=== PATIENT | male | born 1935 | race Caucasian/White ===

== ENCOUNTER 2016-10-12 20:15 | Emergency (ER) | payer OTHER, MEDICARE ==
[~2016-10-12] VITALS: Ht 188 cm; Wt 95.3 kg
--- NOTE | 2016-10-12 20:42 | ED MVC/FALL/TRAUMA COMPLAINT ---
History of Present Illness General Chief Complaint: Fall Stated Complaint: FALL Source: patient Exam Limitations: no limitations Vital Signs & Intake/Output Vital Signs & Intake/Output Vital Signs Date Time Temp Pulse Resp B/P B/P Pulse O2 O2 Flow FiO2 Mean Ox Delivery Rate 10/12 2234 97.0 90 18 127/69 95 Room Air ED Intake and Output 10/13 0000 10/12 1200 Intake Total 0 Output Total Balance 0 Intake, Oral 0 Patient 210 lb Weight Weight Reported by Patient Measurement Method Allergies Uncoded Allergies: (SEASONAL) (11/21/14) Reconcile Medications Allopurinol 300 MG TABLET 1 TAB PO DAILY URIC ACID (Reported) Ascorbic Acid (Vitamin C) (Unknown Strength) TABLET (Unknown Dose) PO DAILY SUPPLEMENT (Reported) Aspirin (Ecotrin*) 81 MG TABLET.DR 1 TAB PO DAILY HEART/BLOOD (Reported) Cholecalciferol (Vitamin D3) (Vitamin D) (Unknown Strength) TABLET (Unknown Dose) PO DAILY SUPPLEMENT (Reported) Melatonin 5 MG TABLET 1 TAB PO QPM SUPPLEMENT (Reported) Nifedipine (Nifedipine ER) 60 MG TAB.ER.24 1 TAB PO DAILY BP (Reported) [place]-3 Fatty Acids/Fish Oil (Fish Oil 1,200 MG Softgel) (Unknown Strength) CAPSULE (Unknown Dose) PO DAILY SUPPLEMENT (Reported) Triamterene/Hydrochlorothiazid (Triamterene-Hctz 37.5-25 MG Cp) 37.5 MG-25 MG CAPSULE 1 CAP PO DAILY DIURETIC (Reported) Valsartan 160 MG TABLET 1 TAB PO DAILY BP (Reported) Triage Note: PT TO ED C/O BRUISE TO HEAD AND RT RIB PAIN WITH PAIN WITH INSPIRATION S/P FALL WHILE STANDING ON A CHAIR 3.5 HRS AGO. DENIES LOC, DENIES BLOOD THINNERS. DENIES HEADACHE. STATES FOOT WAS ON THE EDGE OF THE CHAIR AND THE CHAIR TIPPED OVER. LANDED ON CONCRETE, HANDS HIT FIRST "I BOUNCED" AND THEN HEAD HIT. DENIES NECK PAIN O2 SAT 96% ON RA Triage Nurses Notes Reviewed? yes Onset: Abrupt Duration: hour(s): (FEW) Timing: single episode today Severity: mild Injuries/Fall Location: head, chest Method of Injury: fall Loss of Consciousness: no loss of consciousness Modifying Factors: Worsens With: breathing. HPI: 81 year old male with h/o HTN presents after a fall at 3:30 off of a chair. Patient was trying to fix a mouse trap above a door ledge and lost balance and fell down. He hit his head and right chest wall. He denies passing out. He states he was able to get off the floor on his own. He was icing his head. Patient does take daily aspirin. This evening when his came home he told her about the right-sided chest pain. He denies any headache or blurred vision. Denies any shoulder pain back pain or hip pain. Pain is worse with deep inspiration. Currently he has no chest pain at rest or with inspiration. No fever or chills. No chest pain. He did not have any syncopal symptoms. Past History Travel History Traveled to [place] past 21 day No Medical History Any Pertinent Medical History? see below for history Cardiovascular: hypertension Renal: nephrolithiasis Influenza Vaccine: 02/02/08 Surgical History Surgical History: cholecystectomy Psychosocial History Who do you live with Spouse Services at Home None What is your primary language Romansh Tobacco Use: Quit >30 days ago ETOH Use: denies use Illicit Drug Use: denies illicit drug use Family History Hx Contributory? No Review of Systems Review of Systems Constitutional: Denies: chills, fever. Eyes: Denies: blurred vision. Ears, Nose, Throat, Mouth: Denies: ear pain. Respiratory: Denies: short of breath. Cardiovascular: Reports: chest pain. Gastrointestinal/Abdominal: Denies: abdominal pain, nausea, vomiting. Musculoskeletal: Reports: see HPI (right chest wall pain). Denies: back pain. Skin: Reports: erythema. Neurological/Psychological: Denies: anxiety, ataxia, confusion. Physical Exam Physical Exam General Appearance: well developed/nourished, alert, awake Head: FOREHEAD CONTUSION/ABRASION Eyes: Bilateral: normal appearance. Ears, Nose, Throat, Mouth: hearing grossly normal, moist mucous membrane Neck: normal inspection, supple, full range of motion Respiratory: normal breath sounds, no respiratory distress, RIGHT CHEST WALL CONTUSION Cardiovascular: regular rate/rhythm Peripheral Pulses: 2+ radial (R), 2+ radial (L) Gastrointestinal: normal bowel sounds, soft, non-tender Back: normal inspection, normal range of motion Extremities: normal range of motion, NO PAIN Neurologic/Psych: no motor/sensory deficits, awake, alert, oriented x 3 Skin: intact, normal color, warm/dry Diagram Head: 1) HEMATOMA/ABRASION Core Measures ACS in differential dx? No Severe Sepsis Present: No Septic Shock Present: No Progress Differential Diagnosis: C/T/L spine injury, ext injury, ICH, RIB FX, RIB CONTUSION, PULMONARY CONTUSION Plan of Care: Laboratory Tests 10/12/162126: Urine Color YEL, Urine Clarity CLEAR, Urine pH 6.0, Ur Specific [place] 1.010, Urine Protein NEG, Urine Ketones NEG, Urine Nitrite NEG, Urine Bilirubin NEG, Urine Urobilinogen 0.2, Ur Leukocyte Esterase NEG, Ur Microscopic EXAM NOT REQUIRED, Urine Hemoglobin NEG, Urine Glucose NEG Diagnostic Imaging: Viewed by Me: CT Scan. Discussed w/RAD: CT Scan. Radiology Impression: PATIENT: RODY DUNHAM PRESENT AGE: 81 PATIENT ACCOUNT NO: [id number] : 37 LOCATION: [facility] ORDERING PHYSICIAN: ADDIS MARINA MD SERVICE DATE: 10/12/16 EXAM TYPE: CAT - CT HEAD WO IV CONTRAST EXAMINATION: CT HEAD WITHOUT CONTRAST CLINICAL INFORMATION: Status post fall. COMPARISON: MRI of the brain 12/24/2015. TECHNIQUE: Contiguous axial imaging was performed from the skull base to vertex without intravenous administration of contrast. DLP: 728 mGy-cm FINDINGS: There is no evidence of acute intracranial hemorrhage or territorial infarction. No abnormal mass effect or midline shift is seen. Morales to white matter differentiation is well preserved. No extra-axial fluid collections are identified. There is mild atrophy of the ventricular sulcal pattern is age- appropriate. There is no abnormal attenuation within the brain parenchyma. There is mild soft tissue prominence in the right frontal region without evidence of underlying tracts are suggesting a contusion. The mastoid air cells and visualized portions of the paranasal sinuses are well aerated. IMPRESSION: No acute intracranial pathology. Small probable scalp contusion the right frontal region. DICTATED BY: VEENA STRONG MD DATE/TIME DICTATED:10/12/162209 SPORTS ATTORNEY:JEN DATE/TIME TRANSCRIBED:10/12/162209 CONFIDENTIAL, DO NOT COPY WITHOUT APPROPRIATE AUTHORIZATION. <Electronically signed in Other Vendor System> SIGNED BY: VEENA STRONG MD 10/12/162217, PATIENT: RODY DUNHAM PRESENT AGE: 81 PATIENT ACCOUNT NO: [id number] : 37 LOCATION: ER ORDERING PHYSICIAN: ADDIS MARINA MD SERVICE DATE: 10/12/16 EXAM TYPE: CAT - CT CHEST WO IV CONTRAST EXAMINATION : CT CHEST WITHOUT CONTRAST CLINICAL INFORMATION: Chest wall pain after a fall COMPARISON: None TECHNIQUE: Multidetector volumetric CT imaging of the chest was done. Axial MIP volume rendering provided. Sagittal and coronal reformatted images were obtained. DLP: 505.02 mGy-cm FINDINGS: LUNGS: The lungs are clear with no evidence of inflammation or nodules. MEDIASTINUM: The mediastinum is normal. PLEURA: There is no pleural effusion. No pleural mass or thickening. AXILLA: No lymphadenopathy. UPPER ABDOMEN: Surgical clips at gallbladder fossa. OSSEOUS STRUCTURES: Multilevel degenerative change of dorsal spine with endplate spurs of the vertebrae. No fracture. IMPRESSION: No acute abnormality. No fracture. No acute change of the chest. DICTATED BY: MARKIE GRULLON MD DATE/TIME DICTATED:10/12/162211 SPORTS ATTORNEY:JEN DATE/TIME TRANSCRIBED:2211 CONFIDENTIAL, DO NOT COPY WITHOUT APPROPRIATE AUTHORIZATION. < Electronically signed in Other Vendor System> SIGNED BY: MARKIE GRULLON MD 2219, PATIENT: RODY DUNHAM PRESENT AGE: 81 PATIENT ACCOUNT NO: [id number] : 37 LOCATION: [facility] ORDERING PHYSICIAN: ADDIS MARINA MD SERVICE DATE: 10/12/16 EXAM TYPE: CAT - CT CERV SPINE WO IV CONTRAST EXAMINATION: CT CERVICAL SPINE WITHOUT CONTRAST CLINICAL INFORMATION: Status post fall. COMPARISON: None. TECHNIQUE: Multiple axial CT images of the cervical spine were obtained without intravenous contrast. DLP: 485 mGy-cm FINDINGS: No acute fracture or subluxation of the cervical spine. Prevertebral soft tissues are within normal limits. The atlantoaxial and craniocervical junctions are intact. There is moderate degenerative disc disease and facet arthrosis of the cervical spine. The included bilateral lung apices are clear. SPINAL LEVELS: C2-C3: Bilateral facet arthrosis and uncovertebral hypertrophy contributing to mild left-sided neuroforaminal narrowing. No significant right-sided neuroforaminal narrowing or spinal canal stenosis. C3-C4 : Severe bilateral facet arthrosis and uncovertebral hypertrophy contributing to severe left-sided neuroforaminal narrowing. No significant right-sided neuroforaminal narrowing or spinal canal stenosis. C4-C5: Bilateral facet arthrosis, right greater than left, without significant neuroforaminal narrowing or spinal canal stenosis. C5-C6: Bilateral facet arthrosis, projecting to moderate bilateral neuroforaminal narrowing and mild spinal canal stenosis. C6- C7: Uncovertebral hypertrophy and bilateral facet arthrosis contributing to mild to moderate right-sided neuroforaminal narrowing. Mild left-sided neuroforaminal narrowing. No significant spinal canal stenosis. C7-T1: No significant neuroforaminal narrowing or spinal canal stenosis. IMPRESSION: No acute cervical spine fracture or subluxation. Degenerative changes of the cervical spine, as described above. DICTATED BY: ALMA WU MD DATE/TIME DICTATED:10/12/162211 SPORTS ATTORNEY:JEN DATE/TIME TRANSCRIBED:10/12/162211 CONFIDENTIAL, DO NOT COPY WITHOUT APPROPRIATE AUTHORIZATION. <Electronically signed in Other Vendor System> SIGNED BY: ALMA WU MD 10/12/162220 Initial ED EKG: NSR, ? ECTOPIC ATRIAL RHYTHM Departure Departure Time of Disposition: 2226 Disposition: HOME OR SELF CARE Condition: Stable Clinical Impression Primary Impression: Chest wall contusion Secondary Impressions: Hematoma of frontal scalp Referrals: LASHELL SUBRAMANIAN,ALVARO Vogel (PCP/Family) Additional Instructions: TAKE TYLENOL OR ADVIL NEEDED CONTINUE TO ICE THE FOREHEAD RETURN NEEDED. Departure Forms: Customer Survey General Discharge Information
[2016-10-12 21:16] LABS: ABSOLUTE BASOPHIL COUNT 0 /CUMM (0.0-0.2); ABSOLUTE EOSINOPHIL COUNT 0.4 /CUMM (0.0-0.7); ABSOLUTE GRANULOCYTE CT 7.8 /CUMM (1.4-6.5); ABSOLUTE LYMPH COUNT 2.7 /CUMM (1.2-3.4); ABSOLUTE MONOCYTE COUNT 1.2 /CUMM (0.10-0.60); BASOPHIL % 0.3 % (0.0-2.0); GRANULOCYTE % 64.3 % (42.2-75.2); HEMATOCRIT 45.6 % (42-52); MEAN CORPUSCULAR HGB 31.6 PG (27.0-31.0); MEAN CORPUSCULAR HGB CONC 33.4 G/DL (33.0-37.0); MEAN CORPUSCULAR VOLUME 94.7 FL (80.0-94.0); MEAN PLATELET VOLUME 8.6 FL (7.4-10.4); PLATELET COUNT 278 /CUMM (130-400); RBC DISTRIBUTION WIDTH 14.4 % (11.5-14.5); RED BLOOD CELL CT 4.82 /CUMM (4.70-6.10); WHITE BLOOD CELL COUNT 12.1 /CUMM (4.8-10.8)
[2016-10-12 21:22] LABS: PT 13.8 SEC (9.4-12.5); PTT 38 SEC (25-37)
[2016-10-12] MEDS ORDERED: TRIAMTERENE-HC1 EAC3 PO (21:49)
[2016-10-12] MEDS ORDERED: NIFEDIPINE ER60 M2 PO (21:49)
[2016-10-12] MEDS ORDERED: VALSARTAN160 M1 PO (21:49)
[2016-10-12] MEDS ORDERED: ALLOPURINOL300 M1 PO (21:50)
[2016-10-12] MEDS ORDERED: ASPIRIN EC81 M1 PO (21:50)
[2016-10-12] MEDS ORDERED: VITAMIN C500 M8 PO (21:51)
[2016-10-12] MEDS ORDERED: MELATONIN5 M7 PO (21:51)
[2016-10-12] MEDS ORDERED: VITAMIN D2000 UNI1 PO (21:51)
[2016-10-12] MEDS ORDERED: FISH OIL 1,2001 EAC4 PO (21:51)
--- NOTE | 2016-10-12 22:18 | CT SCAN REPORT ---
EXAMINATION: CT HEAD WITHOUT CONTRAST CLINICAL INFORMATION: Status post fall. COMPARISON: MRI of the brain 12/24/2015. TECHNIQUE: Contiguous axial imaging was performed from the skull base to vertex without intravenous administration of contrast. DLP: 728 mGy-cm FINDINGS: There is no evidence of acute intracranial hemorrhage or territorial infarction. No abnormal mass effect or midline shift is seen. Morales to white matter differentiation is well preserved. No extra-axial fluid collections are identified. There is mild atrophy of the ventricular sulcal pattern is age-appropriate. There is no abnormal attenuation within the brain parenchyma. There is mild soft tissue prominence in the right frontal region without evidence of underlying tracts are suggesting a contusion. The mastoid air cells and visualized portions of the paranasal sinuses are well aerated. IMPRESSION: No acute intracranial pathology. Small probable scalp contusion the right frontal region.
--- NOTE | 2016-10-12 22:20 | CT SCAN REPORT ---
EXAMINATION: CT CHEST WITHOUT CONTRAST CLINICAL INFORMATION: Chest wall pain after a fall COMPARISON: None TECHNIQUE: Multidetector volumetric CT imaging of the chest was done. Axial MIP volume rendering provided. Sagittal and coronal reformatted images were obtained. DLP: 505.02 mGy-cm FINDINGS: LUNGS: The lungs are clear with no evidence of inflammation or nodules. MEDIASTINUM: The mediastinum is normal. PLEURA: There is no pleural effusion. No pleural mass or thickening. AXILLA: No lymphadenopathy. UPPER ABDOMEN: Surgical clips at gallbladder fossa. OSSEOUS STRUCTURES: Multilevel degenerative change of dorsal spine with endplate spurs of the vertebrae. No fracture. IMPRESSION: No acute abnormality. No fracture. No acute change of the chest.
--- NOTE | 2016-10-12 22:21 | CT SCAN REPORT ---
EXAMINATION: CT CERVICAL SPINE WITHOUT CONTRAST CLINICAL INFORMATION: Status post fall. COMPARISON: None. TECHNIQUE: Multiple axial CT images of the cervical spine were obtained without intravenous contrast. DLP: 485 mGy-cm FINDINGS: No acute fracture or subluxation of the cervical spine. Prevertebral soft tissues are within normal limits. The atlantoaxial and craniocervical junctions are intact. There is moderate degenerative disc disease and facet arthrosis of the cervical spine. The included bilateral lung apices are clear. SPINAL LEVELS: C2-C3: Bilateral facet arthrosis and uncovertebral hypertrophy contributing to mild left-sided neuroforaminal narrowing. No significant right-sided neuroforaminal narrowing or spinal canal stenosis. C3-C4: Severe bilateral facet arthrosis and uncovertebral hypertrophy contributing to severe left-sided neuroforaminal narrowing. No significant right-sided neuroforaminal narrowing or spinal canal stenosis. C4-C5: Bilateral facet arthrosis, right greater than left, without significant neuroforaminal narrowing or spinal canal stenosis. C5-C6: Bilateral facet arthrosis, projecting to moderate bilateral neuroforaminal narrowing and mild spinal canal stenosis. C6-C7: Uncovertebral hypertrophy and bilateral facet arthrosis contributing to mild to moderate right-sided neuroforaminal narrowing. Mild left-sided neuroforaminal narrowing. No significant spinal canal stenosis. C7-T1: No significant neuroforaminal narrowing or spinal canal stenosis. IMPRESSION: No acute cervical spine fracture or subluxation. Degenerative changes of the cervical spine, as described above.
[2016-10-12 22:34] VITALS: BP 127/69
== END 2016-10-12 22:37 ==
LOC: ERH 20:15
PROVIDERS: Emergency Medicine
DX: S20.211A Contusion of right front wall of thorax, initial encounter (principal); S00.03XA Contusion of scalp, initial encounter; S00.81XA Abrasion of other part of head, initial encounter; I10 Essential (primary) hypertension; Z87.891 Personal history of nicotine dependence; W17.89XA Other fall from one level to another, initial encounter; Y93.89 Activity, other specified
CPT/HCPCS: 81003; 90471; 90714; 93005; 93010

== ENCOUNTER 2017-05-03 00:13 | Inpatient (IN) | payer OTHER, MEDICARE ==
[~2017-05-03] VITALS: Ht 188 cm; Wt 93.9 kg
[~2017-05-03 00:13] MED LIST: ALLOPURINOL300 M1 PO; ASPIRIN EC81 M1 PO; CENTRUM MEN'S1 EACH PO; FISH OIL 1,2001 EAC4 PO; GOLYTELY SOLU4000 ML PO; MELATONIN5 M7 PO; NIFEDIPINE ER60 M2 PO; TRIAMTERENE-HC1 EAC3 PO; VALSARTAN160 M1 PO; VITAMIN C500 M8 PO; VITAMIN D31000 UNI2 PO
--- NOTE | 2017-05-03 00:25 | ED AMS/SEIZURE/WEAK/DIZZY ---
History of Present Illness General Chief Complaint: Altered Mental Status Stated Complaint: ALTERED MENTAL STATUS, ? MED REACTION Source: patient, family, EMS Exam Limitations: no limitations Vital Signs & Intake/Output Vital Signs & Intake/Output Vital Signs Date Time Temp Pulse Resp B/P B/P Pulse O2 O2 Flow FiO2 Mean Ox Delivery Rate 05/03 0121 97.7 70 20 121/78 96 Room Air Allergies Coded Allergies: No Known Allergies (05/03/17) Reconcile Medications Allopurinol 300 MG TABLET 1 TAB PO DAILY URIC ACID (Reported) Ascorbic Acid (Vitamin C) 500 MG TABLET 1 TAB PO DAILY SUPPLEMENT (Reported) Aspirin (Ecotrin*) 81 MG TABLET.DR 1 TAB PO DAILY HEART/BLOOD (Reported) Cholecalciferol (Vitamin D3) 1,000 UNIT TABLET 1 TAB PO DAILY VITAMIN SUPPORT (Reported) Multivits,Ca,Min/Iron/FA/Lycop (Centrum Men's Tablet) 8 MG IRON-200 MCG-600 MCG TABLET 1 TAB PO DAILY VITAMIN SUPPORT (Reported) Nifedipine (Nifedipine ER) 60 MG TAB.ER.24 1 TAB PO DAILY BP (Reported) [place]-3 Fatty Acids/Fish Oil (Fish Oil 1,200 MG Softgel) 360 MG-1,200 MG CAPSULE 1 CAP PO DAILY SUPPLEMENT (Reported) Peg 3350/Na Sulf,Bicarb,Cl/KCl (Golytely Solution) 236-22.74G SOLN.RECON 8 OZ PO AD CONSTIPATION Triamterene/Hydrochlorothiazid (Triamterene-Hctz 37.5-25 MG Cp) 37.5 MG-25 MG CAPSULE 1 CAP PO DAILY DIURETIC (Reported) Valsartan 160 MG TABLET 1 TAB PO DAILY BP (Reported) Triage Note: TRIAGE: BIBA FROM HOME W/ , PER , PATIENT HX DEMENTIA W/ INCREASED CONFUSION AND AGITATION AT NIGHT. RECENTLY PLACED ON LORAZEPAM TID W/O RELIEF. REPORTS "HE PACES AROUND AND GETS VERY AGITATED AT NIGHT." PATIENT BEING EVALUATED BY MD HENDERSON IN TRIAGE. Triage Nurses Notes Reviewed? yes Onset: Gradual Duration: day(s):, getting worse Timing: recent history Injury Environment: home Severity: moderate Modifying Factors: Worsens With: medication. Associated Symptoms: increased confusion, agitation HPI: 81 yo gentleman h/o primary progressive aphasia and dementia, presents with increased agitation, confusion, and hallucinations. Per his , she reports, "He has had trouble at night... he gets up... he sees things that aren't there... he becomes more confused, more agitated.... His doctor started lorazepam 3 days ago.... and now it seems to be worse." She notes increased agitation and confusion tonight, no trauma, fever, dyspnea, syncope, chest pain. He is otherwise well. Past History Travel History Traveled to [place] past 21 day No Medical History Any Pertinent Medical History? see below for history Neurological: dementia, primary progressive aphasia EENT: NONE Cardiovascular: hypertension Respiratory: NONE Gastrointestinal: NONE Hepatic: NONE Renal: nephrolithiasis Musculoskeletal: gout Psychiatric: NONE Endocrine: NONE Blood Disorders: NONE Cancer(s): SKIN CA PRODUCT DEVELOPMENT ECOLOGIST/Reproductive: NONE Tetanus Vaccine: 10/12/16 Surgical History Surgical History: cholecystectomy Psychosocial History Who do you live with Spouse Services at Home None What is your primary language Frisian Tobacco Use: Cognitive Impairment Family History Hx Contributory? No Review of Systems Review of Systems Constitutional: Reports: no symptoms. EENTM: Reports: no symptoms. Respiratory: Reports: no symptoms. Cardiovascular: Reports: no symptoms. GI: Reports: no symptoms. Genitourinary: Reports: no symptoms. Musculoskeletal: Reports: no symptoms. Skin: Reports: no symptoms. Neurological/Psychological: Reports: no symptoms. Hematologic/Endocrine: Reports: no symptoms. Immunologic/Allergic: Reports: no symptoms. All Other Systems: Reviewed and Negative Physical Exam Physical Exam General Appearance: well developed/nourished, no apparent distress Head: atraumatic, normal appearance Eyes: Bilateral: normal appearance, PERRL, EOMI. Ears, Nose, Throat: normal pharynx, normal ENT inspection Neck: normal inspection, supple, full range of motion Respiratory: normal breath sounds, chest non-tender, no respiratory distress, quiet respiration, lungs clear Cardiovascular: regular rate/rhythm Gastrointestinal: normal bowel sounds, soft, non-tender, no organomegaly Back: normal inspection, normal range of motion Extremities: normal range of motion Neurologic/Psych: no motor/sensory deficits, awake, alert, axox1... does not know name/date Skin: intact, normal color Core Measures ACS in differential dx? No CVA/TIA Diagnosis No Sepsis Present: No Sepsis Focused Exam Completed? No Progress Differential Diagnosis: electrolyte imbalance, hypoglycemia, intracranial Hem., intracranial mass/tumor, sundowning, dementia vs other. Plan of Care: Orders Procedure Date/time Status Heart Healthy Diet 05/03 B Active Patient Data 05/03 340 Active Saline Lock 05/03 323 Active Misc Message 05/03 323 Active ED Holding Orders 05/03 323 Active Admit to inpatient 05/03 323 Active Vital Signs 05/03 323 Active Code Status 05/03 323 Active Add-on Test (ER Only) 05/03 312 Active PT Evaluate & Treat 05/03 242 Active ED CRISIS PSYCH CONSULT 05/03 242 Active CASE MANAGEMENT CONSULT 05/03 242 Active URINE DRUGS OF ABUSE 05/03 216 Complete EKG 05/03 214 Active URINALYSIS 05/03 31 Complete TROPONIN LEVEL 05/03 31 Complete LIPASE 05/03 31 Complete HEPATIC FUNCTION PANEL 05/03 31 Complete CBC WITHOUT DIFFERENTIAL 05/03 31 Complete BASIC METABOLIC PANEL 05/03 31 Complete AMYLASE 05/03 31 Complete EKG 05/03 31 Active Straight Cath 05/03 0026 Active Laboratory Tests 05/03/17 0217: Urine Opiates Screen < 100.00, Methadone Screen < 40, Barbiturate Screen < 60, Ur Phencyclidine Scrn < 6.00, Amphetamines Screen < 100, U Benzodiazepines Scrn < 85, Urine Cocaine Screen < 50, Urine Cannabis Screen < 5.00, Urine Color YEL, Urine Clarity HAZY H, Urine pH 6.0, Ur Specific [place] 1.015, Urine Protein NEG, Urine Ketones NEG, Urine Nitrite NEG, Urine Bilirubin NEG, Urine Urobilinogen 0.2, Ur Leukocyte Esterase SMALL H, Ur Microscopic SEDIMENT EXAMINED, Urine RBC 1-3, Urine WBC 5-10 H, Ur Epithelial Cells RARE, Urine Bacteria RARE H, Urine Hemoglobin NEG, Urine Glucose NEG 05/03/17 0130: Anion Gap 13, Estimated GFR > 60, BUN/Creatinine Ratio 23.8, Glucose 129 H, Calcium 8.6, Total Bilirubin 0.3, Direct Bilirubin 0.2, AST 30, ALT 44, Alkaline Phosphatase 67, Troponin I < 0.01, Total Protein 6.1 L, Albumin 3.7, Amylase 49 , Lipase 215, CBC w Diff NO MAN DIFF REQ, RBC 4.31 L, MCV 93.8, MCH 31.5 H, RDW 13.7, MPV 7.8, Gran % 67.8, Lymphocytes % 20.0 L, Monocytes % 8.8, Eosinophils % 3.1, Basophils % 0.3, Absolute Granulocytes 8.2 H, Absolute Lymphocytes 2.4, Absolute Monocytes 1.1 H, Absolute Eosinophils 0.4, Absolute Basophils 0, PUBS MCHC 33.6 Diagnostic Imaging: Viewed by Me: Radiology Read, CT Scan. Discussed w/RAD: Radiology Read, CT Scan. Radiology Impression: PATIENT: RODY DUNHAM PRESENT AGE: 81 PATIENT ACCOUNT NO: [id number] : 37 LOCATION: [facility] ORDERING PHYSICIAN: Leonides Henderson MD SERVICE DATE: 05/03/17 EXAM TYPE: CAT - CT HEAD WO IV CONTRAST EXAMINATION: CT HEAD WITHOUT CONTRAST CLINICAL INFORMATION: Mental status change COMPARISON: 10/12/2016 TECHNIQUE: Contiguous axial imaging was performed from the skull base to vertex without intravenous contrast. DLP: 758 mGy-cm. FINDINGS: There is no evidence of acute intracranial hemorrhage or territorial infarction. No abnormal mass effect or midline shift is seen. Morales to white matter differentiation is well preserved. No extra-axial fluid collections are identified. No hydrocephalus. Proportional prominence of the ventricles and sulcal spaces is consistent with mild volume loss. There is no abnormal attenuation within the brain parenchyma. The osseous structures and soft tissues are normal. The mastoid air cells and visualized portions of the paranasal sinuses are well aerated. IMPRESSION: No acute intracranial pathology. Mild cerebral volume loss. DICTATED BY: Raffi Beltre MD DATE/TIME DICTATED:05/03/17123 NATIONAL SERVICE OFFICER:JEN DATE/TIME TRANSCRIBED:05/03/17123 CONFIDENTIAL, DO NOT COPY WITHOUT APPROPRIATE AUTHORIZATION. <Electronically signed in Other Vendor System> SIGNED BY: Raffi Beltre MD 05/03/170 CXR Impression: no acute abnormality, no infiltrates, normal size heart, normal mediastinum, PATIENT: RODY DUNHAM PRESENT AGE: 81 PATIENT ACCOUNT NO: [id number] : 37 LOCATION: [facility] ORDERING PHYSICIAN: Leonides Henderson MD SERVICE DATE: 05/03/17 EXAM TYPE: RAD - XRY- PORTABLE CHEST XRAY EXAMINATION: XR PORTABLE CHEST CLINICAL INFORMATION: Atrial fibrillation. Palpitations. COMPARISON: Multiple priors, most recently CT from . TECHNIQUE: Portable frontal view of the chest was obtained. FINDINGS: The lungs are well expanded. There is no focal consolidation, edema, or effusion. No pneumothorax. The cardiomediastinal silhouette is normal in size with a tortuous aorta. No acute osseous abnormality. IMPRESSION: No acute pulmonary findings. DICTATED BY: Raffi Beltre MD DATE/TIME DICTATED:349 NATIONAL SERVICE OFFICER:JEN DATE/TIME TRANSCRIBED:05/03/17349 CONFIDENTIAL, DO NOT COPY WITHOUT APPROPRIATE AUTHORIZATION. <Electronically signed in Other Vendor System> SIGNED BY: Raffi Beltre MD 05/03/17354 Initial ED EKG: atrial fibrillation x 2 Departure Departure Disposition: STILL A PATIENT Condition: Stable Clinical Impression Primary Impression: Dementia Secondary Impressions: Agitation, Atrial fibrillation Referrals: Lorena SUBRAMANIAN,Fritz Vogel (PCP/Family) Departure Forms: Customer Survey General Discharge Information Admission Note Spoke With: Jose SUBRAMANIAN,[facility] Documentation of Exam: Documentation of any treatments & extenuating circumstances including Concerns Regarding Discharge (functional status, medication knowledge or non-compliance, living conditions, etc.) that warrant an admission rather than observation: Pt with new onset atrial fibrillation who merits monitoring. pt is rate controlled... discussed with dr. cruz who will evaluate patient in the AM to determine if pt needs anticoagulation vs cardioversion, etc. pt also with sundowning, with agitated dementia, getting worse... would merit psychiatric evaluation, medication optimization.
--- NOTE | 2017-05-03 01:30 | CT SCAN REPORT ---
EXAMINATION: CT HEAD WITHOUT CONTRAST CLINICAL INFORMATION: Mental status change COMPARISON: 10/12/2016 TECHNIQUE: Contiguous axial imaging was performed from the skull base to vertex without intravenous contrast. DLP: 758 mGy-cm. FINDINGS: There is no evidence of acute intracranial hemorrhage or territorial infarction. No abnormal mass effect or midline shift is seen. Morales to white matter differentiation is well preserved. No extra-axial fluid collections are identified. No hydrocephalus. Proportional prominence of the ventricles and sulcal spaces is consistent with mild volume loss. There is no abnormal attenuation within the brain parenchyma. The osseous structures and soft tissues are normal. The mastoid air cells and visualized portions of the paranasal sinuses are well aerated. IMPRESSION: No acute intracranial pathology. Mild cerebral volume loss.
[2017-05-03 01:45] LABS: ABSOLUTE BASOPHIL COUNT 0 /CUMM (0.0-0.2); ABSOLUTE EOSINOPHIL COUNT 0.4 /CUMM (0.0-0.7); ABSOLUTE GRANULOCYTE CT 8.2 /CUMM (1.4-6.5); ABSOLUTE LYMPH COUNT 2.4 /CUMM (1.2-3.4); ABSOLUTE MONOCYTE COUNT 1.1 /CUMM (0.10-0.60); BASOPHIL % 0.3 % (0.0-2.0); EOSINOPHIL % 3.1 % (0-5); GRANULOCYTE % 67.8 % (42.2-75.2); HEMATOCRIT 40.4 % (42-52); MEAN CORPUSCULAR HGB 31.5 PG (27.0-31.0); MEAN CORPUSCULAR HGB CONC 33.6 G/DL (33.0-37.0); MEAN CORPUSCULAR VOLUME 93.8 FL (80.0-94.0); MEAN PLATELET VOLUME 7.8 FL (7.4-10.4); PLATELET COUNT 351 /CUMM (130-400); RBC DISTRIBUTION WIDTH 13.7 % (11.5-14.5); RED BLOOD CELL CT 4.31 /CUMM (4.70-6.10); WHITE BLOOD CELL COUNT 12.1 /CUMM (4.8-10.8)
--- NOTE | 2017-05-03 03:55 | RADIOLOGY REPORT ---
EXAMINATION: XR PORTABLE CHEST CLINICAL INFORMATION: Atrial fibrillation. Palpitations. COMPARISON: Multiple priors, most recently CT from 10/12/2016. TECHNIQUE: Portable frontal view of the chest was obtained. FINDINGS: The lungs are well expanded. There is no focal consolidation, edema, or effusion. No pneumothorax. The cardiomediastinal silhouette is normal in size with a tortuous aorta. No acute osseous abnormality. IMPRESSION: No acute pulmonary findings.
--- NOTE | 2017-05-03 04:34 | History & Physical ---
Ariel Cerna MD 05/03/17 0433: General Information and HPI MD Statement: I have seen and personally examined CHARLARODY Aaron NICHOLS and documented this H&P. The patient is a 81 year old M who presented with a patient stated chief complaint of [hallucinations, agitation]. Source of Information: family Exam Limitations: confusion, dementia History of Present Illness: Patient is a 81-year-old male with past medical history of primary progressive aphasia, dementia with recent MRI done in January and February 2017 seen by cyndi Gomez presenting this admission with his due to agitation and hallucinations. Patient has dementia and is unable to provide history. Patient's was present at the time of interview and history was obtained from her periods she states that over the past week patient has been having a cold and has had a productive cough with white phlegm that started approximately 1 week prior to this admission. States patient was evaluated by his primary care physician who placed him on antibiotics (patient was given Bactrim as states that he has received Z-Zack in the past and has never worked for him), cough syrup, Mucinex. States that after he started the medications he was not sleeping and was becoming more agitated. After one day on the antibiotics patient showed some improvement temporarily however after which he continued to deteriorate and started having hallucinations. Patient's medications were stopped and patient was given lorazepam after which he started to pace around the house, started having visual hallucinations of people in the house and per was disoriented to place as he continuously would get out of bed and get dressed to go home spied already being at home. Patient's states that for approximately 2 days while on the antibiotics he had a had a poor appetite. States otherwise he has been eating well. Patient's states that in addition to the above he has also had trouble initiating stream, has had dribbling which patient's says is new. States he has denied any complaints of pain including abdominal pain, chest pain and pain on urination. Denies nausea/vomiting and fever. States patient is normally constipated however had 1 loose watery bowel movement one day prior to admission and has noted some mucus discharged on his underwear. Denies seeing any hematuria or bright red blood in stool. Patient's states that she has not slept in the past 3 days due to the patient's symptoms. States that his primary care has started paperwork for a visiting nurse. States she is currently his sole cutting pressman. States she is concerned about leaving him alone at home. Allergies/Medications Allergies: Coded Allergies: No Known Allergies (05/03/17) Home Med list Allopurinol 300 MG TABLET 1 TAB PO DAILY URIC ACID (Reported) Ascorbic Acid (Vitamin C) 500 MG TABLET 1 TAB PO DAILY SUPPLEMENT (Reported) Aspirin (Ecotrin*) 81 MG TABLET.DR 1 TAB PO DAILY HEART/BLOOD (Reported) Cholecalciferol (Vitamin D3) 1,000 UNIT TABLET 1 TAB PO DAILY VITAMIN SUPPORT (Reported) Multivits,Ca,Min/Iron/FA/Lycop (Centrum Men's Tablet) 8 MG IRON-200 MCG-600 MCG TABLET 1 TAB PO DAILY VITAMIN SUPPORT (Reported) Nifedipine (Nifedipine ER) 60 MG TAB.ER.24 1 TAB PO DAILY BP (Reported) [place]-3 Fatty Acids/Fish Oil (Fish Oil 1,200 MG Softgel) 360 MG-1,200 MG CAPSULE 1 CAP PO DAILY SUPPLEMENT (Reported) Peg 3350/Na Sulf,Bicarb,Cl/KCl (Golytely Solution) 236-22.74G SOLN.RECON 8 OZ PO AD CONSTIPATION Triamterene/Hydrochlorothiazid (Triamterene-Hctz 37.5-25 MG Cp) 37.5 MG-25 MG CAPSULE 1 CAP PO DAILY DIURETIC (Reported) Valsartan 160 MG TABLET 1 TAB PO DAILY BP (Reported) Past History Travel History Traveled to [place] past 21 day No Medical History Neurological: dementia, primary progressive aphasia EENT: NONE Cardiovascular: hypertension Respiratory: NONE Gastrointestinal: NONE Hepatic: NONE Renal: nephrolithiasis Musculoskeletal: gout Psychiatric: NONE Endocrine: NONE Blood Disorders: NONE Cancer(s): SKIN CA LIBRARY SUPERVISOR/Reproductive: NONE Tetanus Vaccine: 10/12/16 Surgical History Surgical History: cholecystectomy Past Family/Social History Psychosocial History Services at Home: None Review of Systems Review of Systems Constitutional: Reports: no symptoms. Cardiovascular: Reports: no symptoms. Respiratory: Reports: cough. GI: Reports: see HPI. Genitourinary: Reports: see HPI. Musculoskeletal: Reports: no symptoms. Skin: Reports: no symptoms. Neurological/Psychological: Reports: see HPI, confusion. Hematologic/Endocrine: Reports: no symptoms. Immunologic/Allergic: Reports: no symptoms. Exam & Diagnostic Data Last 24 Hrs of Vital Signs/I&O Vital Signs Date Time Temp Pulse Resp B/P B/P Pulse O2 O2 Flow FiO2 Mean Ox Delivery Rate 05/03 1002 97.6 84 18 134/84 98 Room Air 05/03 1000 97.6 84 18 134/84 05/03 1000 97.6 84 18 134/84 05/03 0930 97.6 84 20 131/84 98 Room Air 05/03 0715 97.0 74 20 134/86 97 Room Air 05/03 0555 97.6 78 20 167/85 95 Room Air 05/03 0121 97.7 70 20 121/78 96 Room Air Intake & Output 05/03 1600 05/03 0800 05/03 0000 Intake Total Output Total Balance Patient 207 lb Weight Physical Exam General Appearance Alert, No Acute Distress, is constantly getting up from bed and walking around the room, trying to leave, however is able to follow commands and is not combative Skin Temp/Moisture Exam: Warm/Dry HEENT Atraumatic, PERRLA, EOMI Cardiovascular Regular Rate, Normal S1, Normal S2 Lungs Clear to Auscultation, Normal Air Movement Abdomen Normal Bowel Sounds, Soft, No Tenderness Neurological Normal Gait, Strength at 5/5 X4 Ext, Normal Tone, Cranial Nerves 3- 12 NL Extremities No Clubbing, No Cyanosis, No Edema, Normal Pulses, No Tenderness/ Swelling Vascular Normal Pulses, Pulses Symmetrical Last 24 Hrs of Labs/Efren: Laboratory Tests 05/03/17 0217: Urine Opiates Screen < 100.00, Methadone Screen < 40, Barbiturate Screen < 60, Ur Phencyclidine Scrn < 6.00, Amphetamines Screen < 100, U Benzodiazepines Scrn < 85, Urine Cocaine Screen < 50, Urine Cannabis Screen < 5.00, Urine Color YEL, Urine Clarity HAZY H, Urine pH 6.0, Ur Specific [place] 1.015, Urine Protein NEG, Urine Ketones NEG, Urine Nitrite NEG, Urine Bilirubin NEG, Urine Urobilinogen 0.2, Ur Leukocyte Esterase SMALL H, Ur Microscopic SEDIMENT EXAMINED, Urine RBC 1-3, Urine WBC 5-10 H, Ur Epithelial Cells RARE, Urine Bacteria RARE H, Urine Hemoglobin NEG, Urine Glucose NEG 05/03/17 0130: Anion Gap 13, Estimated GFR > 60, BUN/Creatinine Ratio 23.8, Glucose 129 H, Calcium 8.6, Total Bilirubin 0.3, Direct Bilirubin 0.2, AST 30, ALT 44, Alkaline Phosphatase 67, Troponin I < 0.01, Total Protein 6.1 L, Albumin 3.7, Amylase 49 , Lipase 215, TSH 0.784, Free T4 1.53, CBC w Diff NO MAN DIFF REQ, RBC 4.31 L, MCV 93.8, MCH 31.5 H, RDW 13.7, MPV 7.8, Gran % 67.8, Lymphocytes % 20.0 L, Monocytes % 8.8, Eosinophils % 3.1, Basophils % 0.3, Absolute Granulocytes 8.2 H, Absolute Lymphocytes 2.4, Absolute Monocytes 1.1 H, Absolute Eosinophils 0.4 , Absolute Basophils 0, PUBS MCHC 33.6 Assessment/Plan Assessment: Patient is a 81-year-old male with past medical history significant for primary progressive aphasia and dementia presenting this admission with increased agitation likely secondary to recent upper respiratory infection and use of benzos as well as EKG showing questionable new onset of atrial fibrillation. Patient will be admitted to telemetry for management of followin. EKG showing ?Atrial fibrillation Monitor on telemetry for arrhythmia Serial EKG and troponins to rule out ACS Echo in the a.m. TSH and free T4 Cardiology consult Anticoagulation pending cardiology evaluation Continue aspirin 2. Acute delirium in the setting of primary progressive aphasia, dementia with recent upper respiratory infection and use of benzodiazepine Neurology consult in the a.m. with Dr. Bianchi Psychiatry consult in the a.m. Avoid any sedating medications and restraints One-to-one sitter [facility] Social work consult for placement 3. History of hypertension Continue nifedipine, valsartan, triamterene/hydrochlorothiazide 4. History of gout Continue allopurinol DVT prophylaxis: Lovenox subcutaneous Diet:Heart healthy Code: DNR/DN As Ranked By This Provider Problem List: 1. Dementia 2. Cardiac arrhythmia, unspecified Core Measures/Misc (01/03) Acute Coronary Syndrome ACS Diagnosis: No Congestive Heart Failure Congestive Heart Failure Diagnosis No Cerebrovascular Accident CVA/TIA Diagnosis: No VTE (View Protocol) VTE Risk Factors Age>40 No Mechanical VTE Prophylaxis d/t N/A MechProphylax Ordered No VTE Pharm Prophylaxis d/t NA PharmProphylax ordered Sepsis (View protocol) Sepsis Present: No Jose SUBRAMANIAN, [facility] 05/03/17 0728: Attending MD Review Statement Attending Statement Attending MD Statement: examined this patient, discuss w/resident/PA/[employer]TER [employer] TURNER, agreed w/resident/PA/FITTER AND TURNER, discussed with family, reviewed images, amended to note Attending Assessment/Plan: 81 yo M with h/o HTN, primary progressive aphasia with dementia, nephrolithiasis , is brought in by for agitation, confusion and hallucinations. Patient's provides history. At baseline, patient does have confusion and is not oriented most of the times with intermittent hallucinations. Over the past 1 week, patient was having URI symptoms and was prescribed Bactrim by his PCP (Apr 26). However, patient used to stay up all night, pacing, agitated so PCP then prescribed Ativan which reports giving 3 days ago. states, this made things worse, he seems more agitated, confused, with visual hallucinations and constant pacing. has been staying up all night due to this and it has started to affect her health as well. Patient has seen Dr. Bianchi in the past. VSS. Limited exam as patient not co-operative. Labs: WBC 12.1, K 3.2, trop neg. UA hazy, small LE, WBC 5-10. Urine tox screen negative. Head CT: no acute change. CXR: neg. EKG: documented atrial fibrillation, however there are discernible 'p'waves and the RR interval seems irregular ?sinus arrhythmia. Pulse is regular. Assessment and plan: 1. Acute delirium worsened in the setting of ativan 2. Dementia, Primary progressive aphasia 3. ?New onset atrial fibrillation 4. Essential hypertension - Admit to telemetry - Fall precautions - Monitor for arrhythmias - Serial EKG and troponin to rule out ACS - Obtain echocardiogram - Cardio consult - Check TSH, free T4, B12, folic acid. - Replete electrolytes, check magnesium level - No need for rate controlling meds as HR is in 70-80's - Hold off anticoagulation as it is unclear if this is clearly Afib - Also, patient is demented, elderly, high risk of falls and would not be an ideal candidate for AC - Avoid delirium triggers no benzos or narcotics - No evidence of infection/ sepsis, leukocytosis is likely reactive - Obtain Psych consult, would benefit from geriatric consult - Obtain Neuro consult - Maintain 1:1 sitter - Case management consult and eventual placement - Resume nifedipine, valsartan, triamterene-HCTZ, allopurinol and aspirin. - Consider seroquel or rozarem for insomnia DVT ppx Lovenox. DNR/I. CarlosvaneOctaviano warren 05/03/17 0904: Resident Review Statement Resident Statement: examined this patient, discussed with international editorial producer, agreed with international editorial producer, discussed with family, reviewed EMR data (avail), discussed with nursing , discussed with case mgmt, reviewed images, amended to note Other Findings: 81-year-old gentleman with past medical history of hypertension, advanced primary progressive aphasia, hyperuricemia/gout and 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 History was obtained from the who presented at his side. Patient was recently treated for upper respiratory tract infection with Bactrim. According to patient at his baseline has intermittent hallucination. Recently he was started on lorazepam by his primary care physician for agitation. Unfortunately no medication worsened his baseline hallucination, agitation and insomnia and he was brought into the emergency room for further assessment. In ED patient was found to be in atrial fibrillation with rate control. VSS. ROS: Denies chest pain, palpitation, lightheadedness, dizziness. PH/EX: Not in acute distress. Heart: S1-S2, regular no murmur. Lungs are clear. Extremities: No edema. Pertinent data: Chest x-ray: No pathology CBC and BEP within normal limits; EKG: Of his P waves in multiple leads, ?? irregularities in RR interval. List of active problems #1 questionable atrial fibrillation; new onset #2 hypertension #3 hyperuricemia/gout and recurrence uric acid nephrolithiasis #4 advanced dementia and agitation due to inappropriate use of benzodiazepine Plan * Admit to telemetry for continuous monitoring * Fall precaution * Trending troponin and EKG rule out ACS * Echo in the a.m. * TSH and free T4 * Continue his home antihypertensive medication * Hold off anticoagulation awaiting cardiology consult * Obtain geriatric/psych consult in the a.m. * Rozeram on 12.5 mg at bedtime * Avoid hypnotics and narcotics and restrained * One-on-one sitter Housekeeping orders Lovenox 40 units subcutaneous daily DNR/DNI
--- NOTE | 2017-05-03 07:30 | Admission Certification ---
Admission Certification Certification Statement - As attending physician, I certify that at the time of - admission, based on clinical presentation, severity of - symptoms, need for further diagnostic testing and - therapeutic interventions, and risk of adverse outcomes - without in-hospital treatment, in my clinical assessment, - this patient requires an acute hospital stay for a minimum - of two nights or longer. I have also considered psychsocial - factors such as support system, advanced age, financial - issues, cognitive issues, and failed out-patient treatments, - past re-admission history, safety of patient, and lack of - compliance as applicable. Specific rationale supporting this admission is: Acute delirium in this patient with primary progressive aphasia and dementia, ? new onset atrial fibrillation.
[2017-05-03 09:30] VITALS: BP 131/84
--- NOTE | 2017-05-03 11:38 | PN- Att Addend ---
Attending Addendum Attending Brief Note Patient seen and examined. Patient in bed, not in acute distress. present at the bedside. Patient is confused at baseline and unable to provide any reasonable history. He however denies shortness of breath or chest pain. Vital Signs Date Time Temp Pulse Resp B/P B/P Pulse O2 O2 Flow FiO2 Mean Ox Delivery Rate 05/03 1002 97.6 84 18 134/84 98 Room Air 05/03 1000 97.6 84 18 134/84 05/03 1000 97.6 84 18 134/84 05/03 0930 97.6 84 20 131/84 98 Room Air 05/03 0715 97.0 74 20 134/86 97 Room Air 05/03 0555 97.6 78 20 167/85 95 Room Air 05/03 0121 97.7 70 20 121/78 96 Room Air General appearance: Well-developed, not in respiratory distress Heart: S1-S2 irregular Lungs: Good entry bilaterally, clear to auscultation. abdomen: Soft, nontender with normal bowel sounds. extremities: No pedal edema. Skin: Intact with no rashes. Laboratory Tests 05/03/17 0800: Troponin I < 0.01 05/03/17 0217: Urine Opiates Screen < 100.00, Methadone Screen < 40, Barbiturate Screen < 60, Ur Phencyclidine Scrn < 6.00, Amphetamines Screen < 100, U Benzodiazepines Scrn < 85, Urine Cocaine Screen < 50, Urine Cannabis Screen < 5.00, Urine Color YEL, Urine Clarity HAZY H, Urine pH 6.0, Ur Specific [place] 1.015, Urine Protein NEG, Urine Ketones NEG, Urine Nitrite NEG, Urine Bilirubin NEG, Urine Urobilinogen 0.2, Ur Leukocyte Esterase SMALL H, Ur Microscopic SEDIMENT EXAMINED, Urine RBC 1-3, Urine WBC 5-10 H, Ur Epithelial Cells RARE, Urine Bacteria RARE H, Urine Hemoglobin NEG, Urine Glucose NEG 05/03/17 0130: Anion Gap 13, Estimated GFR > 60, BUN/Creatinine Ratio 23.8, Glucose 129 H, Calcium 8.6, Total Bilirubin 0.3, Direct Bilirubin 0.2, AST 30, ALT 44, Alkaline Phosphatase 67, Troponin I < 0.01, Total Protein 6.1 L, Albumin 3.7, Amylase 49 , Lipase 215, TSH 0.784, Free T4 1.53, CBC w Diff NO MAN DIFF REQ, RBC 4.31 L, MCV 93.8, MCH 31.5 H, RDW 13.7, MPV 7.8, Gran % 67.8, Lymphocytes % 20.0 L, Monocytes % 8.8, Eosinophils % 3.1, Basophils % 0.3, Absolute Granulocytes 8.2 H, Absolute Lymphocytes 2.4, Absolute Monocytes 1.1 H, Absolute Eosinophils 0.4 , Absolute Basophils 0, PUBS MCHC 33.6 Problems: 1. Abnormal EKG 2. Dementia with prmary pogresive aphasia. Plan: -Awaiting evaluation by the cardiology service. Continue telemetry monitoring. Follow-up echocardiogram results. -Patient is much, at present however states that she is unable to keep that to him any longer at home due to his dementia. Recommend evaluation by the psychiatric service. He will likely benefit from placement in geriatric psychiatry unit until he is deemed more appropriate for discharge home. -Supplemental potassium orally. Repeat chemistry in a.m. -Leukocytosis likely reactive. No clinical evidence of infectious process at present. Repeat CBCs in a.m.
--- NOTE | 2017-05-03 13:05 | Cons- Cardiology ---
General Information and HPI Consulting Request Date of Consult: 05/03/17 Requested By: Clarisa Cerna MD Reason for Consult: Atrial fibrillation History of Present Illness: The patient is a 81-year-old male with history of dementia and aphasia who was brought to the emergency department by his for agitation, insomnia, and hallucinations. The symptoms have been worsening over months, and have gradually progressed to the point that she is unable to manage at home. The patient had a recent upper respiratory infection which was treated with Bactrim. He was started a few days ago on lorazepam for his agitation. His symptoms continued to worsen, and he has not been able to function at home. On evaluation in the emergency department, the patient was found to be in atrial fibrillation which is a new finding for him. He previously had an EKG across ma 4 months ago, and he was not reported to be in atrial fibrillation at that time. The patient has had no cardiac symptoms. No palpitations. No chest pain. No syncope. No orthopnea. No lightheadedness or dizziness. No nausea or vomiting. The patient continues to be confused, and in most of the history was obtained from his . The patient's notes that he has been ambulating less recently. He has not had frequent falls. No head trauma. Allergies/Medications Allergies: Coded Allergies: No Known Allergies (05/03/17) Home Med List: Allopurinol 300 MG TABLET 1 TAB PO DAILY URIC ACID (Reported) Ascorbic Acid (Vitamin C) 500 MG TABLET 1 TAB PO DAILY SUPPLEMENT (Reported) Aspirin (Ecotrin*) 81 MG TABLET.DR 1 TAB PO DAILY HEART/BLOOD (Reported) Cholecalciferol (Vitamin D3) 1,000 UNIT TABLET 1 TAB PO DAILY VITAMIN SUPPORT (Reported) Multivits,Ca,Min/Iron/FA/Lycop (Centrum Men's Tablet) 8 MG IRON-200 MCG-600 MCG TABLET 1 TAB PO DAILY VITAMIN SUPPORT (Reported) Nifedipine (Nifedipine ER) 60 MG TAB.ER.24 1 TAB PO DAILY BP (Reported) [place]-3 Fatty Acids/Fish Oil (Fish Oil 1,200 MG Softgel) 360 MG-1,200 MG CAPSULE 1 CAP PO DAILY SUPPLEMENT (Reported) Peg 3350/Na Sulf,Bicarb,Cl/KCl (Golytely Solution) 236-22.74G SOLN.RECON 8 OZ PO AD CONSTIPATION Triamterene/Hydrochlorothiazid (Triamterene-Hctz 37.5-25 MG Cp) 37.5 MG-25 MG CAPSULE 1 CAP PO DAILY DIURETIC (Reported) Valsartan 160 MG TABLET 1 TAB PO DAILY BP (Reported) Current Medications: Current Medications Sig/Sandra Start time Last Medication Dose Route Stop Time Status Admin Allopurinol 300 MG DAILY 05/03 1000 AC 05/03 PO 1000 Aspirin Buffered 81 MG DAILY 05/03 1000 AC 05/03 PO 1000 Cholecalciferol 1,000 IU DAILY 05/03 1000 AC 05/03 PO 1000 Enoxaparin Sodium 40 MG DAILY 05/03 1000 AC 05/03 SC 1000 Losartan Potassium 50 MG DAILY 05/03 1000 AC 05/03 PO 1000 Multivitamins 1 TAB DAILY 05/03 1000 AC 05/03 PO 1000 Nifedipine 60 MG DAILY 05/03 1000 AC 05/03 PO 1000 Quetiapine Fumarate 25 MG ONCE ONE 05/03 0045 DC 05/03 PO 05/03 0046 0238 Ramelteon 8 MG QPM 05/03 2200 AC PO Triamterene/HCTZ 1 CAP DAILY 05/03 1000 AC 05/03 PO 1000 Review of Systems Review of Systems: No rash. No tremor. No melena. No fever. No chills. All other systems were reviewed, and were noted to be negative. 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 Surgical History Surgical History: cholecystectomy Family History Relations & Conditions If Any: MOTHER Hypertension MOTHER Diabetes mellitus Psychosocial History Services at Home: None Exam & Diagnostic Data Vital Signs and I&O Vital Signs Date Time Temp Pulse Resp B/P B/P Pulse O2 O2 Flow FiO2 Mean Ox Delivery Rate 05/03 1002 97.6 84 18 134/84 98 Room Air 05/03 1000 97.6 84 18 134/84 05/03 1000 97.6 84 18 134/84 05/03 0930 97.6 84 20 131/84 98 Room Air 05/03 0715 97.0 74 20 134/86 97 Room Air 05/03 0555 97.6 78 20 167/85 95 Room Air 05/03 0121 97.7 70 20 121/78 96 Room Air Intake & Output 05/03 0800 05/03 0000 05/02 1600 05/02 0800 05/02 0000 Intake Total Output Total 300 Balance -300 Output, Urine 300 Patient 207 lb Weight Physical Exam: Gen: The patient is confused, and in no acute distress HEENT: Normal nose, ears, and oropharynx. Pupils equal bilaterally. Conjunctiva normal. Neck: Supple with no JVD, no masses, and no thyromegaly Lungs: Clear to auscultation with normal respiratory effort Heart: irreg irreg, S1, S2, no murmurs. No peripheral edema, 2+ pulses in the lower extremities bilaterally Abdomen: Soft, nontender, no masses. No hepatomegaly. No splenomegaly Extremities: No clubbing or cyanosis. Normal muscle strength in the upper and lower extremities Skin: Normal skin turgor with no skin ulcers or lesions noted. Neuro: Cranial nerves intact. Sensation intact Psych: Confused and disoriented. Agitated affect. Labs/Efren Results: Laboratory Tests 05/03 05/03 0800 0217 Chemistry Troponin I (<0.11 ng/ml) < 0.01 Toxicology Urine Opiates Screen (>2000 NG/ML) < 100.00 Methadone Screen (>300 NG/ML) < 40 Barbiturate Screen (>200 NG/ML) < 60 Ur Phencyclidine Scrn (>25 NG/ML) < 6.00 Amphetamines Screen (>1000 NG/ML) < 100 U Benzodiazepines Scrn (>200 NG/ML) < 85 Urine Cocaine Screen (>300 NG/ML) < 50 Urine Cannabis Screen (>50 NG/ML) < 5.00 Urines Urine Color (YEL,AMB,STR) YEL Urine Clarity (CLEAR) HAZY H Urine pH (5.0 - 8.0) 6.0 Ur Specific [place] (1.001 - 1.035) 1.015 Urine Protein (NEG,<30 MG/DL) NEG Urine Ketones (NEG) NEG Urine Nitrite (NEG) NEG Urine Bilirubin (NEG) NEG Urine Urobilinogen (0.1 - 1.0 EU/dl) 0.2 Ur Leukocyte Esterase (NEG) SMALL H Ur Microscopic SEDIMENT EXAMINED Urine RBC (0 - 5 /HPF) 1-3 Urine WBC (0 - 2 /HPF) 5-10 H Ur Epithelial Cells (NONE,FEW) RARE Urine Bacteria (NEG/NONE) RARE H Urine Hemoglobin (NEG) NEG Urine Glucose (N MG/DL) NEG 05/03 0130 Chemistry Sodium (137 - 145 mmol/L) 142 Potassium (3.5 - 5.1 mmol/L) 3.2 L Chloride (98 - 107 mmol/L) 103 Carbon Dioxide (22 - 30 mmol/L) 26 Anion Gap (5 - 16) 13 BUN (9 - 20 mg/dL) 19 Creatinine (0.7 - 1.2 mg/dL) 0.8 Estimated GFR (>60 ml/min) > 60 BUN/Creatinine Ratio (7 - 25 %) 23.8 Glucose (65 - 99 mg/dL) 129 H Calcium (8.4 - 10.2 mg/dL) 8.6 Total Bilirubin (0.2 - 1.3 mg/dL) 0.3 Direct Bilirubin (< 0.4 mg/dL) 0.2 AST (17 - 59 U/L) 30 ALT (21 - 72 U/L) 44 Alkaline Phosphatase (< 127 U/L) 67 Troponin I (<0.11 ng/ml) < 0.01 Total Protein (6.3 - 8.2 g/dL) 6.1 L Albumin (3.5 - 5.0 g/dL) 3.7 Amylase (30 - 110 U/L) 49 Lipase (23 - 300 U/L) 215 TSH (0.270 - 4.200 uIU/mL) 0.784 Free T4 (0.78 - 2.44 ng/dL) 1.53 Hematology CBC w Diff NO MAN DIFF REQ WBC (4.8 - 10.8 /CUMM) 12.1 H RBC (4.70 - 6.10 /CUMM) 4.31 L Hgb (14.0 - 18.0 G/DL) 13.6 L Hct (42 - 52 %) 40.4 L MCV (80.0 - 94.0 FL) 93.8 MCH (27.0 - 31.0 PG) 31.5 H RDW (11.5 - 14.5 %) 13.7 Plt Count (130 - 400 /CUMM) 351 MPV (7.4 - 10.4 FL) 7.8 Gran % (42.2 - 75.2 %) 67.8 Lymphocytes % (20.5 - 51.1 %) 20.0 L Monocytes % (1.7 - 9.3 %) 8.8 Eosinophils % (0 - 5 %) 3.1 Basophils % (0.0 - 2.0 %) 0.3 Absolute Granulocytes (1.4 - 6.5 /CUMM) 8.2 H Absolute Lymphocytes (1.2 - 3.4 /CUMM) 2.4 Absolute Monocytes (0.10 - 0.60 /CUMM) 1.1 H Absolute Eosinophils (0.0 - 0.7 /CUMM) 0.4 Absolute Basophils (0.0 - 0.2 /CUMM) 0 PUBS MCHC (33.0 - 37.0 G/DL) 33.6 Diagnostic Data EKG Results EKG tracings independently reviewed: Initial EKG reveals atrial fibrillation with ventricular rate of 72, T wave abnormality, QTC 482 Repeat EKG reveals atrial fibrillation with ventricular response of 77, intraventricular conduction delay, nonspecific T-wave abnormality, QTC 480 CXR Results The lungs are well expanded. There is no focal consolidation, edema, or effusion. No pneumothorax. The cardiomediastinal silhouette is normal in size with a tortuous aorta. No acute osseous abnormality. Other Results Head CT: No acute intracranial pathology. Mild cerebral volume loss. Assessment/Plan Assessment/Plan Assessment: The patient is a 81-year-old male with history of dementia and progressive aphasia who is because of gradual worsening of confusion, agitation, and hallucinations. There was no sudden change in his condition, however he has gradually progressed to the point that his is unable to manage him at home. He is noted to be in atrial fibrillation, which is a new finding. There are no symptoms attributable to the atrial fibrillation. He apparently had an EKG 4 months ago which did not show atrial fibrillation, and the atrial fibrillation may have started at any time since that point. Recommendations: * Continue current doses of losartan, triamterene/HCTZ, and nifediine for blood pressure control * Ventricular rate is normal without any rate control medications. No need to add any additional medications for rate control. * Echocardiogram. * The patient's reports that he does not have frequent falls, and there is no obvious contraindication to anticoagulationi If there is no contraindication , I recommend anticoagulation for stroke prevention. Would initially start IV heparin per protocol with plan to change to Eliquis prior to discharge. * Would discontinue aspirin when starting anticoagulation Consult Acknowledgment - Thank you for your consult request.
[2017-05-03 16:13] LABS: PT 15.6 SEC (9.4-12.5); PTT 38 SEC (25-37)
--- NOTE | 2017-05-03 17:24 | Cons- Neurology ---
General Information and HPI Consulting Request Date of Consult: 05/03/17 Requested By: Clarisa eCrna MD Source of Information: Exam Limitations: unable to give history History of Present Illness: 81-year-old male brought to Hospital by . Patient has history of Alzheimer disease although she terms it primary aphasia Symptoms apparently began with language difficulty Over the past few months there has been advancement of his problem She now notes that he becomes intermittently agitated He does not sleep and one wonders throughout the house in the nighttime He is constantly moving things from one place to another He intermittently has hallucinations off and seeing people He does not offer any specific complaints He attempts to get out of the house in the evening hours although apparently has not done so His is unable to sleep since he is wandering at night time He is unable to keep appointments or to any household billing although he does dress himself and eats on his own He walks without assistance Allergies/Medications Allergies: Coded Allergies: No Known Allergies (05/03/17) Home Med List: Allopurinol 300 MG TABLET 1 TAB PO DAILY URIC ACID (Reported) Ascorbic Acid (Vitamin C) 500 MG TABLET 1 TAB PO DAILY SUPPLEMENT (Reported) Aspirin (Ecotrin*) 81 MG TABLET.DR 1 TAB PO DAILY HEART/BLOOD (Reported) Cholecalciferol (Vitamin D3) 1,000 UNIT TABLET 1 TAB PO DAILY VITAMIN SUPPORT (Reported) Multivits,Ca,Min/Iron/FA/Lycop (Centrum Men's Tablet) 8 MG IRON-200 MCG-600 MCG TABLET 1 TAB PO DAILY VITAMIN SUPPORT (Reported) Nifedipine (Nifedipine ER) 60 MG TAB.ER.24 1 TAB PO DAILY BP (Reported) [place]-3 Fatty Acids/Fish Oil (Fish Oil 1,200 MG Softgel) 360 MG-1,200 MG CAPSULE 1 CAP PO DAILY SUPPLEMENT (Reported) Peg 3350/Na Sulf,Bicarb,Cl/KCl (Golytely Solution) 236-22.74G SOLN.RECON 8 OZ PO AD CONSTIPATION Triamterene/Hydrochlorothiazid (Triamterene-Hctz 37.5-25 MG Cp) 37.5 MG-25 MG CAPSULE 1 CAP PO DAILY DIURETIC (Reported) Valsartan 160 MG TABLET 1 TAB PO DAILY BP (Reported) Current Medications: Current Medications Sig/Sandra Start time Last Medication Dose Route Stop Time Status Admin Allopurinol 300 MG DAILY 05/03 1000 AC 05/03 PO 1000 Aspirin Buffered 81 MG DAILY 05/03 1000 DC 05/03 PO 1000 Cholecalciferol 1,000 IU DAILY 05/03 1000 AC 05/03 PO 1000 Enoxaparin Sodium 40 MG DAILY 05/03 1000 AC 05/03 SC 1000 Heparin Sodium 25,000 UNIT Q24H 05/03 1445 AC 05/03 (Porcine) IV 1530 Sodium Chloride 500 ML Losartan Potassium 50 MG DAILY 05/03 1000 AC 05/03 PO 1000 Multivitamins 1 TAB DAILY 05/03 1000 AC 05/03 PO 1000 Nifedipine 60 MG DAILY 05/03 1000 AC 05/03 PO 1000 Quetiapine Fumarate 25 MG ONCE ONE 05/03 0045 DC 05/03 PO 05/03 0046 0238 Ramelteon 8 MG QPM 05/03 2200 AC PO Triamterene/HCTZ 1 CAP DAILY 05/03 1000 AC 05/03 PO 1000 Review of Systems Review of Systems: Patient offers no complaints He denies: headache Hearing change Vision difficulty Swallowing problems Chest pains Breathing difficulties Nausea or vomiting; he has intermittent constipation Also has urinary frequency No falls or head trauma No recent fevers No focal weakness Other systems reviewed are negative Past History Travel History Traveled to [place] past 21 day No Medical History Neurological: dementia, primary progressive aphasia EENT: NONE Cardiovascular: hypertension Respiratory: NONE Gastrointestinal: NONE Hepatic: NONE Renal: nephrolithiasis Musculoskeletal: gout Psychiatric: NONE Endocrine: NONE Blood Disorders: NONE Cancer(s): SKIN CA 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 Surgical History Surgical History: cholecystectomy Family History Relations & Conditions If Any: MOTHER Hypertension MOTHER Diabetes mellitus Psychosocial History Services at Home: None Exam & Diagnostic Data Vital Signs and I&O Vital Signs Date Time Temp Pulse Resp B/P B/P Pulse O2 O2 Flow FiO2 Mean Ox Delivery Rate 05/03 1640 105 05/03 1524 98.1 133 18 153/87 94 Room Air 05/03 1344 97.6 101 18 162/91 98 Room Air 05/03 1002 97.6 84 18 134/84 98 Room Air 05/03 1000 97.6 84 18 134/84 05/03 1000 97.6 84 18 134/84 05/03 0930 97.6 84 20 131/84 98 Room Air 05/03 0715 97.0 74 20 134/86 97 Room Air 05/03 0555 97.6 78 20 167/85 95 Room Air 05/03 0121 97.7 70 20 121/78 96 Room Air Intake & Output 05/03 1600 05/03 0800 05/03 0000 Intake Total Output Total 300 Balance -300 Output, Urine 300 Patient 207 lb Weight Alert and cooperative Heart sounds normal, no carotid bruits, distal pulses intact Not oriented to time or place Poor recall Extreme difficulty naming objects Attention span good Concentration and insight very poor Extraocular movements full, pupils equal reactive, fundi benign visual henriquez intact, no facial weakness or sensory loss, palate tongue and shoulders intact, hearing grossly intact Mild rigidity in upper extremities Gross motor strength upper and lower extremities intact Sensory examination intact to light touch bilaterally Deep tendon reflexes hypoactive throughout plantar responses flexor Patient walks without assistance, Physical Exam: Advancing dementia accompanied by insomnia, wandering, periods of agitation and hallucinations Last 48 Hours of Lab Results: Laboratory Tests 05/03 05/03 05/03 1548 0800 0217 Chemistry Troponin I (<0.11 ng/ml) < 0.01 Coagulation PT (9.4 - 12.5 SEC) 15.6 H INR (0.90 - 1.17) 1.49 H APTT (25 - 37 SEC) 38 H Toxicology Urine Opiates Screen (>2000 NG/ML) < 100.00 Methadone Screen (>300 NG/ML) < 40 Barbiturate Screen (>200 NG/ML) < 60 Ur Phencyclidine Scrn (>25 NG/ML) < 6.00 Amphetamines Screen (>1000 NG/ML) < 100 U Benzodiazepines Scrn (>200 NG/ML) < 85 Urine Cocaine Screen (>300 NG/ML) < 50 Urine Cannabis Screen (>50 NG/ML) < 5.00 Urines Urine Color (YEL,AMB,STR) YEL Urine Clarity (CLEAR) HAZY H Urine pH (5.0 - 8.0) 6.0 Ur Specific [place] (1.001 - 1.035) 1.015 Urine Protein (NEG,<30 MG/DL) NEG Urine Ketones (NEG) NEG Urine Nitrite (NEG) NEG Urine Bilirubin (NEG) NEG Urine Urobilinogen (0.1 - 1.0 EU/dl) 0.2 Ur Leukocyte Esterase (NEG) SMALL H Ur Microscopic SEDIMENT EXAMINED Urine RBC (0 - 5 /HPF) 1-3 Urine WBC (0 - 2 /HPF) 5-10 H Ur Epithelial Cells (NONE,FEW) RARE Urine Bacteria (NEG/NONE) RARE H Urine Hemoglobin (NEG) NEG Urine Glucose (N MG/DL) NEG 05/03 0130 Chemistry Sodium (137 - 145 mmol/L) 142 Potassium (3.5 - 5.1 mmol/L) 3.2 L Chloride (98 - 107 mmol/L) 103 Carbon Dioxide (22 - 30 mmol/L) 26 Anion Gap (5 - 16) 13 BUN (9 - 20 mg/dL) 19 Creatinine (0.7 - 1.2 mg/dL) 0.8 Estimated GFR (>60 ml/min) > 60 BUN/Creatinine Ratio (7 - 25 %) 23.8 Glucose (65 - 99 mg/dL) 129 H Calcium (8.4 - 10.2 mg/dL) 8.6 Total Bilirubin (0.2 - 1.3 mg/dL) 0.3 Direct Bilirubin (< 0.4 mg/dL) 0.2 AST (17 - 59 U/L) 30 ALT (21 - 72 U/L) 44 Alkaline Phosphatase (< 127 U/L) 67 Troponin I (<0.11 ng/ml) < 0.01 Total Protein (6.3 - 8.2 g/dL) 6.1 L Albumin (3.5 - 5.0 g/dL) 3.7 Amylase (30 - 110 U/L) 49 Lipase (23 - 300 U/L) 215 TSH (0.270 - 4.200 uIU/mL) 0.784 Free T4 (0.78 - 2.44 ng/dL) 1.53 Hematology CBC w Diff NO MAN DIFF REQ WBC (4.8 - 10.8 /CUMM) 12.1 H RBC (4.70 - 6.10 /CUMM) 4.31 L Hgb (14.0 - 18.0 G/DL) 13.6 L Hct (42 - 52 %) 40.4 L MCV (80.0 - 94.0 FL) 93.8 MCH (27.0 - 31.0 PG) 31.5 H RDW (11.5 - 14.5 %) 13.7 Plt Count (130 - 400 /CUMM) 351 MPV (7.4 - 10.4 FL) 7.8 Gran % (42.2 - 75.2 %) 67.8 Lymphocytes % (20.5 - 51.1 %) 20.0 L Monocytes % (1.7 - 9.3 %) 8.8 Eosinophils % (0 - 5 %) 3.1 Basophils % (0.0 - 2.0 %) 0.3 Absolute Granulocytes (1.4 - 6.5 /CUMM) 8.2 H Absolute Lymphocytes (1.2 - 3.4 /CUMM) 2.4 Absolute Monocytes (0.10 - 0.60 /CUMM) 1.1 H Absolute Eosinophils (0.0 - 0.7 /CUMM) 0.4 Absolute Basophils (0.0 - 0.2 /CUMM) 0 PUBS MCHC (33.0 - 37.0 G/DL) 33.6 Imaging/Other Studies: CT head MPRESSION: No acute intracranial pathology. Mild cerebral volume loss. Assessment/Plan Assessment: Advancing dementia now accompanied by insomnia, occasional hallucinations, periods of agitation and home wandering Recommendations: Should current hypnotic medications not be effective would try trazodone 50 mg at night Psychiatric consultation may be helpful Patient in the past was given trials of donepezil and memantine both of which either had side effects or no significant clinical effect Patient may require an aid at night or convalescent home that has ability to care for Alzheimer patients Consult Acknowledgment - Thank you for your consult request.
[2017-05-03 19:04] VITALS: BP 128/92
--- NOTE | 2017-05-03 21:42 | Event Note ---
Event Note Event Note: Was paged at 9:15PM stating patient is agitated and trying to walk out. Evaluated patient and attempted to reorient him and calm him down. Patient had previously received seroquel. Patient was given rozerem to help him sleep. Was paged at 9:45PM stating patient pulled out his IV line and was trying to punch the sitter and walk out again. Patient was combative and agressive. Patient was not allowing IV line to be placed and nursing staff felt threatened. Patient was temporarily placed in upper soft restraints and estrella to allow for IV access. Patient was given trazadone to help him sleep. Patient continued to become agitated and pulled IV line out again. Patient started kicking the staff. Patient was given zyprexa x1 IV and was placed in lower soft restraints as well. The above was discussed with the at length and was asked to stop in to see if the patient as her presence appeared to keep patient calm the previous night. Patient's states she is uncomfortable driving at night and has had minimal sleep and therefore is unable to come to the hospital. Patient's spoke to him to attempt to help calm him down however was unable to do so. She is aware of his current situation and is okay with the restraints and medication.
[2017-05-03 22:10] LABS: PTT 96 SEC (25-37)
[2017-05-03 22:22] VITALS: BP 120/80
[2017-05-04 06:46] VITALS: BP 118/84
--- NOTE | 2017-05-04 06:59 | PN- Housestaff ---
Susy Liang MD 05/04/17 0659: Subjective Follow-up For: Altered mental status, atrial fibrillation. Complaints: no complaints Tele-Events Since Last Visit: Heart rate 120. Atrial fibrillation. Subjective: I saw the patient today at bedside. Patient was sleeping. Review of system unobtainable. Review of Systems Constitutional: Reports: no symptoms. Cardiovascular: Reports: no symptoms. Respiratory: Reports: no symptoms. Gastrointestinal: Reports: no symptoms. Genitourinary: Reports: no symptoms. Musculoskeletal: Reports: no symptoms. Objective Last 24 Hrs of Vital Signs/I&O Vital Signs Date Time Temp Pulse Resp B/P B/P Pulse O2 O2 Flow FiO2 Mean Ox Delivery Rate 05/04 0842 138 118/84 05/04 0841 138 118/84 05/04 0646 97.6 138 22 118/84 94 Room Air 05/03 2222 97.9 140 20 120/80 97 Room Air 05/03 1904 97.7 132 20 128/92 96 Room Air 05/03 1806 97.5 114 18 133/96 96 05/03 1640 105 05/03 1524 98.1 133 18 153/87 94 Room Air 05/03 1344 97.6 101 18 162/91 98 Room Air 05/03 1002 97.6 84 18 134/84 98 Room Air 05/03 1000 97.6 84 18 134/84 05/03 1000 97.6 84 18 134/84 Intake & Output 05/04 1600 05/04 0800 05/04 0000 Intake Total 120 224 Output Total 300 Balance 120 -76 Intake, IV 104 Intake, Oral 120 120 Output, Urine 300 Weight Chair scale Measurement Method Physical Exam General Appearance: Alert, Cooperative, No Acute Distress Skin: No Rashes HEENT: Atraumatic Cardiovascular: Normal S1, Normal S2, No Murmurs Lungs: Clear to Auscultation Abdomen: Normal Bowel Sounds, Soft, No Tenderness Neurological: Normal Speech, Strength at 5/5 X4 Ext Extremities: No Edema Current Medications: Current Medications Sig/Sandra Start time Last Medication Dose Route Stop Time Status Admin Allopurinol 300 MG DAILY 05/03 1000 AC 05/04 PO 0841 Apixaban 5 MG BID 05/03 2255 AC 05/04 PO 0842 Aspirin Buffered 81 MG DAILY 05/03 1000 DC 05/03 PO 1000 Cholecalciferol 1,000 IU DAILY 05/03 1000 AC 05/04 PO 0841 Enoxaparin Sodium 40 MG DAILY 05/03 1000 DC 05/03 SC 1000 Heparin Sodium 25,000 UNIT Q24H 05/03 1445 DC 05/03 (Porcine) IV 1530 Sodium Chloride 500 ML Losartan Potassium 50 MG DAILY 05/03 1000 AC 05/04 PO 0841 Multivitamins 1 TAB DAILY 05/03 1000 AC 05/04 PO 0841 Nifedipine 60 MG DAILY 05/03 1000 AC 05/04 PO 0842 Olanzapine 10 MG ONCE ONE 05/03 2230 DC 05/03 IM 05/03 2231 2247 Olanzapine 10 MG ONCE ONE 05/03 2215 CAN IM 05/03 221 Olanzapine 5 MG ONCE ONE 05/03 2215 CAN PO 05/03 221 Potassium Chloride 40 MEQ BID 05/04 1000 AC 05/04 PO 05/05 0600 0842 Quetiapine Fumarate 25 MG ONCE ONE 05/03 1915 DC 05/03 PO 05/03 191 1954 Ramelteon 8 MG QPM 05/03 2200 AC 05/03 PO 2102 Trazodone HCl 50 MG AT BEDTIME NEED.. 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 Assessment and plan 1. Acute delirium- * patient was agitated overnight. Patient was given rozirem, Zyprexa. pAtient was seen by neurologist who advised to give trazodone 50 mg and suggested a day at night or convalescent home that has ability to care for Alzheimer's patient. Psychiatry was consulted who suggested to avoid antipsychotic and benzodiazepine. He also suggested to set up an appointment with Geriatric psychiatry as outpatient. 2. New onset A. fib * patient was on IV heparin which was switched to Eliquis. Cardiology is on board. Echocardiogram pending. Admission EKG and troponin's were negative. We will continue aspirin. Patient TSH-0.7, free T4 1 0.53. We will start him on Cardizem 30 mg and discontinue nifidipine 3.History of hypertension Continue valsartan, triamterene/hydrochlorothiazide 4. History of gout Continue allopurinol Code-DNR/DNI Diet heart healthy diet. Problem List: 1. Atrial fibrillation 2. Dementia 3. Agitation Pain Ratin Pain Location: none Pain Goal: Remain pain free Pain Plan: tylenol Tomorrow's Labs & Rationales: none Nehemiah SUBRAMANIAN,Clarisa 05/04/17 7445: Attending MD Review Statement Attending Statement Attending MD Statement: examined this patient, discuss w/resident/PA/[employer] OPERATOR, agreed w/resident/PA/[employer] OPERATOR, reviewed EMR data (avail), discussed with nursing, discussed with case mgmt, amended to note Attending Assessment/Plan: Patient seen and examined. Resting comfortably and not in acute distress. Overnight he was very agitated and required patient seen and examined. Chemical sedation. This morning he was not, and not in acute distress. He was on agitated. He was weak controlled yesterday but developed rapid ventricular response today. He was started on Cardizem for rate control but became hypotensive later on. Blood pressure did improve with fluid resuscitation. We' ll continue gentle hydration and proceed with cautious rate control. Anticoagulation therapy has been switched to Eliquis. Due to his dementia with behavioral changes his reports she is unable to cater for him any longer at home. We will look into placement in a dementia unit upon discharge.
--- NOTE | 2017-05-04 07:59 | ECHOCARDIOGRAM REPORT ---
RODY DUNHAM Age: 81 : 1935 Gender: M Exam Date: 05/03/2017 10:47 Exam Location: [facility] Ht (in): 74 Wt (lb): 207 BSA: 2.22 BP: 131 / 84 Ordering Physician: Octaviano Olvera MD Referring Physician: Octaviano Olvera MD Technologist: Matthew Garcia RDCS Room Number: Indications: AFIB/FLUTTER Rhythm: Atrial fibrillation Technical Quality: Technically difficult study FINDINGS Left Ventricle Normal size left ventricle. No obvious regional wall motion abnormalities. Normal left ventricular ejection fraction estimated at 60-65%. Right Ventricle Right ventricle not well visualized, grossly normal. Right Atrium Right atrium not well visualized, grossly normal. Left Atrium Left atrial size at the upper limits of normal. Mitral Valve Mitral valve thickened. Trace mitral regurgitation. Aortic Valve Trileaflet aortic valve. Diffuse thickening (sclerosis) of the aortic valve cusps without reduced excursion. No aortic stenosis. Trace to mild aortic regurgitation. Tricuspid Valve Tricuspid valve not well visualized, grossly normal. Trace to mild tricuspid regurgitation. Right ventricular systolic pressure estimated at 30 mmHg. Pulmonic Valve okayPulmonic valve not well visualized, grossly normal. Pericardium Minimal pericardial effusion (normal variant). Great Vessels Mildly dilated proximal ascending aorta (tube). CONCLUSIONS 1. This was a technically difficult study 2. Aortic sclerosis is present with minimal to mild aortic insufficiency and minimal enlargement of the ascending aorta 3. Mitral leaflet thickening is present with minimal mitral insufficiency but no valvular prolapse 4. A physiologic pericardial effusion is present which is hemodynamically insignificant. 5. The left ventricular chamber size and systolic function appear normal with no resting wall motion abnormalities. 6. Minimal to mild tricuspid insufficiency is present. There is no evidence of significant pulmonary hypertension. Oziel Purvis M.D. (Electronically Signed) Final Date: 04 May 2017 07:59 MEASUREMENTS (Male / Female) Normal Values 2D ECHO LV Diastolic Diameter PLAX 5.2 cm 4.2 - 5.9 / 3.9 - 5.3 cm LV Systolic Diameter PLAX 3.1 cm 2.1 - 4.0 cm LV Fractional Shortening PLAX 40.4 % 25 - 46 % LV Ejection Fraction 2D Teich 70.7 % IVS Diastolic Thickness 1.2 cm LVPW Diastolic Thickness 1.1 cm LV Relative Wall Thickness 0.4 RV Internal Dim ED PLAX 3.9 cm 1.9 - 3.8 cm LVOT Diameter 2.2 cm Aortic Root Diameter 3.7 cm LA Systolic Diameter LX 3.4 cm 3.0 - 4.0 / 2.7 - 3.8 cm Ascending Aorta Diameter 3.7 cm DOPPLER AV Peak Velocity 120.0 cm/s AV Peak Gradient 5.8 mmHg AV Mean Velocity 79.7 cm/s AV Mean Gradient 3.0 mmHg AV Velocity Time Integral 22.1 cm AI Deceleration Hernando 147.5 cm/s AI Peak Velocity 365.0 cm/s AI Pressure Half Time 735.5 ms AI Peak Gradient 53.3 mmHg LVOT Peak Velocity 89.5 cm/s LVOT Peak Gradient 3.2 mmHg LVOT Mean Velocity 61.7 cm/s LVOT Mean Gradient 2.0 mmHg LVOT Velocity Time Integral 21.0 cm LVOT Stroke Volume 79.8 cm AV Area Cont Eq vti 3.6 cm AV Area Cont Eq pk 2.8 cm MV Peak Velocity 84.1 cm/s MV Peak Gradient 2.8 mmHg MV Mean Velocity 51.5 cm/s MV Mean Gradient 1.0 mmHg Mitral E Point Velocity 79.0 cm/s MV PHT Velocity 93.7 cm/s MV Deceleration Hernando 416.0 cm/s MV Pressure Half Time 67.6 ms MV Area PHT 3.3 cm MV Deceleration Time 275.0 ms TR Peak Velocity 231.0 cm/s TR Peak Gradient 21.3 mmHg Right Atrial Pressure 5.0 mmHg Pulmonary Artery Systolic Pressu 26.3 mmHg Right Ventricular Systolic Press 26.3 mmHg PV Peak Velocity 62.0 cm/s PV Peak Gradient 1.5 mmHg PV Mean Velocity 42.8 cm/s PV Mean Gradient 1.0 mmHg PV Velocity Time Integral 11.8 cm
--- NOTE | 2017-05-04 11:10 | PN- Cardiology ---
Subjective Subjective: The patient remains confused. No chest pain. No shortness of breath. No palpitations. He is noted to be having paroxysmal atrial fibrillation and atrial flutter with periods of sinus rhythm. Ventricular rate is mildly elevated at times. No syncope. No orthopnea. No nausea or vomiting. Objective Vital Signs and I&Os Vital Signs Date Time Temp Pulse Resp B/P B/P Pulse O2 O2 Flow FiO2 Mean Ox Delivery Rate 05/04 0842 138 118/84 05/04 0841 138 118/84 05/04 0646 97.6 138 22 118/84 94 Room Air 05/03 2222 97.9 140 20 120/80 97 Room Air 05/03 1904 97.7 132 20 128/92 96 Room Air 05/03 1806 97.5 114 18 133/96 96 05/03 1640 105 05/03 1524 98.1 133 18 153/87 94 Room Air 05/03 1344 97.6 101 18 162/91 98 Room Air Intake & Output 05/04 1600 05/04 0800 05/04 0000 05/03 1600 05/03 0800 05/03 0000 Intake Total 120 224 Output Total 300 300 Balance 120 -76 -300 Intake, IV 104 Intake, Oral 120 120 Output, Urine 300 300 Patient 207 lb Weight Weight Chair scale Measurement Method Physical Exam: Gen: The patient is confused, and in no acute distress HEENT: Normal nose, ears, and oropharynx. Pupils equal bilaterally. Conjunctiva normal. Neck: Supple with no JVD, no masses, and no thyromegaly Lungs: Clear to auscultation with normal respiratory effort Heart: irreg irreg, S1, S2, no murmurs. No peripheral edema, 2+ pulses in the lower extremities bilaterally Abdomen: Soft, nontender, no masses. No hepatomegaly. No splenomegaly Extremities: No clubbing or cyanosis. Normal muscle strength in the upper and lower extremities Skin: Normal skin turgor with no skin ulcers or lesions noted. Neuro: Cranial nerves intact. Sensation intact Psych: Confused and disoriented. Agitated affect. Current Medications: Current Medications Sig/Sandra Start time Last Medication Dose Route Stop Time Status Admin Allopurinol 300 MG DAILY 05/03 1000 AC 05/04 PO 0841 Apixaban 5 MG BID 05/03 2255 AC 05/04 PO 0842 Aspirin Buffered 81 MG DAILY 05/03 1000 DC 05/03 PO 1000 Cholecalciferol 1,000 IU DAILY 05/03 1000 AC 05/04 PO 0841 Enoxaparin Sodium 40 MG DAILY 05/03 1000 DC 05/03 SC 1000 Heparin Sodium 25,000 UNIT Q24H 05/03 1445 DC 05/03 (Porcine) IV 1530 Sodium Chloride 500 ML Losartan Potassium 50 MG DAILY 05/03 1000 AC 05/04 PO 0841 Multivitamins 1 TAB DAILY 05/03 1000 AC 05/04 PO 0841 Nifedipine 60 MG DAILY 05/03 1000 AC 05/04 PO 0842 Olanzapine 10 MG ONCE ONE 05/03 2230 DC 05/03 IM 05/03 2231 2247 Olanzapine 10 MG ONCE ONE 05/03 2215 CAN IM 05/03 2216 Olanzapine 5 MG ONCE ONE 05/03 2215 CAN PO 05/03 221 Potassium Chloride 40 MEQ BID 05/04 1000 AC 05/04 PO 05/05 0600 0842 Quetiapine Fumarate 25 MG ONCE ONE 05/03 1915 DC 05/03 PO 05/03 191 1954 Ramelteon 8 MG QPM 05/03 2200 AC 05/03 PO 2102 Trazodone HCl 50 MG AT BEDTIME NEED.. 05/03 2200 AC 05/03 PO 2216 Triamterene/HCTZ 1 CAP DAILY 05/03 1000 AC 05/04 PO 0850 Results Last 48 Hrs of Labs/Mics: Laboratory Tests 05/04/17 0625: Anion Gap 20 H, Estimated GFR > 60, BUN/Creatinine Ratio 23.3 05/03/17 2130: APTT Cancelled 05/03/17 2115: APTT 96 H 05/03/17 1548: PT 15.6 H, INR 1.49 H, APTT 38 H 05/03/17 0800: Troponin I < 0.01 05/03/17 0217: Urine Opiates Screen < 100.00, Methadone Screen < 40, Barbiturate Screen < 60, Ur Phencyclidine Scrn < 6.00, Amphetamines Screen < 100, U Benzodiazepines Scrn < 85, Urine Cocaine Screen < 50, Urine Cannabis Screen < 5.00, Urine Color YEL, Urine Clarity HAZY H, Urine pH 6.0, Ur Specific Fowler 1.015, Urine Protein NEG, Urine Ketones NEG, Urine Nitrite NEG, Urine Bilirubin NEG, Urine Urobilinogen 0.2, Ur Leukocyte Esterase SMALL H, Ur Microscopic SEDIMENT EXAMINED, Urine RBC 1-3, Urine WBC 5-10 H, Ur Epithelial Cells RARE, Urine Bacteria RARE H, Urine Hemoglobin NEG, Urine Glucose NEG 05/03/17 0130: Anion Gap 13, Estimated GFR > 60, BUN/Creatinine Ratio 23.8, Glucose 129 H, Calcium 8.6, Total Bilirubin 0.3, Direct Bilirubin 0.2, AST 30, ALT 44, Alkaline Phosphatase 67, Troponin I < 0.01, Total Protein 6.1 L, Albumin 3.7, Amylase 49 , Lipase 215, TSH 0.784, Free T4 1.53, CBC w Diff NO MAN DIFF REQ, RBC 4.31 L, MCV 93.8, MCH 31.5 H, RDW 13.7, MPV 7.8, Gran % 67.8, Lymphocytes % 20.0 L, Monocytes % 8.8, Eosinophils % 3.1, Basophils % 0.3, Absolute Granulocytes 8.2 H, Absolute Lymphocytes 2.4, Absolute Monocytes 1.1 H, Absolute Eosinophils 0.4 , Absolute Basophils 0, PUBS MCHC 33.6 Recent Imaging Studies: Echocardiogram 05/04/17: 1. This was a technically difficult study 2. Aortic sclerosis is present with minimal to mild aortic insufficiency and minimal enlargement of the ascending aorta 3. Mitral leaflet thickening is present with minimal mitral insufficiency but no valvular prolapse 4. A physiologic pericardial effusion is present which is hemodynamically insignificant. 5. The left ventricular chamber size and systolic function appear normal with no resting wall motion abnormalities. 6. Minimal to mild tricuspid insufficiency is present. There is no evidence of significant pulmonary hypertension. Assessment/Plan Assessment/Plan Assessment: 1. Dementia with agitation and confusion 2. Paroxysmal atrial fibrillation and atrial flutter with elevated ventricular rate Plan: * Diltiazem 30 mg by mouth every 8 hours for rate control * Discontinue Nifedipine * Continue Eliquis Continue telemetry? Yes
[2017-05-04 14:10] VITALS: BP 68/40
[2017-05-04 14:59] VITALS: BP 96/62
--- NOTE | 2017-05-04 15:40 | Event Note ---
Event Note Event Note: Situation -I was informed by the nurse around 1:30 PM-patient having a blood pressure recording of 60/40. 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 Assessment-patient was sitting comfortably in his chair without any distress. He is alert and oriented 1 and appears normal with no increased sweating. He denies chest pain, shortness of breath, headache, dizziness, weakness, nausea, vomiting, black out. Patient is ablating well and was using the restroom a few minutes ago. Repeat blood pressure medicine resident showed 68 systolic. Vitals-heart rate 98, 98 at room air. Plan-given the patient ejection fraction of 62-65% in 2014, patient was given 250 mL of normal saline bolus. After 30 minutes repeat blood pressure was 90/ 60. Patient was started on normal saline at 100 mL per hour. This was discussed with border patrol agent Dr. Friend and Dr. Cerna.
--- NOTE | 2017-05-04 20:13 | Incdntl Nt Psy ---
Incidental Note Notation: As discussed with the team at 1345 today, we expect to visit the patient on 05/05 for an initial evaluation. 1. Please continue the reversible dementia screen, including Lyme titer and RPR/ VDRL. Other labs reviewed, including chemistry, thyroid, CBC. Head imaging results reviewed ("No acute intracranial pathology. Mild cerebral volume loss", per radiology report). Potassium low at 3.4 today. Treat any infectious process that could be contributing to a change of mental status. Avoid delirium triggers , and avoid nursing interventions as much as possible between 10PM and 6AM. 2. Replete potassium to the upper portion of the normal range. Order magnesium and replete to the upper portion of the normal range. 3. Please monitor EKG for arrythmia or QTc prolongation longer than 475 mS. 4. If agitation or combative behavior, consider quetiapine 12.5 mg PO daily. May repeat once at least one hour later, as needed. This medication is also helpful with insomnia, an off-label use. Hold if arrhythmia or QTc greater than 475. Hold if hypokalemia or hypomagnesemia. Monitor for suicidal thinking. There is an increased risk of sudden in the elderly with this class of medication. 5. Consider trazodone at the lowest possible dose for insomnia, as needed. 6. Do not order benzodiazepines, as they can worsen delirium.
[2017-05-05 01:20] VITALS: BP 110/80
--- NOTE | 2017-05-05 06:32 | PN- Housestaff ---
Garth SUBRAMANIAN,Susy 05/05/17 0631: Subjective Follow-up For: Altered mental status, atrial fibrillation, hypOtension Complaints: no complaints Subjective: I saw the patient today at bedside. He was lying in his bed comfortably. He is alert oriented 1. He is confused but not agitated. He offers no complaints. Review of Systems Constitutional: Reports: no symptoms. Cardiovascular: Reports: no symptoms. Respiratory: Reports: no symptoms. Gastrointestinal: Reports: no symptoms. Genitourinary: Reports: no symptoms. Objective Last 24 Hrs of Vital Signs/I&O Vital Signs Date Time Temp Pulse Resp B/P B/P Pulse O2 O2 Flow FiO2 Mean Ox Delivery Rate 05/05 0705 97.7 131 20 104/84 94 Room Air 05/05 0604 132 104/84 05/05 0120 99.0 120 20 110/80 93 Room Air 05/04 1459 96/62 05/04 1410 97.6 112 18 68/40 98 Room Air 05/04 1333 122 68/40 Intake & Output 05/05 1600 05/05 0800 05/05 0000 Intake Total 800 300 Output Total 200 Balance 800 100 Intake, IV 800 Intake, Oral 300 Output, Urine 200 Physical Exam General Appearance: Alert, Oriented X3, Cooperative HEENT: Atraumatic Cardiovascular: Regular Rate, Normal S1, Normal S2 Lungs: Clear to Auscultation Abdomen: Normal Bowel Sounds, Soft Neurological: Normal Speech, Strength at 5/5 X4 Ext, Normal Tone Extremities: No Edema Current Medications: Current Medications Sig/Sandra Start time Last Medication Dose Route Stop Time Status Admin Allopurinol 300 MG DAILY 05/03 1000 AC 05/05 PO 0930 Apixaban 5 MG BID 05/03 2255 AC 05/05 PO 0928 Cholecalciferol 1,000 IU DAILY 05/03 1000 AC 05/05 PO 0928 Diltiazem HCl 30 MG Q8 05/04 1400 AC 05/05 PO 0604 Losartan Potassium 50 MG DAILY 05/03 1000 AC 05/05 PO 0929 Multivitamins 1 TAB DAILY 05/03 1000 AC 05/05 PO 0928 Potassium Chloride 40 MEQ BID 05/04 1000 DC 05/04 PO 05/05 0600 2247 Quetiapine Fumarate 25 MG ONCE ONE 05/04 2200 DC 05/04 PO 05/04 2201 2246 Quetiapine Fumarate 25 MG 1700 05/04 1700 AC 05/04 PO 1712 Ramelteon 8 MG QPM 05/03 2200 DC 05/03 PO 2102 Sodium Chloride 1,000 ML Q10H 05/04 1445 DC 05/05 IV 0556 Sodium Chloride 250 ML BOLUS ONE 05/04 1345 DC 05/04 IV 05/04 1444 1333 Sodium Chloride 1,000 ML Q20H 05/04 1330 DC IV Trazodone HCl 50 MG AT BEDTIME 05/04 220 AC 05/04 PO 1941 Trazodone HCl 50 MG AT BEDTIME NEED.. 05/03 2200 AC 05/03 PO 2216 Triamterene/HCTZ 1 CAP DAILY 05/03 1000 AC 05/05 PO 0928 Last 24 Hrs of Lab/Efren Results Last 24 Hrs of Labs/Mics: Laboratory Tests 05/05/17 0700: Anion Gap 14, Estimated GFR > 60, BUN/Creatinine Ratio 32.5 H, CBC w Diff NO MAN DIFF REQ, RBC 4.66 L, MCV 94.7 H, MCH 31.6 H, RDW 14.2, MPV 8.2, Gran % 79.7 H, Lymphocytes % 9.9 L, Monocytes % 8.3, Eosinophils % 1.8, Basophils % 0.3, Absolute Granulocytes 14.2 H, Absolute Lymphocytes 1.8, Absolute Monocytes 1.5 H, Absolute Eosinophils 0.3, Absolute Basophils 0.1, PUBS MCHC 33.4, RPR Titer/FTA NONREACTIVE, Lyme Disease Antibody Pending Lines/Diet/Fluids Restraints: [place] Assessment/Plan Assessment: 81-year-old gentleman with past medical history of hypertension, advanced primary progressive aphasia, hyperuricemia/gout and 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 Assessment and plan 1. Acute delirium- * patient was agitated overnight. Patient was given rozirem, Zyprexa and Seroquel pAtient was seen by neurologist upon admission who advised to give trazodone 50 mg and suggested a day at night or convalescent home that has ability to care for Alzheimer's patient. Psychiatry saw the patient today and suggested to hold SEROQUEL and other antipsychotic as the QTc is more than 475. They also recommended to hold trazodone. If patient is agitated suggested to give ramelteon and reorient him. * We will set up appointment with the Geriatric psychiatry as outpatient. 2. New onset A. fib * Patient is on Eliquis. Cardiology is on board. Echocardiogram shows an ejection fraction of 60-65% Echocardiogram pending. Admission EKG and troponin' s were negative. We will continue aspirin. Patient TSH-0.7, free T4 1 0.53. We will continue Cardizem 30 mg every 8. 3.History of hypertension * Continue LOSARTAN, triamterene/hydrochlorothiazide 4. History of gout * Continue allopurinol Code-DNR/DNI Diet heart healthy diet. Problem List: 1. Atrial fibrillation 2. Dementia 3. Agitation Pain Ratin Pain Location: NONE Pain Goal: Remain pain free Pain Plan: TYLENOL Tomorrow's Labs & Rationales: TENNILLE Cerna MD,Clarisa 05/05/17 1211: Attending MD Review Statement Attending Statement Attending MD Statement: examined this patient, discuss w/resident/PA/FUGITIVE DETECTIVE, agreed w/resident/PA/FUGITIVE DETECTIVE, reviewed EMR data (avail), discussed with nursing, discussed with case mgmt, amended to note Attending Assessment/Plan: Patient seen and examined. Person. He was in bed and oriented only to he did not appear agitated. Apparently he gets more agitated during the end of the day Requiring antipsychotic therapy. Unfortunately his QTC is prolonged limiting the use of antipsychotic agents. He remains in atrial fibrillation with mild rapid ventricular response. Yesterday he was hypotensive but blood pressure has improved with fluid hydration. On examination he is calm and has a [place] vest in place and a sitter at the bedside. Heart sounds are irregular. Lungs are clear bilaterally. Abdomen is soft and nontender. He has no peripheral edema. Recommendations: -Heart rate needs to be optimized further. He remains tachycardic even when calm. Continue Cardizem as blood pressure allows. May need to optimize dosing further. Discontinue losartan in order to allow more room for optimization of rate control medications. Will follow up with the cardiology service for further recommendations such as digoxin for heart rate control if his blood pressure is not optimal. -Psychiatry service is recommending against the use of benzodiazepines as it may worsen his agitation. Also recommended against use of trazodone on Seroquel due to his prolonged QTC. Please obtain recommendations for control of his anxiety which has been occurring frequently later in the day. -I have discussed with the case management service regarding initiation of discharge planning to a nursing facility with with a dementia/geriatric psychiatric unit. -Continue anticoagulation with Eliquis. -Patient is likely volume depleted as evidenced by his hypotension, hypernatremia today as well as rising BUN level. His elevated WBC count as well as rising hemoglobin and platelet counts are in keeping with this. Recommend calculation of his free water deficit and fluid repletion intravenously.
[2017-05-05 07:05] VITALS: BP 104/84
[2017-05-05 08:25] LABS: ABSOLUTE BASOPHIL COUNT 0.1 /CUMM (0.0-0.2); ABSOLUTE EOSINOPHIL COUNT 0.3 /CUMM (0.0-0.7); ABSOLUTE GRANULOCYTE CT 14.2 /CUMM (1.4-6.5); ABSOLUTE LYMPH COUNT 1.8 /CUMM (1.2-3.4); ABSOLUTE MONOCYTE COUNT 1.5 /CUMM (0.10-0.60); BASOPHIL % 0.3 % (0.0-2.0); EOSINOPHIL % 1.8 % (0-5); GRANULOCYTE % 79.7 % (42.2-75.2); HEMATOCRIT 44.1 % (42-52); MEAN CORPUSCULAR HGB 31.6 PG (27.0-31.0); MEAN CORPUSCULAR HGB CONC 33.4 G/DL (33.0-37.0); MEAN CORPUSCULAR VOLUME 94.7 FL (80.0-94.0); MEAN PLATELET VOLUME 8.2 FL (7.4-10.4); PLATELET COUNT 386 /CUMM (130-400); RBC DISTRIBUTION WIDTH 14.2 % (11.5-14.5); RED BLOOD CELL CT 4.66 /CUMM (4.70-6.10); WHITE BLOOD CELL COUNT 17.8 /CUMM (4.8-10.8)
--- NOTE | 2017-05-05 10:49 | Cons- Psychiatry ---
See Addendum Psychiatric Consult Date of Consult: 05/05/17 Reason for Consult: Hallucinations History of Present Illness: 81 M BIBA from home with for increasing confusion and agitation at night. He had been trialed on lorazepam TID with poor effect. Per , he has a history of dementia. Allergies: Coded Allergies: No Known Allergies (05/03/17) Current Medications: Current Medications Sig/Sandra Start time Last Medication Dose Route Stop Time Status Admin Allopurinol 300 MG DAILY 05/03 1000 AC 05/05 PO 0930 Apixaban 5 MG BID 05/03 2255 AC 05/05 PO 0928 Cholecalciferol 1,000 IU DAILY 05/03 1000 AC 05/05 PO 0928 Diltiazem HCl 30 MG Q8 05/04 1400 AC 05/05 PO 0604 Losartan Potassium 50 MG DAILY 05/03 1000 AC 05/05 PO 0929 Multivitamins 1 TAB DAILY 05/03 1000 AC 05/05 PO 0928 Nifedipine 60 MG DAILY 05/03 1000 DC 05/04 PO 0842 Potassium Chloride 40 MEQ BID 05/04 1000 DC 05/04 PO 05/05 0600 2247 Quetiapine Fumarate 25 MG ONCE ONE 05/04 2200 DC 05/04 PO 05/04 2201 2246 Quetiapine Fumarate 25 MG 1700 05/04 1700 AC 05/04 PO 1712 Ramelteon 8 MG QPM 05/03 2200 DC 05/03 PO 2102 Sodium Chloride 1,000 ML Q10H 05/04 1445 DC 05/05 IV 0556 Sodium Chloride 250 ML BOLUS ONE 05/04 1345 DC 05/04 IV 05/04 1444 1333 Sodium Chloride 1,000 ML Q20H 05/04 1330 DC IV Trazodone HCl 50 MG AT BEDTIME 05/04 2200 AC 05/04 PO 1941 Trazodone HCl 50 MG AT BEDTIME NEED.. 05/03 2200 AC 05/03 PO 2216 Triamterene/HCTZ 1 CAP DAILY 05/03 1000 AC 05/05 PO 0928 Past History Past Medical History Neurological: dementia, primary progressive aphasia EENT: NONE Cardiovascular: hypertension Respiratory: NONE Gastrointestinal: NONE Hepatic: NONE Renal: nephrolithiasis Musculoskeletal: gout Psychiatric: NONE Endocrine: NONE Blood Disorders: NONE Cancer(s): SKIN CA COLUMN PRECASTER/Reproductive: NONE Past Surgical History Surgical History: cholecystectomy Psychosocial History Strengths/Capabilities: Supportive spouse Physical Limitations (Interventions): Currently in estrella vest with a sitter Psychiatric Treatment History Psych Treatment Psychiatric Treatment No (Spouse denies) Diagnosis: Dementia NOS Primary progressive aphasia Risk Factors: age (under 24/over 65), chronic/serious med cond., poor impulse control, male Substance Use/Abuse History Drug Use/Abuse Substances Used/Abused No Substance Abuse Treatment Substance Abuse Treatment Past Substance Abuse [place] No Assessment/Plan Mental Status Orientation: Confused Affect: Hopeless Speech: Incoherent Neuro-vegetative: Helpless, Sleep Disturbance Mental Status Exam: The patient is alert, and calm in bed and a [place] vest. 1:1 sitter is next to the bed. The patient is confused, and his answers to questions are not related, and nonsensical. He endorses depression, helplessness, hopelessness and anxiety. He denies worthlessness or guilty feelings. It is unclear if he understands the questions, as he answers each in regard to external events other persons. He denies current visual or auditory hallucinations. He denies SI or HI. Lab Results: Laboratory Tests 05/05 0700 Chemistry Sodium (137 - 145 mmol/L) 146 H Potassium (3.5 - 5.1 mmol/L) 3.6 Chloride (98 - 107 mmol/L) 107 Carbon Dioxide (22 - 30 mmol/L) 26 Anion Gap (5 - 16) 14 BUN (9 - 20 mg/dL) 26 H Creatinine (0.7 - 1.2 mg/dL) 0.8 Estimated GFR (>60 ml/min) > 60 BUN/Creatinine Ratio (7 - 25 %) 32.5 H Hematology CBC w Diff NO MAN DIFF REQ WBC (4.8 - 10.8 /CUMM) 17.8 H RBC (4.70 - 6.10 /CUMM) 4.66 L Hgb (14.0 - 18.0 G/DL) 14.8 Hct (42 - 52 %) 44.1 MCV (80.0 - 94.0 FL) 94.7 H MCH (27.0 - 31.0 PG) 31.6 H RDW (11.5 - 14.5 %) 14.2 Plt Count (130 - 400 /CUMM) 386 MPV (7.4 - 10.4 FL) 8.2 Gran % (42.2 - 75.2 %) 79.7 H Lymphocytes % (20.5 - 51.1 %) 9.9 L Monocytes % (1.7 - 9.3 %) 8.3 Eosinophils % (0 - 5 %) 1.8 Basophils % (0.0 - 2.0 %) 0.3 Absolute Granulocytes (1.4 - 6.5 /CUMM) 14.2 H Absolute Lymphocytes (1.2 - 3.4 /CUMM) 1.8 Absolute Monocytes (0.10 - 0.60 /CUMM) 1.5 H Absolute Eosinophils (0.0 - 0.7 /CUMM) 0.3 Absolute Basophils (0.0 - 0.2 /CUMM) 0.1 PUBS MCHC (33.0 - 37.0 G/DL) 33.4 Serology RPR Titer/FTA (NONREACTIVE) NONREACTIVE Lyme Disease Antibody (RATIO) Pending Diffential Diagnosis: Neurocognitive disorder, severe By history, primary progressive aphasia Probably depression R/O psychosis due to medical condition, possible urinary tract infection. Impression: The patient is unable to participate in a cognitive evaluation, including a folstein/MMSE. He provides opposing answers to questions about depression, and is unable to participate in a Geriatric Depression scale. TC to his Florence Colón, , today, who reports progressive decline in functioning. In the last week, while on antibiotics for a cold, he has not been sleeping at all, roaming around the house, and keeping her awake. Trial of lorazepam by PCP starting last week worsened his confusion. 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 Prior to that he used to get in his truck and disappear, causing her concern for his and other's safety. She states that she is unable to care for him at home and is workling with case management to find a shelter. He has no psychiatric history. He has been followed by Dr. Bianchi, neurology, for primary progressive dementia. He failed donepezil at 10 mg, due to diarrhea, when his usual habit is constipation, and it was stopped. he also tried Namenda, but this made him constipated. She is unsure about management of the suggested Exelon patch, but notes that the co-pay is extremely expensive. Labs and EKG reviewed. EKG 05/04/17 @ 0104 shows SR 81 bpm, PACs, QTc 488 mS. Potassium has been corrected, but there is not result for magnesium. For now, the EKG result shows a contraindication for the use of Seroquel, which can exacerbate QT prolongation, a condition that can lead to a fatal arrhythmia and sudden in the elderly. Provisional Treatment Plan: 1. Consider treating any infectious process that could be contributing to a change of mental status. Avoid delirium triggers, and avoid nursing interventions as much as possible between 10PM and 6AM. 2. Order magnesium level and replete to the upper portion of the normal range. 3. Hold quetiapine or other antipsychotic for now, as the QTc is greater than 475 mS. Please ask cardiology to comment on the future use of this medication, provided the QTc resolves. 4. Hold trazodone, as this can worsen QTc prolongation. 5. Do not order benzodiazepines, as they can worsen delirium. We may have other suggestions for managing behavior later today.
[2017-05-05 14:30] VITALS: BP 118/80
--- NOTE | 2017-05-05 15:36 | PN- Cardiology ---
Subjective Subjective: Alert and confused with no obvious complaints. Objective Vital Signs and I&Os Vital Signs Date Time Temp Pulse Resp B/P B/P Pulse O2 O2 Flow FiO2 Mean Ox Delivery Rate 05/05 1457 118/80 05/05 1430 98.0 131 20 118/80 94 Room Air 05/05 0705 97.7 131 20 104/84 94 Room Air 05/05 0604 132 104/84 05/05 0120 99.0 120 20 110/80 93 Room Air Intake & Output 05/05 1600 05/05 0800 05/05 0000 05/04 1600 05/04 0800 05/04 0000 Intake Total 600 800 300 730 120 224 Output Total 650 200 300 Balance -50 800 100 730 120 -76 Intake, IV 200 800 250 104 Intake, Oral 400 300 480 120 120 Output, Urine 650 200 300 Weight Chair scale Measurement Method Physical Exam: General: The patient is confused, and in no acute distress HEENT: Normal nose, ears, and oropharynx. Pupils equal bilaterally. Conjunctiva normal. Neck: Supple with no JVD, no masses, and no thyromegaly Lungs: Clear to auscultation with normal respiratory effort Heart: irreg irreg, S1, S2, no murmurs. No peripheral edema, 2+ pulses in the lower extremities bilaterally Abdomen: Soft, nontender, no masses. No hepatomegaly. No splenomegaly Extremities: No clubbing or cyanosis. Normal muscle strength in the upper and lower extremities Skin: Normal skin turgor with no skin ulcers or lesions noted. Neuro: Non focal Current Medications: Current Medications Sig/Sandra Start time Last Medication Dose Route Stop Time Status Admin Allopurinol 300 MG DAILY 05/03 1000 AC 05/05 PO 0930 Apixaban 5 MG BID 05/03 2255 AC 05/05 PO 0928 Cholecalciferol 1,000 IU DAILY 05/03 1000 AC 05/05 PO 0928 Dextrose/Water 1,000 ML Q8H 05/05 1430 AC 05/05 IV 1521 Dextrose/Water 1,000 ML ONCE ONE 05/05 1415 CAN IV 05/06 0334 Diltiazem HCl 30 MG Q8 05/04 1400 AC 05/05 PO 1457 Losartan Potassium 50 MG DAILY 05/03 1000 DC 05/05 PO 0929 Multivitamins 1 TAB DAILY 05/03 1000 AC 05/05 PO 0928 Potassium Chloride 40 MEQ BID 05/04 1000 DC 05/04 PO 05/05 0600 2247 Quetiapine Fumarate 25 MG ONCE ONE 05/04 2200 DC 05/04 PO 05/04 2201 2246 Quetiapine Fumarate 25 MG 1700 05/04 1700 DC 05/04 PO 1712 Sodium Chloride 1,000 ML Q10H 05/04 1445 DC 05/05 IV 0556 Trazodone HCl 50 MG AT BEDTIME 05/04 2200 DC 05/04 PO 1941 Trazodone HCl 50 MG AT BEDTIME NEED.. 05/03 2200 DC 05/03 PO 2216 Triamterene/HCTZ 1 CAP DAILY 05/03 1000 AC 05/05 PO 0928 Results Last 48 Hrs of Labs/Mics: Laboratory Tests 05/05/17 1408: Magnesium Cancelled 05/05/17 1400: Magnesium Cancelled 05/05/17 0700: Anion Gap 14, Estimated GFR > 60, BUN/Creatinine Ratio 32.5 H, Magnesium 1.9, CBC w Diff NO MAN DIFF REQ, RBC 4.66 L, MCV 94.7 H, MCH 31.6 H, RDW 14.2, MPV 8.2, Gran % 79.7 H, Lymphocytes % 9.9 L, Monocytes % 8.3, Eosinophils % 1.8, Basophils % 0.3, Absolute Granulocytes 14.2 H, Absolute Lymphocytes 1.8, Absolute Monocytes 1.5 H, Absolute Eosinophils 0.3, Absolute Basophils 0.1, PUBS MCHC 33.4, RPR Titer/FTA NONREACTIVE, Lyme Disease Antibody 0.06 05/04/17 0625: Anion Gap 20 H, Estimated GFR > 60, BUN/Creatinine Ratio 23.3 05/03/17 2130: APTT Cancelled 05/03/17 2115: APTT 96 H 05/03/17 1548: PT 15.6 H, INR 1.49 H, APTT 38 H Assessment/Plan Assessment/Plan Assessment: 1. Dementia with agitation and confusion 2. Paroxysmal atrial fibrillation and atrial flutter with elevated ventricular rate Plan: * Continue Diltiazem 30 mg by mouth every 8 hours for rate control * If tolerated by BP consider increasing diltiazem to q6 hours. If not, we may need to consider digitalizing the patient for improved rate control. * Continue Eliquis Continue telemetry? Yes
[2017-05-05 22:15] VITALS: BP 108/80
[2017-05-06 06:24] VITALS: BP 118/100
--- NOTE | 2017-05-06 07:31 | PN- Housestaff ---
Garth SUBRAMANIAN,Susy 05/06/17 0731: Subjective Follow-up For: Acute delirium, atrial fibrillation Complaints: no complaints Tele-Events Since Last Visit: Sinus tachycardia heart rate 120 Subjective: Patient was seen and examined by me today. He was lying in his bed comfortably. Patient had confusion and agitation overnight and was given Seroquel once. He appears more calm and still confused. He offers no complaints. Review of Systems Constitutional: Reports: no symptoms. Cardiovascular: Reports: no symptoms. Respiratory: Reports: no symptoms. Gastrointestinal: Reports: no symptoms. Genitourinary: Reports: no symptoms. Musculoskeletal: Reports: no symptoms. Objective Last 24 Hrs of Vital Signs/I&O Vital Signs Date Time Temp Pulse Resp B/P B/P Pulse O2 O2 Flow FiO2 Mean Ox Delivery Rate 05/06 0637 71 102/70 05/06 0624 97.2 138 20 118/100 94 Room Air 05/05 2215 96.6 126 20 108/80 93 Room Air 05/05 1607 Room Air 05/05 1556 Room Air 05/05 1457 118/80 05/05 1430 98.0 131 20 118/80 94 Room Air Intake & Output 05/06 1600 05/06 0800 05/06 0000 Intake Total 875 125 Output Total 400 Balance 875 -275 Intake, IV 875 125 Output, Urine 400 Physical Exam General Appearance: Alert, Oriented X3, Cooperative, No Acute Distress HEENT: PERRLA Neck: Supple, No JVD, No thryomegaly Cardiovascular: Regular Rate, Normal S1, Normal S2, No Murmurs Lungs: Clear to Auscultation Abdomen: Normal Bowel Sounds, Soft, No Tenderness Neurological: Normal Speech, Strength at 5/5 X4 Ext Extremities: No Edema Current Medications: Current Medications Sig/Sandra Start time Last Medication Dose Route Stop Time Status Admin Allopurinol 300 MG DAILY 05/03 1000 AC 05/06 PO 0915 Apixaban 5 MG 0900,1800 05/06 0900 AC 05/06 PO 0915 Apixaban 5 MG BID 05/03 2255 DC 05/05 PO 0928 Cholecalciferol 1,000 IU DAILY 05/03 1000 AC 05/06 PO 0915 Dextrose/Water 1,000 ML Q8H 05/05 1430 AC 05/06 IV 0133 Dextrose/Water 1,000 ML ONCE ONE 05/05 1415 CAN IV 05/06 0334 Diltiazem HCl 30 MG Q8 05/04 1400 AC 05/06 PO 0637 Multivitamins 1 TAB DAILY 05/03 1000 AC 05/06 PO 0915 Olanzapine 2.5 MG ONCE ONE 05/05 2215 DC IM 05/05 221 Patient Medication 1 ED ONE ONE 05/06 1145 DC Teaching ED 05/06 1146 Quetiapine Fumarate 25 MG 1700 05/04 1700 DC 05/04 PO 1712 Senna/Docusate Sodium 2 TAB DAILY 05/06 1000 AC 05/06 PO 0914 Trazodone HCl 50 MG AT BEDTIME 05/04 2200 DC 05/04 PO 1941 Trazodone HCl 50 MG AT BEDTIME NEED.. 05/03 2200 DC 05/03 PO 2216 Triamterene/HCTZ 1 CAP DAILY 05/03 1000 DC 05/05 PO 0928 Last 24 Hrs of Lab/Efren Results Last 24 Hrs of Labs/Mics: Laboratory Tests 05/06/17 0633: Anion Gap 14, Estimated GFR > 60, BUN/Creatinine Ratio 32.5 H, TSH 0.708, Free T4 1.53 05/05/171954: Urinalysis LIGHT H, Urine Color YEL, Urine Clarity HAZY H, Urine pH 7.0, Ur Specific [place] 1.020, Urine Protein NEG, Urine Ketones NEG, Urine Nitrite NEG, Urine Bilirubin NEG, Urine Urobilinogen 1.0, Ur Leukocyte Esterase TRACE H, Ur Microscopic SEDIMENT EXAMINED, Urine RBC 3-5, Urine WBC 10-15 H, Ur Epithelial Cells FEW, Urine Bacteria FEW H, Urine Mucus FEW, Urine Hemoglobin TRACE-INTACT H, Urine Glucose NEG 05/05/17 1408: Magnesium Cancelled 05/05/17 1400: Magnesium Cancelled Microbiology 05/05 1954 URINE ROUT: Urine Culture - RES 05/05 1407 URINE ROUT: Urine Culture - COLB Lines/Diet/Fluids Restraints: [place], right wrist, left wrist Assessment/Plan Assessment: 81-year-old gentleman with past medical history of hypertension, advanced primary progressive aphasia, hyperuricemia/gout and 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 Assessment and plan 1. Acute delirium- * patient was agitated overnight. Patient was given Seroquel once. Psychiatry was consulted yesterday who suggested to hold Seroquel and trazodone view of prolonged QTC. A repeat QTC was done yesterday which which was 466. * If patient is agitated suggested to give ramelteon and reorient him. * We will set up appointment with the Geriatric psychiatry as outpatient. * Family meeting is planned at around 11 AM today regarding discharge disposition. * Patient had hyponatremia with a sodium of 146 and was started on D5W at 100 mL per hour. Patient had a free water deficit of 2.8 L. Repeat BEP today showed a sodium of 142. * PAtient was seen by neurologist upon admission who suggested convalescent home that has ability to care for Alzheimer's patient for discharge disposition. 2. New onset A. fib * Patient is on Eliquis. Cardiology is on board. Echocardiogram shows an ejection fraction of 60-65% Echocardiogram pending. Admission EKG and troponin' s were negative. We will continue aspirin. Patient TSH-0.7, free T4 1 0.53. We will continue Cardizem 30 mg every 8. Patient was briefly in sinus tachycardia, but again went back to atrial fibrillation. 3.History of hypertension * Continue LOSARTAN, triamterene/hydrochlorothiazide 4. History of gout * Continue allopurinol Code-DNR/DNI Diet heart healthy diet. Problem List: 1. Atrial fibrillation 2. Dementia 3. Agitation Pain Ratin Pain Location: none Pain Goal: Remain pain free Pain Plan: tylenol Tomorrow's Labs & Rationales: bep Clarisa Cerna MD 05/06/17 1017: Attending MD Review Statement Attending Statement Attending MD Statement: examined this patient, discuss w/resident/PA/MILLWRIGHT SUPERVISOR, agreed w/resident/PA/MILLWRIGHT SUPERVISOR, reviewed EMR data (avail), discussed with nursing, discussed with case mgmt, amended to note Attending Assessment/Plan: Overnight patient became very agitated again and required a dose of Seroquel. He is much calmer this morning. Telemetry monitoring he is in sinus rhythm however with sinus tachycardia. She is not in respiratory distress. He is not requiring oxygen supplementation. This morning he does appear calm but very confused. His lungs are clear bilaterally. He has no peripheral edema. Problems: -Patient is currently sinus rhythm with sinus tachycardia. Follow-up with the cardiology service regarding optimization of rate control. Continue anticoagulation therapy. -Discharge planning is currently trying to the patient. He clearly requires dementia versus geriatric psychiatric unit. His however would like him to be discharged instead to regular [facility] facility. We will have a meeting later on today to discuss this further. Nursing staff encouraged to redirect patient-as much as safely possible and avoid chemical sedation.
--- NOTE | 2017-05-06 07:48 | PN- Cardiology ---
Subjective Subjective: clinically without significant change. The patient was transiently in sinus rhythm earlier this morning but reverted to atrial flutter with variable conduction subsequently. Currently heart rate in the 110-120 range. Objective Vital Signs and I&Os Vital Signs Date Time Temp Pulse Resp B/P B/P Pulse O2 O2 Flow FiO2 Mean Ox Delivery Rate 05/06 0637 71 102/70 05/06 0624 97.2 138 20 118/100 94 Room Air 05/05 2215 96.6 126 20 108/80 93 Room Air 05/05 1607 Room Air 05/05 1556 Room Air 05/05 1457 118/80 05/05 1430 98.0 131 20 118/80 94 Room Air Intake & Output 05/06 0800 05/06 0000 05/05 1600 05/05 0800 05/05 0000 05/04 1600 Intake Total 875 125 600 800 300 730 Output Total 400 650 200 Balance 875 -275 -50 800 100 730 Intake, IV 875 125 200 800 250 Intake, Oral 400 300 480 Output, Urine 400 650 200 Current Medications: Current Medications Sig/Sandra Start time Last Medication Dose Route Stop Time Status Admin Allopurinol 300 MG DAILY 05/03 1000 AC 05/05 PO 0930 Apixaban 5 MG BID 05/03 2255 AC 05/05 PO 0928 Cholecalciferol 1,000 IU DAILY 05/03 1000 AC 05/05 PO 0928 Dextrose/Water 1,000 ML Q8H 05/05 1430 AC 05/06 IV 0133 Dextrose/Water 1,000 ML ONCE ONE 05/05 1415 CAN IV 05/06 0334 Diltiazem HCl 30 MG Q8 05/04 1400 AC 05/06 PO 0637 Losartan Potassium 50 MG DAILY 05/03 1000 DC 05/05 PO 0929 Multivitamins 1 TAB DAILY 05/03 1000 AC 05/05 PO 0928 Olanzapine 2.5 MG ONCE ONE 05/05 2215 DC IM 05/05 2216 Quetiapine Fumarate 25 MG 1700 05/04 1700 DC 05/04 PO 1712 Sodium Chloride 1,000 ML Q10H 05/04 1445 DC 05/05 IV 0556 Trazodone HCl 50 MG AT BEDTIME 05/04 2200 DC 05/04 PO 1941 Trazodone HCl 50 MG AT BEDTIME NEED.. 05/03 2200 DC 05/03 PO 2216 Triamterene/HCTZ 1 CAP DAILY 05/03 1000 AC 05/05 PO 0928 Results Last 48 Hrs of Labs/Mics: Laboratory Tests 05/06/17 0633: Sodium Pending, Potassium Pending, Chloride Pending, Carbon Dioxide Pending, Anion Gap Pending, BUN Pending, Creatinine Pending, BUN/Creatinine Ratio Pending 05/05/17 1955: Urinalysis LIGHT H, Urine Color YEL, Urine Clarity HAZY H, Urine pH 7.0, Ur Specific [place] 1.020, Urine Protein NEG, Urine Ketones NEG, Urine Nitrite NEG, Urine Bilirubin NEG, Urine Urobilinogen 1.0, Ur Leukocyte Esterase TRACE H, Ur Microscopic SEDIMENT EXAMINED, Urine RBC 3-5, Urine WBC 10-15 H, Ur Epithelial Cells FEW, Urine Bacteria FEW H, Urine Mucus FEW, Urine Hemoglobin TRACE-INTACT H, Urine Glucose NEG 05/05/17 1408: Magnesium Cancelled 05/05/17 1400: Magnesium Cancelled 05/05/17 0700: Anion Gap 14, Estimated GFR > 60, BUN/Creatinine Ratio 32.5 H, Magnesium 1.9, CBC w Diff NO MAN DIFF REQ, RBC 4.66 L, MCV 94.7 H, MCH 31.6 H, RDW 14.2, MPV 8.2, Gran % 79.7 H, Lymphocytes % 9.9 L, Monocytes % 8.3, Eosinophils % 1.8, Basophils % 0.3, Absolute Granulocytes 14.2 H, Absolute Lymphocytes 1.8, Absolute Monocytes 1.5 H, Absolute Eosinophils 0.3, Absolute Basophils 0.1, PUBS MCHC 33.4, RPR Titer/FTA NONREACTIVE, Lyme Disease Antibody 0.06 Assessment/Plan Assessment/Plan Assessment: 1. Dementia with agitation and confusion 2. Paroxysmal atrial fibrillation and atrial flutter with elevated ventricular rate Plan: * continue current medication for now. Trial of increasing Cardizem to every 6 hour dosing for improved rate control -If the patient shows evidence of reverting again to sinus rhythm, consider adding low-dose beta luly in hopes of maintaining sinus rhythm. -Continue oral anticoagulation Continue telemetry? Yes
[2017-05-06 14:54] VITALS: BP 110/70
[2017-05-07 06:41] VITALS: BP 112/84
--- NOTE | 2017-05-07 07:06 | PN- Housestaff ---
Subjective Follow-up For: Acute delirium, dementia, atrial fibrillation Complaints: no complaints Tele-Events Since Last Visit: Sinus tachycardia heart rate 120-130 Subjective: I saw the patient today at bedside. No overnight events. He was lying in his bed comfortably. He is on 4 point restraints and [place]. He is alert and confused. He offered no complaints Review of Systems Constitutional: Reports: no symptoms. Cardiovascular: Reports: no symptoms. Respiratory: Reports: no symptoms. Gastrointestinal: Reports: no symptoms. Genitourinary: Reports: no symptoms. Musculoskeletal: Reports: no symptoms. Objective Last 24 Hrs of Vital Signs/I&O Vital Signs Date Time Temp Pulse Resp B/P B/P Pulse O2 O2 Flow FiO2 Mean Ox Delivery Rate 05/07 0641 97.9 135 20 112/84 93 Room Air 05/07 0606 112/84 05/06 1454 97.7 130 20 110/70 93 Room Air 05/06 1328 136 114/60 Intake & Output 05/07 1600 05/07 0800 05/07 0000 Intake Total 300 Output Total Balance 300 Intake, Oral 300 Physical Exam General Appearance: Alert, Oriented X3, Cooperative, No Acute Distress HEENT: Atraumatic Cardiovascular: Normal S1, Normal S2, regular Lungs: Clear to Auscultation Abdomen: Normal Bowel Sounds, Soft, No Tenderness Current Medications: Current Medications Sig/Sandra Start time Last Medication Dose Route Stop Time Status Admin Allopurinol 300 MG DAILY 05/03 1000 AC 05/06 PO 0915 Apixaban 5 MG 0900,1800 05/06 0900 AC 05/06 PO 1655 Bisacodyl 5 MG DAILY 05/06 1945 AC PO 05/08 1000 Cholecalciferol 1,000 IU DAILY 05/03 1000 AC 05/06 PO 0915 Dextrose/Water 1,000 ML Q8H 05/05 1430 DC 05/06 IV 0133 Diltiazem HCl 30 MG Q6 05/06 2359 AC 05/07 PO 0606 Diltiazem HCl 30 MG Q8 05/04 1400 DC 05/06 PO 1328 Multivitamins 1 TAB DAILY 05/03 1000 AC 05/06 PO 0915 Patient Medication 1 ED ONE ONE 05/06 1145 DC Teaching ED 05/06 1146 Senna/Docusate Sodium 2 TAB DAILY 05/06 1000 AC 05/06 PO 0914 Last 24 Hrs of Lab/Efren Results Last 24 Hrs of Labs/Mics: Laboratory Tests 05/07/17 0634: Anion Gap 15, Estimated GFR > 60, BUN/Creatinine Ratio 36.3 H Lines/Diet/Fluids Restraints: [place], 4-point Assessment/Plan Assessment: 81-year-old gentleman with past medical history of hypertension, advanced primary progressive aphasia, hyperuricemia/gout and 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 Assessment and plan 1. Acute delirium- * No overnight events. Patient appears calm, alert but confused. Patient will be followed by psychiatry. * If patient is agitated psychiatry suggested to give ramelteon and reorient him. * We will set up appointment with the Geriatric psychiatry as outpatient. Plan to send him to rehabilitation facility/geriatric psych facility. We had a family meeting regarding this is today and discuss about the discharge disposition. * Patient had hyponatremia which corrected with IV fluids. Today's sodium 144. * PAtient was seen by neurologist upon admission who suggested convalescent home that has ability to care for Alzheimer's patient for discharge disposition. * We will discontinue soft restraints and Traverse. We will place a library monitor. today. 2. New onset A. fib * Patient is on Eliquis.Echocardiogram shows an ejection fraction of 60-65% Admission EKG and troponin's were negative. We will continue aspirin. Patient TSH-0.7, free T4 1 0.53. Patient heart rate was however in between 120-1:30. Professor Of Architecture decided to increase Cardizem 30 mg every every 6. 3.History of hypertension * Continue LOSARTAN, triamterene/hydrochlorothiazide 4. History of gout * Continue allopurinol Code-DNR/DNI Diet heart healthy diet. Problem List: 1. Atrial fibrillation 2. Agitation Pain Ratin Pain Location: none Pain Goal: Remain pain free Pain Plan: tylenol Tomorrow's Labs & Rationales: bep
--- NOTE | 2017-05-07 08:19 | Patient Discharge Instructions ---
Discharge Instructions General Discharge Information You were seen/treated for: Acute delirium, atrial fibrillation Watch for these problems: In case of chest pain, chest pressure, confusion, falls, loss of consciousness, palpitations, shortness of breath please go to the nearest ER. Special Instructions: Please follow with your primary care provider within 1-2 weeks of discharge and let them know about your recent admission at [facility]. Please follow up with the cement cutter within 1-2 weeks of discharge and let them know about your recent admission at [facility]. Please take the medication as directed. Diet Continue normal diet: No Recommended Diet: Heart Healthy Activity Full Activity/No Limits: No Activity Self Limited: Yes Acute Coronary Syndrome Inclusion Criteria At DC or during hospital stay patient has or had the following: ACS DIAGNOSIS No Discharge Core Measures Meds if any: Prescribed or Continued at Discharge Meds if any: NOT Prescribed or Continued at Discharge Congestive Heart Failure Inclusion Criteria At DC or during hospital stay patient has or had the following: CHF DIAGNOSIS No Discharge Core Measures Meds if any: Prescribed or Continued at Discharge Meds if any: NOT Prescribed or Continued at Discharge Cerebrovascular accident Inclusion Criteria At DC or during hospital stay patient has or had the following: CVA/TIA Diagnosis No Discharge Core Measures Meds if any: Prescribed or Continued at Discharge Meds if any: NOT Prescribed or Continued at Discharge Venous thromboembolism Inclusion Criteria VTE Diagnosis No VTE Type NONE VTE Confirmed by (Test) NONE Discharge Core Measures - Per Current guidelines, there needs to be overlap - treatment for the first 5 days of Warfarin therapy. - If discharged on Warfarin prior to 5 days of - overlap therapy, the patient will need to be - assessed for post discharge needs including - *Post discharge parental anticoagulation - *Warfarin and/or parental anticoagulation education - *Follow up date to check INR post discharge At least 5 days overlap therapy as Inpatient No Meds if any: Prescribed or Continued at Discharge Note: Overlap Therapy is Warfarin and Anticoagulant Meds if any: NOT Prescribed or Continued at Discharge
[2017-05-07] MEDS ORDERED: ELIQUIS5 M1 PO (08:24)
[2017-05-07] MEDS ORDERED: CARDIZEM30 M1 PO (08:24)
--- NOTE | 2017-05-07 09:23 | PN- Att Addend ---
Attending Addendum Attending Brief Note Patient seen and examined. Resting comfortably not in any acute distress. He remains with a [place] restraint on the bedside sitter. He did not require any chemical sedation overnight. On examination he is currently calm but remains confused. Heart rate remains tachycardic. Heart rate 120s-130s. Blood pressure is stable. Lungs are clear bilaterally. Abdomen is soft and nontender. He has no peripheral edema. Due to his well-controlled heart rate Cardizem dosing was increased yesterday however he did refuse 1 of the doses overnight. Recommendations: -Continue Cardizem dosing as recommended by the cardiology service. The rate remains poorly controlled recommend additional beta-luyl therapy. -Continue anticoagulation therapy. -De-escalate restraints as tolerated. -I did have a meeting with the patient's and [id number] yesterday. They are in agreement with discharging patient to a longterm facility with either a dementia unit or geriatric psychiatric capabilities. We will anticipate discharge once his heart rate gets better controlled.
--- NOTE | 2017-05-07 13:07 | PN- Cardiology ---
Subjective Subjective: Alert and confused. Remains in restraints. Remains in A Flutter with ventricular rate about 120 Objective Vital Signs and I&Os Vital Signs Date Time Temp Pulse Resp B/P B/P Pulse O2 O2 Flow FiO2 Mean Ox Delivery Rate 05/07 0641 97.9 135 20 112/84 93 Room Air 05/07 0606 112/84 05/06 1454 97.7 130 20 110/70 93 Room Air 05/06 1328 136 114/60 Intake & Output 05/07 1600 05/07 0800 05/07 0000 05/06 1600 05/06 0800 05/06 0000 Intake Total 300 400 875 125 Output Total 400 Balance 300 400 875 -275 Intake, IV 875 125 Intake, Oral 300 400 Output, Urine 400 Current Medications: Current Medications Sig/Sandra Start time Last Medication Dose Route Stop Time Status Admin Allopurinol 300 MG DAILY 05/03 1000 AC 05/07 PO 0907 Apixaban 5 MG 0900,1800 05/06 0900 AC 05/07 PO 0907 Bisacodyl 5 MG DAILY 05/06 1945 AC 05/07 PO 05/08 1000 0909 Cholecalciferol 1,000 IU DAILY 05/03 1000 AC 05/07 PO 0907 Dextrose/Water 1,000 ML Q8H 05/05 1430 DC 05/06 IV 0133 Diltiazem HCl 30 MG Q6 05/06 2359 AC 05/07 PO 0606 Diltiazem HCl 30 MG Q8 05/04 1400 DC 05/06 PO 1328 Multivitamins 1 TAB DAILY 05/03 1000 AC 05/07 PO 0907 Polyethylene Glycol 17 GM DAILY PRN 05/07 1030 AC PO Senna/Docusate Sodium 2 TAB DAILY 05/06 1000 AC 05/07 PO 0906 Results Last 48 Hrs of Labs/Mics: Laboratory Tests 05/07/17 0634: Anion Gap 15, Estimated GFR > 60, BUN/Creatinine Ratio 36.3 H 05/06/17 0633: Anion Gap 14, Estimated GFR > 60, BUN/Creatinine Ratio 32.5 H, TSH 0.708, Free T4 1.53 05/05/175: Urinalysis LIGHT H, Urine Color YEL, Urine Clarity HAZY H, Urine pH 7.0, Ur Specific [place] 1.020, Urine Protein NEG, Urine Ketones NEG, Urine Nitrite NEG, Urine Bilirubin NEG, Urine Urobilinogen 1.0, Ur Leukocyte Esterase TRACE H, Ur Microscopic SEDIMENT EXAMINED, Urine RBC 3-5, Urine WBC 10-15 H, Ur Epithelial Cells FEW, Urine Bacteria FEW H, Urine Mucus FEW, Urine Hemoglobin TRACE-INTACT H, Urine Glucose NEG 05/05/17 1408: Magnesium Cancelled 05/05/17 1400: Magnesium Cancelled Microbiology 05/05 1954 URINE ROUT: Urine Culture - COMP Assessment/Plan Assessment/Plan Assessment: 1. Dementia with agitation and confusion 2. Paroxysmal atrial fibrillation and atrial flutter with elevated ventricular rate 3. Worsening leukocytosis Recommendations: - Continue to monitor on telemetry; the patient remains in atrial flutter today. - Continue Eliquis - No further episodes of NSR since early yesterday. Heart rate remains in the 110-125 range. - Add Metoprolol 6.25 mg BID to regimen and increase to 12.5 BID tomorrow if tolerated by BP. - Further plans at that point. - Note worsening leukocytosis. Continue telemetry? Yes
[2017-05-07 14:22] VITALS: BP 120/82
[2017-05-07 22:26] VITALS: BP 112/82
[2017-05-08 06:23] VITALS: BP 108/58
[2017-05-08 07:01] LABS: ABSOLUTE BASOPHIL COUNT 0 /CUMM (0.0-0.2); ABSOLUTE EOSINOPHIL COUNT 0.4 /CUMM (0.0-0.7); ABSOLUTE GRANULOCYTE CT 16.9 /CUMM (1.4-6.5); ABSOLUTE LYMPH COUNT 2.5 /CUMM (1.2-3.4); ABSOLUTE MONOCYTE COUNT 1.5 /CUMM (0.10-0.60); BASOPHIL % 0 % (0.0-2.0); EOSINOPHIL % 1.8 % (0-5); GRANULOCYTE % 79.3 % (42.2-75.2); HEMATOCRIT 46.2 % (42-52); MEAN CORPUSCULAR HGB 31.6 PG (27.0-31.0); MEAN CORPUSCULAR HGB CONC 33.5 G/DL (33.0-37.0); MEAN CORPUSCULAR VOLUME 94.5 FL (80.0-94.0); MEAN PLATELET VOLUME 8.3 FL (7.4-10.4); PLATELET COUNT 372 /CUMM (130-400); RBC DISTRIBUTION WIDTH 13.5 % (11.5-14.5); RED BLOOD CELL CT 4.89 /CUMM (4.70-6.10); WHITE BLOOD CELL COUNT 21.4 /CUMM (4.8-10.8)
--- NOTE | 2017-05-08 08:57 | PN- Housestaff ---
See Addendum Subjective Follow-up For: Acute delirium, dementia, atrial fibrillation Subjective: Patient was seen and examined, patient had owning yesterday, was very confused, had [place] and 4 points heart restrain. This morning patient is in netbed. Respond appropriately to questions. sitter at bedside. Review of Systems Constitutional: Reports: see HPI. Objective Last 24 Hrs of Vital Signs/I&O Vital Signs Date Time Temp Pulse Resp B/P B/P Pulse O2 O2 Flow FiO2 Mean Ox Delivery Rate 05/08 1502 97.4 116 18 110/70 95 Room Air 05/08 1301 119 110/62 05/08 1051 116/62 05/08 0623 98.2 69 18 108/58 92 Room Air 05/08 0604 118 108/62 05/08 0100 108 90/58 05/07 2355 125 102/60 05/07 2226 97.6 90 18 112/82 93 Room Air 05/07 1841 128/70 Intake & Output 05/08 1600 05/08 0800 05/08 0000 Intake Total 600 240 200 Output Total Balance 600 240 200 Intake, Oral 600 240 200 Number 1 Bowel Movements Patient 93.894 kg Weight Physical Exam General Appearance: Alert, Oriented X3 Skin: No Rashes Skin Temp/Moisture Exam: Warm/Dry HEENT: Atraumatic, PERRLA, EOMI, Mucous Membr. 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 Assessment and plan 1. Acute delirium- * EA is negative for RAIN that could explain the acute delerium * If patient is agitated psychiatry suggested to give ramelteon and reorient him. * We will set up appointment with the Geriatric psychiatry as outpatient. Plan to send him to rehabilitation facility/geriatric psych facility. * PAtient was seen by neurologist upon admission who suggested convalescent home that has ability to care for Alzheimer's patient for discharge disposition. * Avoid Seroquel or trazodone for prolonged QTC 2. New onset A. fib * Patient is on Eliquis.Echocardiogram shows an ejection fraction of 60-65% Admission EKG and troponin's were negative. We will continue aspirin. Patient TSH-0.7, free T4 1 0.53. Patient heart rate was however in between 120-1:30. * Continue Cardizem 30 mg every 6 * Increase metoprolol to 12.5 3 times a day for tachycardia, blood pressure is tolerable 3.History of hypertension * Continue LOSARTAN, triamterene/hydrochlorothiazide 4. History of gout * Continue allopurinol 5. Leukocytosis * Worsening leukocytosis however patient continued to be afebrile, UA negative for infection, urine culture continued to be negative. Patient is not on any immunosuppressive medication that can mask his fever. We'll continue to monitor leukocytosis and his temperature. If he developed any temperature please panculture. Code-DNR/DNI Diet heart healthy diet. Problem List: 1. Atrial fibrillation 2. Agitation 3. Dementia Pain Ratin Pain Location: N/A Pain Goal: Pain 4 or less Pain Plan: See medication Tomorrow's Labs & Rationales: CBC BMP
[2017-05-08 15:02] VITALS: BP 110/70
[2017-05-08 23:00] VITALS: BP 126/88
[2017-05-09 06:43] VITALS: BP 144/98
[2017-05-09 08:27] LABS: ABSOLUTE BASOPHIL COUNT 0.1 /CUMM (0.0-0.2); ABSOLUTE EOSINOPHIL COUNT 0.7 /CUMM (0.0-0.7); ABSOLUTE LYMPH COUNT 3.3 /CUMM (1.2-3.4); ABSOLUTE MONOCYTE COUNT 1.3 /CUMM (0.10-0.60); BASOPHIL % 0.4 % (0.0-2.0); EOSINOPHIL % 3.8 % (0-5); GRANULOCYTE % 69.1 % (42.2-75.2); HEMATOCRIT 47.6 % (42-52); MEAN CORPUSCULAR HGB 31.5 PG (27.0-31.0); MEAN CORPUSCULAR VOLUME 95.4 FL (80.0-94.0); MEAN PLATELET VOLUME 8.5 FL (7.4-10.4); PLATELET COUNT 385 /CUMM (130-400); RBC DISTRIBUTION WIDTH 13.8 % (11.5-14.5); RED BLOOD CELL CT 4.99 /CUMM (4.70-6.10); WHITE BLOOD CELL COUNT 17.3 /CUMM (4.8-10.8)
--- NOTE | 2017-05-09 14:31 | PN- Att Addend ---
Attending Addendum Attending Brief Note Patient seen and examined. Resting comfortably not in any acute distress. He remains with a netted restraint with the bedside sitter. Heart rate has been fluctuating between 90's - 110's. The heart rate has been better after increasing the dose of metoprolol. Metoprolol can be uptitrated keeping an eye on the blood pressure as needed for heart rate control . Blood pressure is stable. Lungs are clear bilaterally. Abdomen is soft and nontender. He has no peripheral edema. S1, S2 is irregular, no murmurs, rubs or gallops. On examination this morning patient is still fidgety, did not have a good night' s sleep last night sometimes agitated Recommendations: -Continue Cardizem dosing as recommended by the cardiology service. -Continue anticoagulation therapy. - Will need to be reevaluated by psychiatry morning - Initiated on Seroquel scheduled low dose at bedtime. QTC less than 500. - Patient will need to be discharged to a senior living facility with either a dementia unit or geriatric psychiatric capabilities. We will anticipate discharge once his heart rate gets better controlled likely in the next 1-2 days.
[2017-05-09 19:50] VITALS: BP 120/80
[2017-05-10 07:14] VITALS: BP 128/84
--- NOTE | 2017-05-10 07:16 | PN- Housestaff ---
Garth SUBRAMANIAN,Susy 05/10/17 0716: Subjective Follow-up For: Acute delirium, atrial fibrillation Complaints: no complaints Tele-Events Since Last Visit: Normal sinus rhythm heart rate 110 Subjective: Patient was seen and examined by me at bedside today. He is on net bed, [place] and 1:1 sitter. He is alert, confused and not oriented to time and place. Review of system unobtainable because of his mental status. Review of Systems Constitutional: Reports: no symptoms. Comments: Review of system unobtainable. Objective Last 24 Hrs of Vital Signs/I&O Vital Signs Date Time Temp Pulse Resp B/P B/P Pulse O2 O2 Flow FiO2 Mean Ox Delivery Rate 05/10 0714 96.9 116 22 128/84 96 Room Air 05/10 0611 96.4 116 18 128/84 05/10 0050 98.3 117 20 128/88 05/09 2204 126 128/88 05/09 2201 130 22 91 05/09 1950 98.3 118 20 120/80 95 05/09 1710 92 126/62 05/09 1157 92 120/62 05/09 0826 90 138/68 Intake & Output 05/10 1600 05/10 0800 05/10 0000 Intake Total 120 Output Total 400 Balance -280 Intake, Oral 120 Number 1 Bowel Movements Output, Urine 400 Physical Exam General Appearance: Alert, No Acute Distress Neck: Supple, No JVD Cardiovascular: Regular Rate, Normal S1, Normal S2 Lungs: Clear to Auscultation Abdomen: Soft, No Tenderness, No Hepatospenomegaly Neurological: Strength at 5/5 X4 Ext, Sensation Intact Current Medications: Current Medications Sig/Sandra Start time Last Medication Dose Route Stop Time Status Admin Allopurinol 300 MG DAILY 05/03 1000 AC 05/09 PO 0825 Apixaban 5 MG 0900,1800 05/06 0900 AC 05/09 PO 1710 Cholecalciferol 1,000 IU DAILY 05/03 1000 AC 05/09 PO 0825 Diltiazem HCl 30 MG Q6 05/06 2359 AC 05/10 PO 0611 Metoprolol Tartrate 12.5 MG BID 05/08 2200 AC 05/09 PO 2204 Multivitamins 1 TAB DAILY 05/03 1000 AC 05/09 PO 0825 Polyethylene Glycol 17 GM DAILY PRN 05/07 1030 AC PO Quetiapine Fumarate 25 MG 05/09 AC 05/09 PO 2204 Quetiapine Fumarate 25 MG 1700 05/09 1700 DC PO Quetiapine Fumarate 12.5 MG ONCE ONE 05/09 1145 DC 05/09 PO 05/09 1146 1156 Senna/Docusate Sodium 2 TAB DAILY 05/06 1000 AC 05/09 PO 0825 Last 24 Hrs of Lab/Efren Results Last 24 Hrs of Labs/Mics: Laboratory Tests 05/10/17 0730: Sodium Pending, Potassium Pending, Chloride Pending, Carbon Dioxide Pending, Anion Gap Pending, BUN Pending, Creatinine Pending, BUN/Creatinine Ratio Pending 05/10/17 0700: CBC w Diff Pending, WBC Pending, RBC Pending, Hgb Pending, Hct Pending, MCV Pending, MCH Pending, RDW Pending, Plt Count Pending, MPV Pending, PUBS MCHC Pending Lines/Diet/Fluids Restraints: [place], safety enclosure Assessment/Plan Assessment: 81-year-old gentleman with past medical history of hypertension, advanced primary progressive aphasia, hyperuricemia/gout and 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 Assessment and plan 1. Acute delirium- * Patient is alert, confused. Patient is on NET BED/NGUYEN. Patient is on Seroquel as needed. Patient had hypernatremia during this admission and was treated with IV fluids. We will encourage oral fluids and continue monitoring his electrolytes. * If patient is agitated psychiatry suggested to give ramelteon and to reorient . * We will set up appointment with the Geriatric psychiatry as outpatient. Plan to send him to rehabilitation facility/geriatric psych facility. * PAtient was seen by neurologist upon admission who suggested convalescent home that has ability to care for Alzheimer's patient for discharge disposition. * Follow-up psychiatry today. 2. New onset A. fib * Patient is in sinus tachycardia today. Patient is on Eliquis.Echocardiogram shows an ejection fraction of 60-65% Admission EKG and troponin's were negative. We will continue aspirin. Patient TSH-0.7, free T4 1 0.53. * Continue Cardizem 30 mg every 6 * Patient metoprolol increased from 6.25-12.5. His heart rate 110, blood pressure 128/84. 3.History of hypertension * Continue LOSARTAN, triamterene/hydrochlorothiazide 4. History of gout * Continue allopurinol 5. Leukocytosis * Worsening leukocytosis however patient continued to be afebrile, UA negative for infection, urine culture continued to be negative. We'll continue to monitor leukocytosis and his temperature. If he developed any temperature please panculture. Code-DNR/DNI Diet heart healthy diet. Plan-cardiology follow-up, psychiatry follow-up. Problem List: 1. Atrial fibrillation 2. Agitation 3. Dementia Pain Ratin Pain Location: none Pain Goal: Remain pain free Pain Plan: tylelol Tomorrow's Labs & Rationales: Clarisa Mendez MD 05/10/17 1126: Attending MD Review Statement Attending Statement Attending MD Statement: examined this patient, discuss w/resident/PA/ASSISTANT PROFESSOR OF CHEMISTRY, agreed w/resident/PA/ASSISTANT PROFESSOR OF CHEMISTRY, discussed with family, reviewed EMR data (avail), discussed with nursing, discussed with case mgmt, amended to note Attending Assessment/Plan: Patient seen and examined. Over the weekend he was started on Seroquel after discussion with the cardiology service. This morning he is resting peacefully and not agitated. He is a net bed which is currently open. She still has a sitter. He remains in atrial fibrillation with heart rate in the 110s. Recommendations: -Cardiology follow-up appreciated. Change Cardizem to long-acting and increase dose to 180 mg daily. -Continue current dose of metoprolol. -Continue anticoagulant therapy. -Sodium level is elevated. Nursing staff reported he is eating adequately, however he has not been drinking fluids adequately. Begin patient on D5W and repeat sodium level in the morning. Encourage oral intake. Begin patient on free water 250 cc every 6 hours daily. -Awaiting placement in a facility with either a dementia unit or geriatric/ psychiatric capabilities.
[2017-05-10 08:18] LABS: ABSOLUTE BASOPHIL COUNT 0.1 /CUMM (0.0-0.2); ABSOLUTE EOSINOPHIL COUNT 0.5 /CUMM (0.0-0.7); ABSOLUTE GRANULOCYTE CT 10.8 /CUMM (1.4-6.5); ABSOLUTE LYMPH COUNT 2.6 /CUMM (1.2-3.4); ABSOLUTE MONOCYTE COUNT 1.2 /CUMM (0.10-0.60); BASOPHIL % 0.5 % (0.0-2.0); EOSINOPHIL % 3.2 % (0-5); GRANULOCYTE % 70.9 % (42.2-75.2); HEMATOCRIT 45.7 % (42-52); MEAN CORPUSCULAR HGB 31.6 PG (27.0-31.0); MEAN CORPUSCULAR HGB CONC 33.3 G/DL (33.0-37.0); MEAN CORPUSCULAR VOLUME 95.2 FL (80.0-94.0); MEAN PLATELET VOLUME 8.6 FL (7.4-10.4); PLATELET COUNT 362 /CUMM (130-400); RBC DISTRIBUTION WIDTH 14.4 % (11.5-14.5); WHITE BLOOD CELL COUNT 15.3 /CUMM (4.8-10.8)
--- NOTE | 2017-05-10 10:06 | PN- Cardiology ---
Subjective Subjective: The patient remains confused. No chest pain. No shortness of breath. No palpitations. He remains in atrial fibrillation with mildly elevated ventricular rate Objective Vital Signs and I&Os Vital Signs Date Time Temp Pulse Resp B/P B/P Pulse O2 O2 Flow FiO2 Mean Ox Delivery Rate 05/10 0906 100 118/70 05/10 0714 96.9 116 22 128/84 96 Room Air 05/10 0611 96.4 116 18 128/84 05/10 0050 98.3 117 20 128/88 05/09 2204 126 128/88 05/09 2201 130 22 91 05/09 1950 98.3 118 20 120/80 95 05/09 1710 92 126/62 05/09 1157 92 120/62 Intake & Output 05/10 1600 05/10 0800 05/10 0000 05/09 1600 05/09 0800 05/09 0000 Intake Total 120 400 200 250 Output Total 400 Balance -280 400 200 250 Intake, Oral 120 400 200 250 Number 1 1 Bowel Movements Output, Urine 400 Physical Exam: Gen: The patient is confused, and in no acute distress HEENT: Normal nose, ears, and oropharynx. Pupils equal bilaterally. Conjunctiva normal. Neck: Supple with no JVD, no masses, and no thyromegaly Lungs: Clear to auscultation with normal respiratory effort Heart: irreg irreg, S1, S2, no murmurs. No peripheral edema, 2+ pulses in the lower extremities bilaterally Abdomen: Soft, nontender, no masses. No hepatomegaly. No splenomegaly Extremities: No clubbing or cyanosis. Normal muscle strength in the upper and lower extremities Skin: Normal skin turgor with no skin ulcers or lesions noted. Neuro: Cranial nerves intact. Sensation intact Current Medications: Current Medications Sig/Sandra Start time Last Medication Dose Route Stop Time Status Admin Allopurinol 300 MG DAILY 05/03 1000 AC 05/10 PO 09 Apixaban 5 MG 0900,1800 05/06 0900 AC 05/10 PO 09 Cholecalciferol 1,000 IU DAILY 05/03 1000 AC 05/10 PO 09 Dextrose/Water 1,000 ML Q13H 05/10 0915 AC IV 05/12 0014 Diltiazem HCl 180 MG DAILY 05/10 1000 AC PO Diltiazem HCl 30 MG Q6 05/06 2359 DC 05/10 PO 0611 Metoprolol Tartrate 12.5 MG BID 05/08 2199 AC 05/10 PO 0906 Multivitamins 1 TAB DAILY 05/03 1000 AC 05/10 PO 0906 Polyethylene Glycol 17 GM DAILY PRN 05/07 1030 AC PO Quetiapine Fumarate 25 MG 05/09 AC 05/09 PO 220 Quetiapine Fumarate 25 MG 1700 05/09 1700 DC PO Quetiapine Fumarate 12.5 MG ONCE ONE 05/09 1145 DC 05/09 PO 05/09 1146 1156 Senna/Docusate Sodium 2 TAB DAILY 05/06 1000 AC 05/10 PO 0906 Results Last 48 Hrs of Labs/Mics: Laboratory Tests 05/10/17 0730: Anion Gap 11, Estimated GFR > 60, BUN/Creatinine Ratio 43.8 H 05/10/17 0700: CBC w Diff NO MAN DIFF REQ, RBC 4.80, MCV 95.2 H, MCH 31.6 H, RDW 14.4, MPV 8.6, Gran % 70.9, Lymphocytes % 17.3 L, Monocytes % 8.1, Eosinophils % 3.2, Basophils % 0.5, Absolute Granulocytes 10.8 H, Absolute Lymphocytes 2.6, Absolute Monocytes 1.2 H, Absolute Eosinophils 0.5, Absolute Basophils 0.1, PUBS MCHC 33.3 05/09/17 0700: Anion Gap 13, Estimated GFR > 60, BUN/Creatinine Ratio 40.0 H, CBC w Diff NO MAN DIFF REQ, RBC 4.99, MCV 95.4 H, MCH 31.5 H, RDW 13.8, MPV 8.5, Gran % 69.1 , Lymphocytes % 19.2 L, Monocytes % 7.5, Eosinophils % 3.8, Basophils % 0.4, Absolute Granulocytes 12.0 H, Absolute Lymphocytes 3.3, Absolute Monocytes 1.3 H, Absolute Eosinophils 0.7, Absolute Basophils 0.1, PUBS MCHC 33.0 Assessment/Plan Assessment/Plan Assessment: 1. Dementia with agitation and confusion 2. Atrial fibrillation with mildly elevated ventricular rate Plan: * Change diltiazem to Cardizem CD 180 mg daily for additional rate control * Continue metoprolol * Continue Eliquis Continue telemetry? Yes
[2017-05-10 14:35] VITALS: BP 138/79
--- NOTE | 2017-05-11 06:49 | PN- Housestaff ---
Garth SUBRAMANIAN,Susy 05/11/17 0649: Subjective Follow-up For: Acute delirium, atrial septal Complaints: no complaints Tele-Events Since Last Visit: Atrial fibrillation heart rate 105 Subjective: Patient was seen and examined by me at bedside today. Patient is in NETBed, bilateral upper soft restraints with Upton on. He is alert and confused but not agitated. He offers no complaints. The nurse said that patient was agitated overnight and required Zyprexa 2.5 mg once. Review of Systems Constitutional: Reports: no symptoms. Cardiovascular: Reports: no symptoms. Gastrointestinal: Reports: no symptoms. Genitourinary: Reports: no symptoms. Musculoskeletal: Reports: no symptoms. Skin: Reports: no symptoms. Objective Last 24 Hrs of Vital Signs/I&O Vital Signs Date Time Temp Pulse Resp B/P B/P Pulse O2 O2 Flow FiO2 Mean Ox Delivery Rate 05/11 1034 97.4 106 20 136/84 05/11 0739 97.4 106 20 136/84 94 Room Air 05/11 0400 Room Air 05/10 1946 118 126/80 05/10 1435 97.9 110 22 138/79 95 Room Air Intake & Output 05/11 1600 05/11 0800 05/11 0000 Intake Total 700 1150 Output Total Balance 700 1150 Intake, IV 600 600 Intake, Oral 100 550 Number 1 1 Bowel Movements Physical Exam General Appearance: Alert, Oriented X3, Cooperative, No Acute Distress Cardiovascular: Normal S1, Normal S2, No Murmurs, IRREGULAR Lungs: Clear to Auscultation Abdomen: Normal Bowel Sounds, Soft, No Tenderness Neurological: Normal Speech, Strength at 5/5 X4 Ext, Normal Tone Extremities: Normal Pulses, No Tenderness/Swelling Current Medications: Current Medications Sig/Sandra Start time Last Medication Dose Route Stop Time Status Admin Allopurinol 300 MG DAILY 05/03 1000 AC 05/11 PO 1034 Apixaban 5 MG 0900,1800 05/06 0900 AC 05/11 PO 1034 Cholecalciferol 1,000 IU DAILY 05/03 1000 AC 05/11 PO 1034 Dextrose/Water 1,000 ML Q13H 05/10 0915 05/11 IV 05/12 0014 1038 Diltiazem HCl 180 MG DAILY 05/10 1000 AC 05/11 PO 1034 Metoprolol Tartrate 12.5 MG BID 05/08 2200 AC 05/11 PO 1034 Multivitamins 1 TAB DAILY 05/03 1000 AC 05/11 PO 1034 Olanzapine 2.5 MG ONCE ONE 05/10 2300 DC 05/11 IM 05/10 2300 0023 Polyethylene Glycol 17 GM DAILY PRN 05/07 1030 AC PO Quetiapine Fumarate 25 MG 05/09 AC 05/10 PO 1944 Senna/Docusate Sodium 2 TAB DAILY 05/06 1000 AC 05/11 PO 1034 Last 24 Hrs of Lab/Efren Results Last 24 Hrs of Labs/Mics: Laboratory Tests 05/11/17 0625: Anion Gap 11, Estimated GFR > 60, BUN/Creatinine Ratio 34.3 H Microbiology 05/10 1338 BLOOD: Blood Culture - RECD 05/10 1306 BLOOD: Blood Culture - RECD Lines/Diet/Fluids Restraints: Nguyen, right wrist, left wrist Assessment/Plan Assessment: 81-year-old gentleman with past medical history of hypertension, advanced primary progressive aphasia, hyperuricemia/gout and 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 Assessment and plan 1. Acute delirium- * Patient is alert, confused. Patient is on NET BED/NGUYEN with bilateral upper soft restraints. Patient had hypernatremia during this admission and was treated with IV fluids. We will encourage oral fluids and continue monitoring his electrolytes. Sodium today is 141 * If patient is agitated psychiatry suggested to give ramelteon and to reorient . We will discontinue NGUYEN and eventually the bilateral restraints * We will set up appointment with the Geriatric psychiatry as outpatient. Plan to send him to rehabilitation facility/geriatric psych facility. * PAtient was seen by neurologist upon admission who suggested convalescent home that has ability to care for Alzheimer's patient for discharge disposition. * Follow-up psychiatry today. Medically stable, needs skilled facility as disxharge disposition. 2. New onset A. fib * Patient has rate controlled A. fib we will continue Eliquis. Echocardiogram shows an ejection fraction of 60-65% Admission EKG and troponin's were negative. We will continue aspirin. Patient TSH-0.7, free T4 1 0.53. * Continue Cardizem 180 mg. Continue metoprolol 12.5 mg. 3.History of hypertension * Continue LOSARTAN, triamterene/hydrochlorothiazide 4. History of gout * Continue allopurinol 5. Leukocytosis * Leukocytosis found to be reactive. Awaiting blood culture.. If he developed any temperature please panculture. Code-DNR/DNI Diet heart healthy diet. Plan-cardiology follow-up, psychiatry follow-up. Problem List: 1. Atrial fibrillation 2. Agitation Pain Ratin Pain Location: NONE Pain Goal: Remain pain free Pain Plan: TYLENOL Tomorrow's Labs & Rationales: TENNILLE Cenra MD,Clarisa 05/11/17 1213: Attending MD Review Statement Attending Statement Attending MD Statement: examined this patient, discuss w/resident/PA/HEAD OF GEOGRAPHY, agreed w/resident/PA/HEAD OF GEOGRAPHY, reviewed EMR data (avail), discussed with nursing, discussed with case mgmt, amended to note Attending Assessment/Plan: Patient seen and examined. Lying in bed with bilateral wrist restraints. Currently appears calm however nursing staff continue to appears of agitation requiring chemical sedation. Heart rate is better controlled with adjustment of his regimen yesterday. Cardizem dose was changed to long-acting with an increase in the dose. His sodium level has improved with IV hydration and encouragement of oral intake. Recommendations: -Discontinue telemetry monitoring. -De-escalate restraints as tolerated. -Continue antipsychotic therapy as recommended by the psychiatric service. -From the medical standpoint, Patient may be discharged to a [facility]it[facility]iary facility with abilities to care for patients with dementia and behavioral changes. - Continue supportive care. Continue free water intake.. -Discontinue telemetry monitoring anticipate discharge.
[2017-05-11 07:39] VITALS: BP 136/84
--- NOTE | 2017-05-11 11:29 | PN- Psychiatry ---
Assessment/Plan Impression: Late entry, the patient was seen earlier today at 0850: The patient is in an open netbed with soft wrist restraints in place, along with a sitter. He is calm , and not pulling on his restraints. He is unable to participate in an interview , but is pleasant and responding with disconnected answers to questions. Suggestion: 1. Avoid delirium triggers. Try to avoid scheduling nursing interventions between 10P and 6A, to maximize opportunity for sleep. 2. Quetiapine 12.5 to 25 mg PO at bedtime, and quetiapine 12.5 PO daily as needed for agitation. Use with caution, as the patient has a history of QTc prolongation; hold for QTc greater than 475 mS. Hold for hypokalemia or hypomagnesemia. Latest EKG 05/06/[address] 127bpm, QTc 472 mS. 3. I will order a repeat EKG. 4. Please monitor electrolytes, as above in 2. 5. Avoid benzodiazepines and anticholinergics. 6. Geriatric evaluation at the receiving facility. Please reconsult if other psychiatric matters arise. thak you for this consult. Subjective Subjective: Alert, lying in open netbed calmly. He is oriented only to his first name, "Antonino Shrestha." Asked if he is confused, "A little bit." He endorses AH ("Telling him to my side of the station. I saw you with my friends."), VH and SI ("I have to go get the kids, she's mad at me."), but offers disorganized responses. He is unable to participate at this time in further evaluation. Review of Systems Neurological/Psychological: Reports: confusion. Objective Last 24 Hrs of Vital Signs/I&O Vital Signs Date Time Temp Pulse Resp B/P B/P Pulse O2 O2 Flow FiO2 Mean Ox Delivery Rate 05/11 1034 97.4 106 20 136/84 05/11 0739 97.4 106 20 136/84 94 Room Air 05/11 0400 Room Air 05/10 1946 118 126/80 05/10 1435 97.9 110 22 138/79 95 Room Air Intake & Output 05/11 1600 05/11 0800 05/11 0000 Intake Total 700 1150 Output Total Balance 700 1150 Intake, IV 600 600 Intake, Oral 100 550 Number 1 1 Bowel Movements Physical Exam: Not performed Physical Exam Neurologic/Psychiatric: awake, alert Current Medications: Current Medications Sig/Sandra Start time Last Medication Dose Route Stop Time Status Admin Allopurinol 300 MG DAILY 05/03 1000 AC 05/11 PO 1034 Apixaban 5 MG 0900,1800 05/06 0900 AC 05/11 PO 1034 Cholecalciferol 1,000 IU DAILY 05/03 1000 AC 05/11 PO 1034 Dextrose/Water 1,000 ML Q13H 05/10 0915 AC 05/11 IV 05/12 0014 1038 Diltiazem HCl 180 MG DAILY 05/10 1000 AC 05/11 PO 1034 Metoprolol Tartrate 12.5 MG BID 05/08 2199 AC 05/11 PO 1034 Multivitamins 1 TAB DAILY 05/03 1000 AC 05/11 PO 1034 Olanzapine 2.5 MG ONCE ONE 05/10 2299 DC 05/11 IM 05/10 2300 0023 Polyethylene Glycol 17 GM DAILY PRN 05/07 1030 AC PO Quetiapine Fumarate 25 MG 05/09 AC 05/10 PO 1944 Senna/Docusate Sodium 2 TAB DAILY 05/06 1000 AC 05/11 PO 1034 Results Last 24 Hrs of Labs/Mics: Laboratory Tests 05/11 0625 Chemistry Sodium (137 - 145 mmol/L) 141 Potassium (3.5 - 5.1 mmol/L) 3.6 Chloride (98 - 107 mmol/L) 100 Carbon Dioxide (22 - 30 mmol/L) 30 Anion Gap (5 - 16) 11 BUN (9 - 20 mg/dL) 24 H Creatinine (0.7 - 1.2 mg/dL) 0.7 Estimated GFR (>60 ml/min) > 60 BUN/Creatinine Ratio (7 - 25 %) 34.3 H
--- NOTE | 2017-05-11 12:11 | PN- Cardiology ---
Subjective Subjective: The patient remains confused. No chest pain. No shortness of breath. He is currently in atrial flutter with mildly elevated ventricular rate. Objective Vital Signs and I&Os Vital Signs Date Time Temp Pulse Resp B/P B/P Pulse O2 O2 Flow FiO2 Mean Ox Delivery Rate 05/11 1034 97.4 106 20 136/84 05/11 0739 97.4 106 20 136/84 94 Room Air 05/11 0400 Room Air 05/10 1946 118 126/80 05/10 1435 97.9 110 22 138/79 95 Room Air Intake & Output 05/11 1600 05/11 0800 05/11 0000 05/10 1600 05/10 0800 05/10 0000 Intake Total 700 1150 1500 120 Output Total 400 Balance 700 1150 1500 -280 Intake, IV 600 600 600 Intake, Oral 100 550 900 120 Number 1 1 1 Bowel Movements Output, Urine 400 Physical Exam: Gen: The patient is confused, and in no acute distress HEENT: Normal nose, ears, and oropharynx. Pupils equal bilaterally. Conjunctiva normal. Neck: Supple with no JVD, no masses, and no thyromegaly Lungs: Clear to auscultation with normal respiratory effort Heart: irreg irreg, S1, S2, no murmurs. No peripheral edema, 2+ pulses in the lower extremities bilaterally Abdomen: Soft, nontender, no masses. No hepatomegaly. No splenomegaly Extremities: No clubbing or cyanosis. Normal muscle strength in the upper and lower extremities Skin: Normal skin turgor with no skin ulcers or lesions noted. Neuro: Cranial nerves intact. Sensation intact Current Medications: Current Medications Sig/Sandra Start time Last Medication Dose Route Stop Time Status Admin Allopurinol 300 MG DAILY 05/03 1000 AC 05/11 PO 1034 Apixaban 5 MG 0900,1800 05/06 0900 AC 05/11 PO 1034 Cholecalciferol 1,000 IU DAILY 05/03 1000 AC 05/11 PO 1034 Dextrose/Water 1,000 ML Q13H 05/10 0915 DC 05/11 IV 05/12 0014 1038 Diltiazem HCl 180 MG DAILY 05/10 1000 AC 05/11 PO 1034 Metoprolol Tartrate 12.5 MG BID 05/08 2200 AC 05/11 PO 1034 Multivitamins 1 TAB DAILY 05/03 1000 AC 05/11 PO 1034 Olanzapine 2.5 MG ONCE ONE 05/10 2300 DC 05/11 IM 05/10 230 0023 Polyethylene Glycol 17 GM DAILY PRN 05/07 1030 AC PO Quetiapine Fumarate 12.5 MG ONCE PRN 05/11 1145 AC PO Quetiapine Fumarate 25 MG 05/09 AC 05/10 PO 1944 Senna/Docusate Sodium 2 TAB DAILY 05/06 1000 AC 05/11 PO 1034 Results Last 48 Hrs of Labs/Mics: Laboratory Tests 05/11/17 0625: Anion Gap 11, Estimated GFR > 60, BUN/Creatinine Ratio 34.3 H 05/10/17 0730: Anion Gap 11, Estimated GFR > 60, BUN/Creatinine Ratio 43.8 H 05/10/17 0700: CBC w Diff NO MAN DIFF REQ, RBC 4.80, MCV 95.2 H, MCH 31.6 H, RDW 14.4, MPV 8.6, Gran % 70.9, Lymphocytes % 17.3 L, Monocytes % 8.1, Eosinophils % 3.2, Basophils % 0.5, Absolute Granulocytes 10.8 H, Absolute Lymphocytes 2.6, Absolute Monocytes 1.2 H, Absolute Eosinophils 0.5, Absolute Basophils 0.1, PUBS MCHC 33.3 Assessment/Plan Assessment/Plan Assessment: 1. Dementia with agitation and confusion 2. Atrial fibrillation and atrial flutter with mildly elevated ventricular rate Plan: * Increase metoprolol to 25 mg by mouth twice a day for additional rate control. * Continue Cardizem CD and Eliquis. * Given the patient's advanced age and dementia, would hold off on PAUL/ Cardioversion. Outpatient cardioversion vs. conservative management could be considered after 3 weeks of anticoagulation Continue telemetry? Yes
[2017-05-11 16:10] VITALS: BP 122/70
[2017-05-11 20:23] VITALS: BP 118/80
--- NOTE | 2017-05-12 06:36 | PN- Housestaff ---
Garth SUBRAMANIAN,Susy 05/12/17 0636: Subjective Follow-up For: Acute delirium, atrial fibrillation Complaints: no complaints Subjective: Patient was seen and examined by me at bedside today. No overnight events. No further episodes of agitation. Patient alert, oriented 1. Still confused. Patient denies chest pain, chest pressure, nausea, vomiting, abdominal pain. Review of Systems Constitutional: Reports: no symptoms. Cardiovascular: Reports: no symptoms. Respiratory: Reports: no symptoms. Gastrointestinal: Reports: no symptoms. Genitourinary: Reports: no symptoms. Musculoskeletal: Reports: no symptoms. Objective Last 24 Hrs of Vital Signs/I&O Vital Signs Date Time Temp Pulse Resp B/P B/P Pulse O2 O2 Flow FiO2 Mean Ox Delivery Rate 05/12 1442 97.7 100 16 110/80 95 05/12 1034 128/70 05/12 1016 Room Air 05/12 0928 Room Air 05/12 0915 Room Air 05/12 0647 97.5 111 18 124/90 94 Room Air 05/11 2022 114 118/80 05/11 2022 97.8 114 20 118/80 95 Room Air 05/11 1610 98.2 76 20 122/70 96 Intake & Output 05/12 1600 05/12 0800 05/12 0000 Intake Total 500 30 Output Total Balance 500 30 Intake, IV Intake, Oral 500 30 Physical Exam General Appearance: Alert, Cooperative, No Acute Distress Cardiovascular: Normal S1, Normal S2, irregular Lungs: Clear to Auscultation Abdomen: Normal Bowel Sounds, Soft, No Tenderness Neurological: Normal Speech, Strength at 5/5 X4 Ext, Normal Tone Extremities: No Edema Current Medications: Current Medications Sig/Sandra Start time Last Medication Dose Route Stop Time Status Admin Allopurinol 300 MG DAILY 05/03 1000 AC 05/12 PO 1036 Apixaban 5 MG 0900,1800 05/06 0900 AC 05/12 PO 1034 Cholecalciferol 1,000 IU DAILY 05/03 1000 AC 05/12 PO 1034 Diltiazem HCl 180 MG DAILY 05/10 1000 AC 05/12 PO 1034 Metoprolol Tartrate 25 MG BID 05/11 2200 AC 05/12 PO 1034 Multivitamins 1 TAB DAILY 05/03 1000 AC 05/12 PO 1034 Polyethylene Glycol 17 GM DAILY PRN 05/07 1030 AC PO Quetiapine Fumarate 12.5 MG ONCE PRN 05/11 1145 05/11 PO 1626 Quetiapine Fumarate 25 MG 05/09 AC 05/11 PO 2023 Senna/Docusate Sodium 2 TAB DAILY 05/06 1000 AC 05/12 PO 1035 Last 24 Hrs of Lab/Efren Results Last 24 Hrs of Labs/Mics: Laboratory Tests 05/12/17 0630: Anion Gap 14, Estimated GFR > 60, BUN/Creatinine Ratio 28.8 H Lines/Diet/Fluids Restraints: hospital coordinator Assessment/Plan Assessment: 81-year-old gentleman with past medical history of hypertension, advanced primary progressive aphasia, hyperuricemia/gout and 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 Assessment and plan 1. Acute delirium- * Patient is alert, confused. Patient is off NET BED/NGUYEN/ with bilateral upper soft restraints. He is monitored the hospital coordinator. Patient hyponatremia corrected with IV fluids. * If patient is agitated psychiatry suggested to give ramelteon and to reorient . * Planned to send him to short-term rehabilitation. 2. New onset A. fib * Patient has rate controlled A. fib we will continue Eliquis. Echocardiogram shows an ejection fraction of 60-65% Admission EKG and troponin's were negative. We will continue aspirin. Patient TSH-0.7, free T4 1 0.53. * Continue Cardizem 180 mg. Continue metoprolol 12.5 mg. 3.History of hypertension * Continue LOSARTAN, triamterene/hydrochlorothiazide 4. History of gout * Continue allopurinol 5. Leukocytosis * Leukocytosis found to be reactive. all CULTURES negative. Code-DNR/DNI Diet heart healthy diet. Plan-cardiology follow-up, psychiatry follow-up. Problem List: 1. Dementia 2. Agitation 3. Atrial fibrillation Pain Ratin Pain Location: none Pain Goal: Remain pain free Pain Plan: tylenol Tomorrow's Labs & Rationales: none Clarisa Cerna MD 05/12/17 1340: Attending MD Review Statement Attending Statement Attending MD Statement: examined this patient, discuss w/resident/PA/PHOTOGRAPHER STILL, agreed w/resident/PA/PHOTOGRAPHER STILL, discussed with family, reviewed EMR data (avail), discussed with nursing, discussed with case mgmt, amended to note Attending Assessment/Plan: Patient seen and examined. Resting comfortably not in acute distress. Bilateral wrist restraints have been discontinued this morning. He is not agitated. Family is present at the bedside. His electrolytes remain within normal limits. He is eating and drinking adequately per family. Given the improvement in his mental status hopefully he can be discharged to a regular [place] [facility] facility. Currently no beds have been offered at any facility. Nursing staff encouraged to mobilize patient. Family members have offered to be around during this time to help decrease patient's agitation. Recommend repeating CBCs in a.m. to ensure that he is white cell count continues to trend downwards. No need to repeat serum chemistry tomorrow unless there is a change in his clinical status.
[2017-05-12 06:47] VITALS: BP 124/90
--- NOTE | 2017-05-12 13:52 | PN- Cardiology ---
Subjective Subjective: remains confused. No obvious new cardiac issues or symptoms. Remains in atrial fibrillation/atrial flutter with intermittently rapid rate. Objective Vital Signs and I&Os Vital Signs Date Time Temp Pulse Resp B/P B/P Pulse O2 O2 Flow FiO2 Mean Ox Delivery Rate 05/12 1034 128/70 05/12 1016 Room Air 05/12 0928 Room Air 05/12 0915 Room Air 05/12 0647 97.5 111 18 124/90 94 Room Air 05/11 2022 114 118/80 05/11 2022 97.8 114 20 118/80 95 Room Air 05/11 1610 98.2 76 20 122/70 96 Intake & Output 05/12 1600 05/12 0800 05/12 0000 05/11 1600 05/11 0800 05/11 0000 Intake Total 30 7997 080 5778 Output Total Balance 30 1144 797 0936 Intake, IV 525 600 600 Intake, Oral 30 480 100 550 Number 1 1 Bowel Movements Current Medications: Current Medications Sig/Sandra Start time Last Medication Dose Route Stop Time Status Admin Allopurinol 300 MG DAILY 05/03 1000 AC 05/12 PO 1036 Apixaban 5 MG 0900,1800 05/06 0900 AC 05/12 PO 1034 Cholecalciferol 1,000 IU DAILY 05/03 1000 AC 05/12 PO 1034 Diltiazem HCl 180 MG DAILY 05/10 1000 AC 05/12 PO 1034 Metoprolol Tartrate 25 MG BID 05/11 2200 05/12 PO 1034 Multivitamins 1 TAB DAILY 05/03 1000 AC 05/12 PO 1034 Polyethylene Glycol 17 GM DAILY PRN 05/07 1030 AC PO Quetiapine Fumarate 12.5 MG ONCE PRN 05/11 1145 AC 05/11 PO 1626 Quetiapine Fumarate 25 MG 05/09 AC 05/11 PO 2024 Senna/Docusate Sodium 2 TAB DAILY 05/06 1000 AC 05/12 PO 1035 Results Last 48 Hrs of Labs/Mics: Laboratory Tests 05/12/17 0630: Anion Gap 14, Estimated GFR > 60, BUN/Creatinine Ratio 28.8 H 05/11/17 0625: Anion Gap 11, Estimated GFR > 60, BUN/Creatinine Ratio 34.3 H Assessment/Plan Assessment/Plan Assessment: 1. Dementia with agitation and confusion 2. Paroxysmal atrial fibrillation and atrial flutter with elevated ventricular rate 3. Worsening leukocytosis Recommendations: - Continue to monitor on telemetry; the patient remains in atrial flutter today. - Continue Eliquis - No further episodes of NSR noted.. Heart rate remains in the 100-120 range. -Continue metoprolol and diltiazem at current doses -Reassess rate control in 24 hours Continue telemetry? Yes
[2017-05-12 14:42] VITALS: BP 110/80
--- NOTE | 2017-05-12 17:29 | Discharge Summary ---
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 He was admitted in the telemetry floor for the management of following issues: 1. Acute delirium- * Patient was confused, had delusions, and organic causes of his confusion/ delirium was ruled out. Psychiatry service was on-board, who guided the therapy and he progressively improved, not requiring any sitter, or restraints. He still has to take medications as prescribed by psychiatrist in follow-up with geriatric service and psychiatry service after discharge. 2. New onset A. fib * Patient had episodes of atrial fibrillation with rapid ventricular response, requiring IV Cardizem drip, and later was converted to by mouth Cardizem. For anticoagulation he is on Eliquis. Echocardiogram shows an ejection fraction of 60-65%, no clots in the heart. Admission EKG and troponin's were negative. We will continue aspirin. * Continue Cardizem 180 mg. Continue metoprolol 12.5 mg. 3.History of hypertension * He will continue losartan, triamterene/hydrochlorothiazide. 4. History of gout * He will continue allopurinol. 5. Leukocytosis * Leukocytosis found to be reactive. All CULTURES were negative. Needs follow up CBC and copies to his PCP. Diet: heart healthy diet Code-DNR/DNI Diet heart healthy diet. Allergies: Coded Allergies: No Known Allergies (05/03/17) Significant Procedures: Echocardiogram done on 05/04/2017: FINDINGS Left Ventricle Normal size left ventricle. No obvious regional wall motion abnormalities. Normal left ventricular ejection fraction estimated at 60-65%. Right Ventricle Right ventricle not well visualized, grossly normal. Right Atrium Right atrium not well visualized, grossly normal. Left Atrium Left atrial size at the upper limits of normal. Mitral Valve Mitral valve thickened. Trace mitral regurgitation. Aortic Valve Trileaflet aortic valve. Diffuse thickening (sclerosis) of the aortic valve cusps without reduced excursion. No aortic stenosis. Trace to mild aortic regurgitation. Tricuspid Valve Tricuspid valve not well visualized, grossly normal. Trace to mild tricuspid regurgitation. Right ventricular systolic pressure estimated at 30 mmHg. Pulmonic Valve okayPulmonic valve not well visualized, grossly normal. Pericardium Minimal pericardial effusion (normal variant). Great Vessels Mildly dilated proximal ascending aorta (tube). CONCLUSIONS 1. This was a technically difficult study 2. Aortic sclerosis is present with minimal to mild aortic insufficiency and minimal enlargement of the ascending aorta 3. Mitral leaflet thickening is present with minimal mitral insufficiency but no valvular prolapse 4. A physiologic pericardial effusion is present which is hemodynamically insignificant. 5. The left ventricular chamber size and systolic function appear normal with no resting wall motion abnormalities. 6. Minimal to mild tricuspid insufficiency is present. There is no evidence of significant pulmonary hypertension. Oziel Purvis M.D. (Electronically Signed) Final Date: 04 May 2017 07:59 MEASUREMENTS (Male / Female) Normal Values 2D ECHO LV Diastolic Diameter PLAX 5.2 cm 4.2 - 5.9 / 3.9 - 5.3 cm LV Systolic Diameter PLAX 3.1 cm 2.1 - 4.0 cm LV Fractional Shortening PLAX 40.4 % 25 - 46 % LV Ejection Fraction 2D Teich 70.7 % IVS Diastolic Thickness 1.2 cm LVPW Diastolic Thickness 1.1 cm LV Relative Wall Thickness 0.4 RV Internal Dim ED PLAX 3.9 cm 1.9 - 3.8 cm LVOT Diameter 2.2 cm Aortic Root Diameter 3.7 cm LA Systolic Diameter LX 3.4 cm 3.0 - 4.0 / 2.7 - 3.8 cm Ascending Aorta Diameter 3.7 cm DOPPLER AV Peak Velocity 120.0 cm/s AV Peak Gradient 5.8 mmHg AV Mean Velocity 79.7 cm/s AV Mean Gradient 3.0 mmHg AV Velocity Time Integral 22.[address] [place] 147.5 cm/s AI Peak Velocity 365.0 cm/s AI Pressure Half Time 735.5 ms AI Peak Gradient 53.3 mmHg LVOT Peak Velocity 89.5 cm/s LVOT Peak Gradient 3.2 mmHg LVOT Mean Velocity 61.7 cm/s LVOT Mean Gradient 2.0 mmHg LVOT Velocity Time Integral 21.0 cm LVOT Stroke Volume 79.8 cm AV Area Cont Eq vti 3.6 cm AV Area Cont Eq pk 2.8 cm MV Peak Velocity 84.1 cm/s MV Peak Gradient 2.8 mmHg MV Mean Velocity 51.5 cm/s MV Mean Gradient 1.0 mmHg Mitral E Point Velocity 79.0 cm/s MV PHT Velocity 93.7 cm/s MV Deceleration [place] 416.0 cm/s MV Pressure Half Time 67.6 ms MV Area PHT 3.3 cm MV Deceleration Time 275.0 ms TR Peak Velocity 231.0 cm/s TR Peak Gradient 21.3 mmHg Right Atrial Pressure 5.0 mmHg Pulmonary Artery Systolic Pressu 26.3 mmHg Right Ventricular Systolic Press 26.3 mmHg PV Peak Velocity 62.0 cm/s PV Peak Gradient 1.5 mmHg PV Mean Velocity 42.8 cm/s PV Mean Gradient 1.0 mmHg PV Velocity Time Integral 11.8 cm DICTATED BY: Dania Purvis MD DATE/TIME DICTATED:05/04/17758 INTERACTIVE [employer] MARKETING STRATEGIST:JEN DATE/TIME TRANSCRIBED:05/04/17758 Disposition Summary Disposition Principal Diagnosis: Atrial fibrillation with rapid ventricular response. Dementia with behavioral disturbance. 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 Follow-Up Instructions/Appts: Patient should have CBCs repeated in 1 week. If white cell count is still elevated he should be evaluated by the hematology service. Please follow with your primary care provider within 1-2 weeks of discharge and let them know about your recent admission at . Please follow up with the break up worker within 1-2 weeks of discharge and let them know about your recent admission at . Please take the medication as directed. Medications at Discharge Discharge Medications: Stop taking the following medications: Nifedipine (Nifedipine ER) 60 MG TAB.ER.24 ORAL DAILY Qty = 90 Valsartan (Valsartan) 160 MG TABLET ORAL DAILY Qty = 90 Triamterene/Hydrochlorothiazid (Triamterene-Hctz 37.5-25 MG Cp) 37.5 MG-25 MG CAPSULE ORAL DAILY Qty = 90 Peg 3350/Na Sulf,Bicarb,Cl/KCl (Golytely Solution) 236-22.74G SOLN.RECON ORAL As Directed Qty = 1 Continue taking these medications: Allopurinol (Allopurinol) 300 MG TABLET 1 Tablet ORAL DAILY Qty = 90 Comments: Last Taken:05/14/17 Time:1039 Aspirin (Ecotrin*) 81 MG TABLET.DR 1 Tablet ORAL DAILY Comments: NOT GIVEN AT HOSPITAL [place]-3 Fatty Acids/Fish Oil (Fish Oil 1,200 MG Softgel) 360 MG-1,200 MG CAPSULE 1 Capsule ORAL DAILY Comments: NOT GIVEN AT HOSPITAL Ascorbic Acid (Vitamin C) 500 MG TABLET 1 Tablet ORAL DAILY Comments: NOT GIVEN AT HOSPITAL Cholecalciferol (Vitamin D3) 1,000 UNIT TABLET 1 Tablet ORAL DAILY Comments: Last Taken:05/14/17 Time:1039 Multivits,Ca,Min/Iron/FA/Lycop (Centrum Men's Tablet) 8 MG IRON-200 MCG-600 MCG TABLET 1 Tablet ORAL DAILY Comments: Last Taken:05/14/17 Time:1039 Start taking the following new medications: Apixaban (Eliquis) 5 MG TABLET 5 Milligram ORAL 0900,1800 Qty = 60 No Refills Comments: Last Taken:05/14/17 Time:1039 Metoprolol Tartrate (Metoprolol Tartrate) 25 MG TABLET 25 Milligram ORAL TWICE DAILY Qty = 60 No Refills Comments: Last Taken: 05/14/17 Time: 1030 AM Diltiazem HCl (Diltiazem 24HR Cd) 180 MG CAP.ER.24H 180 Tablet ORAL DAILY Qty = 30 No Refills Comments: Last Taken: 05/14/17 Time: 1030 AM Copies To: Fritz Carrillo MD; Darlin Treviño MD; Yaniv SUBRAMANIAN,Dania Damian Attending MD Review Statement Documenting Attending: Clarisa Cerna MD Other Findings: Patient is medically stable to discharged.
[2017-05-13 07:04] VITALS: BP 118/76
--- NOTE | 2017-05-13 07:31 | PN- Housestaff ---
Garth SUBRAMANIAN,Susy 05/13/17 0731: Subjective Follow-up For: Acute delirium, atrial fibrillation Complaints: no complaints Subjective: Patient was seen at bedside today. Patient was agitated at around 8:30 PM last night. Order #7 was called. One dose of Seroquel was given. Today he appears alert but not oriented to time place and person. He is not agitated or confused. Review of system unobtainable. Review of Systems Constitutional: Reports: no symptoms. Comments: Review of system unobtainable. Objective Last 24 Hrs of Vital Signs/I&O Vital Signs Date Time Temp Pulse Resp B/P B/P Pulse O2 O2 Flow FiO2 Mean Ox Delivery Rate 05/13 0704 96.1 68 20 118/76 05/12 203 78 134/88 05/12 1442 97.7 100 16 110/80 95 05/12 1034 128/70 05/12 1016 Room Air 05/12 0928 Room Air Intake & Output 05/13 1600 05/13 0800 05/13 0000 Intake Total 120 120 Output Total Balance 120 120 Intake, Oral 120 120 Physical Exam General Appearance: confused. Cardiovascular: Normal S1, irregular Lungs: Clear to Auscultation Abdomen: Normal Bowel Sounds, Soft, No Tenderness Neurological: Normal Tone, Sensation Intact Current Medications: Current Medications Sig/Sandra Start time Last Medication Dose Route Stop Time Status Admin Allopurinol 300 MG DAILY 05/03 1000 AC 05/12 PO 1036 Apixaban 5 MG 0900,1800 05/06 0900 AC 05/12 PO 1631 Cholecalciferol 1,000 IU DAILY 05/03 1000 AC 05/12 PO 1034 Diltiazem HCl 180 MG DAILY 05/10 1000 AC 05/12 PO 1034 Metoprolol Tartrate 25 MG BID 05/11 2200 AC 05/12 PO 2038 Multivitamins 1 TAB DAILY 05/03 1000 AC 05/12 PO 1034 Polyethylene Glycol 17 GM DAILY PRN 05/07 1030 AC PO Quetiapine Fumarate 12.5 MG ONCE PRN 05/11 1145 AC 05/12 PO 2251 Quetiapine Fumarate 25 MG 05/09 AC 05/12 PO 2035 Senna/Docusate Sodium 2 TAB DAILY 05/06 1000 AC 05/12 PO 1035 Lines/Diet/Fluids Restraints: 1:1 sitter Assessment/Plan Assessment: 81-year-old gentleman with past medical history of hypertension, advanced primary progressive aphasia, hyperuricemia/gout and 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 Assessment and plan 1. Acute delirium- * Patient is alert, confused. Overnight patient was agitated and was put on 4 point restraints and sitter. Patient is off 4 point restraints since morning. His agitation looks more like . We will continue one-on-one sitter. * If patient is agitated psychiatry suggested to give ramelteon and to reorient . * Planned to send him to short-term rehabilitation. 2. New onset A. fib * Patient has rate controlled A. fib we will continue Eliquis. Echocardiogram shows an ejection fraction of 60-65% Admission EKG and troponin's were negative. We will continue aspirin. * Continue Cardizem 180 mg. Continue metoprolol 12.5 mg. 3.History of hypertension * Continue LOSARTAN, triamterene/hydrochlorothiazide 4. History of gout * Continue allopurinol 5. Leukocytosis * Leukocytosis found to be reactive. all CULTURES negative. Code-DNR/DNI Diet heart healthy diet. Plan-cardiology follow-up, psychiatry follow-up. Problem List: 1. Atrial fibrillation 2. Agitation 3. Dementia Pain Ratin Pain Location: none Pain Goal: Remain pain free Pain Plan: tylenol Tomorrow's Labs & Rationales: none Nehemiah SUBRAMANIAN,Clarisa 05/13/17 1025: Attending MD Review Statement Attending Statement Attending MD Statement: examined this patient, discuss w/resident/PA/PHYSICAL CHEMIST, agreed w/resident/PA/PHYSICAL CHEMIST, reviewed EMR data (avail), discussed with nursing, discussed with case mgmt, amended to note Attending Assessment/Plan: Patient seen and examined. Resting comfortably on multiple acute distress. He was agitated overnight and required a dose of as needed Seroquel. He is doing much better this morning. Restraints have been discontinued again this morning. He is afebrile hemodynamically stable. Pulse this morning was recorded at 68. On Examination heart rate is still irregular. Lungs are clear bilaterally. He has no peripheral edema. Recommendations: -Obtain 12-lead EKG this morning. -Nursing staff encouraged to mobilize patient as tolerated. -Repeat CBCs in a.m. -Awaiting placement in senior care facility.
[2017-05-13 14:26] VITALS: BP 108/60
--- NOTE | 2017-05-13 18:14 | PN- Cardiology ---
Subjective Subjective: The patient is somewhat more alert, however he means intermittently confused. No chest pain. No palpitations. No nausea or vomiting. Ventricular rate is under control Objective Vital Signs and I&Os Vital Signs Date Time Temp Pulse Resp B/P B/P Pulse O2 O2 Flow FiO2 Mean Ox Delivery Rate 05/13 1426 98.0 99 16 108/60 96 05/13 0951 118/72 05/13 0704 96.1 68 20 118/76 05/12 2038 78 134/88 Intake & Output 05/13 1600 05/13 0805/13 0000 05/12 1600 05/12 0800 05/12 0000 Intake Total 550 120 120 500 30 Output Total 700 Balance -150 120 120 500 30 Intake, IV Intake, Oral 550 120 120 500 30 Number 1 Bowel Movements Output, Urine 700 Physical Exam: Gen: The patient is confused, and in no acute distress HEENT: Normal nose, ears, and oropharynx. Pupils equal bilaterally. Conjunctiva normal. Neck: Supple with no JVD, no masses, and no thyromegaly Lungs: Clear to auscultation with normal respiratory effort Heart: irreg irreg, S1, S2, no murmurs. No peripheral edema, 2+ pulses in the lower extremities bilaterally Abdomen: Soft, nontender, no masses. No hepatomegaly. No splenomegaly Extremities: No clubbing or cyanosis. Normal muscle strength in the upper and lower extremities Skin: Normal skin turgor with no skin ulcers or lesions noted. Neuro: Cranial nerves intact. Sensation intact Current Medications: Current Medications Sig/Sandra Start time Last Medication Dose Route Stop Time Status Admin Allopurinol 300 MG DAILY 05/03 999 AC 05/13 PO 0950 Apixaban 5 MG 0900,1800 05/06 0900 AC 05/13 PO 1551 Cholecalciferol 1,000 IU DAILY 05/03 1000 AC 05/13 PO 0950 Diltiazem HCl 180 MG DAILY 05/10 999 AC 05/13 PO 0950 Metoprolol Tartrate 25 MG BID 05/11 2200 AC 05/13 PO 0951 Multivitamins 1 TAB DAILY 05/03 1000 AC 05/13 PO 0950 Polyethylene Glycol 17 GM DAILY PRN 05/07 1030 AC PO Quetiapine Fumarate 12.5 MG ONCE PRN 05/11 1145 AC 05/12 PO 2251 Quetiapine Fumarate 25 MG 2000 05/09 1999 AC 05/13 PO 1551 Senna/Docusate Sodium 2 TAB DAILY 05/06 1000 AC 05/13 PO 0950 Results Last 48 Hrs of Labs/Mics: Laboratory Tests 05/12/17 0630: Anion Gap 14, Estimated GFR > 60, BUN/Creatinine Ratio 28.8 H Assessment/Plan Assessment/Plan Assessment: 1. Dementia with agitation and confusion 2. Atrial fibrillation and atrial flutter with controlled ventricular rate Plan: * Continue current cardiac medications. * The patient is planned for placement in a nursing facility. * Follow up in 2 weeks after discharge Continue telemetry? No
[2017-05-13 23:00] VITALS: BP 110/72
[2017-05-14 06:00] VITALS: BP 110/68
--- NOTE | 2017-05-14 07:12 | PN- Housestaff ---
Garth SUBRAMANIAN,Susy 05/14/17 0712: Subjective Follow-up For: Acute delirium, atrial fibrillation Complaints: no complaints Tele-Events Since Last Visit: Atrial fibrillation heart rate 80 Subjective: Patient was seen at bedside. No overnight events. He offers no complaints. He is alert oriented 2, confused. He denies chest pain, chest pressure, shortness of breath, nausea, fever, palpitation. Review of Systems Constitutional: Reports: no symptoms. EENTM: Reports: no symptoms. Cardiovascular: Reports: no symptoms. Respiratory: Reports: no symptoms. Gastrointestinal: Reports: no symptoms. Genitourinary: Reports: no symptoms. Objective Last 24 Hrs of Vital Signs/I&O Vital Signs Date Time Temp Pulse Resp B/P B/P Pulse O2 O2 Flow FiO2 Mean Ox Delivery Rate 05/14 1157 97.7 90 18 114/72 05/14 1039 90 114/72 05/14 1036 Room Air 05/14 0600 97.7 90 18 110/68 96 Room Air 05/13 2342 137 110/72 05/13 2300 98.0 137 22 110/72 98 Room Air 05/13 1426 98.0 99 16 108/60 96 05/13 0951 118/72 05/13 0704 96.1 68 20 118/76 05/12 2038 78 134/88 05/12 1442 97.7 100 16 110/80 95 05/12 1034 128/70 05/12 1016 Room Air 05/12 0928 Room Air 05/12 0915 Room Air 05/12 0647 97.5 111 18 124/90 94 Room Air 05/11 2022 114 118/80 05/11 2022 97.8 114 20 118/80 95 Room Air 05/11 1610 98.2 76 20 122/70 96 05/11 1034 97.4 106 20 136/84 05/11 0739 97.4 106 20 136/84 94 Room Air 05/11 0400 Room Air 05/10 1946 118 126/80 05/10 1435 97.9 110 22 138/79 95 Room Air 05/10 0906 100 118/70 05/10 0714 96.9 116 22 128/84 96 Room Air 05/10 0611 96.4 116 18 128/84 05/10 0050 98.3 117 20 128/88 05/09 2204 126 128/88 05/09 2201 130 22 91 05/09 1950 98.3 118 20 120/80 95 05/09 1710 92 126/62 05/09 1157 92 120/62 05/09 0826 90 138/68 05/09 0643 97.4 107 18 144/98 96 Room Air 05/09 0630 120 126/88 05/09 0108 120 126/88 05/09 0000 Room Air 05/08 2300 98.1 120 20 126/88 93 Room Air 05/08 2059 110 110/80 05/08 1848 120 130/84 05/08 1502 97.4 116 18 110/70 95 Room Air 05/08 1301 119 110/62 05/08 1051 116/62 05/08 0623 98.2 69 18 108/58 92 Room Air 05/08 0604 118 108/62 05/08 0100 108 90/58 05/07 2355 125 102/60 05/07 2226 97.6 90 18 112/82 93 Room Air 05/07 1841 128/70 05/07 1427 140 120/62 05/07 1422 97.4 142 20 120/82 94 Room Air 05/07 1324 144 118/60 05/07 0641 97.9 135 20 112/84 93 Room Air 05/07 0606 112/84 05/06 1454 97.7 130 20 110/70 93 Room Air 05/06 1328 136 114/60 05/06 0637 71 102/70 05/06 0624 97.2 138 20 118/100 94 Room Air 05/05 2215 96.6 126 20 108/80 93 Room Air 05/05 1607 Room Air 05/05 1556 Room Air 05/05 1457 118/80 05/05 1430 98.0 131 20 118/80 94 Room Air 05/05 0705 97.7 131 20 104/84 94 Room Air 05/05 0604 132 104/84 05/05 0120 99.0 120 20 110/80 93 Room Air 05/04 1459 96/62 05/04 1410 97.6 112 18 68/40 98 Room Air 05/04 1333 122 68/40 05/04 1129 Room Air 05/04 0842 138 118/84 05/04 0841 138 118/84 05/04 0646 97.6 138 22 118/84 94 Room Air 05/03 2222 97.9 140 20 120/80 97 Room Air 05/03 1904 97.7 132 20 128/92 96 Room Air 05/03 1806 97.5 114 18 133/96 96 05/03 1640 105 05/03 1524 98.1 133 18 153/87 94 Room Air 05/03 1344 97.6 101 18 162/91 98 Room Air 05/03 1002 97.6 84 18 134/84 98 Room Air 05/03 1000 97.6 84 18 134/84 05/03 1000 97.6 84 18 134/84 05/03 0930 97.6 84 20 131/84 98 Room Air 05/03 0715 97.0 74 20 134/86 97 Room Air 05/03 0555 97.6 78 20 167/85 95 Room Air 05/03 0121 97.7 70 20 121/78 96 Room Air Microbiology Date/Time Procedure - Status Source Growth 05/10 1338 Blood Culture - COMP BLOOD Orders Procedure Date/time Status Therapeutic Exercise 05/14 UNK Complete Gait Training 05/14 UNK Complete Discharge Patient 05/14 UNK Active MISSING MEDICATION FORM 05/13 UNK Active Physical Exam General Appearance: Alert, Cooperative, No Acute Distress HEENT: Atraumatic, PERRLA Neck: Supple, No JVD Cardiovascular: Normal S1, Normal S2, atrial fibrillation Lungs: Normal Air Movement Abdomen: Soft, No Tenderness, No Hepatospenomegaly Neurological: Normal Speech, Strength at 5/5 X4 Ext, Normal Tone Extremities: No Edema Lines/Diet/Fluids Restraints: 1:1sitter Assessment/Plan Assessment: 81-year-old gentleman with past medical history of hypertension, advanced primary progressive aphasia, hyperuricemia/gout and 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 Assessment and plan 1. Acute delirium- * Patient is alert, confused. Overnight patient was agitated and was put on 4 point restraints and sitter. Patient is off 4 point restraints since morning. His agitation looks more like sundowning. We will continue one-on-one sitter. * If patient is agitated psychiatry suggested to give ramelteon and to reorient . * Planned to send him to short-term rehabilitation. 2. New onset A. fib * Patient has rate controlled A. fib we will continue Eliquis. Echocardiogram shows an ejection fraction of 60-65% Admission EKG and troponin's were negative. We will continue aspirin. * Continue Cardizem 180 mg. Continue metoprolol 12.5 mg. 3.History of hypertension * Continue LOSARTAN, triamterene/hydrochlorothiazide 4. History of gout * Continue allopurinol 5. Leukocytosis * Leukocytosis found to be reactive. all CULTURES negative. Code-DNR/DNI Diet heart healthy diet. Plan-cardiology follow-up, psychiatry follow-up. Problem List: 1. Atrial fibrillation Pain Ratin Pain Location: none Pain Goal: Remain pain free Pain Plan: tylenol Tomorrow's Labs & Rationales: none Clarisa Cerna MD 05/14/17 1335: Attending MD Review Statement Attending Statement Attending MD Statement: examined this patient, discuss w/resident/PA/MASH TUB COOKER, agreed w/resident/PA/MASH TUB COOKER, reviewed EMR data (avail), discussed with nursing, discussed with case mgmt, amended to note Attending Assessment/Plan: Patient seen and examined. Resting comfortably and not in acute distress. No issues overnight reported by nursing staff. A bed has been obtained for him at [facility]. He will be discharged once this has been authorized by his insurance company. On examination he is calm today. He is ambulating with the aid of walker. He remains afebrile and hemodynamically stable. Labs continue to show persistent leukocytosis however he shows no evidence of an infectious process. Recommend repeating his CBC in a week. If his leukocytosis is persistent he should be evaluated by the hematology service
[2017-05-14 07:54] LABS: ABSOLUTE BASOPHIL COUNT 0 /CUMM (0.0-0.2); ABSOLUTE EOSINOPHIL COUNT 0.2 /CUMM (0.0-0.7); ABSOLUTE GRANULOCYTE CT 13.1 /CUMM (1.4-6.5); ABSOLUTE LYMPH COUNT 2.3 /CUMM (1.2-3.4); ABSOLUTE MONOCYTE COUNT 1.2 /CUMM (0.10-0.60); BASOPHIL % 0.3 % (0.0-2.0); EOSINOPHIL % 1.2 % (0-5); GRANULOCYTE % 78.1 % (42.2-75.2); HEMATOCRIT 42.7 % (42-52); MEAN CORPUSCULAR HGB 31.6 PG (27.0-31.0); MEAN CORPUSCULAR HGB CONC 33.3 G/DL (33.0-37.0); MEAN CORPUSCULAR VOLUME 94.9 FL (80.0-94.0); MEAN PLATELET VOLUME 8.8 FL (7.4-10.4); PLATELET COUNT 392 /CUMM (130-400); RBC DISTRIBUTION WIDTH 14.2 % (11.5-14.5); RED BLOOD CELL CT 4.49 /CUMM (4.70-6.10); WHITE BLOOD CELL COUNT 16.8 /CUMM (4.8-10.8)
[2017-05-14 11:57] VITALS: BP 114/72
--- NOTE | 2017-05-14 12:18 | PN- Cardiology ---
Subjective Subjective: No significant clinical change. Remains in atrial fibrillation/flutter with reasonably good rate control. Remains confused Objective Vital Signs and I&Os Vital Signs Date Time Temp Pulse Resp B/P B/P Pulse O2 O2 Flow FiO2 Mean Ox Delivery Rate 05/14 1157 97.7 90 18 114/72 05/14 1039 90 114/72 05/14 1036 Room Air 05/14 0600 97.7 90 18 110/68 96 Room Air 05/13 2342 137 110/72 05/13 2300 98.0 137 22 110/72 98 Room Air 05/13 1426 98.0 99 16 108/60 96 Intake & Output 05/14 1600 05/14 0800 05/14 0000 05/13 1600 05/13 0800 05/13 0000 Intake Total 60 120 550 120 120 Output Total 700 Balance 60 120 -150 120 120 Intake, Oral 60 120 550 120 120 Number 1 Bowel Movements Output, Urine 700 Current Medications: Current Medications Sig/Sandra Start time Last Medication Dose Route Stop Time Status Admin Allopurinol 300 MG DAILY 05/03 1000 05/14 PO 1039 Apixaban 5 MG 09,1800 05/06 0900 AC 05/14 PO 1039 Cholecalciferol 1,000 IU DAILY 05/03 1000 AC 05/14 PO 1039 Diltiazem HCl 180 MG DAILY 05/10 1000 AC 05/14 PO 1039 Metoprolol Tartrate 25 MG BID 05/11 2200 AC 05/14 PO 1039 Multivitamins 1 TAB DAILY 05/03 1000 AC 05/14 PO 1039 Polyethylene Glycol 17 GM DAILY PRN 05/07 1030 AC PO Quetiapine Fumarate 12.5 MG ONCE PRN 05/11 1145 AC 05/13 PO 2342 Quetiapine Fumarate 25 MG 05/09 AC 05/13 PO 1551 Senna/Docusate Sodium 2 TAB DAILY 05/06 1000 AC 05/14 PO 1039 Results Last 48 Hrs of Labs/Mics: Laboratory Tests 05/14/17 0635: CBC w Diff NO MAN DIFF REQ, RBC 4.49 L, MCV 94.9 H, MCH 31.6 H, MCHC 33.3, RDW 14.2, MPV 8.8, Gran % 78.1 H, Lymphocytes % 13.5 L, Monocytes % 6.9, Eosinophils % 1.2, Basophils % 0.3, Absolute Granulocytes 13.1 H, Absolute Lymphocytes 2.3, Absolute Monocytes 1.2 H, Absolute Eosinophils 0.2, Absolute Basophils 0 Assessment/Plan Assessment/Plan Assessment: 1. Dementia with agitation and confusion 2. Paroxysmal atrial fibrillation and atrial flutter with elevated ventricular rate 3. Worsening leukocytosis Recommendations: -Continue current rate control medications. - Continue Eliquis - Discharge planning in process. -The patient should eventually follow-up with cardiology as outpatient, probably within 2-3 weeks. Continue telemetry? No
[2017-05-14] MEDS ORDERED: DILTIAZEM 24HR180 M2 PO (13:15)
[2017-05-14] MEDS ORDERED: METOPROLOL TART25 M1 PO (13:15)
== END 2017-05-14 14:15 | DRG 884 ==
LOC: ERH 00:13 → ERHI 03:24 → 1NO 03:24 → ERHI 07:59 → ENRESERV 17:01 → 1NO 18:40 → ENPENDDIS 05-14 13:59 → 1NO 05-14 14:15
PROVIDERS: Internal Medicine; Pediatrics; Radiology Vascular & Interventional Radiology; Student in an Organized Health Care Education/Training Program
DX: F03.91 Unspecified dementia, unspecified severity, with behavioral disturbance (principal); I48.0 Paroxysmal atrial fibrillation; F05 Delirium due to known physiological condition; G31.01 Pick's disease; I10 Essential (primary) hypertension; R47.01 Aphasia; K59.00 Constipation, unspecified; M10.9 Gout, unspecified; R44.3 Hallucinations, unspecified; I48.92 Unspecified atrial flutter; Z87.442 Personal history of urinary calculi; Z66 Do not resuscitate
CPT/HCPCS: 1NSP; 86618; 36415; 71045; 80307; 81001; 82436; 87040; 87086; 93005; 93010; 93306; 97110-GO; 97116-GO; 97161-GP; 99232; J1644; J1650; J3490; J7040; J7060

== ENCOUNTER 2017-06-09 13:49 | Inpatient (IN) | payer OTHER, MEDICARE ==
[~2017-06-09] VITALS: Ht 188 cm; Wt 81.6 kg
[~2017-06-09 13:49] MED LIST changes: +CARDIZEM30 M1 PO; +DILTIAZEM 24HR180 M2 PO; +ELIQUIS5 M1 PO; +METOPROLOL TART25 M1 PO
[2017-06-09 14:32] LABS: ABSOLUTE BASOPHIL COUNT 0.1 /CUMM (0.0-0.2); ABSOLUTE EOSINOPHIL COUNT 0.2 /CUMM (0.0-0.7); ABSOLUTE GRANULOCYTE CT 8.6 /CUMM (1.4-6.5); ABSOLUTE LYMPH COUNT 1.7 /CUMM (1.2-3.4); ABSOLUTE MONOCYTE COUNT 0.8 /CUMM (0.10-0.60); BASOPHIL % 0.7 % (0.0-2.0); EOSINOPHIL % 2.1 % (0-5); GRANULOCYTE % 75.1 % (42.2-75.2); HEMATOCRIT 40.2 % (42-52); MEAN CORPUSCULAR HGB 31.4 PG (27.0-31.0); MEAN CORPUSCULAR VOLUME 95.2 FL (80.0-94.0); MEAN PLATELET VOLUME 7.8 FL (7.4-10.4); PLATELET COUNT 335 /CUMM (130-400); RBC DISTRIBUTION WIDTH 14.4 % (11.5-14.5); RED BLOOD CELL CT 4.22 /CUMM (4.70-6.10); WHITE BLOOD CELL COUNT 11.5 /CUMM (4.8-10.8)
--- NOTE | 2017-06-09 16:06 | ED ANKLE/FOOT INJURY COMPLAINT ---
History of Present Illness General Chief Complaint: General Adult Stated Complaint: SENT BY GEAR LAPPING MACHINE OPERATOR FOR EVAL OF WOUND ON LT FOOT Source: family, old records Exam Limitations: dementia Vital Signs & Intake/Output Vital Signs & Intake/Output Vital Signs Date Time Temp Pulse Resp B/P B/P Pulse O2 O2 Flow FiO2 Mean Ox Delivery Rate 06/09 1412 97.9 58 18 150/77 99 Room Air Allergies Coded Allergies: No Known Allergies (05/03/17) Reconcile Medications Allopurinol 300 MG TABLET 1 TAB PO DAILY URIC ACID (Reported) Apixaban (Eliquis) 5 MG TABLET 5 MG PO 0900,1800 atrial fibrillation Ascorbic Acid (Vitamin C) 500 MG TABLET 1 TAB PO DAILY SUPPLEMENT (Reported) Aspirin (Ecotrin*) 81 MG TABLET.DR 1 TAB PO DAILY HEART/BLOOD (Reported) Cholecalciferol (Vitamin D3) 1,000 UNIT TABLET 1 TAB PO DAILY VITAMIN SUPPORT (Reported) Diltiazem HCl (Diltiazem 24HR Cd) 180 MG CAP.ER.24H 180 TAB PO DAILY heart Metoprolol Tartrate 25 MG TABLET 25 MG PO BID heart Multivits,Ca,Min/Iron/FA/Lycop (Centrum Men's Tablet) 8 MG IRON-200 MCG-600 MCG TABLET 1 TAB PO DAILY VITAMIN SUPPORT (Reported) [place]-3 Fatty Acids/Fish Oil (Fish Oil 1,200 MG Softgel) 360 MG-1,200 MG CAPSULE 1 CAP PO DAILY SUPPLEMENT (Reported) Triage Note: PT TO ED FOR BILATERAL UNHEALING CHRONIC FOOT WOUNDS. Triage Nurses Notes Reviewed? yes HPI: Patient sent in by his meteorologist in charge for admission for worsening cellulitis to the toes of both of his feet. Patient has dementia and spends most the night pacing the hallways and dragged his total on the ground. Patient has been receiving outpatient treatment. The visiting nurse did not like the way the toes looked today so she sent him to his meteorologist in charge. It is noted that he had malodorous discharge. Patient was sent in for admission for IV antibiotics secondary to high risk of osteomyelitis and to receive a consult by Dr. Collier. Patient has dementia and is unable to provide any further history. Past History Travel History Traveled to [place] past 21 day No Medical History Any Pertinent Medical History? see below for history Neurological: dementia, primary progressive aphasia EENT: NONE Cardiovascular: hypertension Respiratory: NONE Gastrointestinal: NONE Hepatic: NONE Renal: nephrolithiasis Musculoskeletal: gout Psychiatric: NONE Endocrine: NONE Blood Disorders: NONE Cancer(s): SKIN CA MEDICAL DIAGNOSTIC RADIOGRAPHER/Reproductive: NONE History of MRSA: No History of VRE: No History of CDIFF: No Tetanus Vaccine: 10/12/16 Surgical History Surgical History: cholecystectomy Psychosocial History Who do you live with Spouse Services at Home None What is your primary language Greek Tobacco Use: Never used ETOH Use: denies use Illicit Drug Use: denies illicit drug use Family History Family History, If Any: MOTHER Hypertension MOTHER Diabetes mellitus Hx Contributory? No Review of Systems Review of Systems Constitutional: Reports: see HPI. Physical Exam Physical Exam General Appearance: well developed/nourished, awake Eyes: Bilateral: PERRL, EOMI. Neck: normal inspection, supple Cardiovascular/Respiratory: normal breath sounds, normal peripheral pulses, no respiratory distress, irregularly irregular Leg/Knee/Thigh Left: normal range of motion, normal inspection Leg/Knee/Thigh Right: normal range of motion, normal inspection Foot Left: YELLOWISH ESCHAR TO THE SECOND THIRD AND FOURTH TOES Foot Right: YELLOWISH ESCHAR 2 SECOND THIRD AND FOURTH TOES Progress Differential Diagnosis: cellulitis, OSTEO Plan of Care: Orders Procedure Date/time Status Heart Healthy Diet 06/10 B Active ED Holding Orders 06/09 1638 Active Admit to inpatient 06/09 1638 Active Vital Signs 06/09 1638 Active Code Status 06/09 1638 Active XRY-FOOT COMPLETE, RIGHT 06/09 1605 Active XRY-FOOT COMPLETE, LEFT 06/09 1605 Active EKG 06/09 1414 Active BLOOD CULTURE 06/09 1412 Active LACTIC ACID 06/09 1412 Complete WESTERGREN SED RATE 06/09 1412 Complete COMPREHENSIVE METABOLIC PANEL 06/09 1412 Complete CBC WITHOUT DIFFERENTIAL 06/09 1412 Complete Current Medications Sig/Sandra Start time Last Medication Dose Stop Time Status Admin Ampicillin Sodium/ 3,000 MG ONCE ONE 06/09 1645 UNVr Sulbactam Sodium 06/09 1714 (Unasyn) Sodium Chloride 100 ML (Normal Saline 0.9%) Laboratory Tests 06/09/17 1425: Anion Gap 12, Estimated GFR > 60, BUN/Creatinine Ratio 27.5 H, Glucose 118 H, Lactic Acid 1.3, Calcium 8.7, Total Bilirubin 0.7, AST 28, ALT 43, Alkaline Phosphatase 72, Total Protein 6.4, Albumin 3.7, Globulin 2.7, Albumin/Globulin Ratio 1.4, CBC w Diff NO MAN DIFF REQ, RBC 4.22 L, MCV 95.2 H, MCH 31.4 H, MCHC 33.0, RDW 14.4, MPV 7.8, Gran % 75.1, Lymphocytes % 14.9 L, Monocytes % 7.2, Eosinophils % 2.1, Basophils % 0.7, Absolute Granulocytes 8.6 H, Absolute Lymphocytes 1.7, Absolute Monocytes 0.8 H, Absolute Eosinophils 0.2, Absolute Basophils 0.1, ESR Westergren 14 H Microbiology 06/09 1430 BLOOD: Blood Culture - RECD 06/09 1425 BLOOD: Blood Culture - RECD Departure Departure Disposition: STILL A PATIENT Condition: Stable Clinical Impression Primary Impression: Cellulitis Referrals: Patient Has No Primary Care Dr (PCP/Family) Departure Forms: Customer Survey General Discharge Information Admission Note Spoke With: Venkatesh SUBRAMANIAN,Cirilo Documentation of Exam: Documentation of any treatments & extenuating circumstances including Concerns Regarding Discharge (functional status, medication knowledge or non-compliance, living conditions, etc.) that warrant an admission rather than observation: [IV ABX, FOLLOW UP X RAYS, PODIATRY CONSULT, MAY REUIRE SURGICAL DEBRIEDMENT]
--- NOTE | 2017-06-09 17:03 | History & Physical ---
Pedro Kebede MD,[facility] 06/09/17 1701: General Information and HPI MD Statement: I have seen and personally examined RODY DUNHAM and documented this H&P. The patient is a 82 year old M who presented with a patient stated chief complaint of []. Source of Information: police History of Present Illness: Patient is 81-year-old male with PMH of HTN, afib on Eliquise, advanced primary progressive aphasia, idiopathic neuropathy, HTN, hyperuricemia/gout and uric acids nephrolithiasis on allopurinol was sent from purchasing intern to the ED for evaluation of bilateral chronic foot wounds. Patient is demented and interview with family and records were used to complete history. Patient was last admitted to [facility] in Apr 2017 for acute delirium and new onset A. fib. According to , after being discharged he was placed in [facility] and then in an assisted care living facility. There he started to walk a lot when he started to develop chronic ulcers in bilateral toes. He had visiting health professionals visiting his toes at the facility 2-3/week and was also following with Dr Franco. Today he was told that the wounds were so worsened and he needs to come to hospital, Dr lua was also contacted regarding his referral. He denied any fever or chills, any swelling or redness of the legs, weakness, SOB or chest pain. He lives in [facility], quited smoking more than 30 years ago and denied drinking alcohol. Allergies/Medications Allergies: Coded Allergies: No Known Allergies (05/03/17) Home Med list Allopurinol 300 MG TABLET 1 TAB PO DAILY URIC ACID (Reported) Apixaban (Eliquis) 5 MG TABLET 5 MG PO 0900,1800 atrial fibrillation Ascorbic Acid (Vitamin C) 500 MG TABLET 1 TAB PO DAILY SUPPLEMENT (Reported) Aspirin (Ecotrin*) 81 MG TABLET.DR 1 TAB PO DAILY HEART/BLOOD (Reported) Cholecalciferol (Vitamin D3) 1,000 UNIT TABLET 1 TAB PO DAILY VITAMIN SUPPORT (Reported) Diltiazem HCl (Diltiazem 24HR Cd) 180 MG CAP.ER.24H 180 TAB PO DAILY heart Metoprolol Tartrate 25 MG TABLET 25 MG PO BID heart Multivits,Ca,Min/Iron/FA/Lycop (Centrum Men's Tablet) 8 MG IRON-200 MCG-600 MCG TABLET 1 TAB PO DAILY VITAMIN SUPPORT (Reported) Nystatin 100,000 UNIT/ML ORAL.SUSP 5 ML PO 4 TIMES/DAY ANTIFUNGAL (Reported) Quetiapine Fumarate 25 MG TABLET 1 TAB PO Q8H PRN AGITATION (Reported) Sennosides/Docusate Sodium (Senna S Tablet) 8.6 MG-50 MG TABLET 2 TAB PO DAILY PRN CONSTIPATION (Reported) Sertraline HCl 25 MG TABLET 1 TAB PO DAILY MENTAL HEALTH (Reported) Trazodone HCl 50 MG TABLET 25 MG PO TID AGITATION (Reported) Past History Travel History Traveled to [place] past 21 day No Medical History Neurological: dementia, primary progressive aphasia EENT: NONE Cardiovascular: hypertension Respiratory: NONE Gastrointestinal: NONE Hepatic: NONE Renal: nephrolithiasis Musculoskeletal: gout Psychiatric: NONE Endocrine: NONE Blood Disorders: NONE Cancer(s): SKIN CA 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 Exam & Diagnostic Data Last 24 Hrs of Vital Signs/I&O Vital Signs Date Time Temp Pulse Resp B/P B/P Pulse O2 O2 Flow FiO2 Mean Ox Delivery Rate 06/09 1953 98.4 61 16 138/77 99 Room Air 06/09 1412 97.9 58 18 150/77 99 Room Air Intake & Output 06/09 1600 06/09 0800 06/09 0000 Intake Total Output Total Balance Patient 165 lb Weight Weight Reported by Patient Measurement Method Physical Exam General Appearance Alert, Cooperative, No Acute Distress, pleasantly demented, not oriented, incoherence in speaking and answering questions. Skin Chronic wounds in toes 2,3,4 in bilateral legs Skin Temp/Moisture Exam: Warm/Dry Sepsis Skin Exam (color): Normal for Ethnicity HEENT Atraumatic, EOMI, Mucous Membr. moist/pink Cardiovascular Normal S1, Normal S2 Lungs Clear to Auscultation Abdomen Soft, No Tenderness Neurological Strength at 5/5 X4 Ext, sensory bilateral LE deficit below lower leg and foot. Motor normal, UE normal Extremities as noted above, dressing in place Last 24 Hrs of Labs/Efren: Laboratory Tests 06/09/17 1712: Lactic Acid Cancelled 06/09/17 1425: Anion Gap 12, Estimated GFR > 60, BUN/Creatinine Ratio 27.5 H, Glucose 118 H, Lactic Acid 1.3, Calcium 8.7, Magnesium Pending, Total Bilirubin 0.7, AST 28, ALT 43, Alkaline Phosphatase 72, Total Protein 6.4, Albumin 3.7, Globulin 2.7, Albumin/Globulin Ratio 1.4, CBC w Diff NO MAN DIFF REQ, RBC 4.22 L, MCV 95.2 H , MCH 31.4 H, MCHC 33.0, RDW 14.4, MPV 7.8, Gran % 75.1, Lymphocytes % 14.9 L, Monocytes % 7.2, Eosinophils % 2.1, Basophils % 0.7, Absolute Granulocytes 8.6 H, Absolute Lymphocytes 1.7, Absolute Monocytes 0.8 H, Absolute Eosinophils 0.2 , Absolute Basophils 0.1, ESR Westergren 14 H Microbiology 06/09 1430 BLOOD: Blood Culture - RECD 06/09 1425 BLOOD: Blood Culture - RECD Assessment/Plan Assessment: Patient is 81-year-old male referred for evaluation of bilateral toes chronic wounds PMH: HTN, afib on Eliquise, advanced primary progressive aphasia, idiopathic neuropathy, HTN, hyperuricemia/gout and uric acids nephrolithiasis on allopurinol was sent from purchasing intern to the ED for evaluation of bilateral chronic foot wounds. VS, Ph Ex at admission: BP 150/77, ND 58, RR 18, no fever Labs at admission: WBC 11.5, Hgb 13.3, ESR 14, potassium 3.1, Cr 0.8 Imagings at admission: Foot xray: Exam is very limited by technique and patient positioning. Possible partial erosion of the distal tuft of the distal second right phalanx. If there is high clinical suspicion, consider a bone scan for further assessment. Hypertrophic spurs along the latter aponeurosis insertion of the calcaneus bilaterally and the left Achilles insertion. Patient was admitted to general medicine floor for management of following conditions: Chronic toes wounds Cellulitis, r/o osteomyelitis we will start antibiotics for cellulitis, and rule out osteomyelitis which is probable considering ESR and xray - admit to GM floor - start Unasyn - Podiatry consult placed - consider MRI of the foot Hypokalemia repleted, will follow in AM Chronic medical conditions: HTN, afib on Eliquise, advanced primary progressive aphasia, idiopathic neuropathy, HTN, hyperuricemia/gout We will cotinue home medication. - Continue allopurinol, seroquel, zoloft, treazadone - continue Eliquise, metoprolol, diltiazem Heart healthy diet DNR/DNI DVT ppx: Eliquise, ALPS As Ranked By This Provider Problem List: 1. Cellulitis Core Measures/Misc (01/03) Acute Coronary Syndrome ACS Diagnosis: No Congestive Heart Failure Congestive Heart Failure Diagnosis No Cerebrovascular Accident CVA/TIA Diagnosis: No VTE (View Protocol) VTE Risk Factors Age>40 No Mechanical VTE Prophylaxis d/t N/A MechProphylax Ordered No VTE Pharm Prophylaxis d/t NA PharmProphylax ordered Sepsis (View protocol) Sepsis Present: No Venkatesh SUBRAMANIAN,Cirilo 06/09/17 1720: Attending MD Review Statement Attending Statement Attending MD Statement: examined this patient, discuss w/resident/PA/GRASS CUTTER, agreed w/resident/PA/GRASS CUTTER, discussed with family, reviewed EMR data (avail) Attending Assessment/Plan: Patient seen and examined. Plan of care discussed with the medical team and the patient. Available lab work and radiology test reports were reviewed. Patient' s was at the bedside. Patient is 81-year-old male with PMH of HTN, advanced primary progressive aphasia, hyperuricemia/gout and uric acids nephrolithiasis on allopurinol was sent from purchasing intern to the ED for evaluation of bilateral chronic foot wounds. Patient has advanced dementia and is currently disoriented to place and time. Patient's did not report any recent fever chills nausea vomiting abdominal pain chest pain difficulty breathing or any fevers or chills. Exam: General: Patient awake alert oriented without any distress CVS: S1 plus S2 without any murmur or gallops Chest: Few scattered crepitation without any wheeze. There is no respiratory distress. Abdomen: Soft non-tender, bowel sound present, no guarding or rebound [employer]: Awake alert oriented without any focal neuro deficit and follows commands appropriately Extremities: Bilateral open wounds of tips of toes are noted with a yellowish discharge Microbiology Date/Time Procedure - Status Source Growth 06/09 1430 Blood Culture - RECD BLOOD 06/09 1425 Blood Culture - RECD BLOOD Vital Signs Date Time Temp Pulse Resp B/P B/P Pulse O2 O2 Flow FiO2 Mean Ox Delivery Rate 06/09 1412 97.9 58 18 150/77 99 Room Air Intake & Output 06/09 1600 06/09 0800 06/09 0000 Intake Total Output Total Balance Patient 165 lb Weight Weight Reported by Patient Measurement Method Laboratory Tests 06/09 06/09 1712 1425 Chemistry Sodium (137 - 145 mmol/L) 142 Potassium (3.5 - 5.1 mmol/L) 3.1 L Chloride (98 - 107 mmol/L) 101 Carbon Dioxide (22 - 30 mmol/L) 29 Anion Gap (5 - 16) 12 BUN (9 - 20 mg/dL) 22 H Creatinine (0.7 - 1.2 mg/dL) 0.8 Estimated GFR (>60 ml/min) > 60 BUN/Creatinine Ratio (7 - 25 %) 27.5 H Glucose (65 - 99 mg/dL) 118 H Lactic Acid (0.7 - 2.1 mmol/L) Cancelled 1.3 Calcium (8.4 - 10.2 mg/dL) 8.7 Total Bilirubin (0.2 - 1.3 mg/dL) 0.7 AST (17 - 59 U/L) 28 ALT (21 - 72 U/L) 43 Alkaline Phosphatase (< 127 U/L) 72 Total Protein (6.3 - 8.2 g/dL) 6.4 Albumin (3.5 - 5.0 g/dL) 3.7 Globulin (1.9 - 4.2 gm/dL) 2.7 Albumin/Globulin Ratio (1.1 - 2.2 %) 1.4 Hematology CBC w Diff NO MAN DIFF REQ WBC (4.8 - 10.8 /CUMM) 11.5 H RBC (4.70 - 6.10 /CUMM) 4.22 L Hgb (14.0 - 18.0 G/DL) 13.3 L Hct (42 - 52 %) 40.2 L MCV (80.0 - 94.0 FL) 95.2 H MCH (27.0 - 31.0 PG) 31.4 H MCHC (33.0 - 37.0 G/DL) 33.0 RDW (11.5 - 14.5 %) 14.4 Plt Count (130 - 400 /CUMM) 335 MPV (7.4 - 10.4 FL) 7.8 Gran % (42.2 - 75.2 %) 75.1 Lymphocytes % (20.5 - 51.1 %) 14.9 L Monocytes % (1.7 - 9.3 %) 7.2 Eosinophils % (0 - 5 %) 2.1 Basophils % (0.0 - 2.0 %) 0.7 Absolute Granulocytes (1.4 - 6.5 /CUMM) 8.6 H Absolute Lymphocytes (1.2 - 3.4 /CUMM) 1.7 Absolute Monocytes (0.10 - 0.60 /CUMM) 0.8 H Absolute Eosinophils (0.0 - 0.7 /CUMM) 0.2 Absolute Basophils (0.0 - 0.2 /CUMM) 0.1 ESR Westergren (0 - 10 MM) 14 H Microbiology Date/Time Procedure - Status Source Growth 06/09 1430 Blood Culture - RECD BLOOD 06/09 1425 Blood Culture - RECD BLOOD Assessment plan * Cellulitis bilateral feet- plan is to start IV Unasyn; we'll consult podiatry; we will hold cefazolin at this point * History of gout-continue current treatment * History of A. fib during last admission in April- continue current treatment with apex of been * Advanced dementia with agitation * History of delirium- patient currently does not exhibit any signs of acute delirium * Hypokalemia- please replace potassium by oral route and recheck potassium in the morning Terry Fletcher 06/09/17 1938: Resident Review Statement Resident Statement: examined this patient, discussed with international specialist, agreed with international specialist, discussed with family, reviewed EMR data (avail), discussed with nursing , discussed with case mgmt, reviewed images, amended to note Other Findings: This is a 82-year-old male with past medical history significant for gout, atrial fibrillation on anticoagulation, hypertension, advanced dementia, agitation, primary progressive aphasia, nephrolithiasis, constipation was sent in by purchasing intern for evaluation of bilateral foot toe wounds. Patient was recently admitted in April 2017 for atrial fibrillation, discharged on aspirin, Cardizem, eliqus. He was discharged to short-term rehabilitation. After that he started noticing wounds on bilateral toes. He has been following up with his purchasing intern closely. After discharge from [facility] he was moved to assisted care [facility] dementia unit. He has visiting nurses who comes 3 times per week and takes care of his foot wound. However because of worsening of toe drainage he was seen by purchasing intern this morning, advised to go to the emergency room for admission to get IV antibiotics. Patient has advanced dementia, couldn't provide any history. He is alert and awake, not oriented. Most of the history is provided by his daughter who is at bedside. According to her, he has been having bilateral toe wounds for the last 1 month, worsening, associated with some redness, swelling, drainage. Denied any fever, chills. Review of systems negative for fever, chills, short of breath, chest pain, palpitations, productive cough, sick contact exposure, travel history, nausea, vomiting, abdominal pain, change in urinary habits. However family reports constipation recently. Denied smoking, alcohol abuse, illicit drug abuse. -- Vitals afebrile, heart rate 58, respiratory rate 18, blood pressure 150/70, saturating at 99 on room air. WBC 11.5, hemoglobin, platelets completely normal Hypokalemia 3.1, kidney function tests normal. Lactate is 1.3 Ltt normal EKG 40, sinus bradycardia, no ST-T wave changes. ------- 1. Bilateral multiple toe cellulitis. Patient was sent in by podiatry for evaluation of bilateral toe wounds. he has been having bilateral toe wounds for the last 1 month, worsening, associated with some redness, swelling, drainage. Denied any fever, chills. Visiting nurses comes in 3 times per week for dressing. However because of worsening infection he was sent in for further evaluation * Admit to general med * Monitor for fever, leukocytosis * IV antibiotics-IV Unasyn 3 g every 6 hours for cellulitis * Foot x-ray showed Possible partial erosion of the distal tuft of the distal second right phalanx. * Please call podiatric in the morning * MRI based on purchasing intern recommendations Hypokalemia 3.1-potassium was repleted. Please follow potassium in the morning Gout continue allopurinol Atrial fibrillation continue aspirin, Cardizem, eliqus Hypertension continue metoprolol Advanced dementia, agitation continue Seroquel, Zoloft, trazodone DNR/DNI Regular diet DVT prophylaxis tylinol Pain pathway ordered
[2017-06-09] MEDS ORDERED: CEPHALEXIN500 M3 PO (17:14)
[2017-06-09] MEDS ORDERED: NYSTATIN100000 UNI PO (17:16)
[2017-06-09] MEDS ORDERED: QUETIAPINE FUMA25 M1 PO (17:17)
[2017-06-09] MEDS ORDERED: SENNA S TABLET1 EACH PO (17:18)
[2017-06-09] MEDS ORDERED: TRAZODONE HCL50 M1 PO (17:18)
[2017-06-09] MEDS ORDERED: SERTRALINE HCL25 MG PO (17:18)
--- NOTE | 2017-06-09 17:25 | Admission Certification ---
Admission Certification Certification Statement - As attending physician, I certify that at the time of - admission, based on clinical presentation, severity of - symptoms, need for further diagnostic testing and - therapeutic interventions, and risk of adverse outcomes - without in-hospital treatment, in my clinical assessment, - this patient requires an acute hospital stay for a minimum - of two nights or longer. I have also considered psychsocial - factors such as support system, advanced age, financial - issues, cognitive issues, and failed out-patient treatments, - past re-admission history, safety of patient, and lack of - compliance as applicable. Specific rationale supporting this admission is: Cellulitis of multiple toes in both feet
--- NOTE | 2017-06-09 17:43 | RADIOLOGY REPORT ---
EXAMINATION: 3 VIEWS OF THE RIGHT FOOT AND 4 VIEWS OF THE LEFT FOOT CLINICAL INFORMATION: Question osteomyelitis the toes. COMPARISON: None available FINDINGS: Right foot: No fracture. The bony articulations are maintained. The distal phalanges are very limitedly assessed secondary to technique. Possible partial erosion of the distal tuft of the distal second phalanx. No definite additional osseous erosions are identified. There is distal digit soft tissue swelling. Hypertrophic spur along the plantar aponeurosis insertion of the calcaneus. Left foot: Limited assessment of the distal phalanges secondary to technique. No definite osseous erosions are identified. No fractures. The bony articulations are maintained. Hypertrophic spurs along the Achilles and plantar neurosis insertions of the calcaneus. IMPRESSION: Exam is very limited by technique and patient positioning. Possible partial erosion of the distal tuft of the distal second right phalanx. If there is high clinical suspicion, consider a bone scan for further assessment. Hypertrophic spurs along the latter aponeurosis insertion of the calcaneus bilaterally and the left Achilles insertion.
[2017-06-09 20:31] VITALS: BP 140/82
[2017-06-10 05:42] VITALS: BP 142/78
--- NOTE | 2017-06-10 07:34 | PN- Housestaff ---
Pedro Kebede MD,[facility] 06/10/17 0733: Subjective Follow-up For: Bilateral chronic foot wounds Subjective: Patient visited today, was lying sitting at bedside comfortably in no acute distress, was alert, pleasantly demented, not oriented. No fever or chills, no shortness of breathing, no chest pain, no other events. Podiatry visited and recommended no surgical intervention for now. Review of Systems Constitutional: Reports: see HPI. Objective Last 24 Hrs of Vital Signs/I&O Vital Signs Date Time Temp Pulse Resp B/P B/P Pulse O2 O2 Flow FiO2 Mean Ox Delivery Rate 06/10 08 116 160/88 06/10 0542 98.4 58 20 142/78 99 Room Air 06/09 2030 97.5 63 20 140/82 98 Room Air 06/09 1953 98.4 61 16 138/77 99 Room Air Intake & Output 06/10 1600 06/10 0800 06/10 0000 Intake Total 250 Output Total Balance 250 Intake, IV 10 Intake, Oral 240 Number 0 Bowel Movements Patient 180 lb Weight Weight Reported by Patient Measurement Method Physical Exam General Appearance: Oriented X3, Cooperative, No Acute Distress, dementia, not oriented Skin: Chronic wounds in toes 2,3,4 in bilateral legs Skin Temp/Moisture Exam: Warm/Dry Sepsis Skin Exam (color): Normal for Ethnicity HEENT: Atraumatic, EOMI, Mucous Membr. moist/pink Cardiovascular: Normal S1, Normal S2, irreg irreg Lungs: Clear to Auscultation, Normal Air Movement Abdomen: Soft, No Tenderness Neurological: Strength at 5/5 X4 Ext Extremities: as noted above, dressing in place Current Medications: Current Medications Sig/Sandra Start time Last Medication Dose Route Stop Time Status Admin Acetaminophen 650 MG Q6P PRN 06/09 1830 AC PO Allopurinol 300 MG DAILY 06/09 182 AC 06/10 PO 0817 Ampicillin Sodium/ 3,000 MG Q6 06/09 182 AC 06/10 Sulbactam Sodium IV 09 Sodium Chloride 100 ML Ampicillin Sodium/ 0 .STK-MED ONE 06/09 1821 DC Sulbactam Sodium .ROUTE Ampicillin Sodium/ 3,000 MG ONCE ONE 06/09 1645 DC 06/09 Sulbactam Sodium IV 06/09 1714 1829 Sodium Chloride 100 ML Apixaban 5 MG 0900,1800 06/10 0900 AC 06/10 PO 0816 Aspirin 0 .STK-MED ONE 06/09 1908 DC PO Aspirin Buffered 81 MG DAILY 06/09 1829 AC 06/10 PO 0816 Diltiazem HCl 180 MG DAILY 06/10 1000 AC 06/10 PO 0816 Metoprolol Tartrate 25 MG BID 06/09 2200 AC 06/10 PO 0817 Patient Medication 1 ED ONE ONE 06/10 1130 DC Teaching ED 06/10 1131 Potassium Chloride 40 MEQ .STK-MED ONE 06/10 1257 DC PO 06/10 1258 Potassium Chloride 40 MEQ ONCE ONE 06/10 0900 DC 06/10 PO 06/10 0901 0916 Potassium Chloride 40 MEQ ONCE ONE 06/09 2200 DC 06/09 PO 06/09 2200 220 Potassium Chloride 0 .STK-MED ONE 06/09 1908 DC PO Potassium Chloride 40 MEQ ONCE ONE 06/09 1830 DC PO 06/09 1831 Quetiapine Fumarate 25 MG Q8H PRN 06/09 1830 AC 06/09 PO 2206 Senna/Docusate Sodium 2 TAB DAILY PRN 06/09 1830 AC PO Sertraline HCl 25 MG DAILY 06/09 1830 AC 06/10 PO 0817 Trazodone HCl 25 MG TID 06/09 220 AC 06/10 PO 0816 Last 24 Hrs of Lab/Efren Results Last 24 Hrs of Labs/Mics: Laboratory Tests 06/10/17 0638: Anion Gap 10, Estimated GFR > 60, BUN/Creatinine Ratio 24.3, CBC w Diff NO MAN DIFF REQ, RBC 4.28 L, MCV 95.1 H, MCH 31.7 H, MCHC 33.3, RDW 14.4, MPV 8.4, Gran % 74.7, Lymphocytes % 14.3 L, Monocytes % 8.7, Eosinophils % 1.8, Basophils % 0.5, Absolute Granulocytes 9.7 H, Absolute Lymphocytes 1.9, Absolute Monocytes 1.1 H, Absolute Eosinophils 0.2, Absolute Basophils 0.1 06/09/17 1712: Lactic Acid Cancelled Assessment/Plan Assessment: Patient is 81-year-old male referred for evaluation of bilateral toes chronic wounds PMH: HTN, afib on Eliquise, advanced primary progressive aphasia, idiopathic neuropathy, HTN, hyperuricemia/gout and 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 VS, Ph Ex at admission: BP 150/77, PA 58, RR 18, no fever Labs at admission: WBC 11.5, Hgb 13.3, ESR 14, potassium 3.1, Cr 0.8 Imagings at admission: Foot xray: Exam is very limited by technique and patient positioning. Possible partial erosion of the distal tuft of the distal second right phalanx. If there is high clinical suspicion, consider a bone scan for further assessment. Hypertrophic spurs along the latter aponeurosis insertion of the calcaneus bilaterally and the left Achilles insertion. Patient was admitted to general medicine floor for management of following conditions: Chronic toes wounds Cellulitis, r/o osteomyelitis we will start antibiotics for cellulitis, and rule out osteomyelitis which is probable considering ESR and xray - Continue admission to floor - Continue Unasyn - Follow Podiatry, no surgery indicated - consider MRI of the foot Hypokalemia repleted again, will follow in AM Chronic medical conditions: HTN, afib on Eliquise, advanced primary progressive aphasia, idiopathic neuropathy, HTN, hyperuricemia/gout We will cotinue home medication. - Continue allopurinol, seroquel, zoloft, treazadone - continue Eliquise, metoprolol, diltiazem Heart healthy diet DNR/DNI DVT ppx: Eliquise, ALPS Problem List: 1. Cellulitis Pain Ratin Pain Location: none Pain Goal: Pain 4 or less Pain Plan: continue current plan Tomorrow's Labs & Rationales: CBC MIRZAP Tashi Youssef 06/10/17 1257: Attending MD Review Statement Attending Statement Attending MD Statement: examined this patient, discuss w/resident/PA/SALT GRINDER, agreed w/resident/PA/SALT GRINDER, discussed with family, reviewed EMR data (avail), discussed with nursing, discussed with case mgmt, reviewed images, amended to note Attending Assessment/Plan: Assessment plan Cellulitis bilateral feet- c/w IV Unasyn; consult podiatry; follow clinically, f /u cultures. History of gout-continue current treatment History of A. fib during last admission in April- continue current treatment with eliquis, hold as per podiatry. Advanced dementia with agitation History of delirium- patient currently does not exhibit any signs of acute delirium Hypokalemia- resolving.
[2017-06-10 08:14] LABS: ABSOLUTE BASOPHIL COUNT 0.1 /CUMM (0.0-0.2); ABSOLUTE EOSINOPHIL COUNT 0.2 /CUMM (0.0-0.7); ABSOLUTE GRANULOCYTE CT 9.7 /CUMM (1.4-6.5); ABSOLUTE LYMPH COUNT 1.9 /CUMM (1.2-3.4); ABSOLUTE MONOCYTE COUNT 1.1 /CUMM (0.10-0.60); BASOPHIL % 0.5 % (0.0-2.0); EOSINOPHIL % 1.8 % (0-5); GRANULOCYTE % 74.7 % (42.2-75.2); HEMATOCRIT 40.8 % (42-52); MEAN CORPUSCULAR HGB 31.7 PG (27.0-31.0); MEAN CORPUSCULAR HGB CONC 33.3 G/DL (33.0-37.0); MEAN CORPUSCULAR VOLUME 95.1 FL (80.0-94.0); MEAN PLATELET VOLUME 8.4 FL (7.4-10.4); PLATELET COUNT 337 /CUMM (130-400); RBC DISTRIBUTION WIDTH 14.4 % (11.5-14.5); RED BLOOD CELL CT 4.28 /CUMM (4.70-6.10); WHITE BLOOD CELL COUNT 13.1 /CUMM (4.8-10.8)
[2017-06-10 15:14] VITALS: BP 128/78
--- NOTE | 2017-06-10 19:35 | Cons- Podiatry ---
General Information and HPI Consulting Request Date of Consult: 06/10/17 Requested By: Domonique SUBRAMANIAN,Tashi History of Present Illness: This 82 year old male with a history of dementia presented to the ED after being referred by his web content & social media manager Dr. Franco. The patient has been followed for ulcers to the distal tips of the toes bilaterally. Allergies/Medications Allergies: Coded Allergies: No Known Allergies (05/03/17) Home Med List: Allopurinol 300 MG TABLET 1 TAB PO DAILY URIC ACID (Reported) Apixaban (Eliquis) 5 MG TABLET 5 MG PO 0900,1800 atrial fibrillation Ascorbic Acid (Vitamin C) 500 MG TABLET 1 TAB PO DAILY SUPPLEMENT (Reported) Aspirin (Ecotrin*) 81 MG TABLET.DR 1 TAB PO DAILY HEART/BLOOD (Reported) Cholecalciferol (Vitamin D3) 1,000 UNIT TABLET 1 TAB PO DAILY VITAMIN SUPPORT (Reported) Diltiazem HCl (Diltiazem 24HR Cd) 180 MG CAP.ER.24H 180 TAB PO DAILY heart Metoprolol Tartrate 25 MG TABLET 25 MG PO BID heart Multivits,Ca,Min/Iron/FA/Lycop (Centrum Men's Tablet) 8 MG IRON-200 MCG-600 MCG TABLET 1 TAB PO DAILY VITAMIN SUPPORT (Reported) Nystatin 100,000 UNIT/ML ORAL.SUSP 5 ML PO 4 TIMES/DAY ANTIFUNGAL (Reported) Quetiapine Fumarate 25 MG TABLET 1 TAB PO Q8H PRN AGITATION (Reported) Sennosides/Docusate Sodium (Senna S Tablet) 8.6 MG-50 MG TABLET 2 TAB PO DAILY PRN CONSTIPATION (Reported) Sertraline HCl 25 MG TABLET 1 TAB PO DAILY MENTAL HEALTH (Reported) Trazodone HCl 50 MG TABLET 25 MG PO TID AGITATION (Reported) Past History Medical History Blood Transfusion Hx: No Neurological: dementia, primary progressive aphasia EENT: NONE Cardiovascular: AFIB, hypertension Respiratory: NONE Gastrointestinal: NONE Hepatic: NONE Renal: nephrolithiasis Musculoskeletal: gout Psychiatric: depression Endocrine: NONE Blood Disorders: NONE Cancer(s): basal cell carcinoma, melanoma, SKIN CA COMPLEX CASE MANAGER/Reproductive: NONE Surgical History Pertinent Surgical History: cholecystectomy Family History Relations & Conditions If Any: MOTHER Hypertension MOTHER Diabetes mellitus Psychosocial History Where Do You Live? Assisted Living Services at Home: None Smoking Status: Former Smoker ETOH Use: denies use Illicit Drug Use: denies illicit drug use Review of Systems Review of Systems: Unremarkable except for that noted in history of present illness Exam & Diagnostic Data Vital Signs and I&O Vital Signs Date Time Temp Pulse Resp B/P B/P Pulse O2 O2 Flow FiO2 Mean Ox Delivery Rate 06/10 1514 98.0 88 18 128/78 93 Room Air 06/10 0817 116 160/88 06/10 0542 98.4 58 20 142/78 99 Room Air 06/091 97.5 63 20 140/82 98 Room Air 06/09 1954 98.4 61 16 138/77 99 Room Air Intake & Output 06/10 1600 06/10 0800 06/10 0000 06/09 1600 06/09 0800 06/09 0000 Intake Total 940 250 Output Total Balance 940 250 Intake, IV 100 10 Intake, Oral 840 240 Number 0 Bowel Movements Patient 180 lb 165 lb Weight Weight Reported by Patient Reported by Patient Measurement Method Physical Exam: Stage II lesions noted to distal tips of lesser digits bilaterally. Superficial slough overlying mixed granular and fibrotic wound bed. Minimal serous drainage noted. Fixed claw toes noted. Pedal pulses palpable. Assessment/Plan Assessment/Plan Foot cellulitis associated with digital ulcers. Continue IV antibiotics. Will follow up patient as outpatient in wound center. Consult Acknowledgment - Thank you for your consult request. Attending MD Review Statement Attending Statement Attending MD Statement: examined this patient
[2017-06-10 21:49] VITALS: BP 122/70
[2017-06-11 06:25] VITALS: BP 132/70
[2017-06-11 08:15] LABS: ABSOLUTE BASOPHIL COUNT 0 /CUMM (0.0-0.2); ABSOLUTE EOSINOPHIL COUNT 0.2 /CUMM (0.0-0.7); ABSOLUTE GRANULOCYTE CT 7.8 /CUMM (1.4-6.5); ABSOLUTE MONOCYTE COUNT 0.8 /CUMM (0.10-0.60); BASOPHIL % 0.3 % (0.0-2.0); EOSINOPHIL % 2.3 % (0-5); GRANULOCYTE % 71.6 % (42.2-75.2); HEMATOCRIT 40.8 % (42-52); MEAN CORPUSCULAR HGB 31.9 PG (27.0-31.0); MEAN CORPUSCULAR HGB CONC 33.4 G/DL (33.0-37.0); MEAN CORPUSCULAR VOLUME 95.4 FL (80.0-94.0); MEAN PLATELET VOLUME 8.4 FL (7.4-10.4); PLATELET COUNT 319 /CUMM (130-400); RBC DISTRIBUTION WIDTH 14.1 % (11.5-14.5); RED BLOOD CELL CT 4.28 /CUMM (4.70-6.10); WHITE BLOOD CELL COUNT 10.9 /CUMM (4.8-10.8)
--- NOTE | 2017-06-11 11:06 | PN- Housestaff ---
Pedro Kebede MD,[facility] 06/11/17 1106: Subjective Follow-up For: Bilateral chronic foot wounds Subjective: Patient visited today, was lying in bed comfortably in no acute distress, was alert but not oriented. No fever or chills, no shortness of breathing, no chest pain, no other events. Podiatry visits the patient yesterday are recommended neurosurgical intervention. Patient was walking for long periods overnight, got agitated and was placed on [employer] restraints. We will evaluate during that to remove restraints. present at the bedside, we had a conversation regarding placement considering need for dressing. gas manager was consulted to help with placement. Review of Systems Constitutional: Reports: see HPI. Objective Last 24 Hrs of Vital Signs/I&O Vital Signs Date Time Temp Pulse Resp B/P B/P Pulse O2 O2 Flow FiO2 Mean Ox Delivery Rate 06/11 1031 48 132/70 06/11 0625 98.2 48 18 132/70 97 Room Air 06/10 2152 52 122/70 06/10 2149 98.5 52 18 122/70 96 Room Air 06/10 1514 98.0 88 18 128/78 93 Room Air Intake & Output 06/11 1600 06/11 0800 06/11 0000 Intake Total 130 Output Total Balance 130 Intake, IV 130 Physical Exam General Appearance: Alert, Cooperative, No Acute Distress, not oriented, not agitated, Shweta in place, will consider DC Skin: bilateral toes wound Skin Temp/Moisture Exam: Warm/Dry Sepsis Skin Exam (color): Normal for Ethnicity HEENT: Atraumatic, EOMI, Mucous Membr. moist/pink Cardiovascular: Normal S1, Normal S2, irregular irregular Lungs: Clear to Auscultation, Normal Air Movement Abdomen: Soft, No Tenderness Neurological: Normal Speech, Strength at 5/5 X4 Ext Extremities: No Edema Current Medications: Current Medications Sig/Sandra Start time Last Medication Dose Route Stop Time Status Admin Acetaminophen 650 MG Q6P PRN 06/09 1830 AC PO Allopurinol 300 MG DAILY 06/09 1828 AC 06/11 PO 1011 Ampicillin Sodium/ 3,000 MG Q6H 06/10 2200 AC 06/11 Sulbactam Sodium IV 1010 Sodium Chloride 100 ML Ampicillin Sodium/ 3,000 MG Q6 06/09 1826 DC 06/10 Sulbactam Sodium IV 1600 Sodium Chloride 100 ML Apixaban 5 MG 0900,1800 06/10 0900 AC 06/11 PO 1009 Aspirin Buffered 81 MG DAILY 06/09 1829 AC 06/11 PO 1011 Diltiazem HCl 180 MG DAILY 06/10 1000 AC 06/11 PO 1010 Metoprolol Tartrate 25 MG BID 06/09 2199 AC 06/10 PO 0817 Polyethylene Glycol 17 GM DAILY PRN 06/11 0845 AC 06/11 PO 1048 Potassium Chloride 40 MEQ .STK-MED ONE 06/10 1257 DC PO 06/10 1258 Quetiapine Fumarate 25 MG Q8H PRN 06/09 183 AC 06/09 PO 2206 Senna/Docusate Sodium 2 TAB DAILY PRN 06/09 183 AC 06/11 PO 1048 Sertraline HCl 25 MG DAILY 06/09 183 AC 06/11 PO 1011 Trazodone HCl 25 MG TID 06/09 2199 AC 06/11 PO 1010 Last 24 Hrs of Lab/Efren Results Last 24 Hrs of Labs/Mics: Laboratory Tests 06/11/17 0719: Anion Gap 9, Estimated GFR > 60, BUN/Creatinine Ratio 18.6, CBC w Diff NO MAN DIFF REQ, RBC 4.28 L, MCV 95.4 H, MCH 31.9 H, MCHC 33.4, RDW 14.1, MPV 8.4, Gran % 71.6, Lymphocytes % 18.3 L, Monocytes % 7.5, Eosinophils % 2.3, Basophils % 0.3, Absolute Granulocytes 7.8 H, Absolute Lymphocytes 2.0, Absolute Monocytes 0.8 H, Absolute Eosinophils 0.2, Absolute Basophils 0 Assessment/Plan Assessment: Patient is 81-year-old male referred for evaluation of bilateral toes chronic wounds PMH: HTN, afib on Eliquise, advanced primary progressive aphasia, idiopathic neuropathy, HTN, hyperuricemia/gout and 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 VS, Ph Ex at admission: BP 150/77, OR 58, RR 18, no fever Labs at admission: WBC 11.5, Hgb 13.3, ESR 14, potassium 3.1, Cr 0.8 Imagings at admission: Foot xray: Exam is very limited by technique and patient positioning. Possible partial erosion of the distal tuft of the distal second right phalanx. If there is high clinical suspicion, consider a bone scan for further assessment. Hypertrophic spurs along the latter aponeurosis insertion of the calcaneus bilaterally and the left Achilles insertion. Patient was admitted to general medicine floor for management of following conditions: Chronic toes wounds Cellulitis, r/o osteomyelitis we will start antibiotics for cellulitis, and rule out osteomyelitis which is probable considering ESR and xray - Continue admission to floor - Continue Unasyn -No surgery indicated at this time - consider MRI of the foot, podiatry didn't requested -gas manager consulted regarding placement Hypokalemia repleted again, will follow in AM Chronic medical conditions: HTN, afib on Eliquise, advanced primary progressive aphasia, idiopathic neuropathy, HTN, hyperuricemia/gout We will cotinue home medication. - Continue allopurinol, seroquel, zoloft, treazadone - continue Eliquise, metoprolol, diltiazem Heart healthy diet DNR/DNI DVT ppx: Eliquise, ALPS Problem List: 1. Cellulitis Pain Ratin Pain Location: None Pain Goal: Pain 4 or less Pain Plan: None Tomorrow's Labs & Rationales: C THANH, TENNILLE YoussefTashi 06/11/17 1140: Attending MD Review Statement Attending Statement Attending MD Statement: examined this patient, discuss w/resident/PA/AUDITOR SUPERVISOR, agreed w/resident/PA/AUDITOR SUPERVISOR, discussed with family, reviewed EMR data (avail), discussed with nursing, discussed with case mgmt, reviewed images, amended to note Attending Assessment/Plan: Assessment plan Cellulitis bilateral feet- c/w IV Unasyn; consulted podiatry; follow clinically, f/u cultures negative, Consult wound care. History of gout-continue current treatment History of A. fib during last admission in April- continue current treatment with eliquis. Advanced dementia with agitation, provide supportive care. Hypokalemia- resolved Family wants to speak to case mangement for dc planning. Needs to f/u podiatry at wound center in 1 week.
[2017-06-11 14:05] VITALS: BP 138/76
[2017-06-11 20:44] VITALS: BP 158/108
--- NOTE | 2017-06-12 01:23 | PN- Housestaff ---
See Addendum Subjective Follow-up For: Bilateral toes cellulitis Subjective: Patient visited today, plerasantly demented was lying in bed comfortably in no acute distress, was alert but not oriented. No fever or chills, no shortness of breathing, no chest pain, no other events. Patient was agitated overnight, senior resident talked with him to take by mouth medication, he continued to be agitated and 4. restraints were placed. Patient had pain in legs overnight which was surprising considering neuropathy, however by mouth Tylenol was administered. We attempted to avoid narcotics considering patients mental status. Review of Systems Constitutional: Reports: see HPI. Objective Last 24 Hrs of Vital Signs/I&O Vital Signs Date Time Temp Pulse Resp B/P B/P Pulse O2 O2 Flow FiO2 Mean Ox Delivery Rate 06/11 2100 140 158/108 06/11 2044 97.5 143 22 158/108 97 06/11 1609 Room Air 06/11 1405 98.2 57 17 138/76 98 Room Air 06/11 1031 48 132/70 06/11 0625 98.2 48 18 132/70 97 Room Air Intake & Output 06/12 0800 06/12 0000 06/11 1600 Intake Total 250 720 Output Total Balance 250 720 Intake, IV 130 Intake, Oral 120 720 Physical Exam General Appearance: Alert, Cooperative, No Acute Distress, not oriented Skin: bilateral lower extremity toes wounds Sepsis Skin Exam (color): Normal for Ethnicity HEENT: Atraumatic, EOMI, Mucous Membr. moist/pink Cardiovascular: Normal S1, Normal S2, irregular irregular Lungs: Normal Air Movement Abdomen: Soft, No Tenderness Neurological: Strength at 5/5 X4 Ext Extremities: No Edema, as noted above Current Medications: Current Medications Sig/Sandra Start time Last Medication Dose Route Stop Time Status Admin Acetaminophen 650 MG Q6P PRN 06/09 1830 AC PO Allopurinol 300 MG DAILY 06/09 1829 AC 06/11 PO 1011 Ampicillin Sodium/ 3,000 MG Q6H 06/10 2200 AC 06/11 Sulbactam Sodium IV 2108 Sodium Chloride 100 ML Apixaban 5 MG 0900,1800 06/10 0900 AC 06/11 PO 1717 Aspirin Buffered 81 MG DAILY 06/09 1829 AC 06/11 PO 1011 Diltiazem HCl 180 MG DAILY 06/10 1000 AC 06/11 PO 1010 Metoprolol Tartrate 25 MG BID 06/09 2199 06/11 PO 2100 Patient Medication 1 ED ONE ONE 06/11 1645 DC Teaching ED 06/11 1646 Polyethylene Glycol 17 GM DAILY PRN 06/11 0845 06/11 PO 1048 Potassium Chloride 40 MEQ ONCE ONE 06/11 1215 DC 06/11 PO 06/11 1216 1305 Quetiapine Fumarate 25 MG Q8H PRN 06/09 1829 06/11 PO 2059 Senna/Docusate Sodium 2 TAB DAILY PRN 06/09 1829 AC 06/11 PO 1048 Sertraline HCl 25 MG DAILY 06/09 1829 06/11 PO 1011 Trazodone HCl 25 MG TID 06/09 2199 06/11 PO 2100 Last 24 Hrs of Lab/Efren Results Last 24 Hrs of Labs/Mics: Laboratory Tests 06/11/17718: Anion Gap 9, Estimated GFR > 60, BUN/Creatinine Ratio 18.6, CBC w Diff NO MAN DIFF REQ, RBC 4.28 L, MCV 95.4 H, MCH 31.9 H, MCHC 33.4, RDW 14.1, MPV 8.4, Gran % 71.6, Lymphocytes % 18.3 L, Monocytes % 7.5, Eosinophils % 2.3, Basophils % 0.3, Absolute Granulocytes 7.8 H, Absolute Lymphocytes 2.0, Absolute Monocytes 0.8 H, Absolute Eosinophils 0.2, Absolute Basophils 0 Assessment/Plan Assessment: Patient is 81-year-old male referred for evaluation of bilateral toes chronic wounds PMH: HTN, afib on Eliquise, advanced primary progressive aphasia, idiopathic neuropathy, HTN, hyperuricemia/gout and 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 VS, Ph Ex at admission: BP 150/77, MO 58, RR 18, no fever Labs at admission: WBC 11.5, Hgb 13.3, ESR 14, potassium 3.1, Cr 0.8 Imagings at admission: Foot xray: Exam is very limited by technique and patient positioning. Possible partial erosion of the distal tuft of the distal second right phalanx. If there is high clinical suspicion, consider a bone scan for further assessment. Hypertrophic spurs along the latter aponeurosis insertion of the calcaneus bilaterally and the left Achilles insertion. Patient was admitted to general medicine floor for management of following conditions: Chronic toes wounds Cellulitis, r/o osteomyelitis we will start antibiotics for cellulitis, and rule out osteomyelitis which is probable considering ESR and xray - Continue admission to floor - Continue Unasyn - No surgery indicated at this time - consider MRI of the foot, podiatry didn't requested - writing manager consulted regarding placement - consider to change to PO antibiotics Hypokalemia repleted yesterday again - continue to monitor Chronic medical conditions: HTN, afib on Eliquise, advanced primary progressive aphasia, idiopathic neuropathy, HTN, hyperuricemia/gout We will cotinue home medication. - Continue allopurinol, seroquel, zoloft, treazadone - continue Eliquise, metoprolol, diltiazem Heart healthy diet DNR/DNI DVT ppx: Eliquise, ALPS Problem List: 1. Cellulitis Pain Ratin Pain Location: none Pain Goal: Pain 4 or less Pain Plan: continue tynelol Tomorrow's Labs & Rationales: CBC BEP
[2017-06-12 06:20] VITALS: BP 166/88
[2017-06-12 15:02] VITALS: BP 134/76
[2017-06-12 21:45] VITALS: BP 122/86
[2017-06-13 06:45] VITALS: BP 126/75
[2017-06-13 08:17] LABS: ABSOLUTE BASOPHIL COUNT 0.1 /CUMM (0.0-0.2); ABSOLUTE EOSINOPHIL COUNT 0.5 /CUMM (0.0-0.7); ABSOLUTE LYMPH COUNT 2.4 /CUMM (1.2-3.4); ABSOLUTE MONOCYTE COUNT 1.2 /CUMM (0.10-0.60); BASOPHIL % 0.5 % (0.0-2.0); EOSINOPHIL % 3.7 % (0-5); GRANULOCYTE % 68.3 % (42.2-75.2); HEMATOCRIT 44.8 % (42-52); MEAN CORPUSCULAR HGB 31.7 PG (27.0-31.0); MEAN CORPUSCULAR HGB CONC 33.3 G/DL (33.0-37.0); MEAN CORPUSCULAR VOLUME 94.9 FL (80.0-94.0); MEAN PLATELET VOLUME 8.2 FL (7.4-10.4); PLATELET COUNT 351 /CUMM (130-400); RBC DISTRIBUTION WIDTH 13.9 % (11.5-14.5); RED BLOOD CELL CT 4.72 /CUMM (4.70-6.10); WHITE BLOOD CELL COUNT 13.1 /CUMM (4.8-10.8)
--- NOTE | 2017-06-13 08:18 | PN- Housestaff ---
Pedro Kebede MD,[facility]mi 06/13/17 0818: Subjective Follow-up For: Bilateral chronic toes wound Subjective: Patient visited today, was lying in bed in no acute distress, was alert but not oriented oriented. Incoherence response to questions. No fever or chills, no shortness of breathing, no chest pain, no other events. Was agitated overnight and this morning, [place] and 4. soft restraints were placed We will follow with family regarding placement as there is willing to take him back to the same facility. Review of Systems Constitutional: Reports: see HPI. Objective Last 24 Hrs of Vital Signs/I&O Vital Signs Date Time Temp Pulse Resp B/P B/P Pulse O2 O2 Flow FiO2 Mean Ox Delivery Rate 06/13 1511 97.6 57 18 122/62 96 Room Air 06/13 0904 49 148/90 06/13 0645 96.9 49 20 126/75 95 06/12 2347 58 97 06/12 2145 97.7 130 18 122/86 90 06/12 2131 130 122/86 Intake & Output 06/13 1600 06/13 0800 06/13 0000 Intake Total 700 130 370 Output Total Balance 700 130 370 Intake, IV 130 130 Intake, Oral 700 240 Number 1 Bowel Movements Physical Exam General Appearance: Alert, No Acute Distress, agitated later during the day Skin: bilateral chronic toes won't Skin Temp/Moisture Exam: Warm/Dry Sepsis Skin Exam (color): Normal for Ethnicity HEENT: Atraumatic, EOMI, Mucous Membr. moist/pink Cardiovascular: Normal S1, Normal S2, irregular irregular Lungs: Clear to Auscultation Abdomen: Soft, No Tenderness Neurological: Strength at 5/5 X4 Ext Extremities: No Edema, as noted above Current Medications: Current Medications Sig/Sandra Start time Last Medication Dose Route Stop Time Status Admin Acetaminophen 650 MG Q6P PRN 06/09 1830 AC PO Allopurinol 300 MG DAILY 06/09 1828 AC 06/13 PO 0901 Ampicillin Sodium/ 3,000 MG Q6H 06/10 2199 AC 06/13 Sulbactam Sodium IV 0901 Sodium Chloride 100 ML Apixaban 5 MG 0900,1800 06/10 0900 AC 06/13 PO 0900 Aspirin Buffered 81 MG DAILY 06/09 1828 AC 06/13 PO 0900 Bisacodyl 10 MG Q12P PRN 06/13 1100 AC VT Diltiazem HCl 180 MG DAILY 06/10 1000 AC 06/13 PO 0900 Metoprolol Tartrate 25 MG BID 06/09 2199 AC 06/12 PO 213 Polyethylene Glycol 17 GM DAILY PRN 06/11 0845 AC 06/13 PO 0901 Potassium Chloride 40 MEQ ONCE ONE 06/13 1300 DC PO 06/13 1301 Quetiapine Fumarate 25 MG Q8H PRN 06/09 1829 AC 06/12 PO 213 Senna/Docusate Sodium 2 TAB DAILY PRN 06/09 183 AC 06/13 PO 0901 Sertraline HCl 25 MG DAILY 06/09 1829 AC 06/13 PO 0900 Trazodone HCl 25 MG TID 06/09 2199 AC 06/13 PO 0900 Last 24 Hrs of Lab/Efren Results Last 24 Hrs of Labs/Mics: Laboratory Tests 06/13/17 0703: Anion Gap 9, Estimated GFR > 60, BUN/Creatinine Ratio 28.6 H, Magnesium 1.9, CBC w Diff NO MAN DIFF REQ, RBC 4.72, MCV 94.9 H, MCH 31.7 H, MCHC 33.3, RDW 13.9, MPV 8.2, Gran % 68.3, Lymphocytes % 18.4 L, Monocytes % 9.1, Eosinophils % 3.7, Basophils % 0.5, Absolute Granulocytes 9.0 H, Absolute Lymphocytes 2.4, Absolute Monocytes 1.2 H, Absolute Eosinophils 0.5, Absolute Basophils 0.1 Assessment/Plan Assessment: Patient is 81-year-old male referred for evaluation of bilateral toes chronic wounds PMH: HTN, afib on Eliquise, advanced primary progressive aphasia, idiopathic neuropathy, HTN, hyperuricemia/gout and 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 VS, Ph Ex at admission: BP 150/77, VT 58, RR 18, no fever Labs at admission: WBC 11.5, Hgb 13.3, ESR 14, potassium 3.1, Cr 0.8 Imagings at admission: Foot xray: Exam is very limited by technique and patient positioning. Possible partial erosion of the distal tuft of the distal second right phalanx. If there is high clinical suspicion, consider a bone scan for further assessment. Hypertrophic spurs along the latter aponeurosis insertion of the calcaneus bilaterally and the left Achilles insertion. Patient was admitted to general medicine floor for management of following conditions: Chronic toes wounds Cellulitis, r/o osteomyelitis we will start antibiotics for cellulitis, and rule out osteomyelitis which is probable considering ESR and xray - Continue admission to floor - Continue Unasyn - No surgery indicated at this time - consider MRI of the foot, podiatry didn't requested - grain merchandising manager consulted regarding placement - consider to change to PO antibiotics Hypokalemia repleted yesterday again - continue to monitor Chronic medical conditions: HTN, afib on Eliquise, advanced primary progressive aphasia, idiopathic neuropathy, HTN, hyperuricemia/gout We will cotinue home medication. - Continue allopurinol, seroquel, zoloft, treazadone - continue Eliquise, metoprolol, diltiazem Agitation/Dementia Chronic, related to dementia - Consider Seroquel - restraint with evalaution Heart healthy diet DNR/DNI DVT ppx: THEA [place] Problem List: 1. Atrial fibrillation 2. Agitation 3. Cellulitis Pain Ratin Pain Location: none Pain Goal: Pain 4 or less Pain Plan: Continue current plan Tomorrow's Labs & Rationales: CBc BEP Juan Dewey 06/13/17 1638: Attending MD Review Statement Attending Statement Attending MD Statement: examined this patient, discuss w/resident/PA/RATTLING MACHINE TENDER, agreed w/resident/PA/RATTLING MACHINE TENDER, reviewed EMR data (avail), discussed with nursing Attending Assessment/Plan: agree with above assessment and plan. still on restraints. persistent hypokalemia, will add mag level. cont on unasyn for now. f/u on mag level and cbc and UA.
[2017-06-13 15:11] VITALS: BP 122/62
[2017-06-13 21:48] VITALS: BP 130/78
--- NOTE | 2017-06-14 06:39 | PN- Housestaff ---
Pedro Kebede MD,Ami 06/14/17 0639: Subjective Follow-up For: Chronic bilateral toes wound Subjective: Patient visited today, was lying in bed comfortably in no acute distress, was alert not oriented. Patient was agitated yesterday, restraints were placed. No fever or chills, no shortness of breathing, no chest pain, no other events. Doctor Carmen requested bilateral Foot MRI to evaluate for osteomyelitis. Review of Systems Constitutional: Reports: see HPI. Objective Last 24 Hrs of Vital Signs/I&O Vital Signs Date Time Temp Pulse Resp B/P B/P Pulse O2 O2 Flow FiO2 Mean Ox Delivery Rate 06/14 1037 60 142/92 06/14 0641 97.4 83 20 144/80 94 06/13 2148 98.2 63 19 130/78 96 Room Air 06/13 2111 63 130/78 Intake & Output 06/14 1600 06/14 0800 06/14 0000 Intake Total 960 610 Output Total Balance 960 610 Intake, IV 480 130 Intake, Oral 480 480 Number 0 0 Bowel Movements Physical Exam General Appearance: Alert, Oriented X3, Cooperative, No Acute Distress Skin: bilateral chronic toes wound Skin Temp/Moisture Exam: Warm/Dry Sepsis Skin Exam (color): Normal for Ethnicity HEENT: Atraumatic, EOMI, Mucous Membr. moist/pink Cardiovascular: Normal S1, Normal S2, irreg irreg Lungs: Clear to Auscultation Abdomen: Soft, No Tenderness Extremities: as noted above Current Medications: Current Medications Sig/Sandra Start time Last Medication Dose Route Stop Time Status Admin Acetaminophen 650 MG Q6P PRN 06/09 1830 AC PO Allopurinol 300 MG DAILY 06/09 1828 AC 06/14 PO 1037 Amoxicillin/ 875 MG Q12 06/140 AC Clavulanate Potassium PO Ampicillin Sodium/ 3,000 MG Q6H 06/10 2200 DC 06/14 Sulbactam Sodium IV 0436 Sodium Chloride 100 ML Apixaban 5 MG 0900,1800 06/10 0900 AC 06/14 PO 1038 Aspirin Buffered 81 MG DAILY 06/09 PO 1038 Bisacodyl 10 MG Q12P PRN 06/13 1100 AC NM Diltiazem HCl 180 MG DAILY 06/10 1000 AC 06/14 PO 1038 Lorazepam 2 MG ONE ONE 06/14 1500 DC IV 06/14 1501 Metoprolol Tartrate 25 MG BID 06/09 2199 AC 06/14 PO 1037 Olanzapine 5 MG ONCE ONE 06/13 1844 DC 06/13 IM 06/13 1845 1925 Polyethylene Glycol 17 GM DAILY PRN 06/11 0845 AC 06/13 PO 0901 Potassium Chloride 10 MEQ Q1H 06/13 1929 DC 06/14 IV 06/13 2030 0013 Quetiapine Fumarate 25 MG Q8H PRN 06/09 1829 AC 06/13 PO 2315 Senna/Docusate Sodium 2 TAB DAILY PRN 06/09 1829 AC 06/13 PO 0901 Sertraline HCl 25 MG DAILY 06/09 1829 AC 06/14 PO 1038 Trazodone HCl 25 MG TID 06/09 2199 AC 06/14 PO 1036 Last 24 Hrs of Lab/Efren Results Last 24 Hrs of Labs/Mics: Laboratory Tests 06/14/17 0811: Anion Gap 8, Estimated GFR > 60, BUN/Creatinine Ratio 24.4, CBC w Diff NO MAN DIFF REQ, RBC 4.54 L, MCV 95.8 H, MCH 31.5 H, MCHC 32.9 L, RDW 14.3, MPV 8.3 , Gran % 68.4, Lymphocytes % 18.1 L, Monocytes % 9.0, Eosinophils % 4.0, Basophils % 0.5, Absolute Granulocytes 8.5 H, Absolute Lymphocytes 2.3, Absolute Monocytes 1.1 H, Absolute Eosinophils 0.5, Absolute Basophils 0.1 Assessment/Plan Assessment: Patient is 81-year-old male referred for evaluation of bilateral toes chronic wounds PMH: HTN, afib on Eliquise, advanced primary progressive aphasia, idiopathic neuropathy, HTN, hyperuricemia/gout and 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 Possible partial erosion of the distal tuft of the distal second right phalanx. If there is high clinical suspicion, consider a bone scan for further assessment. Hypertrophic spurs along the latter aponeurosis insertion of the calcaneus bilaterally and the left Achilles insertion. Patient was admitted to general medicine floor for management of following conditions: Chronic toes wounds Cellulitis, r/o osteomyelitis we will start antibiotics for cellulitis, and rule out osteomyelitis which is probable considering ESR and xray - Continue admission to floor - Administered Unasyn 875 BID - PO augmentin - No surgery indicated at this time - MRI of the foot today - takled with psych, will consider ativan before MRI if agitation - district claims manager consulted regarding placement - consider to change to PO antibiotics Hypokalemia repleted yesterday again - continue to monitor Chronic medical conditions: HTN, afib on Eliquise, advanced primary progressive aphasia, idiopathic neuropathy, HTN, hyperuricemia/gout We will cotinue home medication. - Continue allopurinol, seroquel, zoloft, treazadone - continue Eliquise, metoprolol, diltiazem Agitation/Dementia Chronic, related to dementia - Consider Seroquel - restraint with evalaution Heart healthy diet DNR/DNI DVT ppx: THEA [place] Problem List: 1. Cellulitis 2. Altered mental state Pain Ratin Pain Location: None Pain Goal: Pain 4 or less Pain Plan: Continue current plan Tomorrow's Labs & Rationales: CBC BEP Tashi Youssef 06/14/17 1324: Attending MD Review Statement Attending Statement Attending MD Statement: examined this patient, discuss w/resident/PA/COMMUNITY AFFAIRS MANAGER, agreed w/resident/PA/COMMUNITY AFFAIRS MANAGER, discussed with family, reviewed EMR data (avail), discussed with nursing, discussed with case mgmt, reviewed images, amended to note Attending Assessment/Plan: Assessment plan Cellulitis bilateral feet- c/w abx; consulted podiatry; follow clinically, f/u cultures negative, Consult wound care. MRI as per podiatry. not in favor of amputation if needed in future. History of gout-continue current treatment History of A. fib during last admission in April- continue current treatment with eliquis. Advanced dementia with agitation, provide supportive care. Hypokalemia- resolved. F/u case mangement for dc planning. Needs to f/u podiatry at wound center after discharge.
[2017-06-14 06:41] VITALS: BP 144/80
[2017-06-14 09:02] LABS: ABSOLUTE BASOPHIL COUNT 0.1 /CUMM (0.0-0.2); ABSOLUTE EOSINOPHIL COUNT 0.5 /CUMM (0.0-0.7); ABSOLUTE GRANULOCYTE CT 8.5 /CUMM (1.4-6.5); ABSOLUTE LYMPH COUNT 2.3 /CUMM (1.2-3.4); ABSOLUTE MONOCYTE COUNT 1.1 /CUMM (0.10-0.60); BASOPHIL % 0.5 % (0.0-2.0); GRANULOCYTE % 68.4 % (42.2-75.2); HEMATOCRIT 43.5 % (42-52); MEAN CORPUSCULAR HGB 31.5 PG (27.0-31.0); MEAN CORPUSCULAR HGB CONC 32.9 G/DL (33.0-37.0); MEAN CORPUSCULAR VOLUME 95.8 FL (80.0-94.0); MEAN PLATELET VOLUME 8.3 FL (7.4-10.4); PLATELET COUNT 348 /CUMM (130-400); RBC DISTRIBUTION WIDTH 14.3 % (11.5-14.5); RED BLOOD CELL CT 4.54 /CUMM (4.70-6.10); WHITE BLOOD CELL COUNT 12.4 /CUMM (4.8-10.8)
[2017-06-14 15:42] VITALS: BP 100/60
[2017-06-15] VITALS: BP 102/50
[2017-06-15 06:18] VITALS: BP 110/62
--- NOTE | 2017-06-15 08:03 | PN- Housestaff ---
Pedro Kebede MD,[facility] 06/15/17 0803: Subjective Follow-up For: Chronic bilateral toes wound Subjective: Patient visited today, was lying in bed comfortably in no acute distress, was alert not oriented. Patient was agitated again, restraints were placed. No fever or chills, no shortness of breathing, no chest pain, no other events. at the bedside. disscussed plan of care. MRI was positive for osetomyelitis. will hold Ab for now pending evaluation for possible surgery and cutlure. Review of Systems Constitutional: Reports: see HPI. Objective Last 24 Hrs of Vital Signs/I&O Vital Signs Date Time Temp Pulse Resp B/P B/P Pulse O2 O2 Flow FiO2 Mean Ox Delivery Rate 06/15 1350 98.0 67 20 136/70 97 Room Air 06/15 1158 60 108/72 06/15 0618 98.2 58 20 110/62 94 Room Air 06/15 0000 94 102/50 06/14 2331 94 102/50 Intake & Output 06/15 1600 06/15 0800 06/15 0000 Intake Total 500 490 Output Total Balance 500 490 Intake, IV 10 Intake, Oral 500 480 Number 0 Bowel Movements Patient 180 lb Weight Physical Exam General Appearance: Alert, Cooperative, No Acute Distress, Not oriented Skin: Bilateral chronic teos wound Skin Temp/Moisture Exam: Warm/Dry Sepsis Skin Exam (color): Normal for Ethnicity HEENT: Atraumatic, EOMI, Mucous Membr. moist/pink Cardiovascular: Normal S1, Normal S2 Lungs: Clear to Auscultation Abdomen: Soft, No Tenderness Neurological: no change in M and S no sensation below lower distal calf Extremities: as noted above Current Medications: Current Medications Sig/Sandra Start time Last Medication Dose Route Stop Time Status Admin Acetaminophen 650 MG Q6P PRN 06/09 1830 AC PO Allopurinol 300 MG DAILY 06/09 1828 AC 06/15 PO 1157 Amoxicillin/ 875 MG Q12 06/14 2200 DC 06/15 Clavulanate Potassium PO 1158 Apixaban 5 MG 0900,1800 06/10 0900 AC 06/15 PO 1159 Aspirin Buffered 81 MG DAILY 06/09 182 AC 06/15 PO 1158 Bisacodyl 10 MG Q12P PRN 06/[address] Diltiazem HCl 180 MG DAILY 06/10 1000 AC 06/15 PO 1158 Metoprolol Tartrate 25 MG BID 06/09 2199 AC 06/15 PO 1158 Polyethylene Glycol 17 GM DAILY PRN 06/11 0845 AC 06/13 PO 0901 Potassium Chloride 40 MEQ ONCE ONE 06/15 2100 AC PO 06/15 2101 Potassium Chloride 40 MEQ ONCE ONE 06/15 1530 DC PO 06/15 1531 Quetiapine Fumarate 25 MG Q8H PRN 06/09 183 DC 06/15 PO 1340 Senna/Docusate Sodium 2 TAB DAILY PRN 06/09 183 AC 06/13 PO 0901 Sertraline HCl 25 MG DAILY 06/09 183 AC 06/15 PO 1157 Trazodone HCl 25 MG TID 06/09 2199 AC 06/15 PO 1158 Last 24 Hrs of Lab/Efren Results Last 24 Hrs of Labs/Mics: Laboratory Tests 06/15/17 0704: Anion Gap 9, Estimated GFR > 60, BUN/Creatinine Ratio 25.6 H Assessment/Plan Assessment: Patient is 81-year-old male referred for evaluation of bilateral toes chronic wounds PMH: HTN, afib on Eliquise, advanced primary progressive aphasia, idiopathic neuropathy, HTN, hyperuricemia/gout and 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 Possible partial erosion of the distal tuft of the distal second right phalanx. If there is high clinical suspicion, consider a bone scan for further assessment. Hypertrophic spurs along the latter aponeurosis insertion of the calcaneus bilaterally and the left Achilles insertion. Patient was admitted to general medicine floor for management of following conditions: Chronic toes wounds Cellulitis, r/o osteomyelitis we will start antibiotics for cellulitis, and rule out osteomyelitis which is probable considering ESR and xray MRI of the feet done: Left: Abnormal findings suspicious for osteomyelitis involving the second, third, fourth distal phalanges. Associated soft tissue edema from cellulitis. Rigth foot: 1. Edema in the soft tissues of the second, third, fourth toes, more prominent second toe, which would be compatible with cellulitis in the appropriate clinical circumstance. 2. Abnormal findings highly suspicious for osteomyelitis involving the second distal phalanx. 3. Mild edema in the third distal phalanx, favoring reactive edema, with early osteomyelitis not excluded. 4. Abnormal findings in the fourth distal phalanx, suspicious for early osteomyelitis. - Continue admission to GM floor - PO augmentin on hold - reconsider surgery for now - takled with psych, will consider ativan before MRI if agitation, held seroqul - branch account manager consulted regarding placement Hypokalemia repleted yesterday again - continue to monitor - repleted Chronic medical conditions: HTN, afib on Eliquise, advanced primary progressive aphasia, idiopathic neuropathy, HTN, hyperuricemia/gout We will cotinue home medication. - Continue allopurinol, seroquel, zoloft, treazadone - continue Eliquise, metoprolol, diltiazem Agitation/Dementia Chronic, related to dementia - Consider Seroquel - restraint with evalaution Heart healthy diet DNR/DNI DVT ppx: THAE Patterson Problem List: 1. Cellulitis 2. Osteomyelitis Pain Ratin Pain Location: None Pain Goal: Pain 4 or less Pain Plan: Continue current plan Tomorrow's Labs & Rationales: CBC [place] Tashi Youssef 06/15/17 1146: Attending MD Review Statement Attending Statement Attending MD Statement: examined this patient, discuss w/resident/PA/INFORMATION SYSTEMS TECHNICIAN, agreed w/resident/PA/INFORMATION SYSTEMS TECHNICIAN, discussed with family, reviewed EMR data (avail), discussed with nursing, discussed with case mgmt, reviewed images, amended to note Attending Assessment/Plan: Assessment plan Cellulitis bilateral feet with OM- c/w abx; consulted podiatry; follow clinically, f/u cultures negative, Consult wound care, Consult ID for abx and duration choice, MRI suggestive of OM. to discuss with podiatry about amputation/surgery. History of gout-continue current treatment History of A. fib during last admission in April- continue current treatment with eliquis. Advanced dementia with agitation, provide supportive care. Hypokalemia- resolved. F/u case mangement for dc planning. Placement issues.
--- NOTE | 2017-06-15 09:22 | MRI REPORT ---
EXAMINATION: MRI RIGHT FOOT CLINICAL INFORMATION: Question osteomyelitis bilateral feet. Additional clinical history obtained from the clinician, chronic ulcer on the tips of the second, third, fourth toes. Patient is on antibiotics. Rule out osteomyelitis. COMPARISON: X-ray 06/09/2017. TECHNIQUE: MRI in a high-field magnet without contrast. FINDINGS: Motion artifact degrading some sequences, with limitation evaluation. There is soft tissue edema present in the second toe, compatible with cellulitis. There is diffuse abnormal edema in the second distal phalanx, with low T1 signal focus in the subcortical bone. Findings suspicious for osteomyelitis. Mild edema diffusely in the third distal phalanx. Mild intermediate T1 signal changes. No convincing low T1 signal. These findings suggest reactive edema, with early osteomyelitis not excluded. There is soft tissue edema present. Mild edema in the soft tissues of the fourth distal phalanx. Edema diffusely in the fourth distal phalanx, with intermediate T1 signal changes, with possible small foci of subcortical low T1 signal. Findings suggest early osteomyelitis. Mild first MTP joint arthritis. Visualized tendons are intact. No evidence of tenosynovitis. Visualized plantar fascia appears unremarkable. There is edema and atrophy of the intrinsic muscles of the plantar aspect of the foot, presumably related to underlying metabolic disorder. Small degenerative cyst in the lateral cuneiform. IMPRESSION: 1. Edema in the soft tissues of the second, third, fourth toes, more prominent second toe, which would be compatible with cellulitis in the appropriate clinical circumstance. 2. Abnormal findings highly suspicious for osteomyelitis involving the second distal phalanx. 3. Mild edema in the third distal phalanx, favoring reactive edema, with early osteomyelitis not excluded. 4. Abnormal findings in the fourth distal phalanx, suspicious for early osteomyelitis.
--- NOTE | 2017-06-15 10:03 | MRI REPORT ---
EXAMINATION: MRI OF THE FOOT CLINICAL INFORMATION: Rule out osteomyelitis. Additional clinical history obtained from the clinician. Chronic ulcer on the tip of the second, third, fourth toes, rule out osteomyelitis. COMPARISON: X-ray 06/09/2017 TECHNIQUE: MRI in a high-field magnet without contrast. FINDINGS: Significant motion artifact on the short axis fluid sensitive sequence, limiting evaluation. There is abnormal edema diffusely in the second, third, fourth distal phalanx. There is subcortical low T1 signal present. The findings are suspicious for involvement by osteomyelitis. There is a edema in the soft tissues of the toes, presumably correlating with cellulitis. No focal fluid collections. The visualized tendons are grossly intact, motion artifact limiting evaluation. No significant tenosynovitis. Visualized plantar fascia appears unremarkable. IMPRESSION: Abnormal findings suspicious for osteomyelitis involving the second, third, fourth distal phalanges. Associated soft tissue edema from cellulitis.
--- NOTE | 2017-06-15 10:05 | Cons- Psychiatry ---
Psychiatric Consult Date of Consult: 06/15/17 Reason for Consult: "dementia agitation" History of Present Illness: Patient sent in by Dr. Hightower on 06/09/17 @ 1412 for evaluation of bilateral non -healing foot wounds, possible cellulitis. Allergies: Coded Allergies: No Known Allergies (05/03/17) Current Medications: Current Medications Sig/Sandra Start time Last Medication Dose Route Stop Time Status Admin Acetaminophen 650 MG Q6P PRN 06/09 183 AC PO Allopurinol 300 MG DAILY 06/09 1828 AC 06/14 PO 1037 Amoxicillin/ 875 MG Q12 06/14 2199 AC 06/14 Clavulanate Potassium PO 205 Ampicillin Sodium/ 3,000 MG Q6H 06/10 2199 WA 06/14 Sulbactam Sodium IV 0436 Sodium Chloride 100 ML Apixaban 5 MG 0900,1800 06/10 0900 AC 06/14 PO 1038 Aspirin Buffered 81 MG DAILY 06/09 1828 AC 06/14 PO 1038 Bisacodyl 10 MG Q12P PRN 06/13 1100 AC GA Diazepam 5 MG ONCE ONE 06/14 1615 DC IV 06/14 1616 Diazepam 5 MG .STK-MED ONE 06/14 1603 DC PO 06/14 1604 Diltiazem HCl 180 MG DAILY 06/10 1000 AC 06/14 PO 1038 Lorazepam 2 MG ONE ONE 06/14 1615 DC IV 06/14 1616 Lorazepam 2 MG ONE ONE 06/14 1500 DC 06/14 IV 06/14 1501 1546 Metoprolol Tartrate 25 MG BID 06/09 2199 AC 06/14 PO 1037 Polyethylene Glycol 17 GM DAILY PRN 06/11 0845 AC 06/13 PO 0901 Potassium Chloride 40 MEQ ONCE ONE 06/14 1530 DC 06/14 PO 06/14 1531 1546 Quetiapine Fumarate 25 MG Q8H PRN 06/09 183 AC 06/14 PO 2057 Senna/Docusate Sodium 2 TAB DAILY PRN 06/09 183 AC 06/13 PO 0901 Sertraline HCl 25 MG DAILY 06/09 183 AC 06/14 PO 1038 Trazodone HCl 25 MG TID 06/09 2199 AC 06/14 PO 2330 Past History Past Medical History Neurological: dementia, primary progressive aphasia EENT: NONE Cardiovascular: AFIB, hypertension Respiratory: NONE Gastrointestinal: NONE Hepatic: NONE Renal: nephrolithiasis Musculoskeletal: gout Psychiatric: depression Endocrine: NONE Blood Disorders: NONE Cancer(s): basal cell carcinoma, melanoma, SKIN CA 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 Assessment/Plan Mental Status Orientation: Confused Affect: WNL Speech: Incoherent Neuro-vegetative: Sleep Disturbance Mental Status Exam: The patient is lying calmly in bed with his safety monitor present in the room. He responds with nonsens answers to most questions. Asked if he is hungry, he states, "Yes, this gentleman [unintelligible]," indicating his monitor. Asked if he has thoughts of hurting himself or anyone else, he reponds with "no." Lab Results: Laboratory Tests 06/15 0704 Chemistry Sodium (137 - 145 mmol/L) 142 Potassium (3.5 - 5.1 mmol/L) 3.3 L Chloride (98 - 107 mmol/L) 103 Carbon Dioxide (22 - 30 mmol/L) 30 Anion Gap (5 - 16) 9 BUN (9 - 20 mg/dL) 23 H Creatinine (0.7 - 1.2 mg/dL) 0.9 Estimated GFR (>60 ml/min) > 60 BUN/Creatinine Ratio (7 - 25 %) 25.6 H Diffential Diagnosis: Neurocognitive disorder, severe,unspecified By history, primary progressive aphasia Possible depression Impression: The patient is unable to participate in a cognitive evaluation, including a Mini Mental Status Exam or a Geriatric Depression assessment. We are concerned with the patient's mildly prolonged QTc conduction interval as well as the multiple risk factors he has for torsades de pointe, including age over 65 years, hypokalemia and contribution to conduction delay by quetiapine and trazodone (Usually only in overdose). The patient has a history of wandering at night, and has found trazodone 25 mg PO 3X/day and quetiapine 25 mg PO q 8 hours PRN helpful for insomnia, per nursing. However, due to the increased risk for a fatal arrhythmia, we suggest that the source of the QTc prolongation be found, and the offending agent discontinued. The patient would benefit from evaluation and treatment in a geriatric psychiatric hospital for stabilization on a medication regimen. Provisional Treatment Plan: 1. Please determine the cause of the current QTc prolongation and stop the offending agent. 2. If the QTc prolongation is resolved, please reserve quetiapine for severe or dangerous agitation and not for sleep. 3. Avoid benzodiazepines, as they can cause or worsen delirium. We may have other suggestions later today.
[2017-06-15 13:50] VITALS: BP 136/70
--- NOTE | 2017-06-15 14:19 | Cons- Infect Disease ---
General Information and HPI Consulting Request Date of Consult: 06/15/17 Requested By: Tashi Youssef MD Reason for Consult: antibiotic advice Source of Information: patient, primary team Exam Limitations: clinical condition History of Present Illness: 82-year-old male known with past medical history of HTN, Afib, dementia, idiopathic neuropathy, HTN, hyperuricemia/gout and uric acid nephrolithiasis was admitted on 06/09 for evaluation of bilateral chronic foot wounds developed while at [facility]. He denied on admission fever or chills, any swelling or redness of the legs, weakness, SOB or chest pain. Allergies/Medications Allergies: Coded Allergies: No Known Allergies (05/03/17) Home Med List: Allopurinol 300 MG TABLET 1 TAB PO DAILY URIC ACID (Reported) Apixaban (Eliquis) 5 MG TABLET 5 MG PO 0900,1800 atrial fibrillation Ascorbic Acid (Vitamin C) 500 MG TABLET 1 TAB PO DAILY SUPPLEMENT (Reported) Aspirin (Ecotrin*) 81 MG TABLET.DR 1 TAB PO DAILY HEART/BLOOD (Reported) Cholecalciferol (Vitamin D3) 1,000 UNIT TABLET 1 TAB PO DAILY VITAMIN SUPPORT (Reported) Diltiazem HCl (Diltiazem 24HR Cd) 180 MG CAP.ER.24H 180 TAB PO DAILY heart Metoprolol Tartrate 25 MG TABLET 25 MG PO BID heart Multivits,Ca,Min/Iron/FA/Lycop (Centrum Men's Tablet) 8 MG IRON-200 MCG-600 MCG TABLET 1 TAB PO DAILY VITAMIN SUPPORT (Reported) Nystatin 100,000 UNIT/ML ORAL.SUSP 5 ML PO 4 TIMES/DAY ANTIFUNGAL (Reported) Quetiapine Fumarate 25 MG TABLET 1 TAB PO Q8H PRN AGITATION (Reported) Sennosides/Docusate Sodium (Senna S Tablet) 8.6 MG-50 MG TABLET 2 TAB PO DAILY PRN CONSTIPATION (Reported) Sertraline HCl 25 MG TABLET 1 TAB PO DAILY MENTAL HEALTH (Reported) Trazodone HCl 50 MG TABLET 25 MG PO TID AGITATION (Reported) Current Medications: Current Medications Sig/Sandra Start time Last Medication Dose Route Stop Time Status Admin Acetaminophen 650 MG Q6P PRN 06/09 1830 AC PO Allopurinol 300 MG DAILY 06/09 1829 AC 06/15 PO 1157 Amoxicillin/ 875 MG Q12 06/14 2200 AC 06/15 Clavulanate Potassium PO 1158 Apixaban 5 MG 0900,1800 06/10 0900 AC 06/15 PO 1159 Aspirin Buffered 81 MG DAILY 06/09 1829 AC 06/15 PO 1158 Bisacodyl 10 MG Q12P PRN 06/13 1100 AC NM Diazepam 5 MG ONCE ONE 06/14 1615 DC IV 06/14 1616 Diazepam 5 MG .STK-MED ONE 06/14 1603 DC PO 06/14 1604 Diltiazem HCl 180 MG DAILY 06/10 1000 AC 06/15 PO 1158 Lorazepam 2 MG ONE ONE 06/14 1615 DC IV 06/14 1616 Lorazepam 2 MG ONE ONE 06/14 1500 DC 06/14 IV 06/14 1501 1546 Metoprolol Tartrate 25 MG BID 06/09 220 AC 06/15 PO 1158 Polyethylene Glycol 17 GM DAILY PRN 06/11 0845 AC 06/13 PO 0901 Potassium Chloride 40 MEQ ONCE ONE 06/14 1530 DC 06/14 PO 06/14 1531 1546 Quetiapine Fumarate 25 MG Q8H PRN 06/09 1830 AC 06/15 PO 1340 Senna/Docusate Sodium 2 TAB DAILY PRN 06/09 1830 AC 06/13 PO 0901 Sertraline HCl 25 MG DAILY 06/09 1830 AC 06/15 PO 1157 Trazodone HCl 25 MG TID 06/09 2199 AC 06/15 PO 1158 Past History Travel History Traveled to [place] past 21 day No Medical History Blood Transfusion Hx: No Neurological: dementia, primary progressive aphasia EENT: NONE Cardiovascular: AFIB, hypertension Respiratory: NONE Gastrointestinal: NONE Hepatic: NONE Renal: nephrolithiasis Musculoskeletal: gout Psychiatric: depression Endocrine: NONE Blood Disorders: NONE Cancer(s): basal cell carcinoma, melanoma, SKIN CA 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 Assisted Living Services at Home: None Smoking Status: Former Smoker ETOH Use: denies use Illicit Drug Use: denies illicit drug use Review of Systems Comments 12 points reviewed as noted, otherwise negative. Exam & Diagnostic Data Last 24 Hrs of Vital Signs/I&O Vital Signs Date Time Temp Pulse Resp B/P B/P Pulse O2 O2 Flow FiO2 Mean Ox Delivery Rate 06/15 1350 98.0 67 20 136/70 97 Room Air 06/15 1158 60 108/72 06/15 0618 98.2 58 20 110/62 94 Room Air 06/15 0000 94 102/50 06/14 2331 94 102/50 06/14 1542 98.3 54 20 100/60 97 Room Air Intake & Output 06/15 1600 06/15 0800 06/15 0000 Intake Total 490 Output Total Balance 490 Intake, IV 10 Intake, Oral 480 Number 0 Bowel Movements Patient 180 lb Weight Physical Exam Other Physical Findings: General Appearance: Alert, No Acute Distress Skin: bilateral ulcers toes Skin Temp/Moisture Exam: Warm/Dry Sepsis Skin Exam (color): Normal for Ethnicity HEENT: Atraumatic, EOMI, Mucous Membr. moist/pink Cardiovascular: Normal S1, Normal S2, irregular irregular Lungs: Clear to Auscultation Abdomen: Soft, No Tenderness Neurological: Strength at 5/5 X4 Ext Extremities: No Edema, as noted above Last 24 Hours of Lab Results: Laboratory Tests 06/15 0704 Chemistry Sodium (137 - 145 mmol/L) 142 Potassium (3.5 - 5.1 mmol/L) 3.3 L Chloride (98 - 107 mmol/L) 103 Carbon Dioxide (22 - 30 mmol/L) 30 Anion Gap (5 - 16) 9 BUN (9 - 20 mg/dL) 23 H Creatinine (0.7 - 1.2 mg/dL) 0.9 Estimated GFR (>60 ml/min) > 60 BUN/Creatinine Ratio (7 - 25 %) 25.6 H Last 24 Hours of Efren Results: SPEC #: [id number] JEWELL: 06/09/17 STATUS: COMP RECD: 06/09/17-[address]: Indio Lee SOURCE: BLOOD ENTR: 06/09/17-[address]: Patient Has No Primary Care SPDESC: 2ND/VENOUS Golden Izquierdo DO ( TBS) ORDERED: BLOOD CULTURE Procedure Result > BLOOD CULTURE REPORT Final 06/15/171489 NO GROWTH AFTER FIVE DAYS Diagnostic Data Recent Imaging Findings: SERVICE DATE: 06/14/17- EXAM TYPE: MRI - MRI-LT FOOT W/O BULL EXAMINATION: MRI OF THE FOOT CLINICAL INFORMATION: Rule out osteomyelitis. Additional clinical history obtained from the clinician. Chronic ulcer on the tip of the second, third, fourth toes, rule out osteomyelitis. COMPARISON: X-ray 06/09/2017 TECHNIQUE: MRI in a high-field magnet without contrast. FINDINGS: Significant motion artifact on the short axis fluid sensitive sequence, limiting evaluation. There is abnormal edema diffusely in the second, third, fourth distal phalanx. There is subcortical low T1 signal present. The findings are suspicious for involvement by osteomyelitis. There is a edema in the soft tissues of the toes, presumably correlating with cellulitis. No focal fluid collections. The visualized tendons are grossly intact, motion artifact limiting evaluation. No significant tenosynovitis. Visualized plantar fascia appears unremarkable. IMPRESSION: Abnormal findings suspicious for osteomyelitis involving the second, third, fourth distal phalanges. Associated soft tissue edema from cellulitis. DICTATED BY: Matt Monterroso MD DATE/TIME DICTATED:06/15/17850 BOARD LINER OPERATOR:JEN DATE/TIME TRANSCRIBED:06/15/17850 Assessment/Plan Assessment/Plan Impression: 82-year-old male known with past medical history of HTN, Afib, dementia, idiopathic neuropathy, HTN, hyperuricemia/gout and uric acid nephrolithiasis was admitted on 06/09 for evaluation of bilateral chronic foot wounds. Abnormal MRI findings suspicious for osteomyelitis involving the second, third, fourth distal phalanges. Associated soft tissue edema from cellulitis Suggestion: 1. Bone biopsy 2 nd digit R foot and culture off abx. Empiric iv abx post procedure (iv Unasyn). 2. CBC, BMP in am. ESR/CRP weekly. 3. Call if fever. Consult Acknowledgment - Thank you for your consult request.
[2017-06-15 22:49] VITALS: BP 151/82
[2017-06-16 06:46] VITALS: BP 142/80
--- NOTE | 2017-06-16 08:02 | PN- Housestaff ---
Pedro Kebede MD,Ami 06/16/17 0802: Subjective Follow-up For: Chronic bilateral toes wound Subjective: Patient visited today, was lying in bed comfortably in no acute distress, was alert not oriented. Restraints in place No fever or chills, no shortness of breathing, no chest pain, no other events. at the bedside. Doctor Carmen contacted and informed to make patient NPO for rest of the day for possible surgery. Noted will meet with in the afternoon to go over the procedure. Review of Systems Constitutional: Reports: see HPI. Objective Last 24 Hrs of Vital Signs/I&O Vital Signs Date Time Temp Pulse Resp B/P B/P Pulse O2 O2 Flow FiO2 Mean Ox Delivery Rate 06/16 0846 142/80 06/16 0646 97.5 58 18 142/80 98 Room Air 06/15 2249 98.2 71 18 151/82 96 Room Air 06/15 2133 72 Intake & Output 06/16 1600 06/16 0800 06/16 0000 Intake Total 240 240 Output Total Balance 240 240 Intake, Oral 240 240 Physical Exam General Appearance: Alert, Cooperative, No Acute Distress, not orieted Skin: bilateral chronic toes wound Skin Temp/Moisture Exam: Warm/Dry Sepsis Skin Exam (color): Normal for Ethnicity HEENT: Atraumatic, EOMI, Mucous Membr. moist/pink Cardiovascular: Normal S1, Normal S2 Lungs: Clear to Auscultation, Normal Air Movement Abdomen: Soft, No Tenderness Neurological: Strength at 5/5 X4 Ext, disoriented Extremities: as noted Current Medications: Current Medications Sig/Sandra Start time Last Medication Dose Route Stop Time Status Admin Acetaminophen 650 MG Q6P PRN 06/09 1830 AC PO Allopurinol 300 MG DAILY 06/09 182 AC 06/16 PO 0846 Amoxicillin/ 875 MG Q12 06/14 2199 DC 06/15 Clavulanate Potassium PO 1158 Apixaban 5 MG 0900,1800 06/10 0900 AC 06/16 PO 0846 Aspirin Buffered 81 MG DAILY 06/09 1828 AC 06/16 PO 0846 Bisacodyl 10 MG Q12P PRN 06/13 1100 AC NV Diltiazem HCl 180 MG DAILY 06/10 1000 AC 06/16 PO 0847 Metoprolol Tartrate 25 MG BID 06/09 2199 AC 06/16 PO 0846 Olanzapine 10 MG ONCE ONE 06/15 1845 DC 06/15 IM 06/15 1846 1850 Patient Medication 1 ED ONE ONE 06/16 1145 [facility] 06/16 1146 Patient Medication 1 ED ONE ONE 06/15 1715 DC 06/15 [facility] 06/15 1716 1717 Polyethylene Glycol 17 GM DAILY PRN 06/11 0845 AC 06/13 PO 0901 Potassium Chloride 40 MEQ ONCE ONE 06/15 2100 CAN PO 06/15 2101 Potassium Chloride 10 MEQ Q1H 06/15 1845 DC 06/15 IV 06/15 1946 2131 Potassium Chloride 40 MEQ ONCE ONE 06/15 1530 CAN PO 06/15 1531 Quetiapine Fumarate 25 MG Q8H PRN 06/09 1830 DC 06/15 PO 1340 Senna/Docusate Sodium 2 TAB DAILY PRN 06/09 183 AC 06/13 PO 0901 Sertraline HCl 25 MG DAILY 06/09 1830 AC 06/16 PO 0846 Trazodone HCl 25 MG TID 06/09 2200 AC 06/16 PO 0846 Last 24 Hrs of Lab/Efren Results Last 24 Hrs of Labs/Mics: Laboratory Tests 06/16/17 1000: Anion Gap 12, Estimated GFR > 60, BUN/Creatinine Ratio 23.3 Assessment/Plan Assessment: Patient is 81-year-old male referred for evaluation of bilateral toes chronic wounds PMH: HTN, afib on Eliquise, advanced primary progressive aphasia, idiopathic neuropathy, HTN, hyperuricemia/gout and uric acids nephrolithiasis on allopurinol VS, Ph Ex at admission: BP 150/77, NV 58, RR 18, no fever Labs at admission: WBC 11.5, Hgb 13.3, ESR 14, potassium 3.1, Cr 0.8 Imagings at admission: Foot xray: Exam is very limited by technique and patient positioning. Possible partial erosion of the distal tuft of the distal second right phalanx. If there is high clinical suspicion, consider a bone scan for further assessment. Hypertrophic spurs along the latter aponeurosis insertion of the calcaneus bilaterally and the left Achilles insertion. Patient was admitted to general medicine floor for management of following conditions: Chronic toes wounds Cellulitis, r/o osteomyelitis we will start antibiotics for cellulitis, and rule out osteomyelitis which is probable considering ESR and xray MRI of the feet done: Left: Abnormal findings suspicious for osteomyelitis involving the second, third, fourth distal phalanges. Associated soft tissue edema from cellulitis. Rigth foot: 1. Edema in the soft tissues of the second, third, fourth toes, more prominent second toe, which would be compatible with cellulitis in the appropriate clinical circumstance. 2. Abnormal findings highly suspicious for osteomyelitis involving the second distal phalanx. 3. Mild edema in the third distal phalanx, favoring reactive edema, with early osteomyelitis not excluded. 4. Abnormal findings in the fourth distal phalanx, suspicious for early osteomyelitis. - Continue admission to GM floor - PO augmentin on hold - takled with psych, will consider ativan before MRI if agitation, held seroqul - emergency medical service manager consulted regarding placement - Npo for procedure today by Dr Morales Hypokalemia repleted yesterday again - continue to monitor Chronic medical conditions: HTN, afib on Eliquise, advanced primary progressive aphasia, idiopathic neuropathy, HTN, hyperuricemia/gout We will cotinue home medication. - Continue allopurinol, seroquel, zoloft, treazadone - continue Eliquise, metoprolol, diltiazem Agitation/Dementia Chronic, related to dementia - Consider Seroquel - restraint with evalaution Heart healthy diet DNR/DNI DVT ppx: Eliqurobin, ALPS Problem List: 1. Cellulitis 2. Osteomyelitis Pain Ratin Pain Location: continue current plan pain management after surgery Pain Goal: Pain 4 or less Pain Plan: Continue current plan pain management after surgery Tomorrow's Labs & Rationales: CBC MIRZAP Tashi Youssef 06/16/17 1427: Attending MD Review Statement Attending Statement Attending MD Statement: examined this patient, discuss w/resident/PA/HOUSE WRECKER, agreed w/resident/PA/HOUSE WRECKER, discussed with family, reviewed EMR data (avail), discussed with nursing, discussed with case mgmt, reviewed images, amended to note Attending Assessment/Plan: Planned for OR today for OM of toes. bedside. Patient with dementia with sitter bedside. Appropriate med for pain control. Start Abx as per ID. gi/dvt prophyalxis
--- NOTE | 2017-06-16 13:33 | PN- Infect Dx ---
Subjective Subjective: No fever. Local discomfort b/l feet Review of Systems Comments: 12 points reviewed as noted, otherwise neg Objective Last 24 Hrs of Vital Signs/I&O Vital Signs Date Time Temp Pulse Resp B/P B/P Pulse O2 O2 Flow FiO2 Mean Ox Delivery Rate 06/16 0846 142/80 06/16 0646 97.5 58 18 142/80 98 Room Air 06/15 2249 98.2 71 18 151/82 96 Room Air 06/15 2133 72 06/15 1350 98.0 67 20 136/70 97 Room Air Intake & Output 06/16 1600 06/16 0800 06/16 0000 Intake Total 240 240 Output Total Balance 240 240 Intake, Oral 240 240 Physical Exam Other Physical Findings: General Appearance: Alert, No Acute Distress Skin: bilateral ulcers toes Skin Temp/Moisture Exam: Warm/Dry Sepsis Skin Exam (color): Normal for Ethnicity HEENT: Atraumatic, EOMI, Mucous Membr. moist/pink Cardiovascular: Normal S1, Normal S2, irregular irregular Lungs: Clear to Auscultation Abdomen: Soft, No Tenderness Neurological: Strength at 5/5 X4 Ext Extremities: No Edema, as noted above Results Last 24 Hours of Lab Results: Laboratory Tests 06/16 1000 Chemistry Sodium (137 - 145 mmol/L) 145 Potassium (3.5 - 5.1 mmol/L) 3.5 Chloride (98 - 107 mmol/L) 106 Carbon Dioxide (22 - 30 mmol/L) 27 Anion Gap (5 - 16) 12 BUN (9 - 20 mg/dL) 21 H Creatinine (0.7 - 1.2 mg/dL) 0.9 Estimated GFR (>60 ml/min) > 60 BUN/Creatinine Ratio (7 - 25 %) 23.3 Last 24 Hours of Efren Results: SPEC #: [id number] JEWELL: 06/09/17 STATUS: COMP RECD: 06/09/[address]: Indio Lee SOURCE: BLOOD ENTR: 06/09/[address]: Patient Has No Primary Care SPDESC: 2ND/VENOUS Golden Izquierdo DO ( TBS) ORDERED: BLOOD CULTURE Procedure Result > BLOOD CULTURE REPORT Final 06/15/177482 NO GROWTH AFTER FIVE DAYS Recent Imaging Studies: MRI IMPRESSION: Abnormal findings suspicious for osteomyelitis involving the second, third, fourth distal phalanges. Associated soft tissue edema from cellulitis. DICTATED BY: Matt Monterroso MD DATE/TIME DICTATED:06/15/17850 PRODUCT MANAGENT INTERN:JEN DATE/TIME TRANSCRIBED:06/15/17850 Assessment/Plan ID Impression: 82-year-old male known with past medical history of HTN, Afib, dementia, idiopathic neuropathy, HTN, hyperuricemia/gout andnephrolithiasis was admitted on 06/09 for evaluation of bilateral chronic foot wounds. Abnormal MRI findings suspicious for osteomyelitis involving the second, third, fourth distal phalanges. MSC/confusion Suggestion: 1. Bone biopsy 2nd digit R foot and culture off abx. Empiric iv abx post procedure (iv Unasyn). F/U Dr. Collier recom. 2. CBC, BMP in am. ESR/CRP weekly. 3. Call if fever. 4. Consider UA/UC.
[2017-06-16 14:55] VITALS: BP 126/70
[2017-06-16 20:35] VITALS: BP 116/82
[2017-06-16 23:18] VITALS: BP 150/80
[2017-06-17 07:28] VITALS: BP 130/82
--- NOTE | 2017-06-17 07:52 | PN- Housestaff ---
Pedro Kebede MD,[facility] 06/17/17 0752: Subjective Follow-up For: bilateral toes osteomyelitis Subjective: Patient visited today, was lying in bed in no acute distress, was relatively confused, not oriented. No fever or chills, no shortness of breathing, no chest pain, no other events. Underwent surgery yesterday: 2nd toe right side, 2nd and 3rd left side toe post op xray and ESR were requested Review of Systems Constitutional: Reports: see HPI. Objective Last 24 Hrs of Vital Signs/I&O Vital Signs Date Time Temp Pulse Resp B/P B/P Pulse O2 O2 Flow FiO2 Mean Ox Delivery Rate 06/17 1002 58 162/84 06/17 0728 98.4 66 18 130/82 91 Room Air 06/16 2318 98.4 57 57 150/80 97 Room Air 06/16 2151 52 120/84 06/16 2035 99.0 52 20 116/82 95 Room Air 06/16 1455 97.2 64 20 126/70 94 Room Air Intake & Output 06/17 1600 06/17 0800 06/17 0000 Intake Total 120 Output Total Balance 120 Intake, Oral 120 Physical Exam General Appearance: Cooperative, No Acute Distress, confused, not oriented, restraints in place Skin: bilateral foot s/p surgery, dressing in place Skin Temp/Moisture Exam: Warm/Dry Sepsis Skin Exam (color): Normal for Ethnicity HEENT: Atraumatic, EOMI, Mucous Membr. moist/pink Cardiovascular: Normal S1, Normal S2, irreg irreg Lungs: Normal Air Movement Abdomen: Soft, No Tenderness Extremities: as noted above Current Medications: Current Medications Sig/Sandra Start time Last Medication Dose Route Stop Time Status Admin Acetaminophen 650 MG Q6P PRN 06/09 1830 AC PO Allopurinol 300 MG DAILY 06/09 1828 AC 06/17 PO 1002 Ampicillin Sodium/ 3,000 MG Q6H 06/17 0806 AC Sulbactam Sodium IV Sodium Chloride 100 ML Apixaban 5 MG 0900,1800 06/10 0900 AC 06/17 PO 1002 Aspirin Buffered 81 MG DAILY 06/09 1828 AC 06/17 PO 1003 Bisacodyl 10 MG Q12P PRN 06/13 1100 AC AL Diltiazem HCl 180 MG DAILY 06/10 1000 AC 06/17 PO 1002 Fentanyl Citrate 100 MCG .ST-MED ONE 06/16 1705 DC IM 06/16 1706 Metoprolol Tartrate 25 MG BID 06/09 2199 AC 06/17 PO 1002 Morphine Sulfate 2 MG Q6P PRN 06/16 1430 AC IV Polyethylene Glycol 17 GM DAILY PRN 06/11 0845 AC 06/13 PO 0901 Senna/Docusate Sodium 2 TAB DAILY PRN 06/09 183 AC 06/13 PO 0901 Sertraline HCl 25 MG DAILY 06/09 183 AC 06/17 PO 1002 Trazodone HCl 25 MG TID 06/09 2199 AC 06/17 PO 1002 Last 24 Hrs of Lab/Efren Results Last 24 Hrs of Labs/Mics: Laboratory Tests 06/17/17 1010: ESR Westergren 10 06/17/17 0645: Anion Gap 12, Estimated GFR > 60, BUN/Creatinine Ratio 23.3, CBC w Diff NO MAN DIFF REQ, RBC 4.65 L, MCV 94.2 H, MCH 31.7 H, MCHC 33.7, RDW 14.0, MPV 8.5, Gran % 75.0, Lymphocytes % 14.3 L, Monocytes % 9.4 H, Eosinophils % 1.0, Basophils % 0.3, Absolute Granulocytes 11.0 H, Absolute Lymphocytes 2.1, Absolute Monocytes 1.4 H, Absolute Eosinophils 0.1, Absolute Basophils 0 Microbiology 06/16 1814 EXTREMITIE: Gross Specimen Examination - RES 06/16 181 EXTREMITIE: Gram Stain - RES 06/16 1800 EXTREMITIE: Gross Specimen Examination - RES 06/16 1800 EXTREMITIE: Gram Stain - RES Assessment/Plan Assessment: Patient is 81-year-old male referred for evaluation of bilateral toes chronic wounds PMH: HTN, afib on Eliquise, advanced primary progressive aphasia, idiopathic neuropathy, HTN, hyperuricemia/gout and uric acids nephrolithiasis on allopurinol VS, Ph Ex at admission: BP 150/77, AL 58, RR 18, no fever Labs at admission: WBC 11.5, Hgb 13.3, ESR 14, potassium 3.1, Cr 0.8 Imagings at admission: Foot xray: Exam is very limited by technique and patient positioning. Possible partial erosion of the distal tuft of the distal second right phalanx. If there is high clinical suspicion, consider a bone scan for further assessment. Hypertrophic spurs along the latter aponeurosis insertion of the calcaneus bilaterally and the left Achilles insertion. Patient was admitted to general medicine floor for management of following conditions: Chronic toes wounds Cellulitis, r/o osteomyelitis we will start antibiotics for cellulitis, and rule out osteomyelitis which is probable considering ESR and xray MRI of the feet done: Left: Abnormal findings suspicious for osteomyelitis involving the second, third, fourth distal phalanges. Associated soft tissue edema from cellulitis. Rigth foot: 1. Edema in the soft tissues of the second, third, fourth toes, more prominent second toe, which would be compatible with cellulitis in the appropriate clinical circumstance. 2. Abnormal findings highly suspicious for osteomyelitis involving the second distal phalanx. 3. Mild edema in the third distal phalanx, favoring reactive edema, with early osteomyelitis not excluded. 4. Abnormal findings in the fourth distal phalanx, suspicious for early osteomyelitis. - Continue admission to floor - PO augmentin on hold - takled with psych, will consider ativan before MRI if agitation, held seroqul - park manager consulted regarding placement - s/p surgery as noted above - started empiric unasyn - ESR and xray requested Hypokalemia repleted yesterday again - continue to monitor Chronic medical conditions: HTN, afib on Eliquise, advanced primary progressive aphasia, idiopathic neuropathy, HTN, hyperuricemia/gout We will cotinue home medication. - Continue allopurinol, seroquel, zoloft, treazadone - continue Eliquise, metoprolol, diltiazem Agitation/Dementia Chronic, related to dementia - Consider Seroquel - restraint with evalaution Heart healthy diet DNR/DNI DVT ppx: Eliquise, ALPS Problem List: 1. Osteomyelitis Pain Ratin Pain Location: None, will monitor Pain Goal: Pain 4 or less Pain Plan: continue current plan Tomorrow's Labs & Rationales: CBC Tashi Irwin 06/17/17 1149: Attending MD Review Statement Attending Statement Attending MD Statement: examined this patient, discuss w/resident/PA/[employer] CLE[employer]ER, agreed w/resident/PA/[employer], discussed with family, reviewed EMR data (avail), discussed with nursing, discussed with case mgmt, reviewed images, amended to note Attending Assessment/Plan: Patient seen/examned bedside. Patient underwent surgery by podiatry for OM of toes. bedside. Patient with dementia with sitter bedside. Appropriate med for pain control. F/u cultures sensitivity. Abx as per ID. gi/dvt prophyalxis
[2017-06-17 07:54] LABS: ABSOLUTE BASOPHIL COUNT 0 /CUMM (0.0-0.2); ABSOLUTE EOSINOPHIL COUNT 0.1 /CUMM (0.0-0.7); ABSOLUTE LYMPH COUNT 2.1 /CUMM (1.2-3.4); ABSOLUTE MONOCYTE COUNT 1.4 /CUMM (0.10-0.60); BASOPHIL % 0.3 % (0.0-2.0); HEMATOCRIT 43.8 % (42-52); MEAN CORPUSCULAR HGB 31.7 PG (27.0-31.0); MEAN CORPUSCULAR HGB CONC 33.7 G/DL (33.0-37.0); MEAN CORPUSCULAR VOLUME 94.2 FL (80.0-94.0); MEAN PLATELET VOLUME 8.5 FL (7.4-10.4); PLATELET COUNT 357 /CUMM (130-400); RED BLOOD CELL CT 4.65 /CUMM (4.70-6.10); WHITE BLOOD CELL COUNT 14.6 /CUMM (4.8-10.8)
--- NOTE | 2017-06-17 13:19 | PN- Infect Dx ---
Subjective Subjective: No fever; s/p sx previous day Review of Systems Comments: 12 points reviewed as noted, otherwise negative. Objective Last 24 Hrs of Vital Signs/I&O Vital Signs Date Time Temp Pulse Resp B/P B/P Pulse O2 O2 Flow FiO2 Mean Ox Delivery Rate 06/17 1311 Room Air 06/17 1002 58 162/84 06/17 0728 98.4 66 18 130/82 91 Room Air 06/16 2318 98.4 57 57 150/80 97 Room Air 06/16 2151 52 120/84 06/16 2035 99.0 52 20 116/82 95 Room Air 06/16 1455 97.2 64 20 126/70 94 Room Air Intake & Output 06/17 1600 06/17 0800 06/17 0000 Intake Total 120 Output Total Balance 120 Intake, Oral 120 Physical Exam Other Physical Findings: General Appearance: Alert, No Acute Distress Skin: warm and dry Skin Temp/Moisture Exam: Warm/Dry Sepsis Skin Exam (color): Normal for Ethnicity HEENT: Atraumatic, Sclera anicteric Cardiovascular: Normal S1, Normal S2, irregular irregular Lungs: Clear to Auscultation Abdomen: Soft, No Tenderness Neurological: Strength at 5/5 X4 Ext Extremities: dressing w/ ss drainage b/l feet Results Last 24 Hours of Lab Results: Laboratory Tests 06/17 06/17 1010 0645 Chemistry Sodium (137 - 145 mmol/L) 144 Potassium (3.5 - 5.1 mmol/L) 3.5 Chloride (98 - 107 mmol/L) 106 Carbon Dioxide (22 - 30 mmol/L) 27 Anion Gap (5 - 16) 12 BUN (9 - 20 mg/dL) 21 H Creatinine (0.7 - 1.2 mg/dL) 0.9 Estimated GFR (>60 ml/min) > 60 BUN/Creatinine Ratio (7 - 25 %) 23.3 Hematology CBC w Diff NO MAN DIFF REQ WBC (4.8 - 10.8 /CUMM) 14.6 H RBC (4.70 - 6.10 /CUMM) 4.65 L Hgb (14.0 - 18.0 G/DL) 14.7 Hct (42 - 52 %) 43.8 MCV (80.0 - 94.0 FL) 94.2 H MCH (27.0 - 31.0 PG) 31.7 H MCHC (33.0 - 37.0 G/DL) 33.7 RDW (11.5 - 14.5 %) 14.0 Plt Count (130 - 400 /CUMM) 357 MPV (7.4 - 10.4 FL) 8.5 Gran % (42.2 - 75.2 %) 75.0 Lymphocytes % (20.5 - 51.1 %) 14.3 L Monocytes % (1.7 - 9.3 %) 9.4 H Eosinophils % (0 - 5 %) 1.0 Basophils % (0.0 - 2.0 %) 0.3 Absolute Granulocytes (1.4 - 6.5 /CUMM) 11.0 H Absolute Lymphocytes (1.2 - 3.4 /CUMM) 2.1 Absolute Monocytes (0.10 - 0.60 /CUMM) 1.4 H Absolute Eosinophils (0.0 - 0.7 /CUMM) 0.1 Absolute Basophils (0.0 - 0.2 /CUMM) 0 ESR Westergren (0 - 10 MM) 10 Last 24 Hours of Efren Results: SPEC #: [id number] JEWELL: 06/16/17 STATUS: RES RECD: 06/16/[address]: Payam Collier DPM SOURCE: EXTREMITIE ENTR: 06/16/[address] [facility] [address]: Domonique SUBRAMANIAN,Tashi SPDESC: TOE 3 L FT Venkatesh SUBRAMANIAN,[facility] Patient Has No Primary Care Dr ORDERED: XTRMOR COMMENT: SMALL PIECE OF BONE RECEIVED IN CUP LEFT THIRD TOE ADDITIONAL INFORMATION: BONE Procedure Result GRAM STAIN - PENDING > EXTREMITIES OR SPECIMEN Preliminary 06/17/17 NO GROWTH AFTER 1 DAY Recent Imaging Studies: Reviewed Assessment/Plan ID Impression: 82-year-old male known with past medical history of HTN, Afib, dementia, idiopathic neuropathy, HTN, hyperuricemia/gout andnephrolithiasis was admitted on 06/09 for evaluation of bilateral chronic foot wounds. Abnormal MRI findings suspicious for osteomyelitis involving the second, third, fourth distal phalanges; s/p surgical resection MSC/confusion Leukocytosis Suggestion: 1. F/U bone biopsy results; shorter course abx if clean margins and healing well. 2. Empiric iv abx post procedure (iv Unasyn 1.5 q 6 h). 3. F/U Dr. Collier recom. 4. CBC, BMP in am. ESR/CRP weekly. 5. Consider UA/UC.
[2017-06-17 14:03] VITALS: BP 134/80
--- NOTE | 2017-06-17 16:31 | RADIOLOGY REPORT ---
EXAMINATION: XR FOOT, RIGHT XR FOOT, LEFT CLINICAL INFORMATION: Toe osteomyelitis status post amputation. COMPARISON: 06/09/2017 TECHNIQUE: Right foot 3 views, left foot 2 views. FINDINGS: Right Foot: The patient is status post amputation of the right foot 2nd digit middle and distal phalanx. No other change is noted. Calcaneal spurs. Left Foot: Since the prior study there has been amputation of the left foot 2nd and 3rd digit middle and distal phalanges. No other change. IMPRESSION: Interval amputation of the right foot 2nd digit middle and distal phalanx as well as the left foot 2nd and 3rd digit middle and distal phalanges. No other change.
[2017-06-17 23:13] VITALS: BP 122/72
[2017-06-18 07:50] VITALS: BP 168/86
[2017-06-18 07:57] LABS: ABSOLUTE BASOPHIL COUNT 0 /CUMM (0.0-0.2); ABSOLUTE EOSINOPHIL COUNT 0.3 /CUMM (0.0-0.7); ABSOLUTE GRANULOCYTE CT 10.6 /CUMM (1.4-6.5); ABSOLUTE LYMPH COUNT 1.9 /CUMM (1.2-3.4); ABSOLUTE MONOCYTE COUNT 1.5 /CUMM (0.10-0.60); BASOPHIL % 0.2 % (0.0-2.0); EOSINOPHIL % 1.9 % (0-5); GRANULOCYTE % 74.4 % (42.2-75.2); HEMATOCRIT 42.1 % (42-52); MEAN CORPUSCULAR HGB 31.5 PG (27.0-31.0); MEAN CORPUSCULAR HGB CONC 33.5 G/DL (33.0-37.0); MEAN CORPUSCULAR VOLUME 94.2 FL (80.0-94.0); MEAN PLATELET VOLUME 8.6 FL (7.4-10.4); PLATELET COUNT 347 /CUMM (130-400); RBC DISTRIBUTION WIDTH 14.1 % (11.5-14.5); RED BLOOD CELL CT 4.47 /CUMM (4.70-6.10); WHITE BLOOD CELL COUNT 14.3 /CUMM (4.8-10.8)
--- NOTE | 2017-06-18 08:46 | PN- Housestaff ---
Pedro Kebede MD,[facility] 06/18/17 0846: Subjective Follow-up For: bilateral toes osteomyelitis Subjective: Patient visited today, was lying in bed in no acute distress, was relatively confused, not oriented. No fever or chills, no shortness of breathing, no chest pain, no other events. POD2: 2nd toe right side, 2nd and 3rd left side toe agitated overnight, on restraints, started on 12.5 mg of seroquel after disscusing with attending. Review of Systems Constitutional: Reports: see HPI. Objective Last 24 Hrs of Vital Signs/I&O Vital Signs Date Time Temp Pulse Resp B/P B/P Pulse O2 O2 Flow FiO2 Mean Ox Delivery Rate 06/18 1017 68 158/86 06/18 0750 98.1 90 16 168/86 93 Room Air 06/17 2313 97.4 74 16 122/72 96 Room Air 06/17 2102 97.7 80 20 130/72 06/17 1403 98.1 49 20 134/80 96 06/17 1311 Room Air Intake & Output 06/18 1600 06/18 0800 06/18 0000 Intake Total 130 120 Output Total Balance 130 120 Intake, IV 130 Intake, Oral 120 Physical Exam General Appearance: No Acute Distress, drowsy, aroudable, not oriented Skin: bilateral toes s/p surgery Skin Temp/Moisture Exam: Warm/Dry HEENT: Atraumatic, EOMI, Mucous Membr. moist/pink Cardiovascular: Normal S1, Normal S2, irreg irreg Lungs: Clear to Auscultation, Normal Air Movement Abdomen: Soft, No Tenderness Neurological: Strength at 5/5 X4 Ext Extremities: as noted above Current Medications: Current Medications Sig/Sandra Start time Last Medication Dose Route Stop Time Status Admin Acetaminophen 650 MG Q6P PRN 06/09 1830 AC PO Allopurinol 300 MG DAILY 06/09 182 AC 06/18 PO 1017 Ampicillin Sodium/ 3,000 MG Q6 06/17 1800 AC 06/18 Sulbactam Sodium IV 1126 Sodium Chloride 100 ML Ampicillin Sodium/ 3,000 MG Q6H 06/17 0806 DC 06/17 Sulbactam Sodium IV 1251 Sodium Chloride 100 ML Apixaban 5 MG 0900,1800 06/10 0900 AC 06/18 PO 1017 Aspirin Buffered 81 MG DAILY 06/09 1828 AC 06/18 PO 1017 Bisacodyl 10 MG Q12P PRN 06/13 1100 AC RI Diltiazem HCl 180 MG DAILY 06/10 1000 AC 06/18 PO 1017 Metoprolol Tartrate 25 MG BID 06/09 2199 AC 06/18 PO 1017 Morphine Sulfate 2 MG Q6P PRN 06/16 1430 AC IV Polyethylene Glycol 17 GM DAILY PRN 06/11 0845 AC 06/13 PO 0901 Quetiapine Fumarate 12.5 MG AT BEDTIME 06/18 2199 AC PO Senna/Docusate Sodium 2 TAB DAILY PRN 06/09 183 AC 06/13 PO 0901 Sertraline HCl 25 MG DAILY 06/09 183 AC 06/18 PO 1017 Trazodone HCl 25 MG TID 06/09 2199 AC 06/18 PO 1017 Last 24 Hrs of Lab/Efren Results Last 24 Hrs of Labs/Mics: Laboratory Tests 06/18/17 0653: Anion Gap 14, Estimated GFR > 60, BUN/Creatinine Ratio 26.7 H, CBC w Diff NO MAN DIFF REQ, RBC 4.47 L, MCV 94.2 H, MCH 31.5 H, MCHC 33.5, RDW 14.1, MPV 8.6, Gran % 74.4, Lymphocytes % 13.2 L, Monocytes % 10.3 H, Eosinophils % 1.9, Basophils % 0.2, Absolute Granulocytes 10.6 H, Absolute Lymphocytes 1.9, Absolute Monocytes 1.5 H, Absolute Eosinophils 0.3, Absolute Basophils 0 Assessment/Plan Assessment: Patient is 81-year-old male referred for evaluation of bilateral toes chronic wounds PMH: HTN, afib on Eliquise, advanced primary progressive aphasia, idiopathic neuropathy, HTN, hyperuricemia/gout and uric acids nephrolithiasis on allopurinol VS, Ph Ex at admission: BP 150/77, RI 58, RR 18, no fever Labs at admission: WBC 11.5, Hgb 13.3, ESR 14, potassium 3.1, Cr 0.8 Imagings at admission: Foot xray: Exam is very limited by technique and patient positioning. Possible partial erosion of the distal tuft of the distal second right phalanx. If there is high clinical suspicion, consider a bone scan for further assessment. Hypertrophic spurs along the latter aponeurosis insertion of the calcaneus bilaterally and the left Achilles insertion. Patient was admitted to general medicine floor for management of following conditions: Chronic toes wounds Cellulitis, r/o osteomyelitis we will start antibiotics for cellulitis, and rule out osteomyelitis which is probable considering ESR and xray MRI of the feet done: Left: Abnormal findings suspicious for osteomyelitis involving the second, third, fourth distal phalanges. Associated soft tissue edema from cellulitis. Rigth foot: 1. Edema in the soft tissues of the second, third, fourth toes, more prominent second toe, which would be compatible with cellulitis in the appropriate clinical circumstance. 2. Abnormal findings highly suspicious for osteomyelitis involving the second distal phalanx. 3. Mild edema in the third distal phalanx, favoring reactive edema, with early osteomyelitis not excluded. 4. Abnormal findings in the fourth distal phalanx, suspicious for early osteomyelitis. - Continue admission to GM floor - PO augmentin on hold - takled with psych, will consider ativan before MRI if agitation, held seroqul - hotel office manager consulted regarding placement - s/p surgery as noted above - started empiric unasyn - ESR and xray requested Hypokalemia repleted yesterday again - continue to monitor Chronic medical conditions: HTN, afib on Eliquise, advanced primary progressive aphasia, idiopathic neuropathy, HTN, hyperuricemia/gout We will cotinue home medication. - Continue allopurinol, seroquel, zoloft, treazadone - continue Eliquise, metoprolol, diltiazem Agitation/Dementia Chronic, related to dementia - Consider Seroquel - restraint with evalaution Heart healthy diet DNR/DNI DVT ppx: Eliquise, ALPS Problem List: 1. Osteomyelitis 2. Cellulitis Pain Ratin Pain Location: None Pain Goal: Pain 4 or less Pain Plan: Continue current plan Tomorrow's Labs & Rationales: CBC Manav YoussefTashi 06/18/17 1239: Attending MD Review Statement Attending Statement Attending MD Statement: examined this patient, discuss w/resident/PA/STEERER, agreed w/resident/PA/STEERER, discussed with family, reviewed EMR data (avail), discussed with nursing, discussed with case mgmt, reviewed images, amended to note Attending Assessment/Plan: Patient seen/examned bedside. Patient underwent surgery by podiatry for OM of toes. Patient with dementia with sitter bedside. Appropriate med for pain control. F/u cultures sensitivity. PO Abx as per ID. Add seroquel low dose at night. gi/dvt prophyalxis.
--- NOTE | 2017-06-18 14:03 | Operative Report ---
Operative/Inv Procedure Report Surgery Date: 06/16/17 Name of Procedure: 1 amputation second toe right foot 2 amputation second toe left foot 3 amputation third toe left foot 4 intraoperative administration of ankle block anesthesia Pre-Operative Diagnosis: 1 osteomyelitis second toe right foot 2 osteomyelitis second toe left foot 3 osteomyelitis third toe left foot Post-Operative Diagnosis: The same Estimated Blood Loss: less than 50ml Surgeon/Glove Examiner: SULAIMAN GARIBAY DPM Anesthesia: moderate sedation, block Operative/Procedure Note Note: After obtaining informed consent the patient was brought to the operating room and placed on the operating table in supine position. The patient isn't securely fastened to the operating table utilizing safety belt. After administration of IV sedation, 10 mL of 0.5% microplate was infiltrated about the patient's left and right ankles. The left and right foot was then scrubbed prepped and draped in usual aseptic manner. Attention directed the right foot, where a fishmouth-type incision encompassing the second digit 11 the proximal phalangeal joint were incised with a 15 blade full-thickness flaps were then developed dorsally and plantarly and the digit was disarticulated. Specimen sent for both microbiologic and pathologic inspection. Nipple was irrigated with 3 views normal sterile saline infusion 50,000 units of bacitracin. Following this, the foot was redraped and the surgeon's top of surgical events. Any bleeding vessels identified were cauterized a lace encountered. The deep tissues reapproximated 3-0 Vicryl and skin is reapproximated 3-0 nylon. Incision just with Xeroform Kerlix and Darrian wrap. Next, 2 fishmouth-type incisions encompassing the second third digits of the left foot the level of the proximal phalangeal joint were incised with 15 blade. Full-thickness flaps were then developed dorsally and plantarly. The digits were disarticulated and passed from the operative field. Specimen was sent for both PICA biologic and pathologic inspection. Nipple was then irrigated with 3 L normal sterile saline fissure 50,000 units of bacitracin. Following this, the foot was redraped and the surgeon's top of gestation clean gloves. Any bleeding vessels identified were cauterized a lace encountered. The deep tissues were then reapproximated with 3-0 Vicryl and skin is reapproximated 3-0 nylon. Incision just with Xeroform 4 x 4's Kerlix and Darrian wrap. Patient noted tolerate both procedure and anesthesia well and the patient was transported from the operating room to recovery with vital signs stable.
[2017-06-18 14:09] VITALS: BP 150/80
--- NOTE | 2017-06-18 15:04 | PN- Infect Dx ---
Subjective Subjective: No fever; local discomfort b/l feet Review of Systems Comments: 12 points reviewed as noted, otherwise negative. Objective Last 24 Hrs of Vital Signs/I&O Vital Signs Date Time Temp Pulse Resp B/P B/P Pulse O2 O2 Flow FiO2 Mean Ox Delivery Rate 06/18 1409 98.4 64 20 150/80 98 Room Air 06/18 1017 68 158/86 06/18 0750 98.1 90 16 168/86 93 Room Air 06/17 2313 97.4 74 16 122/72 96 Room Air 06/17 2102 97.7 80 20 130/72 Intake & Output 06/18 1600 06/18 0800 06/18 0000 Intake Total 130 120 Output Total Balance 130 120 Intake, IV 130 Intake, Oral 120 Physical Exam Other Physical Findings: General Appearance: No Acute Distress, drowsy, aroudable, not oriented Skin: bilateral toes s/p surgery Skin Temp/Moisture Exam: Warm/Dry HEENT: Atraumatic, EOMI, Mucous Membr. moist/pink Cardiovascular: Normal S1, Normal S2, irreg irreg Lungs: Clear to Auscultation, Normal Air Movement Abdomen: Soft, No Tenderness Neurological: Strength at 5/5 X4 Ext Extremities: as noted above Results Last 24 Hours of Lab Results: Laboratory Tests 06/18 0653 Chemistry Sodium (137 - 145 mmol/L) 147 H Potassium (3.5 - 5.1 mmol/L) 3.1 L Chloride (98 - 107 mmol/L) 107 Carbon Dioxide (22 - 30 mmol/L) 26 Anion Gap (5 - 16) 14 BUN (9 - 20 mg/dL) 24 H Creatinine (0.7 - 1.2 mg/dL) 0.9 Estimated GFR (>60 ml/min) > 60 BUN/Creatinine Ratio (7 - 25 %) 26.7 H Hematology CBC w Diff NO MAN DIFF REQ WBC (4.8 - 10.8 /CUMM) 14.3 H RBC (4.70 - 6.10 /CUMM) 4.47 L Hgb (14.0 - 18.0 G/DL) 14.1 Hct (42 - 52 %) 42.1 MCV (80.0 - 94.0 FL) 94.2 H MCH (27.0 - 31.0 PG) 31.5 H MCHC (33.0 - 37.0 G/DL) 33.5 RDW (11.5 - 14.5 %) 14.1 Plt Count (130 - 400 /CUMM) 347 MPV (7.4 - 10.4 FL) 8.6 Gran % (42.2 - 75.2 %) 74.4 Lymphocytes % (20.5 - 51.1 %) 13.2 L Monocytes % (1.7 - 9.3 %) 10.3 H Eosinophils % (0 - 5 %) 1.9 Basophils % (0.0 - 2.0 %) 0.2 Absolute Granulocytes (1.4 - 6.5 /CUMM) 10.6 H Absolute Lymphocytes (1.2 - 3.4 /CUMM) 1.9 Absolute Monocytes (0.10 - 0.60 /CUMM) 1.5 H Absolute Eosinophils (0.0 - 0.7 /CUMM) 0.3 Absolute Basophils (0.0 - 0.2 /CUMM) 0 Last 24 Hours of Efren Results: SPEC #: [id number] JEWELL: 06/16/17 STATUS: RES RECD: 06/16/17[address] SUBM DR: Payam Collier DPM SOURCE: EXTREMITIE ENTR: 06/16/17-[address]: Domonique SUBRAMANIAN,Tashi SPDESC: TOE 2 R FT Venkatesh SUBRAMANIAN,[facility] Patient Has No Primary Care Dr ORDERED: XTRMOR COMMENT: SMALL PIECE OF BONE RECEIVE IN CUP ADDITIONAL INFORMATION: BONE, RIGHT 2ND TOE Procedure Result > GRAM STAIN Final 06/17/17-1512 WHITE BLOOD CELLS NONE SEEN OTHER NO ORGANISMS SEEN > EXTREMITIES OR SPECIMEN Preliminary 06/18/17-1302 1. Light growth of: DIPHTHEROIDS 2. Scant growth of: GRAM POSITIVE COCCI Identification and sensitivities to follow 3. Scant growth of: STAPH AUREUS NOTE THIS IS A PRELIMINARY REPORT: IF: patient has had significant exposure to a healthcare setting in the past three (3) months, THEN: suspect Methicillin Resistant Staph aureus and place patient on Contact precautions PENDING susceptibility results TO FOLLOW Called to/Readback by BEN by [email or web address] 06/18/17 1257 Recent Imaging Studies: Xray IMPRESSION: Interval amputation of the right foot 2nd digit middle and distal phalanx as well as the left foot 2nd and 3rd digit middle and distal phalanges. No other change. DICTATED BY: Taylor Rosales MD DATE/TIME DICTATED:06/17/171599 PEGGER:JEN DATE/TIME TRANSCRIBED:06/17/171599 Assessment/Plan ID Impression: 82-year-old male known with past medical history of HTN, Afib, dementia, idiopathic neuropathy, HTN, hyperuricemia/gout andnephrolithiasis was admitted on 06/09 for evaluation of bilateral chronic foot wounds. Abnormal MRI findings suspicious for osteomyelitis involving the second, third, fourth distal phalanges; s/p surgical resection; OR cx from 06/16 + GPC, diphteroids and S. aureus (sensitivity pnd) MSC/confusion; r/o UTI Persistent leukocytosis Suggestion: 1. F/U bone biopsy results; shorter course abx if clean margins and healing well. 2. Empiric iv abx post procedure (iv Unasyn 1.5 q 6 h). OR culture + S. aureus; persistent leukocytosis; start Vancomycin 1 gm q 12 h pending final bone/tissue cx. Vancomycin trough 3/4 30 min before the am dose. 3. Obtain UA/UC. 4. CBC, BMP in am. ESR/CRP weekly.
[2017-06-18 22:05] VITALS: BP 140/80
[2017-06-19 05:41] VITALS: BP 130/82
--- NOTE | 2017-06-19 09:06 | PN- Housestaff ---
See Addendum Subjective Follow-up For: bilateral toes osteomyelitis Subjective: Patient was seen and examined at bedside. He has dementia at baseline. He is agitated and unable to offer any complaints. Review of Systems Constitutional: Reports: no symptoms. Objective Last 24 Hrs of Vital Signs/I&O Vital Signs Date Time Temp Pulse Resp B/P B/P Pulse O2 O2 Flow FiO2 Mean Ox Delivery Rate 06/19 0541 98.4 60 22 130/82 94 Room Air 06/18 2205 140/80 06/18 2205 98.2 60 20 140/80 94 06/18 1409 98.4 64 20 150/80 98 Room Air Intake & Output 06/19 1600 06/19 0800 06/19 0000 Intake Total 840 240 Output Total Balance 840 240 Intake, IV 600 Intake, Oral 240 240 Physical Exam General Appearance: Mild Distress, awake, agitated Skin: No Rashes, No Breakdown Skin Temp/Moisture Exam: Warm/Dry Sepsis Skin Exam (color): Normal for Ethnicity HEENT: Atraumatic Cardiovascular: Normal S1, Normal S2, No Murmurs Lungs: Clear to Auscultation, Normal Air Movement Abdomen: Soft, No Tenderness Extremities: feet in jake wraps Assessment/Plan Assessment: Patient is 81-year-old male referred for evaluation of bilateral toes chronic wounds PMH: HTN, afib on Eliquise, advanced primary progressive aphasia, idiopathic neuropathy, HTN, hyperuricemia/gout and 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 * Continue daily Vancomycin 1g BID. Hypokalemia * Repleted orally. * Will monitor daily. Chronic medical conditions: HTN, afib on Eliquis, advanced primary progressive aphasia, idiopathic neuropathy, HTN, hyperuricemia/gout continue home medication. - Continue allopurinol, zoloft, trazodone, seroquel - continue Eliquis, metoprolol, - diltiazem CD has been discontinued and he has been started on 60mg q8 as the short acting form can be crushed and administered. Agitation/Dementia Chronic, related to dementia - Consider Seroquel - restraint with evalaution Heart healthy diet DNR/DNI DVT ppx: THEA Harvey Problem List: 1. Altered mental state Pain Ratin Pain Location: none Pain Goal: Remain pain free Pain Plan: none Tomorrow's Labs & Rationales: CBC, BEP DVT ppx: THEA Patterson Problem List: 1. Altered mental state Pain Ratin Pain Location: none Pain Goal: Remain pain free Pain Plan: none Tomorrow's Labs & Rationales: CBC, BEP
[2017-06-19 09:10] LABS: ABSOLUTE BASOPHIL COUNT 0 /CUMM (0.0-0.2); ABSOLUTE EOSINOPHIL COUNT 0.2 /CUMM (0.0-0.7); ABSOLUTE GRANULOCYTE CT 9.1 /CUMM (1.4-6.5); ABSOLUTE LYMPH COUNT 2.2 /CUMM (1.2-3.4); ABSOLUTE MONOCYTE COUNT 1.2 /CUMM (0.10-0.60); BASOPHIL % 0.3 % (0.0-2.0); EOSINOPHIL % 1.6 % (0-5); GRANULOCYTE % 71.4 % (42.2-75.2); HEMATOCRIT 39.9 % (42-52); MEAN CORPUSCULAR HGB 31.6 PG (27.0-31.0); MEAN CORPUSCULAR VOLUME 95.8 FL (80.0-94.0); MEAN PLATELET VOLUME 8.8 FL (7.4-10.4); PLATELET COUNT 314 /CUMM (130-400); RBC DISTRIBUTION WIDTH 14.2 % (11.5-14.5); RED BLOOD CELL CT 4.17 /CUMM (4.70-6.10); WHITE BLOOD CELL COUNT 12.7 /CUMM (4.8-10.8)
[2017-06-19 14:36] VITALS: BP 154/70
--- NOTE | 2017-06-19 15:07 | PN- Infect Dx ---
Subjective Subjective: Remains confused requiring [facility] vest Review of Systems Comments: 12 points reviewed as noted, otherwise negative. Objective Last 24 Hrs of Vital Signs/I&O Vital Signs Date Time Temp Pulse Resp B/P B/P Pulse O2 O2 Flow FiO2 Mean Ox Delivery Rate 06/19 1436 98.4 78 20 154/70 95 Room Air 06/19 1300 86 158/84 06/19 0541 98.4 60 22 130/82 94 Room Air 06/18 2205 140/80 06/18 2205 98.2 60 20 140/80 94 Intake & Output 06/19 1600 06/19 0800 06/19 0000 Intake Total 840 240 Output Total Balance 840 240 Intake, IV 600 Intake, Oral 240 240 Physical Exam Other Physical Findings: General Appearance: No Acute Distress, drowsy, aroudable, not oriented Skin: bilateral toes s/p surgery Skin Temp/Moisture Exam: Warm/Dry HEENT: Atraumatic, EOMI, Mucous Membr. moist/pink Cardiovascular: Normal S1, Normal S2, irreg irreg Lungs: Clear to Auscultation, Normal Air Movement Abdomen: Soft, No Tenderness Neurological: Strength at 5/5 X4 Ext Extremities: as noted above Results Last 24 Hours of Lab Results: Laboratory Tests 06/19 06/18 071999 Chemistry Sodium (137 - 145 mmol/L) 148 H Potassium (3.5 - 5.1 mmol/L) 3.3 L Chloride (98 - 107 mmol/L) 109 H Carbon Dioxide (22 - 30 mmol/L) 26 Anion Gap (5 - 16) 13 BUN (9 - 20 mg/dL) 20 Creatinine (0.7 - 1.2 mg/dL) 0.8 Estimated GFR (>60 ml/min) > 60 BUN/Creatinine Ratio (7 - 25 %) 25.0 Hematology CBC w Diff NO MAN DIFF REQ WBC (4.8 - 10.8 /CUMM) 12.7 H RBC (4.70 - 6.10 /CUMM) 4.17 L Hgb (14.0 - 18.0 G/DL) 13.2 L Hct (42 - 52 %) 39.9 L MCV (80.0 - 94.0 FL) 95.8 H MCH (27.0 - 31.0 PG) 31.6 H MCHC (33.0 - 37.0 G/DL) 33.0 RDW (11.5 - 14.5 %) 14.2 Plt Count (130 - 400 /CUMM) 314 MPV (7.4 - 10.4 FL) 8.8 Gran % (42.2 - 75.2 %) 71.4 Lymphocytes % (20.5 - 51.1 %) 17.1 L Monocytes % (1.7 - 9.3 %) 9.6 H Eosinophils % (0 - 5 %) 1.6 Basophils % (0.0 - 2.0 %) 0.3 Absolute Granulocytes (1.4 - 6.5 /CUMM) 9.1 H Absolute Lymphocytes (1.2 - 3.4 /CUMM) 2.2 Absolute Monocytes (0.10 - 0.60 /CUMM) 1.2 H Absolute Eosinophils (0.0 - 0.7 /CUMM) 0.2 Absolute Basophils (0.0 - 0.2 /CUMM) 0 Urines Urine Color (YEL,AMB,STR) YEL Urine Clarity (CLEAR) HAZY H Urine pH (5.0 - 8.0) 6.5 Ur Specific [place] (1.001 - 1.035) 1.015 Urine Protein (NEG,<30 MG/DL) NEG Urine Ketones (NEG) NEG Urine Nitrite (NEG) NEG Urine Bilirubin (NEG) NEG Urine Urobilinogen (0.1 - 1.0 EU/dl) 1.0 Ur Leukocyte Esterase (NEG) SMALL H Ur Microscopic SEDIMENT EXAMINED Urine RBC (0 - 5 /HPF) 15-25 H Urine WBC (0 - 2 /HPF) 50-75 H Ur Epithelial Cells (NONE,FEW) RARE Urine Mucus (FEW,NONE) RARE Urine Hemoglobin (NEG) TRACE-INTACT H Urine Glucose (N MG/DL) NEG Last 24 Hours of Efren Results: SPEC #: [id number] JEWELL: 06/16/17 STATUS: COMP RECD: 06/16/[address]: Payam Collier DPM SOURCE: EXTREMITIE ENTR: 06/16/[address]: Domonique SUBRAMANIAN,Tashi SPDESC: TOE 2 R FT Venkatesh SUBRAMANIAN,Cirilo Patient Has No Primary Care Dr ORDERED: XTRMOR COMMENT: SMALL PIECE OF BONE RECEIVE IN CUP ADDITIONAL INFORMATION: BONE, RIGHT 2ND TOE Procedure Result > GRAM STAIN Final 06/17/17-1512 WHITE BLOOD CELLS NONE SEEN OTHER NO ORGANISMS SEEN > EXTREMITIES OR SPECIMEN Final 06/19/17-1248 1. Light growth of: DIPHTHEROIDS 2. Scant growth of: STAPH COAGULASE NEGATIVE 3. Scant growth of: METH RESIST STAPH AUREUS ISOLATED MRSA Called to/Readback by BEN by LAB.LHCL 06/19/17 1242 PRELIM Called to/Readback by BEN by LAB.GEOK 06/18/17 1257 Coag Neg MRSA RX AB RX AB ------ -- ------ -- AMPICILLIN R CEFAZOLIN R R AMOX/CLAV AUGM R R AMP/SULB-UNASYN R R TETRACYCLINE S S TRIMETH/SULFA R S AZITHROMYCIN R R CLINDAMYCIN S R ERYTHROMYCIN R R OXACILLIN R R VANCOMYCIN S S METH RESIST STAPH AUREUS: MICROSCAN GRAM POSITIVE PANEL ATTENTIONATTENTIONPLACE PATIENT ON CONTACT PRECAUTIONS 2. STAPH COAGULASE NEGATIVE RX ABN ------ --- 2. STAPH COAGULASE NEGATIVE Recent Imaging Studies: reviewed Assessment/Plan ID Impression: Impression: 82-year-old male known with past medical history of HTN, Afib, dementia, idiopathic neuropathy, HTN, hyperuricemia/gout andnephrolithiasis was admitted on 06/09 for evaluation of bilateral chronic foot wounds. Abnormal MRI findings suspicious for osteomyelitis involving the second, third, fourth distal phalanges; s/p surgical resection; OR cx from 06/16 + SCN, diphteroids and MRSA MSC/confusion; r/o UTI Persistent leukocytosis Suggestion: 1. F/U bone biopsy results; shorter course abx if clean margins and healing well. 2. Cont just Vancomycin 1 gm q 12 h pending final bone/tissue cx. Vancomycin trough 3/4 30 min before the am dose. 3. CBC, BMP in am. ESR/CRP weekly.
[2017-06-19 21:45] VITALS: BP 154/80
[2017-06-20 05:47] VITALS: BP 142/90
[2017-06-20 10:24] LABS: ABSOLUTE BASOPHIL COUNT 0 /CUMM (0.0-0.2); ABSOLUTE EOSINOPHIL COUNT 0.2 /CUMM (0.0-0.7); ABSOLUTE GRANULOCYTE CT 10.7 /CUMM (1.4-6.5); ABSOLUTE LYMPH COUNT 2.2 /CUMM (1.2-3.4); ABSOLUTE MONOCYTE COUNT 1.1 /CUMM (0.10-0.60); BASOPHIL % 0.3 % (0.0-2.0); EOSINOPHIL % 1.4 % (0-5); GRANULOCYTE % 74.9 % (42.2-75.2); HEMATOCRIT 43.3 % (42-52); MEAN CORPUSCULAR HGB 31.7 PG (27.0-31.0); MEAN CORPUSCULAR HGB CONC 33.4 G/DL (33.0-37.0); MEAN CORPUSCULAR VOLUME 94.7 FL (80.0-94.0); MEAN PLATELET VOLUME 8.4 FL (7.4-10.4); PLATELET COUNT 369 /CUMM (130-400); RBC DISTRIBUTION WIDTH 14.2 % (11.5-14.5); RED BLOOD CELL CT 4.57 /CUMM (4.70-6.10); WHITE BLOOD CELL COUNT 14.3 /CUMM (4.8-10.8)
--- NOTE | 2017-06-20 10:29 | PN- Housestaff ---
See Addendum Subjective Follow-up For: bilateral toe osteomyelitis Subjective: Patient was seen and examined at bedside. He is confused, disoriented and unable to offer any complaints. Review of Systems Constitutional: Reports: no symptoms. Objective Last 24 Hrs of Vital Signs/I&O Vital Signs Date Time Temp Pulse Resp B/P B/P Pulse O2 O2 Flow FiO2 Mean Ox Delivery Rate 06/20 0607 72 142/90 06/20 0600 72 06/20 0547 97.4 118 20 142/90 95 06/19 2145 97.8 60 20 154/80 97 Room Air 06/19 2124 60 154/80 06/19 2124 60 154/80 06/19 1436 98.4 78 20 154/70 95 Room Air 06/19 1300 86 158/84 Intake & Output 06/20 1600 06/20 0800 06/20 0000 Intake Total 120 470 Output Total Balance 120 470 Intake, IV 270 Intake, Oral 120 200 Number 1 Bowel Movements Physical Exam General Appearance: No Acute Distress, awake, agitated Skin Temp/Moisture Exam: Warm/Dry Sepsis Skin Exam (color): Normal for Ethnicity HEENT: Atraumatic Cardiovascular: Normal S1, Normal S2, No Murmurs Lungs: Clear to Auscultation, Normal Air Movement Abdomen: Soft, No Tenderness Extremities: feet in jake wraps Lines/Diet/Fluids Restraints: Shweta, 4-point Assessment/Plan Assessment: Patient is 81-year-old male referred for evaluation of bilateral toes chronic wounds PMH: HTN, afib on Eliquise, advanced primary progressive aphasia, idiopathic neuropathy, HTN, hyperuricemia/gout and 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 * Vanc trough pending. Hypokalemia * Repleted orally as needed. Chronic medical conditions: HTN, afib on Eliquis, advanced primary progressive aphasia, idiopathic neuropathy, HTN, hyperuricemia/gout continue home medication. - Continue allopurinol, zoloft, trazodone, seroquel - continue Eliquis, metoprolol, - diltiazem CD has been discontinued and he has been started on 60mg q8 as the short acting form can be crushed and administered. Agitation/Dementia Chronic, related to dementia - Consider Seroquel - restraint with evalaution Heart healthy diet DNR/DNI DVT ppx: THEA Harvey Problem List: 1. Osteomyelitis Pain Ratin Pain Location: none Pain Goal: Remain pain free Pain Plan: none Tomorrow's Labs & Rationales: CBC, BEP
--- NOTE | 2017-06-20 15:09 | PN- Infect Dx ---
Subjective Subjective: No fever; remains confused; requiring sitter; [place] vest. Review of Systems Comments: 12 points reviewed as noted, otherwise negative. Objective Last 24 Hrs of Vital Signs/I&O Vital Signs Date Time Temp Pulse Resp B/P B/P Pulse O2 O2 Flow FiO2 Mean Ox Delivery Rate 06/20 1413 120 140/90 06/20 1413 120 140/90 06/20 0607 72 142/90 06/20 0600 72 06/20 0547 97.4 118 20 142/90 95 06/19 2145 97.8 60 20 154/80 97 Room Air 06/20 2123 60 154/80 06/20 2123 60 154/80 Intake & Output 06/20 1600 06/20 0800 06/20 0000 Intake Total 120 470 Output Total Balance 120 470 Intake, IV 270 Intake, Oral 120 200 Number 1 Bowel Movements Physical Exam Other Physical Findings: Other Physical Findings: General Appearance: No Acute Distress, drowsy, aroudable, not oriented Skin: bilateral toes s/p surgery Skin Temp/Moisture Exam: Warm/Dry HEENT: Atraumatic, EOMI, Mucous Membr. moist/pink Cardiovascular: Normal S1, Normal S2, irreg irreg Lungs: Clear to Auscultation, Normal Air Movement Abdomen: Soft, No Tenderness Neurological: Strength at 5/5 X4 Ext Extremities: as noted above Results Last 24 Hours of Lab Results: Laboratory Tests 06/20 0948 Chemistry Sodium (137 - 145 mmol/L) 148 H Potassium (3.5 - 5.1 mmol/L) 3.5 Chloride (98 - 107 mmol/L) 106 Carbon Dioxide (22 - 30 mmol/L) 30 Anion Gap (5 - 16) 12 BUN (9 - 20 mg/dL) 25 H Creatinine (0.7 - 1.2 mg/dL) 0.8 Estimated GFR (>60 ml/min) > 60 BUN/Creatinine Ratio (7 - 25 %) 31.3 H Hematology CBC w Diff NO MAN DIFF REQ WBC (4.8 - 10.8 /CUMM) 14.3 H RBC (4.70 - 6.10 /CUMM) 4.57 L Hgb (14.0 - 18.0 G/DL) 14.5 Hct (42 - 52 %) 43.3 MCV (80.0 - 94.0 FL) 94.7 H MCH (27.0 - 31.0 PG) 31.7 H MCHC (33.0 - 37.0 G/DL) 33.4 RDW (11.5 - 14.5 %) 14.2 Plt Count (130 - 400 /CUMM) 369 MPV (7.4 - 10.4 FL) 8.4 Gran % (42.2 - 75.2 %) 74.9 Lymphocytes % (20.5 - 51.1 %) 15.6 L Monocytes % (1.7 - 9.3 %) 7.8 Eosinophils % (0 - 5 %) 1.4 Basophils % (0.0 - 2.0 %) 0.3 Absolute Granulocytes (1.4 - 6.5 /CUMM) 10.7 H Absolute Lymphocytes (1.2 - 3.4 /CUMM) 2.2 Absolute Monocytes (0.10 - 0.60 /CUMM) 1.1 H Absolute Eosinophils (0.0 - 0.7 /CUMM) 0.2 Absolute Basophils (0.0 - 0.2 /CUMM) 0 Toxicology Vancomycin Trough (10.0 - 20.0 ug/mL) 10.3 Last 24 Hours of Efren Results: PEC #: [id number] JEWELL: 06/16/17-1799 STATUS: COMP RECD: 06/16/[address]: Payam Collier DPM SOURCE: EXTREMITIE ENTR: 06/16/17-[address]: Domonique SUBRAMANIAN,Tashi SPDESC: TOE 2 R FT Venkatesh SUBRAMANIAN,[facility] Patient Has No Primary Care Dr ORDERED: XTRMOR COMMENT: SMALL PIECE OF BONE RECEIVE IN CUP ADDITIONAL INFORMATION: BONE, RIGHT 2ND TOE Procedure Result > GRAM STAIN Final 06/17/17-1512 WHITE BLOOD CELLS NONE SEEN OTHER NO ORGANISMS SEEN > EXTREMITIES OR SPECIMEN Final 06/19/17-1248 1. Light growth of: DIPHTHEROIDS 2. Scant growth of: STAPH COAGULASE NEGATIVE 3. Scant growth of: METH RESIST STAPH AUREUS ISOLATED MRSA Called to/Readback by BEN by LAB.LHCL 06/19/17 1242 PRELIM Called to/Readback by BEN by LAB.GEOK 06/18/17 1257 Coag Neg MRSA RX AB RX AB ------ -- ------ -- AMPICILLIN R CEFAZOLIN R R AMOX/CLAV AUGM R R AMP/SULB-UNASYN R R TETRACYCLINE S S TRIMETH/SULFA R S AZITHROMYCIN R R CLINDAMYCIN S R ERYTHROMYCIN R R OXACILLIN R R VANCOMYCIN S S METH RESIST STAPH AUREUS: MICROSCAN GRAM POSITIVE PANEL ATTENTIONATTENTIONPLACE PATIENT ON CONTACT PRECAUTIONS 2. STAPH COAGULASE NEGATIVE RX ABN ------ --- 2. STAPH COAGULASE NEGATIVE RX AB ------ -- AMPICILLIN R CEFAZOLIN R AMOXICILLIN/CLAVULINIC ACID R AMPICILLIN/SULBACTAM R TETRACYCLINE S TRIMETHOPRIM/SULFAMETHOXAZOLE R AZITHROMYCIN R CLINDAMYCIN S ERYTHROMYCIN R OXACILLIN R VANCOMYCIN S 3. METH RESIST STAPH AUREUS RX ABN ------ --- 3. METH RESIST STAPH AUREUS RX AB ------ -- CEFAZOLIN R AMOXICILLIN/CLAVULINIC ACID R AMPICILLIN/SULBACTAM R TETRACYCLINE S TRIMETHOPRIM/SULFAMETHOXAZOLE S AZITHROMYCIN R CLINDAMYCIN R ERYTHROMYCIN R OXACILLIN R VANCOMYCIN S ATTENTIONATTENTIONPLACE PATIENT ON CONTACT PRECAUTIONS Recent Imaging Studies: reviewed Assessment/Plan ID Impression: 82-year-old male known with past medical history of HTN, Afib, dementia, idiopathic neuropathy, HTN, hyperuricemia/gout andnephrolithiasis was admitted on 06/09 for evaluation of bilateral chronic foot wounds. Abnormal MRI findings suspicious for osteomyelitis involving the second, third, fourth distal phalanges; s/p surgical resection; OR cx from 06/16 + SCN, diphteroids and MRSA MSC/confusion; r/o UTI Persistent leukocytosis Suggestion: 1. F/U bone biopsy results; shorter course abx if clean margins and healing well. 2. Cont just Vancomycin 1 gm q 12 h startyed 06/18, pending above. Vancomycin trough is therapetic at 10 (goal 10-15) assuming treating only soft tissue infection (if bone bx with residual infection vanco trough goal would be 15-20). Next vancomycin trough 06/22 in am. 3. CBC, BMP, uric acid level in am. ESR/CRP weekly in am 06/21.
[2017-06-20 21:40] VITALS: BP 150/90
[2017-06-21 06:53] VITALS: BP 144/86
--- NOTE | 2017-06-21 07:51 | PN- Housestaff ---
Pedro Kebede MD,[facility] 06/21/17 0750: Subjective Follow-up For: chornic bilateral toes wound Osteomyelitis Subjective: Summary: Underwent 2nd toe right side, 2nd and 3rd left side toe on 06/16 Culture from surgery: L: Staph coag neg: sens to Tetra R: Diph, Staph coag neg: sens to Tetra, MRSA sens to Tetra Report from surgery: clean cut Recieved: Unasyn 05/20/ to 04/21 Vanc 2/2pm to 05/24 Pending placement Evaluation today: Patient visited today, was lying in bed in no acute distress, was relatively confused, not oriented, restraints in place. No fever or chills, no shortness of breathing, no chest pain, no other events. POD: 2nd toe right side, 2nd and 3rd left side toe agitated, on restraints. Review of Systems Constitutional: Reports: see HPI. Objective Last 24 Hrs of Vital Signs/I&O Vital Signs Date Time Temp Pulse Resp B/P B/P Pulse O2 O2 Flow FiO2 Mean Ox Delivery Rate 06/21 0653 97.6 56 20 144/86 95 03/05 0548 56 144/86 / 2147 67 / 2147 67 150/90 / 2140 67 150/90 94 Room Air / 1508 98.3 20 03/ 1413 120 140/90 / 1413 120 140/90 Intake & Output / 1600 03/05 0800 03/05 0000 Intake Total 440 240 Output Total Balance 440 240 Intake, IV 200 Intake, Oral 240 240 Physical Exam General Appearance: No Acute Distress, Confused, as noted above Skin: bilateral distal LE in dressing Skin Temp/Moisture Exam: Warm/Dry Sepsis Skin Exam (color): Normal for Ethnicity HEENT: Atraumatic, EOMI, Mucous Membr. moist/pink Cardiovascular: Normal S1, Normal S2, irreg irreg Lungs: Clear to Auscultation Abdomen: Soft, No Tenderness Extremities: as noted above Current Medications: Current Medications Sig/Sandra Start time Last Medication Dose Route Stop Time Status Admin Acetaminophen 650 MG Q6P PRN 06/09 183 AC PO Allopurinol 300 MG DAILY 06/09 1828 AC / PO 1030 Apixaban 5 MG 0900,1800 06/10 09 AC / PO 1843 Aspirin Buffered 81 MG DAILY 06/09 1828 AC 06/20 PO 1030 Bisacodyl 10 MG Q12P PRN 06/13 1100 AC 06/19 TN 2139 Diltiazem HCl 60 MG Q8 06/19 1130 AC 06/20 PO 214 Metoprolol Tartrate 25 MG BID 06/09 2199 AC 06/20 PO 2147 Morphine Sulfate 2 MG Q6P PRN 06/16 1430 AC IV Polyethylene Glycol 17 GM DAILY PRN 06/11 0845 AC 06/13 PO 09 Potassium Chloride 40 MEQ ONCE ONE 06/21 0915 DC PO 06/21 0916 Quetiapine Fumarate 12.5 MG AT BEDTIME 06/18 2199 AC 06/20 PO 214 Senna/Docusate Sodium 2 TAB DAILY PRN 06/09 183 AC 06/13 PO 09 Sertraline HCl 25 MG DAILY 06/09 183 AC 06/20 PO 103 Trazodone HCl 25 MG QPM 06/20 2199 AC 06/20 PO 214 Vancomycin HCl 1,000 MG Q12 06/18 2199 AC 06/20 Dextrose/Water 250 ML IV 2146 Last 24 Hrs of Lab/Efren Results Last 24 Hrs of Labs/Mics: Laboratory Tests 06/21/17 0700: Anion Gap 9, Estimated GFR > 60, BUN/Creatinine Ratio 24.4, CBC w Diff NO MAN DIFF REQ, RBC 4.57 L, MCV 95.2 H, MCH 31.8 H, MCHC 33.3, RDW 13.7, MPV 8.7, Gran % 73.6, Lymphocytes % 15.7 L, Monocytes % 8.2, Eosinophils % 1.8, Basophils % 0.7, Absolute Granulocytes 9.7 H, Absolute Lymphocytes 2.1, Absolute Monocytes 1.1 H, Absolute Eosinophils 0.2, Absolute Basophils 0.1 Assessment/Plan Assessment: Patient is 81-year-old male referred for evaluation of bilateral toes chronic wounds PMH: HTN, afib on Eliquise, advanced primary progressive aphasia, idiopathic neuropathy, HTN, hyperuricemia/gout and 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 Possible partial erosion of the distal tuft of the distal second right phalanx. If there is high clinical suspicion, consider a bone scan for further assessment. Hypertrophic spurs along the latter aponeurosis insertion of the calcaneus bilaterally and the left Achilles insertion. Patient was admitted to general medicine floor for management of following conditions: Chronic toes wounds Cellulitis, r/o osteomyelitis we will start antibiotics for cellulitis, and rule out osteomyelitis which is probable considering ESR and xray MRI of the feet done: Left: Abnormal findings suspicious for osteomyelitis involving the second, third, fourth distal phalanges. Associated soft tissue edema from cellulitis. Rigth foot: 1. Edema in the soft tissues of the second, third, fourth toes, more prominent second toe, which would be compatible with cellulitis in the appropriate clinical circumstance. 2. Abnormal findings highly suspicious for osteomyelitis involving the second distal phalanx. 3. Mild edema in the third distal phalanx, favoring reactive edema, with early osteomyelitis not excluded. 4. Abnormal findings in the fourth distal phalanx, suspicious for early osteomyelitis. - Continue admission to floor - s/p surgery as nored above - truck service manager consulted regarding placement - On vanc, plan for total of 7 days as noted above - follow ID Hypokalemia repleted - continue to monitor Chronic medical conditions: HTN, afib on Eliquise, advanced primary progressive aphasia, idiopathic neuropathy, HTN, hyperuricemia/gout We will cotinue home medication. - Continue allopurinol, seroquel, zoloft, treazadone - continue Eliquise, metoprolol, diltiazem Agitation/Dementia Chronic, related to dementia - Consider Seroquel - restraint with evalaution Heart healthy diet DNR/DNI DVT ppx: Eliquise, ALPS Problem List: 1. Osteomyelitis 2. Cellulitis Pain Ratin Pain Location: none Pain Goal: Pain 4 or less Pain Plan: continue current plan Tomorrow's Labs & Rationales: Tashi Almonte 06/21/17 1111: Attending Review Statement Attending Statement Attending MD Statement: examined this patient, discuss w/resident/PA/INSTITUTE SCIENTIST, agreed w/resident/PA/INSTITUTE SCIENTIST, discussed with family, reviewed EMR data (avail), discussed with nursing, discussed with case mgmt, reviewed images, amended to note Attending Assessment/Plan: Patient seen and examined at bedside. Agree with resident assessment and plan. Patient is still confused and agitated. Afebrile, stable vitals. Will continue current antibiotic management, follow ID and podiatry recommendations, continue current medications, DVT PPx. discharge planning case management aware.
[2017-06-21 08:09] LABS: ABSOLUTE BASOPHIL COUNT 0.1 /CUMM (0.0-0.2); ABSOLUTE EOSINOPHIL COUNT 0.2 /CUMM (0.0-0.7); ABSOLUTE GRANULOCYTE CT 9.7 /CUMM (1.4-6.5); ABSOLUTE LYMPH COUNT 2.1 /CUMM (1.2-3.4); ABSOLUTE MONOCYTE COUNT 1.1 /CUMM (0.10-0.60); BASOPHIL % 0.7 % (0.0-2.0); EOSINOPHIL % 1.8 % (0-5); GRANULOCYTE % 73.6 % (42.2-75.2); HEMATOCRIT 43.5 % (42-52); MEAN CORPUSCULAR HGB 31.8 PG (27.0-31.0); MEAN CORPUSCULAR HGB CONC 33.3 G/DL (33.0-37.0); MEAN CORPUSCULAR VOLUME 95.2 FL (80.0-94.0); MEAN PLATELET VOLUME 8.7 FL (7.4-10.4); PLATELET COUNT 353 /CUMM (130-400); RBC DISTRIBUTION WIDTH 13.7 % (11.5-14.5); RED BLOOD CELL CT 4.57 /CUMM (4.70-6.10); WHITE BLOOD CELL COUNT 13.1 /CUMM (4.8-10.8)
--- NOTE | 2017-06-21 14:34 | PN- Infect Dx ---
Subjective Subjective: Afebrile without complaints Objective Last 24 Hrs of Vital Signs/I&O Vital Signs Date Time Temp Pulse Resp B/P B/P Pulse O2 O2 Flow FiO2 Mean Ox Delivery Rate 06/21 1322 56 154/86 06/21 1322 56 156/84 06/21 0653 97.6 56 20 144/86 95 06/21 0548 56 144/86 06/207 67 06/20 2146 67 150/90 06/20 2140 67 150/90 94 Room Air 06/20 1508 98.3 20 Intake & Output 06/21 1600 06/21 0800 06/21 0000 Intake Total 440 240 Output Total Balance 440 240 Intake, IV 200 Intake, Oral 240 240 Physical Exam Other Physical Findings: He is lethargic but responsive in no acute distress Extremities dressings intact over both feet Results Last 24 Hours of Lab Results: Laboratory Tests 06/21 0700 Chemistry Sodium (137 - 145 mmol/L) 146 H Potassium (3.5 - 5.1 mmol/L) 3.3 L Chloride (98 - 107 mmol/L) 104 Carbon Dioxide (22 - 30 mmol/L) 33 H Anion Gap (5 - 16) 9 BUN (9 - 20 mg/dL) 22 H Creatinine (0.7 - 1.2 mg/dL) 0.9 Estimated GFR (>60 ml/min) > 60 BUN/Creatinine Ratio (7 - 25 %) 24.4 Hematology CBC w Diff NO MAN DIFF REQ WBC (4.8 - 10.8 /CUMM) 13.1 H RBC (4.70 - 6.10 /CUMM) 4.57 L Hgb (14.0 - 18.0 G/DL) 14.5 Hct (42 - 52 %) 43.5 MCV (80.0 - 94.0 FL) 95.2 H MCH (27.0 - 31.0 PG) 31.8 H MCHC (33.0 - 37.0 G/DL) 33.3 RDW (11.5 - 14.5 %) 13.7 Plt Count (130 - 400 /CUMM) 353 MPV (7.4 - 10.4 FL) 8.7 Gran % (42.2 - 75.2 %) 73.6 Lymphocytes % (20.5 - 51.1 %) 15.7 L Monocytes % (1.7 - 9.3 %) 8.2 Eosinophils % (0 - 5 %) 1.8 Basophils % (0.0 - 2.0 %) 0.7 Absolute Granulocytes (1.4 - 6.5 /CUMM) 9.7 H Absolute Lymphocytes (1.2 - 3.4 /CUMM) 2.1 Absolute Monocytes (0.10 - 0.60 /CUMM) 1.1 H Absolute Eosinophils (0.0 - 0.7 /CUMM) 0.2 Absolute Basophils (0.0 - 0.2 /CUMM) 0.1 Last 24 Hours of Efren Results: No new cultures Assessment/Plan ID Impression: Stable, with temperatures remaining normal, but with a persistent, though mild, leukocytosis of unclear etiology now 5 days status post amputation of the right second toe, with the pathology revealing a clean bone margin, and the left second and third toes, with the pathology of these toes negative for osteomyelitis. He remains on Vancomycin for MRSA, which was isolated from the OR culture of the right second toe, but, as there is not felt to be any residual osteomyelitis, he should only require a short course for possible residual soft tissue infection. The coag-negative Staph and diphtheroids, which were also isolated from the OR cultures, likely represent contaminants. Suggestion: 1. Further management of his wounds per Podiatry 2. Discontinue Vancomycin and follow off antibiotics
[2017-06-21 15:30] VITALS: BP 135/64
--- NOTE | 2017-06-21 15:56 | PN- Psychiatry ---
Assessment/Plan Impression: The patient is still agitated at times and is in 4 point soft restraints. We would like to start Depakote Sprinkles or liquid to help with his mood disturbance. Platelets are 353 on 06/21/17; we will order baseline amylase and ammonia. If these last two are elevated, please advise us before starting Depakote. Suggestion: 1. I have ordered amylase and ammonia levels. If these return WNL, the we will recommend starting Depakote Sprinkles 125 mg PO 3X/day. 2. If Depakote is started, please check a valproic acid level after nine uninterrupted doses. Results to myself. 3. Please hold quetiapine until the cause for the QTc prolongation is resolved, or cardiology comments on this and gives approval. We will continue to follow along. Subjective Subjective: The patient is awake, calm and delirious. He is cooperating in most of his care, but chews some of his medications. Review of Systems Neurological/Psychological: Reports: confusion. Objective Last 24 Hrs of Vital Signs/I&O Vital Signs Date Time Temp Pulse Resp B/P B/P Pulse O2 O2 Flow FiO2 Mean Ox Delivery Rate 06/21 1530 96.0 50 18 135/64 97 03/05 1322 56 154/86 03/05 1322 56 156/84 03/05 0653 97.6 56 20 144/86 95 03/05 0548 56 144/86 03/04 2147 67 03/04 2147 67 150/90 03/04 2140 67 150/90 94 Room Air Intake & Output 06/21 1600 06/21 0800 03 0000 Intake Total 970 440 240 Output Total Balance 970 440 240 Intake, IV 250 200 Intake, Oral 720 240 240 Physical Exam: Not performed Physical Exam General Appearance: no apparent distress, alert, awake Current Medications: Current Medications Sig/Sandra Start time Last Medication Dose Route Stop Time Status Admin Acetaminophen 650 MG Q6P PRN 06/09 1830 AC PO Allopurinol 300 MG DAILY 06/09 1828 AC 06/21 PO 1102 Apixaban 5 MG 0900,1800 06/10 0900 AC 06/21 PO 1101 Aspirin Buffered 81 MG DAILY 06/09 1828 AC 06/21 PO 1101 Bisacodyl 10 MG Q12P PRN 06/13 1100 AC 06/19 [place] 2139 Diltiazem HCl 60 MG Q8 06/19 1130 AC 06/20 PO 214 Metoprolol Tartrate 25 MG BID 06/09 2200 AC 06/20 PO 214 Morphine Sulfate 2 MG Q6P PRN 06/16 1430 AC IV Polyethylene Glycol 17 GM DAILY PRN 06/11 0845 AC 06/13 PO 0901 Potassium Chloride 40 MEQ ONCE ONE 06/21 1900 AC PO 06/21 190 Potassium Chloride 40 MEQ ONCE ONE 06/21 0915 DC 06/21 PO 06/21 0916 1112 Quetiapine Fumarate 12.5 MG AT BEDTIME 06/18 220 AC 06/20 PO 214 Senna/Docusate Sodium 2 TAB DAILY PRN 06/09 1830 AC 06/13 PO 09 Sertraline HCl 25 MG DAILY 06/09 183 AC 06/21 PO 1102 Trazodone HCl 25 MG QPM 06/20 220 AC 06/20 PO 214 Vancomycin HCl 1,000 MG Q12 06/18 220 AC 06/21 Dextrose/Water 250 ML IV 1121 Results Last 24 Hrs of Labs/Mics: Laboratory Tests 06/21 0700 Chemistry Sodium (137 - 145 mmol/L) 146 H Potassium (3.5 - 5.1 mmol/L) 3.3 L Chloride (98 - 107 mmol/L) 104 Carbon Dioxide (22 - 30 mmol/L) 33 H Anion Gap (5 - 16) 9 BUN (9 - 20 mg/dL) 22 H Creatinine (0.7 - 1.2 mg/dL) 0.9 Estimated GFR (>60 ml/min) > 60 BUN/Creatinine Ratio (7 - 25 %) 24.4 Hematology CBC w Diff NO MAN DIFF REQ WBC (4.8 - 10.8 /CUMM) 13.1 H RBC (4.70 - 6.10 /CUMM) 4.57 L Hgb (14.0 - 18.0 G/DL) 14.5 Hct (42 - 52 %) 43.5 MCV (80.0 - 94.0 FL) 95.2 H MCH (27.0 - 31.0 PG) 31.8 H MCHC (33.0 - 37.0 G/DL) 33.3 RDW (11.5 - 14.5 %) 13.7 Plt Count (130 - 400 /CUMM) 353 MPV (7.4 - 10.4 FL) 8.7 Gran % (42.2 - 75.2 %) 73.6 Lymphocytes % (20.5 - 51.1 %) 15.7 L Monocytes % (1.7 - 9.3 %) 8.2 Eosinophils % (0 - 5 %) 1.8 Basophils % (0.0 - 2.0 %) 0.7 Absolute Granulocytes (1.4 - 6.5 /CUMM) 9.7 H Absolute Lymphocytes (1.2 - 3.4 /CUMM) 2.1 Absolute Monocytes (0.10 - 0.60 /CUMM) 1.1 H Absolute Eosinophils (0.0 - 0.7 /CUMM) 0.2 Absolute Basophils (0.0 - 0.2 /CUMM) 0.1
[2017-06-21 21:30] VITALS: BP 170/100
[2017-06-22 07:32] VITALS: BP 140/90
[2017-06-22 08:02] LABS: ABSOLUTE BASOPHIL COUNT 0.1 /CUMM (0.0-0.2); ABSOLUTE EOSINOPHIL COUNT 0.2 /CUMM (0.0-0.7); ABSOLUTE LYMPH COUNT 2.4 /CUMM (1.2-3.4); BASOPHIL % 0.5 % (0.0-2.0); EOSINOPHIL % 1.8 % (0-5); GRANULOCYTE % 72.7 % (42.2-75.2); HEMATOCRIT 43.5 % (42-52); MEAN CORPUSCULAR HGB 31.5 PG (27.0-31.0); MEAN CORPUSCULAR HGB CONC 33.3 G/DL (33.0-37.0); MEAN CORPUSCULAR VOLUME 94.5 FL (80.0-94.0); MEAN PLATELET VOLUME 8.7 FL (7.4-10.4); PLATELET COUNT 354 /CUMM (130-400); RBC DISTRIBUTION WIDTH 14.1 % (11.5-14.5); RED BLOOD CELL CT 4.61 /CUMM (4.70-6.10); WHITE BLOOD CELL COUNT 13.7 /CUMM (4.8-10.8)
--- NOTE | 2017-06-22 11:02 | PN- Psychiatry ---
Assessment/Plan Impression: Quetiapine had been held due to QTc prolongation, which has now resolved, and the medication has been restarted by the team. EKG 06/22/17 @ 0638: 51 bpm, SR, QTc 472 mS, and below the suggested maximum of 475 mS. Before starting Depakote for mood, we checked platelets, liver function, amylase and ammonia, all within normal limits. Suggestion: 1. Continue quetiapine 12.5 mg PO q PM. Hold for oversedation or respiratory depression, QTc greater than 475 mS, hypokalemia or hypomagnesemia. 2. Start Depakote sprinkles 125 mg PO 3X/day. 3. I have ordered a surveillance valproic acid (Depakote) level for trough on 06/26/17, at 0800, which can be drawn just before the morning dose of Depakote. Results to myself. 4. Continue trazodone 25 mg PO q PM for insomnia. 5. Continue sertraline 25 mg PO daily 6. Avoid benzodiazepines, anticholinergics and delirium triggers. We will continue to follow along. Subjective Subjective: The patient is calm and cooperative sitting in his bed in a Shweta vest and 4 point soft restraints. His supportive and his 1:1 safety monitor are present. The patient is pleasantly confused, and provides disorganized answers to most questions. He is able to tell me his name, and part of his birthday, but not year. Review of Systems Neurological/Psychological: Reports: confusion. Objective Last 24 Hrs of Vital Signs/I&O Vital Signs Date Time Temp Pulse Resp B/P B/P Pulse O2 O2 Flow FiO2 Mean Ox Delivery Rate 06/22 1002 52 140/90 / 0732 97.5 52 20 140/90 97 /06 0641 97.5 52 20 140/90 /06 0000 99 Room Air /05 2242 80 170/100 03/05 2242 80 170/100 03/05 2158 97.6 80 20 99 Room Air / 2130 80 170/100 03/05 1530 96.0 50 18 135/64 97 03/05 1322 56 154/86 03/05 1322 56 156/84 Intake & Output 06/22 1600 06/22 0800 03 0000 Intake Total 100 Output Total Balance 100 Intake, IV 0 Intake, Oral 100 Number 0 2 Bowel Movements Output, Urine Physical Exam: Not performed Physical Exam General Appearance: no apparent distress, alert, awake, comfortable Current Medications: Current Medications Sig/Sandra Start time Last Medication Dose Route Stop Time Status Admin Acetaminophen 650 MG Q6P PRN 06/09 1830 AC PO Allopurinol 300 MG DAILY 06/09 182 AC 06/22 PO 0823 Apixaban 5 MG 0900,1800 06/10 0900 AC 06/22 PO 0823 Aspirin Buffered 81 MG DAILY 06/09 182 AC 06/22 PO 1003 Bisacodyl 10 MG Q12P PRN 06/13 1100 AC 06/19 [place] 2139 Diltiazem HCl 60 MG Q8 06/19 1130 AC 06/22 PO 0641 Divalproex Sodium 125 MG TID 06/22 1000 AC PO Metoprolol Tartrate 25 MG BID 06/09 220 AC 06/22 PO 1002 Morphine Sulfate 2 MG Q6P PRN 06/16 1430 AC IV Polyethylene Glycol 17 GM DAILY PRN 06/11 0845 AC 06/13 PO 0901 Potassium Chloride 40 MEQ ONCE ONE 06/22 1900 AC PO 06/22 1901 Potassium Chloride 40 MEQ ONCE ONE 06/22 0930 DC PO 06/22 0931 Potassium Chloride 40 MEQ ONCE ONE 06/21 1900 DC 06/21 PO 06/21 1901 1908 Quetiapine Fumarate 12.5 MG AT BEDTIME 06/22 2199 AC PO Quetiapine Fumarate 12.5 MG AT BEDTIME 06/18 220 DC 06/20 PO 2147 Senna/Docusate Sodium 2 TAB DAILY PRN 06/09 183 AC 06/13 PO 0901 Sertraline HCl 25 MG DAILY 06/09 183 AC 06/22 PO 1002 Trazodone HCl 25 MG QPM 06/20 220 AC 06/21 PO 2241 Vancomycin HCl 1,000 MG Q12 06/18 220 DC 06/21 Dextrose/Water 250 ML IV 1121 Results Last 24 Hrs of Labs/Mics: Laboratory Tests 06/22 0740 Chemistry Sodium (137 - 145 mmol/L) 145 Potassium (3.5 - 5.1 mmol/L) 3.7 Chloride (98 - 107 mmol/L) 109 H Carbon Dioxide (22 - 30 mmol/L) 27 Anion Gap (5 - 16) 8 BUN (9 - 20 mg/dL) 26 H Creatinine (0.7 - 1.2 mg/dL) 0.7 Estimated GFR (>60 ml/min) > 60 BUN/Creatinine Ratio (7 - 25 %) 37.1 H Ammonia (9 - 30 umol/L) 9 Hematology CBC w Diff NO MAN DIFF REQ WBC (4.8 - 10.8 /CUMM) 13.7 H RBC (4.70 - 6.10 /CUMM) 4.61 L Hgb (14.0 - 18.0 G/DL) 14.5 Hct (42 - 52 %) 43.5 MCV (80.0 - 94.0 FL) 94.5 H MCH (27.0 - 31.0 PG) 31.5 H MCHC (33.0 - 37.0 G/DL) 33.3 RDW (11.5 - 14.5 %) 14.1 Plt Count (130 - 400 /CUMM) 354 MPV (7.4 - 10.4 FL) 8.7 Gran % (42.2 - 75.2 %) 72.7 Lymphocytes % (20.5 - 51.1 %) 17.5 L Monocytes % (1.7 - 9.3 %) 7.5 Eosinophils % (0 - 5 %) 1.8 Basophils % (0.0 - 2.0 %) 0.5 Absolute Granulocytes (1.4 - 6.5 /CUMM) 10.0 H Absolute Lymphocytes (1.2 - 3.4 /CUMM) 2.4 Absolute Monocytes (0.10 - 0.60 /CUMM) 1.0 H Absolute Eosinophils (0.0 - 0.7 /CUMM) 0.2 Absolute Basophils (0.0 - 0.2 /CUMM) 0.1 06/22/17: Platelets 354, ammonia 9 06/19/17: Amylase 56
--- NOTE | 2017-06-22 11:21 | PN- Housestaff ---
Pedro Kebede MD,[facility] 06/22/17 1120: Subjective Follow-up For: chornic bilateral toes wound Osteomyelitis s/p surgery Subjective: Summary: Underwent 2nd toe right side, 2nd and 3rd left side toe on 06/16 Culture from surgery: L: Staph coag neg: sens to Tetra R: Diph, Staph coag neg: sens to Tetra, MRSA sens to Tetra Report from surgery: clean cut Recieved: Unasyn 05/20/ to 04/21 Vanc 2/2pm to 05/24 Pending placement Evaluation today: Patient visited today, was lying in bed in no acute distress, was relatively confused, not oriented, restraints in place. Will re-evalaute during the day regaring need for restraints. No fever or chills, no shortness of breathing, no chest pain, no other events. EKG 472 qtc, K repleted, will start on seroquel Review of Systems Constitutional: Reports: see HPI. Objective Last 24 Hrs of Vital Signs/I&O Vital Signs Date Time Temp Pulse Resp B/P B/P Pulse O2 O2 Flow FiO2 Mean Ox Delivery Rate 06/22 1002 52 140/90 03/06 0732 97.5 52 20 140/90 97 03/06 0641 97.5 52 20 140/90 03/06 0000 99 Room Air 03/05 2242 80 170/100 03/05 2242 80 170/100 03/05 2158 97.6 80 20 99 Room Air 03/05 2130 80 170/100 03/05 1530 96.0 50 18 135/64 97 03/05 1322 56 154/86 03/05 1322 56 156/84 Intake & Output 06/22 1600 / 0800 03/ 0000 Intake Total 100 Output Total Balance 100 Intake, IV 0 Intake, Oral 100 Number 0 2 Bowel Movements Output, Urine Physical Exam General Appearance: No Acute Distress, Confused, not oriented Skin: s/p bilateral toe surgery Skin Temp/Moisture Exam: Warm/Dry Sepsis Skin Exam (color): Normal for Ethnicity Cardiovascular: Normal S1, Normal S2 Lungs: Clear to Auscultation, Normal Air Movement Abdomen: Soft, No Tenderness Neurological: Strength at 5/5 X4 Ext Extremities: No Edema Current Medications: Current Medications Sig/Sandra Start time Last Medication Dose Route Stop Time Status Admin Acetaminophen 650 MG Q6P PRN 06/09 1830 AC PO Allopurinol 300 MG DAILY 06/09 182 AC 06/22 PO 0823 Apixaban 5 MG 0900,1800 06/10 0900 AC 06/22 PO 0823 Aspirin Buffered 81 MG DAILY 06/09 1829 AC 06/22 PO 1003 Bisacodyl 10 MG Q12P PRN 06/13 1100 AC 06/19 [place] 2139 Diltiazem HCl 60 MG Q8 06/19 1130 AC 06/22 PO 0641 Divalproex Sodium 125 MG TID 06/22 1000 AC 06/22 PO 1200 Metoprolol Tartrate 25 MG BID 06/09 220 AC 06/22 PO 1002 Morphine Sulfate 2 MG Q6P PRN 06/16 1430 AC IV Polyethylene Glycol 17 GM DAILY PRN 06/11 0845 AC 06/13 PO 0901 Potassium Chloride 40 MEQ ONCE ONE 06/22 1900 AC PO 06/22 1901 Potassium Chloride 40 MEQ ONCE ONE 06/22 0930 DC 06/22 PO 06/22 0931 1200 Potassium Chloride 40 MEQ ONCE ONE 06/21 1900 DC 06/21 PO 06/21 1901 1908 Quetiapine Fumarate 12.5 MG AT BEDTIME 06/22 220 AC PO Quetiapine Fumarate 12.5 MG AT BEDTIME 06/18 220 DC 06/20 PO 2147 Senna/Docusate Sodium 2 TAB DAILY PRN 06/09 183 AC 06/13 PO 0901 Sertraline HCl 25 MG DAILY 06/09 1830 AC 06/22 PO 1002 Trazodone HCl 25 MG QPM 06/20 2200 AC 06/21 PO 2241 Vancomycin HCl 1,000 MG Q12 06/18 220 DC 06/21 Dextrose/Water 250 ML IV 1121 Last 24 Hrs of Lab/Efren Results Last 24 Hrs of Labs/Mics: Laboratory Tests 06/22/17 0740: Anion Gap 8, Estimated GFR > 60, BUN/Creatinine Ratio 37.1 H, Ammonia 9, CBC w Diff NO MAN DIFF REQ, RBC 4.61 L, MCV 94.5 H, MCH 31.5 H, MCHC 33.3, RDW 14.1 , MPV 8.7, Gran % 72.7, Lymphocytes % 17.5 L, Monocytes % 7.5, Eosinophils % 1.8, Basophils % 0.5, Absolute Granulocytes 10.0 H, Absolute Lymphocytes 2.4, Absolute Monocytes 1.0 H, Absolute Eosinophils 0.2, Absolute Basophils 0.1 Assessment/Plan Assessment: Patient is 81-year-old male referred for evaluation of bilateral toes chronic wounds PMH: HTN, afib on Eliquise, advanced primary progressive aphasia, idiopathic neuropathy, HTN, hyperuricemia/gout and uric acids nephrolithiasis on allopurinol VS, Ph Ex at admission: BP 150/77, IN 58, RR 18, no fever Labs at admission: WBC 11.5, Hgb 13.3, ESR 14, potassium 3.1, Cr 0.8 Imagings at admission: Foot xray: Exam is very limited by technique and patient positioning. Possible partial erosion of the distal tuft of the distal second right phalanx. If there is high clinical suspicion, consider a bone scan for further assessment. Hypertrophic spurs along the latter aponeurosis insertion of the calcaneus bilaterally and the left Achilles insertion. Patient was admitted to general medicine floor for management of following conditions: Chronic toes wounds Cellulitis, r/o osteomyelitis we will start antibiotics for cellulitis, and rule out osteomyelitis which is probable considering ESR and xray MRI of the feet done: Left: Abnormal findings suspicious for osteomyelitis involving the second, third, fourth distal phalanges. Associated soft tissue edema from cellulitis. Rigth foot: 1. Edema in the soft tissues of the second, third, fourth toes, more prominent second toe, which would be compatible with cellulitis in the appropriate clinical circumstance. 2. Abnormal findings highly suspicious for osteomyelitis involving the second distal phalanx. 3. Mild edema in the third distal phalanx, favoring reactive edema, with early osteomyelitis not excluded. 4. Abnormal findings in the fourth distal phalanx, suspicious for early osteomyelitis. - Continue admission to floor - s/p surgery as noted above - aquatic centre manager consulted regarding placement - Vanc discontinued - follow ID Hypokalemia repleted - continue to monitor Chronic medical conditions: HTN, afib on Eliquise, advanced primary progressive aphasia, idiopathic neuropathy, HTN, hyperuricemia/gout We will cotinue home medication. - Continue allopurinol, seroquel, zoloft, treazadone - continue Eliquise, metoprolol, diltiazem Agitation/Dementia Chronic, related to dementia - Consider Seroquel - restraint with evalaution Heart healthy diet DNR/DNI DVT ppx: THEA [place] Problem List: 1. Osteomyelitis 2. Altered mental state Pain Ratin Pain Location: None Pain Goal: Pain 4 or less Pain Plan: Continue current plan Tomorrow's Labs & Rationales: TENNILLE Tashi Youssef 06/22/17 1158: Attending MD Review Statement Attending Statement Attending MD Statement: examined this patient, discuss w/resident/PA/EXAMINATION SCORER, agreed w/resident/PA/EXAMINATION SCORER, discussed with family, reviewed EMR data (avail), discussed with nursing, discussed with case mgmt, reviewed images, amended to note Attending Assessment/Plan: Patient seen and examined at bedside. Agree with resident assessment and plan. Patient is still confused and agitated. Afebrile, stable vitals. Completed antibiotic management, follow ID and podiatry recommendations, Added depakote and continue low dose seroquel as per leydi. EKG QTc 472. Potassium supplementation as required. continue current medications, DVT PPx. discharge planning case management aware.
[2017-06-22 14:04] VITALS: BP 132/68
[2017-06-22 22:31] VITALS: BP 140/78
[2017-06-23 06:46] VITALS: BP 136/80
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
[2017-06-23 16:00] VITALS: BP 138/28
[2017-06-23 21:47] VITALS: BP 163/76
[2017-06-24 06:50] VITALS: BP 132/80
--- NOTE | 2017-06-24 07:55 | PN- Housestaff ---
Pedro Kebede MD,[facility] 06/24/17 0755: Subjective Follow-up For: bilateral toes osteomyelitis status post surgery Agitation Subjective: Underwent 2nd toe right side, 2nd and 3rd left side toe on 06/16 Culture from surgery: L: Staph coag neg: sens to Tetra R: Diph, Staph coag neg: sens to Tetra, MRSA sens to Tetra Report from surgery: clean cut Recieved: Unasyn 05/20/ to 04/21 Vanc 2/2pm to 05/24 Pending placement Patient visited today, was lying in bed comfortably in no acute distress, was alert not oriented which is his baseline. No fever or chills, no shortness of breathing, no chest pain, no other events. Yesterday soft restraints were discontinued. We plan to discontinue Freestone today in preparation to discharge. Contacted Dr Morales, informed there is no need for dressing change and need to follow in 1w in wound care center. Review of Systems Constitutional: Reports: see HPI. Objective Last 24 Hrs of Vital Signs/I&O Vital Signs Date Time Temp Pulse Resp B/P B/P Pulse O2 O2 Flow FiO2 Mean Ox Delivery Rate 06/24 0650 97.5 49 20 132/80 97 Room Air 06/24 0601 70 132/70 06/23 2147 98.8 58 18 163/76 97 06/23 2109 62 160/70 06/23 2109 62 160/70 06/23 1600 97.8 70 18 138/28 97 Room Air 06/23 1233 70 138/78 06/23 0928 64 140/80 Intake & Output 06/24 1600 06/24 0800 06/24 0000 Intake Total 240 120 Output Total Balance 240 120 Intake, Oral 240 120 Physical Exam General Appearance: Alert, No Acute Distress, not oriented, not agitated but doest follow orders. Skin: bilateral toes s/p amputation, dressing changed. Skin Temp/Moisture Exam: Warm/Dry Sepsis Skin Exam (color): Normal for Ethnicity HEENT: Atraumatic, EOMI, Mucous Membr. moist/pink Cardiovascular: Normal S1, Normal S2, irregular, irregular Lungs: Clear to Auscultation, Normal Air Movement Abdomen: Soft, No Tenderness Extremities: No Edema, as noted above s/p surgery, dressing in place Current Medications: Current Medications Sig/Sandra Start time Last Medication Dose Route Stop Time Status Admin Acetaminophen 650 MG Q6P PRN 06/09 1830 AC PO Allopurinol 300 MG DAILY 06/09 182 AC 06/23 PO 09 Apixaban 5 MG 0900,1800 06/10 0900 AC 06/23 PO 1535 Aspirin Buffered 81 MG DAILY 06/09 182 AC 06/23 PO 0927 Bisacodyl 10 MG Q12P PRN 06/13 1100 AC 06/19 [place] 2139 Diltiazem HCl 60 MG Q8 06/19 1130 AC 06/24 PO 0601 Divalproex Sodium 125 MG TID 06/22 1000 AC 06/23 PO 210 Metoprolol Tartrate 25 MG BID 06/09 220 AC 06/23 PO 210 Morphine Sulfate 2 MG Q6P PRN 06/16 1430 DC IV Polyethylene Glycol 17 GM DAILY PRN 06/11 0845 AC 06/13 PO 09 Potassium Chloride 40 MEQ ONCE ONE 06/23 0915 DC 06/23 PO 06/23 0916 1000 Potassium Chloride 40 MEQ ONCE ONE 06/23 0815 DC PO 06/23 0916 Quetiapine Fumarate 12.5 MG AT BEDTIME 06/22 220 AC 06/23 PO 211 Senna/Docusate Sodium 2 TAB DAILY PRN 06/09 183 AC 06/23 PO 2110 Sertraline HCl 25 MG DAILY 06/09 183 AC 06/23 PO 09 Trazodone HCl 25 MG QPM 06/20 220 AC 06/23 PO 210 Last 24 Hrs of Lab/Efren Results Last 24 Hrs of Labs/Mics: Laboratory Tests 06/24/17 0720: Sodium Pending, Potassium Pending, Chloride Pending, Carbon Dioxide Pending, Anion Gap Pending, BUN Pending, Creatinine Pending, BUN/Creatinine Ratio Pending Assessment/Plan Assessment: Patient is 81-year-old male referred for evaluation of bilateral toes chronic wounds PMH: HTN, afib on Eliquise, advanced primary progressive aphasia, idiopathic neuropathy, HTN, hyperuricemia/gout and uric acids nephrolithiasis on allopurinol VS, Ph Ex at admission: BP 150/77, NJ 58, RR 18, no fever Labs at admission: WBC 11.5, Hgb 13.3, ESR 14, potassium 3.1, Cr 0.8 Imagings at admission: Foot xray: Exam is very limited by technique and patient positioning. Possible partial erosion of the distal tuft of the distal second right phalanx. If there is high clinical suspicion, consider a bone scan for further assessment. Hypertrophic spurs along the latter aponeurosis insertion of the calcaneus bilaterally and the left Achilles insertion. Patient was admitted to general medicine floor for management of following conditions: Chronic toes wounds Cellulitis, r/o osteomyelitis we will start antibiotics for cellulitis, and rule out osteomyelitis which is probable considering ESR and xray MRI of the feet done: Left: Abnormal findings suspicious for osteomyelitis involving the second, third, fourth distal phalanges. Associated soft tissue edema from cellulitis. Rigth foot: 1. Edema in the soft tissues of the second, third, fourth toes, more prominent second toe, which would be compatible with cellulitis in the appropriate clinical circumstance. 2. Abnormal findings highly suspicious for osteomyelitis involving the second distal phalanx. 3. Mild edema in the third distal phalanx, favoring reactive edema, with early osteomyelitis not excluded. 4. Abnormal findings in the fourth distal phalanx, suspicious for early osteomyelitis. - Continue admission to GM floor - s/p surgery as noted above - manager document control consulted regarding placement - Vanc discontinued Hypokalemia repleted - continue to monitor Chronic medical conditions: HTN, afib on Eliquise, advanced primary progressive aphasia, idiopathic neuropathy, HTN, hyperuricemia/gout We will cotinue home medication. - Continue allopurinol, seroquel, zoloft, treazadone - continue Eliquise, metoprolol, diltiazem -Discharge planning after being stable Agitation/Dementia Chronic, related to dementia - Consider Seroquel - restraint with evalaution - Continue Depakot according to psych Heart healthy diet DNR/DNI DVT ppx: Eliquise, ALPS Problem List: 1. Agitation 2. Dementia 3. Osteomyelitis 4. Cellulitis Pain Ratin Pain Location: None Pain Goal: Pain 4 or less Pain Plan: Continue current plan Tomorrow's Labs & Rationales: Tashi Sheppard 06/24/17 1126: Attending MD Review Statement Attending Statement Attending MD Statement: examined this patient, discuss w/resident/PA/CLINICAL INFORMATICS PHYSICIAN, agreed w/resident/PA/CLINICAL INFORMATICS PHYSICIAN, discussed with family, reviewed EMR data (avail), discussed with nursing, discussed with case mgmt, reviewed images, amended to note Attending Assessment/Plan: Patient is calm and off restrains today. Patient is on depakote and low dose seroquel. Patient needs to follow up with podairty. Primary caregiver his . Cont current care.
[2017-06-24 14:44] VITALS: BP 138/82
[2017-06-24 22:13] VITALS: BP 140/60
[2017-06-25 06:46] VITALS: BP 112/68
--- NOTE | 2017-06-25 08:16 | PN- Housestaff ---
See Addendum Pedro Kebede MD,[facility] 06/25/17 0816: Subjective Follow-up For: bilateral toes osteomyelitis status post surgery Agitation Subjective: Underwent 2nd toe right side, 2nd and 3rd left side toe on 06/16 Culture from surgery: L: Staph coag neg: sens to Tetra R: Diph, Staph coag neg: sens to Tetra, MRSA sens to Tetra Report from surgery: clean cut Recieved: Unasyn 05/20/ to 04/21 Vanc 2/2pm to 05/24 Pending placement. Patient visited today, was lying in bed comfortably in no acute distress, was alert not oriented which is his baseline. No fever or chills, no shortness of breathing, no chest pain, no other events. restraints are DCed, patient tolerated, no Contacted Dr Morales, informed there is no need for dressing change and need to follow in 1w in wound care center. Patient was planned to be discharged pending placement. EKG repeated in AM: QTC 450 WBC high chronically Review of Systems Constitutional: Reports: see HPI. Objective Last 24 Hrs of Vital Signs/I&O Vital Signs Date Time Temp Pulse Resp B/P B/P Pulse O2 O2 Flow FiO2 Mean Ox Delivery Rate 06/25 0855 56 114/68 06/25 0646 97.8 54 18 112/68 97 06/25 0529 54 112/68 06/24 2213 97.7 52 18 140/60 100 Room Air 06/24 2137 52 140/60 06/24 2137 52 140/60 06/24 1520 96.9 53 18 138/82 06/24 1444 96.9 53 18 138/82 97 Room Air Intake & Output 06/25 1600 06/25 0800 06/25 0000 Intake Total 240 240 Output Total Balance 240 240 Intake, Oral 240 240 Physical Exam General Appearance: Cooperative, No Acute Distress Skin: s/p surgery bilateral Skin Temp/Moisture Exam: Warm/Dry Sepsis Skin Exam (color): Normal for Ethnicity HEENT: Atraumatic, Mucous Membr. moist/pink Cardiovascular: Normal S1, Normal S2 (irreg ireg) Lungs: Clear to Auscultation, Normal Air Movement Abdomen: Soft, No Tenderness Extremities: No Edema, as noted above, dressing changed Current Medications: Current Medications Sig/Sandra Start time Last Medication Dose Route Stop Time Status Admin Acetaminophen 650 MG Q6P PRN 06/09 1830 AC PO Allopurinol 300 MG DAILY 06/09 182 AC 06/25 PO 0855 Apixaban 5 MG 0900,1800 06/10 0900 AC 06/25 PO 0855 Aspirin Buffered 81 MG DAILY 06/09 182 AC 06/25 PO 0855 Bisacodyl 10 MG Q12P PRN 06/13 1100 AC 06/19 [place] 2139 Diltiazem HCl 60 MG Q8 06/19 1130 AC 06/25 PO 0529 Divalproex Sodium 125 MG TID 06/22 1000 AC 06/25 PO 0855 Metoprolol Tartrate 12.5 MG BID 06/25 1000 AC PO Metoprolol Tartrate 25 MG BID 06/09 2200 DC 06/25 PO 0855 Polyethylene Glycol 17 GM DAILY PRN 06/11 0845 AC 06/24 PO 1520 Quetiapine Fumarate 12.5 MG AT BEDTIME 06/22 220 AC 06/24 PO 2137 Senna/Docusate Sodium 2 TAB DAILY PRN 06/09 183 AC 06/23 PO 2110 Sertraline HCl 25 MG DAILY 06/09 183 AC 06/25 PO 0855 Trazodone HCl 25 MG QPM 06/20 220 AC 06/24 PO 2137 Last 24 Hrs of Lab/Efren Results Last 24 Hrs of Labs/Mics: Laboratory Tests 06/25/17 0815: CBC w Diff NO MAN DIFF REQ, RBC 4.25 L, MCV 93.6, MCH 31.4 H, MCHC 33.6, RDW 13.6, MPV 8.4, Gran % 76.4 H, Lymphocytes % 15.3 L, Monocytes % 6.4, Eosinophils % 1.5, Basophils % 0.4, Absolute Granulocytes 10.7 H, Absolute Lymphocytes 2.2, Absolute Monocytes 0.9 H, Absolute Eosinophils 0.2, Absolute Basophils 0.1 06/25/17 0708: Anion Gap 12, Estimated GFR > 60, BUN/Creatinine Ratio 37.5 H Assessment/Plan Assessment: Patient is 81-year-old male referred for evaluation of bilateral toes chronic wounds PMH: HTN, afib on Eliquise, advanced primary progressive aphasia, idiopathic neuropathy, HTN, hyperuricemia/gout and uric acids nephrolithiasis on allopurinol VS, Ph Ex at admission: BP 150/77, AK 58, RR 18, no fever Labs at admission: WBC 11.5, Hgb 13.3, ESR 14, potassium 3.1, Cr 0.8 Imagings at admission: Foot xray: Exam is very limited by technique and patient positioning. Possible partial erosion of the distal tuft of the distal second right phalanx. If there is high clinical suspicion, consider a bone scan for further assessment. Hypertrophic spurs along the latter aponeurosis insertion of the calcaneus bilaterally and the left Achilles insertion. Patient was admitted to general medicine floor for management of following conditions: Chronic toes wounds Cellulitis, r/o osteomyelitis we will start antibiotics for cellulitis, and rule out osteomyelitis which is probable considering ESR and xray MRI of the feet done: Left: Abnormal findings suspicious for osteomyelitis involving the second, third, fourth distal phalanges. Associated soft tissue edema from cellulitis. Rigth foot: 1. Edema in the soft tissues of the second, third, fourth toes, more prominent second toe, which would be compatible with cellulitis in the appropriate clinical circumstance. 2. Abnormal findings highly suspicious for osteomyelitis involving the second distal phalanx. 3. Mild edema in the third distal phalanx, favoring reactive edema, with early osteomyelitis not excluded. 4. Abnormal findings in the fourth distal phalanx, suspicious for early osteomyelitis. - Plan to discharge pending placement - s/p surgery as noted above - manager secondary consulted regarding placement - Vanc discontinued Hypokalemia repleted - continue to monitor Chronic medical conditions: HTN, afib on Eliquise, advanced primary progressive aphasia, idiopathic neuropathy, HTN, hyperuricemia/gout We will cotinue home medication. - Continue allopurinol, seroquel, zoloft, treazadone - continue Eliquise, metoprolol, diltiazem -Discharge planning after being stable Agitation/Dementia Chronic, related to dementia - Consider Seroquel - restraint with evalaution - Continue Depakot according to psych Heart healthy diet DNR/DNI DVT ppx: Eliquise, ALPS Patient was stable to be discharged pending placement with recommendations below (pending placement): Please follow with your PCP within one week of discharge. Please follow with Dr. Eugene in wound care center for removing the stitches and evaluation of the surgical site. Please follow with outpatient psychiatry Center within 1 week of discharge. Please do your blood work as ordered on 06/26/17, at 0800 and have the results with you Please take your medications as ordered. These come back to hospital if symptoms worsen Problem List: 1. Osteomyelitis 2. Cellulitis 3. Agitation Pain Ratin Pain Location: none Pain Goal: Pain 4 or less Pain Plan: continue current plan Tomorrow's Labs & Rationales: CBC BEP Tashi Youssef 06/25/17 1131: Attending MD Review Statement Attending Statement Attending MD Statement: examined this patient, discuss w/resident/PA/FORENSIC PHOTOGRAPHER, agreed w/resident/PA/FORENSIC PHOTOGRAPHER, discussed with family, reviewed EMR data (avail), discussed with nursing, discussed with case mgmt, reviewed images, amended to note Attending Assessment/Plan: Patient is calm and off restrains. Patient is on depakote and low dose seroquel. EKG with sinus bradycardia and QTc 450. Will reduce metoprolol to 12.5 bid. Patient needs to follow up with podairty at wound center next week. Primary caregiver his . Cont current care.
[2017-06-25 08:27] LABS: ABSOLUTE BASOPHIL COUNT 0.1 /CUMM (0.0-0.2); ABSOLUTE EOSINOPHIL COUNT 0.2 /CUMM (0.0-0.7); ABSOLUTE GRANULOCYTE CT 10.7 /CUMM (1.4-6.5); ABSOLUTE LYMPH COUNT 2.2 /CUMM (1.2-3.4); ABSOLUTE MONOCYTE COUNT 0.9 /CUMM (0.10-0.60); BASOPHIL % 0.4 % (0.0-2.0); EOSINOPHIL % 1.5 % (0-5); GRANULOCYTE % 76.4 % (42.2-75.2); HEMATOCRIT 39.8 % (42-52); MEAN CORPUSCULAR HGB 31.4 PG (27.0-31.0); MEAN CORPUSCULAR HGB CONC 33.6 G/DL (33.0-37.0); MEAN CORPUSCULAR VOLUME 93.6 FL (80.0-94.0); MEAN PLATELET VOLUME 8.4 FL (7.4-10.4); PLATELET COUNT 290 /CUMM (130-400); RBC DISTRIBUTION WIDTH 13.6 % (11.5-14.5); RED BLOOD CELL CT 4.25 /CUMM (4.70-6.10)
[2017-06-25] MEDS ORDERED: DEPAKOTE SPRIN125 M1 PO (08:45)
[2017-06-25] MEDS ORDERED: QUETIAPINE FUMA25 M1 PO (08:45)
--- NOTE | 2017-06-25 08:53 | Patient Discharge Instructions ---
See Addendum Discharge Instructions General Discharge Information You were seen/treated for: Osteomyelitis Cellulitis Agitation You had these procedures: Amputation of toes bilateral Watch for these problems: Severe pain, palpitation, chest pain, shortness of breathing, dizziness, heart racing, agitation, fever or worsening of any other symptoms Call Surgeon to remove: Stitches, in one week in wound care center Special Instructions: Please follow with your PCP within one week of discharge. Please follow with Dr. Eugene in wound care center for removing the stitches and evaluation of the surgical site. Please follow with outpatient psychiatry Center within 1 week of discharge. Please do your blood work as ordered on 06/26/17, at 0800 and have the results with you Please take your medications as ordered. These come back to hospital if symptoms worsen Diet Continue normal diet: Yes (regular/ heart healthy) Activity Full Activity/No Limits: No Activity Self Limited: Yes (avoid long period walking) Acute Coronary Syndrome Inclusion Criteria At DC or during hospital stay patient has or had the following: ACS DIAGNOSIS No Discharge Core Measures Meds if any: Prescribed or Continued at Discharge Meds if any: NOT Prescribed or Continued at Discharge Congestive Heart Failure Inclusion Criteria At DC or during hospital stay patient has or had the following: CHF DIAGNOSIS No Discharge Core Measures Meds if any: Prescribed or Continued at Discharge Meds if any: NOT Prescribed or Continued at Discharge Cerebrovascular accident Inclusion Criteria At DC or during hospital stay patient has or had the following: CVA/TIA Diagnosis No Discharge Core Measures Meds if any: Prescribed or Continued at Discharge Meds if any: NOT Prescribed or Continued at Discharge Venous thromboembolism Inclusion Criteria VTE Diagnosis No VTE Type NONE VTE Confirmed by (Test) NONE Discharge Core Measures - Per Current guidelines, there needs to be overlap - treatment for the first 5 days of Warfarin therapy. - If discharged on Warfarin prior to 5 days of - overlap therapy, the patient will need to be - assessed for post discharge needs including - *Post discharge parental anticoagulation - *Warfarin and/or parental anticoagulation education - *Follow up date to check INR post discharge At least 5 days overlap therapy as Inpatient No Meds if any: Prescribed or Continued at Discharge Note: Overlap Therapy is Warfarin and Anticoagulant Meds if any: NOT Prescribed or Continued at Discharge
[2017-06-25] MEDS ORDERED: METOPROLOL TART25 M1 PO (09:55)
[2017-06-25 13:47] VITALS: BP 126/76
--- NOTE | 2017-06-25 15:14 | Discharge Summary ---
Visit Information Visit Dates Admission Date: 06/09/17 Discharge Date: 07/02/17 Hospital Course Course Attending Physician: Jacky Sultana MD Primary Care Physician: Dr. Fritz Carrillo Consulting Request: 1 Consulting Specialty: Infectious Disease Consulting Physician: Dr. Leavitt, Dr. Larry Reason for Consult: Osteomyelitis of toes Consulting Request: 2 Consulting Specialty: Podiatry Consulting Physician: Dr. 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 Vital Signs Date Time Temp Pulse Resp B/P B/P Pulse O2 O2 Flow FiO2 Mean Ox Delivery Rate 06/09 1412 97.9 58 18 150/77 99 Room Air Labs at admission: WBC 11.5, Hgb 13.3, ESR 14, potassium 3.1, Cr 0.8 Exam: General: Patient awake alert oriented without any distress CVS: S1 plus S2 without any murmur or gallops Chest: Few scattered crepitation without any wheeze. There is no respiratory distress. Abdomen: Soft non-tender, bowel sound present, no guarding or rebound TRADE CLERK: Awake alert oriented without any focal neuro deficit and follows commands appropriately Extremities: Bilateral open wounds of tips of toes are noted with a yellowish discharge. SERVICE DATE: 06/14/17- EXAM TYPE: MRI - MRI-LT FOOT W/O BULL EXAMINATION: MRI OF THE FOOT CLINICAL INFORMATION: Rule out osteomyelitis. Additional clinical history obtained from the clinician. Chronic ulcer on the tip of the second, third, fourth toes, rule out osteomyelitis. COMPARISON: X-ray 06/09/2017 TECHNIQUE: MRI in a high-field magnet without contrast. FINDINGS: Significant motion artifact on the short axis fluid sensitive sequence, limiting evaluation. There is abnormal edema diffusely in the second, third, fourth distal phalanx. There is subcortical low T1 signal present. The findings are suspicious for involvement by osteomyelitis. There is a edema in the soft tissues of the toes, presumably correlating with cellulitis. No focal fluid collections. The visualized tendons are grossly intact, motion artifact limiting evaluation. No significant tenosynovitis. Visualized plantar fascia appears unremarkable. IMPRESSION: Abnormal findings suspicious for osteomyelitis involving the second, third, fourth distal phalanges. Associated soft tissue edema from cellulitis SERVICE DATE: 06/14/17- EXAM TYPE: MRI - MRI-RT FOOT W/O BULL EXAMINATION: MRI RIGHT FOOT CLINICAL INFORMATION: Question osteomyelitis bilateral feet. Additional clinical history obtained from the clinician, chronic ulcer on the tips of the second, third, fourth toes. Patient is on antibiotics. Rule out osteomyelitis. COMPARISON: X-ray 06/09/2017. TECHNIQUE: MRI in a high-field magnet without contrast. FINDINGS: Motion artifact degrading some sequences, with limitation evaluation. There is soft tissue edema present in the second toe, compatible with cellulitis. There is diffuse abnormal edema in the second distal phalanx, with low T1 signal focus in the subcortical bone. Findings suspicious for osteomyelitis. Mild edema diffusely in the third distal phalanx. Mild intermediate T1 signal changes. No convincing low T1 signal. These findings suggest reactive edema, with early osteomyelitis not excluded. There is soft tissue edema present. Mild edema in the soft tissues of the fourth distal phalanx. Edema diffusely in the fourth distal phalanx, with intermediate T1 signal changes, with possible small foci of subcortical low T1 signal. Findings suggest early osteomyelitis. Mild first MTP joint arthritis. Visualized tendons are intact. No evidence of tenosynovitis. Visualized plantar fascia appears unremarkable. There is edema and atrophy of the intrinsic muscles of the plantar aspect of the foot, presumably related to underlying metabolic disorder. Small degenerative cyst in the lateral cuneiform. IMPRESSION: 1. Edema in the soft tissues of the second, third, fourth toes, more prominent second toe, which would be compatible with cellulitis in the appropriate clinical circumstance. 2. Abnormal findings highly suspicious for osteomyelitis involving the second distal phalanx. 3. Mild edema in the third distal phalanx, favoring reactive edema, with early osteomyelitis not excluded. 4. Abnormal findings in the fourth distal phalanx, suspicious for early osteomyelitis. DICTATED BY: Matt Monterroso MD Pt was admitted to general medicine for evaluation for bilateral chronic foot wounds/cellulitis. The following issues were addressed during hospital stay: 1. Chronic Bilateral wounds in feet with osteomyelitis of toes Pt was noted to have b/l feet wounds with cellulitic appearance with distal toe ulcers. Podiatry was on board. MRI of both feet were obtained and were suggestive of osteomyelitis of right foot second toe and left foot osteomyelitis of 2nd and right toe. Patient underwent amputation of 1st toe of the right foot, and amputation of 2nd and 3rd toe of the left foot, this was done on 06/16. There was no intraoperative or post-op complication reported. Pt was empirically started on Unasyn and then Vancomycin was added when OR cultures indicated that he was growing Methicillin resistant Staph Aureus. He also grew coag-negative Staph and diphtheroids, which the infectious disease analysis consultant believed to be most likely due to contamination. Podiatry reported that the amputated toes had clear margins with no signs of spread of the infection. Antibiotics were then stopped after 7 day treatment. He was instructed by podiatry to be weight bearing as tolerated and that he could be wearing sneakers in the rehab to help with his mobility. 2. Acute on Chronic Delirium Patient stay was complicated by acute worsening of his delirium and agitation. At certain times, he was on estrella and 4 point restraints and a sitter. Psychiatry was consulted and he was started on Depakote sprinkles which were titrated up to 250 mg tid in addition to seroquel, sertraline and trazodone. His seroquel was changed to PO abilify 2.5 mg BID. Patient subsequently improved and restraints and sitter was dicontinued. He was stable by the discharge date and was discharged to a facility. Allergies: Coded Allergies: No Known Allergies (05/03/17) Significant Procedures: Operative/Inv Procedure Report Surgery Date: 06/16/17 Name of Procedure: 1 amputation second toe right foot 2 amputation second toe left foot 3 amputation third toe left foot 4 intraoperative administration of ankle block anesthesia Pre-Operative Diagnosis: 1 osteomyelitis second toe right foot 2 osteomyelitis second toe left foot 3 osteomyelitis third toe left foot Post-Operative Diagnosis: The same Estimated Blood Loss: less than 50ml Surgeon/Powdered Metal Supervisor: SULAIMAN COLLIER DPM Disposition Summary Disposition Principal Diagnosis: 1. Bilateral osteomyelitis of the right and left toes s/p toes resection Additional Diagnosis: 2. Acute on chronic Delirium 3. Cellulitis Discharge Disposition: SNF Discharge Instructions General Discharge Information Code Status: Do Not Resucitate/Intubat Patient's Diet: REGULAR diet Patient's Activity: Weight bear as tolerated. Patient can use regular sneakers for ambulation. Follow-Up Instructions/Appts: Please follow up with your primary care within 1 week Please follow up with podiatry within 2 weeks of discharge Weight bear as tolerated. Patient can use regular sneakers for ambulation. Medications at Discharge Discharge Medications: Stop taking the following medications: Metoprolol Tartrate (Metoprolol Tartrate) 25 MG TABLET ORAL TWICE DAILY Qty = 60 Nystatin (Nystatin) 100,000 UNIT/ML ORAL.SUSP ORAL 4 TIMES A DAY Quetiapine Fumarate (Quetiapine Fumarate) 25 MG TABLET ORAL Q8H as needed for AGITATION Qty = 30 Continue taking these medications: Allopurinol (Allopurinol) 300 MG TABLET 1 Tablet ORAL DAILY Qty = 90 Comments: Last Taken: 07/02/17 Time: 9:00 AM Aspirin (Ecotrin*) 81 MG TABLET.DR 1 Tablet ORAL DAILY Comments: Last Taken: 07/02/17 Time: 9:00 AM Ascorbic Acid (Vitamin C) 500 MG TABLET 1 Tablet ORAL DAILY Comments: NOT GIVEN AT HOSPITAL Cholecalciferol (Vitamin D3) 1,000 UNIT TABLET 1 Tablet ORAL DAILY Comments: NOT GIVEN IN HOSPITAL Multivits,Ca,Min/Iron/FA/Lycop (Centrum Men's Tablet) 8 MG IRON-200 MCG-600 MCG TABLET 1 Tablet ORAL DAILY Comments: NOT GIVEN IN HOSPITAL Apixaban (Eliquis) 5 MG TABLET 5 Milligram ORAL 0900,1800 Qty = 60 Comments: Last Taken: 07/02/17 Time: 9:00 AM Diltiazem HCl (Diltiazem 24HR Cd) 180 MG CAP.ER.24H 180 Tablet ORAL DAILY Qty = 30 Comments: Last Taken: 07/02/17 Time: 7:00 AM Trazodone HCl (Trazodone HCl) 50 MG TABLET 25 Milligram ORAL THREE TIMES DAILY Qty = 21 Comments: Last Taken: 07/01/17 Time: 8:00 PM Sertraline HCl (Sertraline HCl) 25 MG TABLET 1 Tablet ORAL DAILY Qty = 13 Comments: Last Taken: 07/02/17 Time: 9:00 AM Sennosides/Docusate Sodium (Senna S Tablet) 8.6 MG-50 MG TABLET 2 Tablet ORAL DAILY as needed for CONSTIPATION Comments: Last Taken: 07/01/17 Time: 9:00 AM Start taking the following new medications: Divalproex Sodium (Depakote Sprinkle) 125 MG CAP.SPRINK 3 Capsule ORAL THREE TIMES DAILY Qty = 270 No Refills Comments: Last Taken: 07/02/17 Time: 3:30 PM Aripiprazole (Abilify) 5 MG TABLET 2.5 Milligram ORAL TWICE DAILY Qty = 60 No Refills Comments: Last Taken: 07/02/17 Time: 9:00 AM Metoprolol Tartrate (Metoprolol Tartrate) 25 MG TABLET 0.5 Tablet ORAL TWICE DAILY Qty = 60 No Refills Comments: Last Taken: 07/02/17 Time: 9:00 AM Copies To: Lorena SUBRAMANIAN,Fritz Vogel; Domonique SUBRAMANIAN,Tashi; Sulaiman Collier DPM; Kendy SUBRAMANIAN,Petar Cantu Attending MD Review Statement Documenting Attending: Jacky Sultana MD Other Findings: The patient was seen on the day of discharge. Agree with the plan of care as outlined. Patient to go to [facility] at [facility] in [place], [place].
--- NOTE | 2017-06-25 15:18 | PN- Infect Dx ---
Subjective Subjective: Afebrile without complaints Objective Last 24 Hrs of Vital Signs/I&O Vital Signs Date Time Temp Pulse Resp B/P B/P Pulse O2 O2 Flow FiO2 Mean Ox Delivery Rate 06/25 1420 Room Air 06/25 1417 Room Air 06/25 1403 47 126/76 06/25 1347 96.6 47 19 126/76 97 Room Air 06/25 0855 56 114/68 06/25 0646 97.8 54 18 112/68 97 06/25 0529 54 112/68 06/24 2213 97.7 52 18 140/60 100 Room Air 06/24 2137 52 140/60 06/24 2137 52 140/60 06/24 1520 96.9 53 18 138/82 Intake & Output 06/25 1600 06/25 0800 06/25 0000 Intake Total 600 240 240 Output Total Balance 600 240 240 Intake, Oral 600 240 240 Physical Exam Other Physical Findings: He appears comfortable in no acute distress Lungs are clear Heart regular rhythm with no murmur Extremities left second and third toes erythematous, with no drainage; right second toe with minimal erythema, with no drainage Results Last 24 Hours of Lab Results: Laboratory Tests 06/25 06/25 0815 0708 Chemistry Sodium (137 - 145 mmol/L) 141 Potassium (3.5 - 5.1 mmol/L) 4.1 Chloride (98 - 107 mmol/L) 105 Carbon Dioxide (22 - 30 mmol/L) 24 Anion Gap (5 - 16) 12 BUN (9 - 20 mg/dL) 30 H Creatinine (0.7 - 1.2 mg/dL) 0.8 Estimated GFR (>60 ml/min) > 60 BUN/Creatinine Ratio (7 - 25 %) 37.5 H Hematology CBC w Diff NO MAN DIFF REQ WBC (4.8 - 10.8 /CUMM) 14.0 H RBC (4.70 - 6.10 /CUMM) 4.25 L Hgb (14.0 - 18.0 G/DL) 13.4 L Hct (42 - 52 %) 39.8 L MCV (80.0 - 94.0 FL) 93.6 MCH (27.0 - 31.0 PG) 31.4 H MCHC (33.0 - 37.0 G/DL) 33.6 RDW (11.5 - 14.5 %) 13.6 Plt Count (130 - 400 /CUMM) 290 MPV (7.4 - 10.4 FL) 8.4 Gran % (42.2 - 75.2 %) 76.4 H Lymphocytes % (20.5 - 51.1 %) 15.3 L Monocytes % (1.7 - 9.3 %) 6.4 Eosinophils % (0 - 5 %) 1.5 Basophils % (0.0 - 2.0 %) 0.4 Absolute Granulocytes (1.4 - 6.5 /CUMM) 10.7 H Absolute Lymphocytes (1.2 - 3.4 /CUMM) 2.2 Absolute Monocytes (0.10 - 0.60 /CUMM) 0.9 H Absolute Eosinophils (0.0 - 0.7 /CUMM) 0.2 Absolute Basophils (0.0 - 0.2 /CUMM) 0.1 Last 24 Hours of Efren Results: No new cultures Assessment/Plan ID Impression: Stable, with temperatures remaining normal, but with a persistent leukocytosis, possibly secondary to a residual infection within the soft tissues or bone of the left second and third toes and the right third toe, with persistent erythema noted. He has been off antibiotics for 4 days after a short course of treatment for a presumed residual soft tissue infection. Suggestion: 1. Podiatry follow-up regarding need for further debridement of his toes 2. X-rays of the left and right feet, with possible MRI based on these results 3. Continue to follow off antibiotics pending above
--- NOTE | 2017-06-25 16:23 | RADIOLOGY REPORT ---
EXAMINATION: XR FOOT, BILATERAL CLINICAL INFORMATION: Status post surgery. COMPARISON: Multiple prior examinations most recent x-rays 06/17/2017. TECHNIQUE: 3 views of both feet. FINDINGS: RIGHT FOOT: Postop changes related to amputation distal to the level of the proximal phalanx. The soft tissue prominence has decreased. There is arthrosis of the IP joint of the great toe and 1st metatarsophalangeal joint unchanged. There are calcaneal spurs. Bones, joints and soft tissues otherwise normal. LEFT FOOT: Postoperative changes again noted distal to the level of the proximal phalanges of the 2nd and 3rd toes. The soft tissue prominence has slightly decreased. There is arthrosis of the IP joint of the great toe and 1st metatarsophalangeal joint unchanged. There is a calcaneal spur posteriorly unchanged. IMPRESSION: Right foot: Postoperative changes. Slight decrease in soft tissue prominence compared to prior. Otherwise unchanged. Left foot: Postoperative changes. Slight decrease in soft tissue prominence. Otherwise unchanged.
[2017-06-25 17:57] VITALS: BP 122/70
[2017-06-25 21:24] VITALS: BP 128/88
--- NOTE | 2017-06-26 05:38 | PN- Housestaff ---
See Addendum Subjective Follow-up For: bilateral toes osteomyelitis status post surgery Agitation Subjective: Underwent 2nd toe right side, 2nd and 3rd left side toe on 06/16 Culture from surgery: L: Staph coag neg: sens to Tetra R: Diph, Staph coag neg: sens to Tetra, MRSA sens to Tetra Report from surgery: clean cut Recieved: Unasyn 05/20/ to 04/21 Vanc 2/2pm to 05/24 Still pending placement. Patient visited today, was lying in bed comfortably in no acute distress, was alert not oriented which is his baseline. No fever or chills, no shortness of breathing, no chest pain, no other events. Restraints were DCed yesterday, however at 6pm last evening he was confused and agitated again, necessitating [place] and bilateral soft restraints again. WBC high chronically, Toes s/p surgery looked relatively red and swollen. XRAY was done and we contacted Dr Morales, infomred could be vascular and patient can be discharged from podiatry point of view. Patient was planned to be discharged pending placement. EKG repeated yesterday: QTC 450, consider increase seroquel Review of Systems Constitutional: Reports: see HPI. Objective Last 24 Hrs of Vital Signs/I&O Vital Signs Date Time Temp Pulse Resp B/P B/P Pulse O2 O2 Flow FiO2 Mean Ox Delivery Rate 06/26 0604 97.6 60 20 166/92 96 06/26 0542 60 166/92 06/25 2124 98.2 118 18 128/88 96 Room Air 06/25 2114 118 128/88 06/25 2113 118 128/88 06/25 1757 54 122/70 06/25 1420 Room Air 06/25 1417 Room Air 06/25 1403 47 126/76 06/25 1347 96.6 47 19 126/76 97 Room Air 06/25 0855 56 114/68 06/25 0646 97.8 54 18 112/68 97 Intake & Output 06/26 0800 06/26 0000 06/25 1600 Intake Total 360 600 Output Total Balance 360 600 Intake, Oral 360 600 Physical Exam General Appearance: Alert, No Acute Distress Skin: toes s/p surgery, minimal redness and swelling Skin Temp/Moisture Exam: Warm/Dry Sepsis Skin Exam (color): Normal for Ethnicity HEENT: Atraumatic Neck: No JVD Lungs: Clear to Auscultation, Normal Air Movement Abdomen: Soft, No Tenderness Neurological: Strength at 5/5 X4 Ext Extremities: as noted above Current Medications: Current Medications Sig/Sandra Start time Last Medication Dose Route Stop Time Status Admin Acetaminophen 650 MG Q6P PRN 06/09 1830 AC PO Allopurinol 300 MG DAILY 06/09 182 AC 06/25 PO 0855 Apixaban 5 MG 0900,1800 06/10 0900 AC 06/25 PO 1706 Aspirin Buffered 81 MG DAILY 06/09 182 AC 06/25 PO 0855 Bisacodyl 10 MG DAILY PRN 06/26 0000 AC NC Bisacodyl 10 MG Q12P PRN 06/13 1100 DC 06/19 NC 2139 Diltiazem HCl 60 MG Q8 06/19 1130 AC 06/26 PO 0542 Divalproex Sodium 125 MG TID 06/22 1000 AC 06/25 PO 211 Metoprolol Tartrate 12.5 MG BID 06/25 1000 AC 06/25 PO 2113 Metoprolol Tartrate 25 MG BID 06/09 220 DC 06/25 PO 0855 Polyethylene Glycol 17 GM DAILY 06/26 1000 AC PO Polyethylene Glycol 17 GM DAILY PRN 06/11 0845 AC 06/24 PO 06/26 0959 1520 Quetiapine Fumarate 12.5 MG AT BEDTIME 06/22 2199 AC 06/25 PO 2114 Senna/Docusate Sodium 2 TAB DAILY 06/26 1000 AC PO Senna/Docusate Sodium 2 TAB DAILY PRN 06/09 183 AC 06/23 PO 06/26 0959 2110 Sertraline HCl 25 MG DAILY 06/09 183 AC 06/25 PO 0855 Trazodone HCl 25 MG QPM 06/20 2200 AC 06/25 PO 2114 Last 24 Hrs of Lab/Efren Results Last 24 Hrs of Labs/Mics: Laboratory Tests 06/25/17 0815: CBC w Diff NO MAN DIFF REQ, RBC 4.25 L, MCV 93.6, MCH 31.4 H, MCHC 33.6, RDW 13.6, MPV 8.4, Gran % 76.4 H, Lymphocytes % 15.3 L, Monocytes % 6.4, Eosinophils % 1.5, Basophils % 0.4, Absolute Granulocytes 10.7 H, Absolute Lymphocytes 2.2, Absolute Monocytes 0.9 H, Absolute Eosinophils 0.2, Absolute Basophils 0.1 06/25/17 0708: Anion Gap 12, Estimated GFR > 60, BUN/Creatinine Ratio 37.5 H Assessment/Plan Assessment: Patient is 81-year-old male referred for evaluation of bilateral toes chronic wounds PMH: HTN, afib on Eliquise, advanced primary progressive aphasia, idiopathic neuropathy, HTN, hyperuricemia/gout and uric acids nephrolithiasis on allopurinol VS, Ph Ex at admission: BP 150/77, NC 58, RR 18, no fever Labs at admission: WBC 11.5, Hgb 13.3, ESR 14, potassium 3.1, Cr 0.8 Imagings at admission: Foot xray: Exam is very limited by technique and patient positioning. Possible partial erosion of the distal tuft of the distal second right phalanx. If there is high clinical suspicion, consider a bone scan for further assessment. Hypertrophic spurs along the latter aponeurosis insertion of the calcaneus bilaterally and the left Achilles insertion. Patient was admitted to general medicine floor for management of following conditions: Chronic toes wounds Cellulitis, r/o osteomyelitis we will start antibiotics for cellulitis, and rule out osteomyelitis which is probable considering ESR and xray MRI of the feet done: Left: Abnormal findings suspicious for osteomyelitis involving the second, third, fourth distal phalanges. Associated soft tissue edema from cellulitis. Rigth foot: 1. Edema in the soft tissues of the second, third, fourth toes, more prominent second toe, which would be compatible with cellulitis in the appropriate clinical circumstance. 2. Abnormal findings highly suspicious for osteomyelitis involving the second distal phalanx. 3. Mild edema in the third distal phalanx, favoring reactive edema, with early osteomyelitis not excluded. 4. Abnormal findings in the fourth distal phalanx, suspicious for early osteomyelitis. - Plan to discharge pending placement - s/p surgery as noted above - focused factory manager consulted regarding placement - Ab discontinued Hypokalemia repleted - continue to monitor Chronic medical conditions: HTN, afib on Eliquise, advanced primary progressive aphasia, idiopathic neuropathy, HTN, hyperuricemia/gout We will cotinue home medication. - Continue allopurinol, seroquel, zoloft, treazadone - continue Eliquise, metoprolol, diltiazem - Discharge planning after being stable Agitation/Dementia Chronic, related to dementia - Consider Seroquel - restraint with evalaution - Continue Depakot according to psych - restraints resumed again, consider discontinue after stablization - consider increase seroquel Heart healthy diet DNR/DNI DVT ppx: THEA [place] Problem List: 1. Osteomyelitis 2. Cellulitis 3. Altered mental state Pain Ratin Pain Location: None Pain Goal: Pain 4 or less Pain Plan: Continue current plan Tomorrow's Labs & Rationales: CBC BEP
[2017-06-26 06:04] VITALS: BP 166/92
[2017-06-26 08:43] LABS: ABSOLUTE BASOPHIL COUNT 0.1 /CUMM (0.0-0.2); ABSOLUTE EOSINOPHIL COUNT 0.3 /CUMM (0.0-0.7); ABSOLUTE GRANULOCYTE CT 8.7 /CUMM (1.4-6.5); ABSOLUTE LYMPH COUNT 2.7 /CUMM (1.2-3.4); BASOPHIL % 0.4 % (0.0-2.0); EOSINOPHIL % 2.6 % (0-5); GRANULOCYTE % 68.2 % (42.2-75.2); HEMATOCRIT 41.2 % (42-52); MEAN CORPUSCULAR HGB 31.5 PG (27.0-31.0); MEAN CORPUSCULAR HGB CONC 33.4 G/DL (33.0-37.0); MEAN CORPUSCULAR VOLUME 94.1 FL (80.0-94.0); MEAN PLATELET VOLUME 9.2 FL (7.4-10.4); PLATELET COUNT 327 /CUMM (130-400); RED BLOOD CELL CT 4.37 /CUMM (4.70-6.10); WHITE BLOOD CELL COUNT 12.8 /CUMM (4.8-10.8)
[2017-06-26 15:33] VITALS: BP 140/80
[2017-06-26 22:24] VITALS: BP 128/80
[2017-06-27 06:53] VITALS: BP 138/82
[2017-06-27 08:08] LABS: ABSOLUTE BASOPHIL COUNT 0.1 /CUMM (0.0-0.2); ABSOLUTE EOSINOPHIL COUNT 0.3 /CUMM (0.0-0.7); ABSOLUTE GRANULOCYTE CT 7.5 /CUMM (1.4-6.5); ABSOLUTE LYMPH COUNT 2.5 /CUMM (1.2-3.4); ABSOLUTE MONOCYTE COUNT 0.9 /CUMM (0.10-0.60); BASOPHIL % 0.6 % (0.0-2.0); EOSINOPHIL % 2.6 % (0-5); GRANULOCYTE % 66.6 % (42.2-75.2); HEMATOCRIT 40.7 % (42-52); MEAN CORPUSCULAR HGB 31.4 PG (27.0-31.0); MEAN CORPUSCULAR VOLUME 94.9 FL (80.0-94.0); PLATELET COUNT 322 /CUMM (130-400); RBC DISTRIBUTION WIDTH 14.2 % (11.5-14.5); RED BLOOD CELL CT 4.29 /CUMM (4.70-6.10); WHITE BLOOD CELL COUNT 11.3 /CUMM (4.8-10.8)
--- NOTE | 2017-06-27 08:30 | PN- Housestaff ---
Tim SUBRAMANIAN,[facility] 06/27/17 0829: Subjective Follow-up For: s/p toe amputation. Complaints: pt unable to provide hx Subjective: Patient was seen and examined this morning. He is disoriented at baseline and unable to offer any complaints. However, he denies being in any pain. Review of Systems Constitutional: Reports: no symptoms. Objective Last 24 Hrs of Vital Signs/I&O Vital Signs Date Time Temp Pulse Resp B/P B/P Pulse O2 O2 Flow FiO2 Mean Ox Delivery Rate 06/27 0918 58 130/80 06/27 0653 97.9 57 20 138/82 97 06/27 0635 57 138/82 06/26 2224 97.9 67 19 128/80 93 Room Air 06/26 2143 67 128/80 06/26 2143 67 128/80 06/26 1533 97.6 58 20 140/80 97 06/26 1404 58 140/80 Physical Exam General Appearance: Alert, Cooperative, Mild Distress, oriented x0 Skin: No Rashes, No Breakdown, toes s/p surgery, wound intact, no drainage or erythema Skin Temp/Moisture Exam: Warm/Dry Sepsis Skin Exam (color): Normal for Ethnicity HEENT: Atraumatic Cardiovascular: Normal S1, Normal S2, No Murmurs Lungs: Clear to Auscultation, Normal Air Movement Abdomen: Soft, No Tenderness Extremities: as above Assessment/Plan Assessment: Patient is 81-year-old male referred for evaluation of bilateral toes chronic wounds PMH: HTN, afib on Eliquise, advanced primary progressive aphasia, idiopathic neuropathy, HTN, hyperuricemia/gout and uric acids nephrolithiasis on allopurinol Patient was admitted to general medicine floor for management of following conditions: Osteomyelitis * s/p toe amputation * white count trending down * follow off antibiotics * foot xrays were negative * May need MRI - Plan to discharge pending placement - project account manager consulted regarding placement Hypokalemia repleted. Was 2.9 this morning. Will check Mg. - continue to monitor Chronic medical conditions: HTN, afib on Eliquise, advanced primary progressive aphasia, idiopathic neuropathy, HTN, hyperuricemia/gout We will cotinue home medication. - Continue allopurinol, seroquel, zoloft, treazadone - continue Eliquis, metoprolol, diltiazem Agitation/Dementia - restraint with frequent evalaution - Continue Depakot according to psych - continue seroquel regular DNR/DNI DVT ppx: THEA [place] Problem List: 1. Osteomyelitis Pain Ratin Pain Location: none Pain Goal: Remain pain free Pain Plan: none Tomorrow's Labs & Rationales: CBC, BEP, Mg Domonique,[place] 06/27/17 1024: Attending MD Review Statement Attending Statement Attending MD Statement: examined this patient, discuss w/resident/PA/PARADICHLOROBENZENE MACHINE OPERATOR, agreed w/resident/PA/PARADICHLOROBENZENE MACHINE OPERATOR, discussed with family, reviewed EMR data (avail), discussed with nursing, discussed with case mgmt, reviewed images, amended to note Attending Assessment/Plan: Patient had episode of agitation. Patient is on depakote and low dose seroquel. Metoprolol to 12.5 bid. Patient needs to follow up with podiatry. ID recommended xray of foot which did not show worsening of margins/edema. Primary caregiver his . Cont current care.
[2017-06-27 14:35] VITALS: BP 132/80
[2017-06-27 22:04] VITALS: BP 140/82
[2017-06-28 06:30] VITALS: BP 151/83
--- NOTE | 2017-06-28 07:43 | PN- Housestaff ---
See Addendum Pedro Kebede MD,[facility] 06/28/17 0743: Subjective Follow-up For: bilateral toes osteomyelitis status post surgery Agitation Subjective: Summary: Underwent 2nd toe right side, 2nd and 3rd left side toe on 06/16 Culture from surgery: L: Staph coag neg: sens to Tetra R: Diph, Staph coag neg: sens to Tetra, MRSA sens to Tetra Report from surgery: clean cut Recieved: Unasyn 05/20/ to 04/21 Vanc 2/2pm to 05/24 Note: Still pending placement. Patient visited today, was sleeping in bed comfortably in no acute distress. Overnight patient was willing to get out of bed, and had halucinations. No fever or chills, no shortness of breathing, no chest pain, no other events. Restraints were resumed again and will be repeated. We will contact psych regarding increasing the sode of depakote considering low blood level. Suture removal this wednesday Review of Systems Constitutional: Reports: see HPI. Objective Last 24 Hrs of Vital Signs/I&O Vital Signs Date Time Temp Pulse Resp B/P B/P Pulse O2 O2 Flow FiO2 Mean Ox Delivery Rate 06/28 0630 97.4 54 18 151/83 98 Room Air 06/28 0610 54 151/83 06/27 2204 98.8 56 20 140/82 98 Room Air 06/27 2143 59 140/82 06/27 2137 59 140/82 06/27 1435 97.9 80 20 132/80 97 Room Air 06/27 0918 58 130/80 Intake & Output 06/28 0800 06/28 0000 06/27 1600 Intake Total 1000 Output Total Balance 1000 Intake, Oral 1000 Number 1 1 1 Bowel Movements Physical Exam General Appearance: Cooperative, No Acute Distress, agitated overnight, sleeping Skin: bilateral LE s/p surgery as noted R Le dressing in place. Skin Temp/Moisture Exam: Warm/Dry Sepsis Skin Exam (color): Normal for Ethnicity HEENT: Atraumatic, Mucous Membr. moist/pink Cardiovascular: Normal S1, Normal S2, irreg irreg Lungs: Clear to Auscultation, Normal Air Movement Abdomen: No Tenderness Extremities: No Edema, as noted Current Medications: Current Medications Sig/Sandra Start time Last Medication Dose Route Stop Time Status Admin Acetaminophen 650 MG Q6P PRN 06/09 1830 AC PO Allopurinol 300 MG DAILY 06/09 1829 AC 06/27 PO 0919 Apixaban 5 MG 0900,1800 06/10 0900 AC 06/27 PO 1732 Aspirin Buffered 81 MG DAILY 06/09 1829 AC 06/27 PO 0919 Bisacodyl 10 MG DAILY PRN 06/26 0000 AC 06/27 [place] 1159 Diltiazem HCl 60 MG Q8 06/19 1130 AC 06/28 PO 0610 Divalproex Sodium 125 MG TID 06/22 1000 AC 06/27 PO 2131 Metoprolol Tartrate 12.5 MG BID 06/25 1000 AC 06/27 PO 2137 Polyethylene Glycol 17 GM DAILY 06/26 1000 AC 06/27 PO 0924 Potassium Chloride 40 MEQ Q1H 06/27 0900 DC 06/27 PO 06/27 1001 1031 Quetiapine Fumarate 12.5 MG AT BEDTIME 06/22 2200 AC 06/27 PO 2131 Senna/Docusate Sodium 2 TAB DAILY 06/26 1000 AC 06/27 PO 0920 Sertraline HCl 25 MG DAILY 06/09 1830 AC 06/27 PO 0918 Trazodone HCl 25 MG QPM 06/20 2200 AC 06/27 PO 2131 Last 24 Hrs of Lab/Efren Results Last 24 Hrs of Labs/Mics: Laboratory Tests 06/27/17 1630: Assessment/Plan Assessment: Patient is 81-year-old male referred for evaluation of bilateral toes chronic wounds PMH: HTN, afib on Eliquise, advanced primary progressive aphasia, idiopathic neuropathy, HTN, hyperuricemia/gout and uric acids nephrolithiasis on allopurinol VS, Ph Ex at admission: BP 150/77, MS 58, RR 18, no fever Labs at admission: WBC 11.5, Hgb 13.3, ESR 14, potassium 3.1, Cr 0.8 Imagings at admission: Foot xray: Exam is very limited by technique and patient positioning. Possible partial erosion of the distal tuft of the distal second right phalanx. If there is high clinical suspicion, consider a bone scan for further assessment. Hypertrophic spurs along the latter aponeurosis insertion of the calcaneus bilaterally and the left Achilles insertion. Patient was admitted to general medicine floor for management of following conditions: Chronic toes wounds Cellulitis, r/o osteomyelitis we will start antibiotics for cellulitis, and rule out osteomyelitis which is probable considering ESR and xray MRI of the feet done: Left: Abnormal findings suspicious for osteomyelitis involving the second, third, fourth distal phalanges. Associated soft tissue edema from cellulitis. Rigth foot: 1. Edema in the soft tissues of the second, third, fourth toes, more prominent second toe, which would be compatible with cellulitis in the appropriate clinical circumstance. 2. Abnormal findings highly suspicious for osteomyelitis involving the second distal phalanx. 3. Mild edema in the third distal phalanx, favoring reactive edema, with early osteomyelitis not excluded. 4. Abnormal findings in the fourth distal phalanx, suspicious for early osteomyelitis. - Plan to discharge pending placement - s/p surgery as noted above - complaint manager consulted regarding placement - Ab discontinued Hypokalemia repleted - continue to monitor Chronic medical conditions: HTN, afib on Eliquise, advanced primary progressive aphasia, idiopathic neuropathy, HTN, hyperuricemia/gout We will cotinue home medication. - Continue allopurinol, seroquel, zoloft, treazadone - continue Eliquise, metoprolol, diltiazem - Discharge planning after being stable and bed available Agitation/Dementia Chronic, related to dementia - Consider Seroquel - restraint with evalaution - Continue Depakot according to psych - follow psych regarding increasing the dose of depakote cosnidering low blood levels - restraints resumed again, consider discontinue after stablization - consider increase seroquel Heart healthy diet DNR/DNI DVT ppx: Eliquise, ALPS Problem List: 1. Cellulitis 2. Osteomyelitis 3. Altered mental state Pain Ratin Pain Location: none Pain Goal: Pain 4 or less Pain Plan: continue current Tomorrow's Labs & Rationales: Tashi Irwin 06/28/17 1127: Attending MD Review Statement Attending Statement Attending MD Statement: examined this patient, discuss w/resident/PA/PATTERN WORKER, agreed w/resident/PA/PATTERN WORKER, discussed with family, reviewed EMR data (avail), discussed with nursing, discussed with case mgmt, reviewed images, amended to note Attending Assessment/Plan: Patient agitated over weekend. Patient is on depakote and low dose seroquel. Metoprolol 12.5 bid. Patient needs to follow up with podiatry. Patient needs f/u psych to titrate meds. Primary caregiver his . Cont current care.
[2017-06-28 08:16] LABS: ABSOLUTE BASOPHIL COUNT 0 /CUMM (0.0-0.2); ABSOLUTE EOSINOPHIL COUNT 0.4 /CUMM (0.0-0.7); ABSOLUTE GRANULOCYTE CT 7.9 /CUMM (1.4-6.5); ABSOLUTE LYMPH COUNT 2.3 /CUMM (1.2-3.4); ABSOLUTE MONOCYTE COUNT 0.9 /CUMM (0.10-0.60); BASOPHIL % 0.3 % (0.0-2.0); EOSINOPHIL % 3.3 % (0-5); GRANULOCYTE % 68.2 % (42.2-75.2); HEMATOCRIT 42.7 % (42-52); MEAN CORPUSCULAR HGB 31.4 PG (27.0-31.0); MEAN CORPUSCULAR HGB CONC 33.3 G/DL (33.0-37.0); MEAN CORPUSCULAR VOLUME 94.4 FL (80.0-94.0); MEAN PLATELET VOLUME 8.6 FL (7.4-10.4); PLATELET COUNT 318 /CUMM (130-400); RED BLOOD CELL CT 4.52 /CUMM (4.70-6.10); WHITE BLOOD CELL COUNT 11.6 /CUMM (4.8-10.8)
--- NOTE | 2017-06-28 14:08 | PN- Psychiatry ---
Assessment/Plan Impression: 82 y/o MWM with primary progessive aphasia w/ dementia intermittently combative Suggestion: 1. Continue quetiapine 12.5 mg PO q PM. Hold for oversedation or respiratory depression, QTc greater than 475 mS, hypokalemia or hypomagnesemia. 2. Titrate Depakote sprinkles to 250 mg PO 3X/day. 3. Draw a depakote level after nine doses. 4. Continue trazodone 25 mg PO q PM for insomnia, hold for QTc more than 475 mS. 5. Continue sertraline 25 mg PO daily 6. Avoid benzodiazepines, anticholinergics and delirium triggers. We will continue to follow along. Subjective Subjective: The patient is calm and cooperative sitting in his bed in a [place] vest and 4 point soft restraints. His supportive and his 1:1 safety monitor are present. The patient is pleasantly confused, and provides disorganized answers to most questions. He is oriented to person but not place or time. Review of Systems: Pt states he is no pain. Review of Systems Neurological/Psychological: Reports: cognitive dysfunction, dementia. Objective Last 24 Hrs of Vital Signs/I&O Current Medications Sig/Sandra Start time Last Medication Dose Route Stop Time Status Admin Acetaminophen 650 MG .STK-MED ONE 06/28 0053 DC PO 06/28 0054 Acetaminophen 650 MG Q6P PRN 06/09 1830 AC PO Allopurinol 300 MG DAILY 06/09 1829 AC 06/28 PO 0846 Apixaban 5 MG 0900,1800 06/10 0900 AC 06/28 PO 0845 Aspirin Buffered 81 MG DAILY 06/09 1829 AC 06/28 PO 0845 Bisacodyl 10 MG DAILY PRN 06/26 0000 AC 06/27 [place] 1159 Diltiazem HCl 60 MG Q8 06/19 1130 AC 06/28 PO 0610 Divalproex Sodium 250 MG TID 06/28 1600 AC PO Divalproex Sodium 125 MG TID 06/22 1000 DC 06/28 PO 0846 Metoprolol Tartrate 12.5 MG BID 06/25 1000 AC 06/28 PO 0846 Polyethylene Glycol 17 GM DAILY 06/26 1000 AC 06/28 PO 0846 Potassium Chloride 40 MEQ Q1H 06/28 1300 DC 06/28 PO 06/28 1401 1243 Quetiapine Fumarate 12.5 MG AT BEDTIME 06/22 2200 AC 06/27 PO 2131 Senna/Docusate Sodium 2 TAB DAILY 06/26 1000 AC 06/28 PO 0846 Sertraline HCl 25 MG DAILY 06/09 183 AC 06/28 PO 0845 Trazodone HCl 25 MG QPM 06/20 2199 AC 06/27 PO 2131 Vital Signs Date Time Temp Pulse Resp B/P B/P Pulse O2 O2 Flow FiO2 Mean Ox Delivery Rate 06/28 0846 58 148/82 06/28 0630 97.4 54 18 151/83 98 Room Air 06/28 0610 54 151/83 06/27 220 98.8 56 20 140/82 98 Room Air 06/27 2143 59 140/82 06/27 2137 59 140/82 06/27 1435 97.9 80 20 132/80 97 Room Air Intake & Output 06/28 1600 06/28 0800 06/28 0000 Intake Total Output Total Balance Number 1 1 Bowel Movements Physical Exam General Appearance: comfortable, sedated
--- NOTE | 2017-06-28 14:20 | PN- Infect Dx ---
Subjective Subjective: Afebrile without complaints Objective Last 24 Hrs of Vital Signs/I&O Vital Signs Date Time Temp Pulse Resp B/P B/P Pulse O2 O2 Flow FiO2 Mean Ox Delivery Rate 06/28 0846 58 148/82 06/28 0630 97.4 54 18 151/83 98 Room Air 06/28 0610 54 151/83 06/27 2204 98.8 56 20 140/82 98 Room Air 06/27 2143 59 140/82 06/27 2137 59 140/82 06/27 1435 97.9 80 20 132/80 97 Room Air Intake & Output 06/28 1600 06/28 0800 06/28 0000 Intake Total Output Total Balance Number 1 1 Bowel Movements Physical Exam Other Physical Findings: He appears comfortable in no acute distress Extremities decreased erythema of the left second and third toes and the right second toe, with no drainage Results Last 24 Hours of Lab Results: Laboratory Tests 06/28 06/27 0752 1630 Chemistry Sodium (137 - 145 mmol/L) 142 Potassium (3.5 - 5.1 mmol/L) 3.3 L 3.9 Chloride (98 - 107 mmol/L) 103 Carbon Dioxide (22 - 30 mmol/L) 28 Anion Gap (5 - 16) 10 BUN (9 - 20 mg/dL) 23 H Creatinine (0.7 - 1.2 mg/dL) 0.7 Estimated GFR (>60 ml/min) > 60 BUN/Creatinine Ratio (7 - 25 %) 32.9 H Magnesium (1.6 - 2.3 mg/dL) 2.2 Hematology CBC w Diff NO MAN DIFF REQ WBC (4.8 - 10.8 /CUMM) 11.6 H RBC (4.70 - 6.10 /CUMM) 4.52 L Hgb (14.0 - 18.0 G/DL) 14.2 Hct (42 - 52 %) 42.7 MCV (80.0 - 94.0 FL) 94.4 H MCH (27.0 - 31.0 PG) 31.4 H MCHC (33.0 - 37.0 G/DL) 33.3 RDW (11.5 - 14.5 %) 14.0 Plt Count (130 - 400 /CUMM) 318 MPV (7.4 - 10.4 FL) 8.6 Gran % (42.2 - 75.2 %) 68.2 Lymphocytes % (20.5 - 51.1 %) 20.0 L Monocytes % (1.7 - 9.3 %) 8.2 Eosinophils % (0 - 5 %) 3.3 Basophils % (0.0 - 2.0 %) 0.3 Absolute Granulocytes (1.4 - 6.5 /CUMM) 7.9 H Absolute Lymphocytes (1.2 - 3.4 /CUMM) 2.3 Absolute Monocytes (0.10 - 0.60 /CUMM) 0.9 H Absolute Eosinophils (0.0 - 0.7 /CUMM) 0.4 Absolute Basophils (0.0 - 0.2 /CUMM) 0 Last 24 Hours of Efren Results: No new cultures Recent Imaging Studies: X-rays of both feet June 25 revealed postop changes Assessment/Plan ID Impression: Stable, with temperatures remaining normal and with his white blood cell count, though still elevated, decreased off antibiotics. The erythema of the remaining portions of the amputated toes of his left and right feet has decreased, with no evidence for any residual infection. He has apparently been reevaluated by Podiatry, who did not feel he required any further intervention. Suggestion: 1. Continue to follow off antibiotics Will no longer follow at this time, but please call with any questions
[2017-06-28 15:34] VITALS: BP 120/70
[2017-06-28 20:48] VITALS: BP 120/70
[2017-06-29 06:58] VITALS: BP 120/82
--- NOTE | 2017-06-29 07:03 | PN- Housestaff ---
Garth SUBRAMANIAN,Susy 06/29/17 0703: Subjective Follow-up For: Osteomyelitis, delirium Complaints: no complaints Subjective: Patient was seen and examined at bedside. Patient is on 4 point restraints and posy with a one-on-one sitter. According to the night nurse and sitter patient didn't sleep overnight. There were periods of agitation. Patient appears calm now. He is alert, oriented 1. He denies chest pain, chest pressure, shortness of breath, pain in his legs, cough. Review of Systems Constitutional: Reports: no symptoms. Cardiovascular: Reports: no symptoms. Respiratory: Reports: no symptoms. Gastrointestinal: Reports: no symptoms. Genitourinary: Reports: no symptoms. Objective Last 24 Hrs of Vital Signs/I&O Vital Signs Date Time Temp Pulse Resp B/P B/P Pulse O2 O2 Flow FiO2 Mean Ox Delivery Rate 06/29 0910 64 120/82 06/29 0658 97.4 64 20 120/82 97 Room Air 06/29 0553 66 124/82 06/28 2050 67 120/70 06/28 2050 67 120/70 06/28 2048 97.7 67 120/70 97 Room Air 06/28 1551 Room Air 06/28 1534 97.3 52 20 120/70 97 Room Air 06/28 1415 58 120/70 Intake & Output 06/29 1600 06/29 0800 06/29 0000 Intake Total 240 990 Output Total Balance 240 990 Intake, Oral 240 990 Number 2 Bowel Movements Physical Exam General Appearance: Alert, Cooperative, No Acute Distress, oriented x 1 Skin: no rashes,ulcer seen HEENT: Atraumatic, PERRLA, Mucous Membr. moist/pink Neck: Supple, No JVD Cardiovascular: Normal S1, Normal S2, No Murmurs Lungs: Clear to Auscultation Abdomen: Normal Bowel Sounds, Soft, No Tenderness Neurological: Strength at 5/5 X4 Ext Extremities: No Edema Current Medications: Current Medications Sig/Sandra Start time Last Medication Dose Route Stop Time Status Admin Acetaminophen 650 MG Q6P PRN 06/09 1830 AC PO Allopurinol 300 MG DAILY 06/09 1828 AC 06/29 PO 0910 Apixaban 5 MG 0900,1800 06/10 0900 AC 06/29 PO 0910 Aspirin Buffered 81 MG DAILY 06/09 1828 AC 06/29 PO 0910 Bisacodyl 10 MG DAILY PRN 06/26 0000 AC 06/27 [place] 1159 Diltiazem HCl 60 MG Q8 06/19 1130 AC 06/29 PO 0553 Divalproex Sodium 250 MG TID 06/28 1600 AC 06/29 PO 0910 Divalproex Sodium 125 MG TID 06/22 1000 DC 06/28 PO 0846 Metoprolol Tartrate 12.5 MG BID 06/25 1000 AC 06/29 PO 0910 Polyethylene Glycol 17 GM DAILY 06/26 1000 AC 06/29 PO 0910 Potassium Chloride 40 MEQ Q1H 06/28 1300 DC 06/28 PO 06/28 1401 1411 Quetiapine Fumarate 12.5 MG AT BEDTIME 06/22 2200 AC 06/28 PO 2050 Senna/Docusate Sodium 2 TAB DAILY 06/26 1000 AC 06/29 PO 0910 Sertraline HCl 25 MG DAILY 06/09 1830 AC 06/29 PO 0910 Trazodone HCl 25 MG QPM 06/20 2200 AC 06/28 PO 2049 Last 24 Hrs of Lab/Efren Results Last 24 Hrs of Labs/Mics: Laboratory Tests 06/29/17 0718: Anion Gap 10, Estimated GFR > 60, BUN/Creatinine Ratio 27.8 H Lines/Diet/Fluids Restraints: [place] 4-point Assessment/Plan Assessment: 82-year-old gentleman with past medical history of hypertension, A. fib, advanced primary progressive aphasia, dementia, gout admitted here for bilateral lower extremity osteomyelitis. Patient got his right second toe and left second and third toe amputation for the same. Patient was initially on Unasyn and then switched to vancomycin. Patient is now off antibiotics. Awaiting placement. Assessment and plan 1. Osteomyelitis Patient got his right second toe and left second and third toe amputation for the same. Patient was initially on Unasyn and then switched to vancomycin. Now off antibiotics. We'll follow him off antibiotics. We will talk to case management regarding placement. 2. Chronic medical conditions: HTN, afib on Eliquise, advanced primary progressive aphasia, idiopathic neuropathy, HTN, hyperuricemia/gout We will cotinue home medication. - Continue allopurinol, seroquel, zoloft, treazadone - continue Eliquis, metoprolol, diltiazem 3. Agitation/dementia Patient was seen by psychiatry during this admission who recently increased his Depakote to 250 3 times a day. Patient was on restraints and OC yesterday. Now he is off restraints and [place]. We will watch him off restraints. We will take his Depakote level on Wednesday morning as per psychiatry. Avoid benzodiazepine/ anticholinergic and delirium triggers. Problem List: 1. Osteomyelitis Pain Ratin Pain Location: none Pain Goal: Remain pain free Pain Plan: tylenol Tomorrow's Labs & Rationales: cbc DomoniqueTashi dietz 06/29/17 0934: Attending MD Review Statement Attending Statement Attending MD Statement: examined this patient, discuss w/resident/PA/DEALER ACCOUNT MANAGER, agreed w/resident/PA/DEALER ACCOUNT MANAGER, discussed with family, reviewed EMR data (avail), discussed with nursing, discussed with case mgmt, reviewed images, amended to note Attending Assessment/Plan: Patient agitated with need of restraints. Trial off restraints everyday. Patient is on depakote now increased to 250 tid and low dose seroquel. Metoprolol 12.5 bid. Patient needs to follow up with podiatry. Patient needs f/u psych to titrate meds. Primary caregiver his . Cont current care
[2017-06-29 15:27] VITALS: BP 128/80
[2017-06-29 21:13] VITALS: BP 154/94
[2017-06-30 05:49] VITALS: BP 144/82
--- NOTE | 2017-06-30 07:11 | PN- Housestaff ---
Garth SUBRAMANIAN,Susy 06/30/17 0710: Subjective Follow-up For: Osteomyelitis, DDD him Complaints: no complaints Subjective: Patient was seen and examined at bedside today. He was sitting in his bed comfortably and having his breakfast. He is awake, alert oriented 1. He still confused. There is 1:1 sitter +. He is off restraints and proceed. Review of Systems Constitutional: Reports: no symptoms. Comments: Review of system unobtainable as he is confused. Objective Last 24 Hrs of Vital Signs/I&O Vital Signs Date Time Temp Pulse Resp B/P B/P Pulse O2 O2 Flow FiO2 Mean Ox Delivery Rate 06/30 1457 98.7 58 18 136/88 98 Room Air 06/30 1419 64 118/64 06/30 1203 Room Air 06/30 1001 60 136/80 06/30 0618 56 144/82 06/30 0549 98.0 56 22 144/82 97 Room Air 06/29 2113 98.1 71 18 154/94 98 06/29 2052 71 154/94 06/30 2051 71 154/94 Intake & Output 06/30 1600 06/30 0800 06/30 0000 Intake Total 120 240 Output Total Balance 120 240 Intake, Oral 120 240 Number 0 Bowel Movements Physical Exam General Appearance: Alert, Cooperative, No Acute Distress Skin: No Rashes, No Breakdown HEENT: Atraumatic, PERRLA Cardiovascular: Regular Rate, Normal S1, Normal S2, No Murmurs Lungs: Clear to Auscultation, Normal Air Movement Abdomen: Normal Bowel Sounds, Soft, No Tenderness Neurological: Strength at 5/5 X4 Ext Extremities: No Edema Current Medications: Current Medications Sig/Sandra Start time Last Medication Dose Route Stop Time Status Admin Acetaminophen 650 MG Q6P PRN 06/09 1830 AC PO Allopurinol 300 MG DAILY 06/09 1828 AC 06/30 PO 1000 Apixaban 5 MG 0900,1800 06/10 0900 AC 06/30 PO 1000 Aspirin Buffered 81 MG DAILY 06/09 1828 AC 06/30 PO 1000 Bisacodyl 10 MG DAILY PRN 06/26 0000 AC 06/27 [place] 1159 Diltiazem HCl 60 MG Q8 06/19 1130 AC 06/30 PO 1419 Divalproex Sodium 250 MG TID 06/28 1600 AC 06/30 PO 1558 Metoprolol Tartrate 12.5 MG BID 06/25 1000 AC 06/30 PO 1001 Polyethylene Glycol 17 GM DAILY 06/26 1000 AC 06/30 PO 100 Quetiapine Fumarate 12.5 MG AT BEDTIME 06/22 2199 AC 06/29 PO 2049 Senna/Docusate Sodium 2 TAB DAILY 06/26 1000 AC 06/30 PO 1001 Sertraline HCl 25 MG DAILY 06/09 1830 AC 06/30 PO 100 Trazodone HCl 25 MG QPM 06/20 2199 AC 06/29 PO 2052 Last 24 Hrs of Lab/Efren Results Last 24 Hrs of Labs/Mics: Laboratory Tests 06/30/17 0723: CBC w Diff NO MAN DIFF REQ, RBC 4.58 L, MCV 94.5 H, MCH 31.5 H, MCHC 33.3, RDW 14.2, MPV 8.9, Gran % 65.1, Lymphocytes % 22.8, Monocytes % 8.9, Eosinophils % 2.9, Basophils % 0.3, Absolute Granulocytes 7.1 H, Absolute Lymphocytes 2.5, Absolute Monocytes 1.0 H, Absolute Eosinophils 0.3, Absolute Basophils 0 Lines/Diet/Fluids Restraints: 1:1 sitter Assessment/Plan Assessment: 82-year-old gentleman with past medical history of hypertension, A. fib, advanced primary progressive aphasia, dementia, gout admitted here for bilateral lower extremity osteomyelitis. Patient got his right second toe and left second and third toe amputation for the same. Patient was initially on Unasyn and then switched to vancomycin. Patient is now off antibiotics. Awaiting placement. Assessment and plan 1. Osteomyelitis Patient got his right second toe and left second and third toe amputation for the same. Patient was initially on Unasyn and then switched to vancomycin. Now off antibiotics. We'll follow him off antibiotics. We will talk to case management regarding placement. 2. Chronic medical conditions: HTN, afib on Eliquise, advanced primary progressive aphasia, idiopathic neuropathy, HTN, hyperuricemia/gout We will cotinue home medication. - Continue allopurinol, seroquel, zoloft, treazadone - continue Eliquis, metoprolol, diltiazem 3. Agitation/dementia Patient was seen by psychiatry during this admission who recently increased his Depakote to 250 3 times a day. Patient was on restraints and OC yesterday. Now he is off restraints and [place]. We will watch him off restraints. We will take his Depakote level on Wednesday morning as per psychiatry. Avoid benzodiazepine/ anticholinergic and delirium triggers. Code-DNR/DNI DVT prophylaxis-on Eliquis Problem List: 1. Osteomyelitis 2. Dementia 3. Agitation Pain Ratin Pain Location: none Pain Goal: Remain pain free Pain Plan: tylenol Tomorrow's Labs & Rationales: cbc,bep DomoniqueBerto dietzprisca 06/30/17 1209: Attending MD Review Statement Attending Statement Attending MD Statement: examined this patient, discuss w/resident/PA/PROJECT CONTROL OFFICER, agreed w/resident/PA/PROJECT CONTROL OFFICER, discussed with family, reviewed EMR data (avail), discussed with nursing, discussed with case mgmt, reviewed images, amended to note Attending Assessment/Plan: Patient agitated with need of restraints. Trial off restraints everyday. Patient is on depakote now increased to 250 tid and low dose seroquel. Metoprolol 12.5 bid. Patient needs to follow up with podiatry. Patient needs f/u psych to titrate meds. Primary caregiver his . Cont current care
[2017-06-30 08:13] LABS: ABSOLUTE BASOPHIL COUNT 0 /CUMM (0.0-0.2); ABSOLUTE EOSINOPHIL COUNT 0.3 /CUMM (0.0-0.7); ABSOLUTE GRANULOCYTE CT 7.1 /CUMM (1.4-6.5); ABSOLUTE LYMPH COUNT 2.5 /CUMM (1.2-3.4); BASOPHIL % 0.3 % (0.0-2.0); EOSINOPHIL % 2.9 % (0-5); GRANULOCYTE % 65.1 % (42.2-75.2); HEMATOCRIT 43.3 % (42-52); MEAN CORPUSCULAR HGB 31.5 PG (27.0-31.0); MEAN CORPUSCULAR HGB CONC 33.3 G/DL (33.0-37.0); MEAN CORPUSCULAR VOLUME 94.5 FL (80.0-94.0); MEAN PLATELET VOLUME 8.9 FL (7.4-10.4); RBC DISTRIBUTION WIDTH 14.2 % (11.5-14.5); RED BLOOD CELL CT 4.58 /CUMM (4.70-6.10)
[2017-06-30 08:58] LABS: PLATELET COUNT 312 /CUMM (130-400); WHITE BLOOD CELL COUNT 10.9 /CUMM (4.8-10.8)
[2017-06-30 14:57] VITALS: BP 136/88
[2017-06-30 22:49] VITALS: BP 149/93
[2017-07-01 07:01] VITALS: BP 130/84
--- NOTE | 2017-07-01 07:52 | PN- Housestaff ---
Garth SUBRAMANIAN,Susy 07/01/17 0752: Subjective Follow-up For: Osteomyelitis, delirium Complaints: no complaints Subjective: Patient seen and examined at bedside. Patient was sitting in his bed comfortably with no distress. Patient seems to be pleasantly confused not agitated. Review of system unobtainable given his dementia/delirium. Review of Systems Constitutional: Reports: no symptoms. Objective Last 24 Hrs of Vital Signs/I&O Vital Signs Date Time Temp Pulse Resp B/P B/P Pulse O2 O2 Flow FiO2 Mean Ox Delivery Rate 07/01 0933 60 130/78 07/01 0710 60 134/80 07/01 0701 98.2 60 18 130/84 97 06/30 2249 98.0 69 20 149/93 98 Room Air 06/30 2105 62 134/86 06/30 2105 62 134/82 06/30 1725 Room Air 06/30 1457 98.7 58 18 136/88 98 Room Air 06/30 1419 64 118/64 Intake & Output 07/01 1600 07/01 0800 07/01 0000 Intake Total 0 Output Total Balance 0 Intake, IV 0 Intake, Oral 0 Physical Exam General Appearance: Alert, Cooperative, No Acute Distress Skin: No Rashes, No Breakdown HEENT: Atraumatic, PERRLA Neck: Supple, No JVD Cardiovascular: Regular Rate, Normal S1, Normal S2 Lungs: Clear to Auscultation, Normal Air Movement Abdomen: Normal Bowel Sounds, Soft, No Tenderness Neurological: Strength at 5/5 X4 Ext Current Medications: Current Medications Sig/Sandra Start time Last Medication Dose Route Stop Time Status Admin Acetaminophen 650 MG Q6P PRN 06/09 1830 AC PO Allopurinol 300 MG DAILY 06/09 182 AC 07/01 PO 0933 Apixaban 5 MG 0900,1800 06/10 0900 AC 07/01 PO 0933 Aspirin Buffered 81 MG DAILY 06/09 1829 AC 07/01 PO 0933 Bisacodyl 10 MG DAILY PRN 06/26 0000 AC 06/27 ND 1159 Diltiazem HCl 60 MG Q8 06/19 1130 AC 07/01 PO 0710 Divalproex Sodium 250 MG TID 06/28 1600 AC 07/01 PO 0933 Metoprolol Tartrate 12.5 MG BID 06/25 1000 AC 07/01 PO 0933 Polyethylene Glycol 17 GM DAILY 06/26 1000 AC 07/01 PO 932 Quetiapine Fumarate 12.5 MG AT BEDTIME 06/22 2200 AC 06/30 PO 210 Senna/Docusate Sodium 2 TAB DAILY 06/26 1000 AC 07/01 PO 932 Sertraline HCl 25 MG DAILY 06/09 1830 AC 07/01 PO 09 Trazodone HCl 25 MG QPM 06/20 2200 AC 06/30 PO 210 Last 24 Hrs of Lab/Efren Results Last 24 Hrs of Labs/Mics: Laboratory Tests 07/01/17 0730: Anion Gap 11, Estimated GFR > 60, BUN/Creatinine Ratio 36.0 H Lines/Diet/Fluids Restraints: [place] Assessment/Plan Assessment: 82-year-old gentleman with past medical history of hypertension, A. fib, advanced primary progressive aphasia, dementia, gout admitted here for bilateral lower extremity osteomyelitis. Patient got his right second toe and left second and third toe amputation for the same. Patient was initially on Unasyn and then switched to vancomycin. Patient is now off antibiotics. Awaiting placement. Assessment and plan 1. Osteomyelitis Patient got his right second toe and left second and third toe amputation for the same. Patient was initially on Unasyn and then switched to vancomycin. Now off antibiotics. We'll follow him off antibiotics. Patient will be discharged to [facility] tomorrow. 2. Chronic medical conditions: HTN, afib on Eliquise, advanced primary progressive aphasia, idiopathic neuropathy, HTN, hyperuricemia/gout We will cotinue home medication. - Continue allopurinol, seroquel, zoloft, treazadone - continue Eliquis, metoprolol, diltiazem 3. Agitation/dementia Patient was seen by psychiatry during this admission who recently increased his Depakote to 250 3 times a day. Patient is on restraints and [place]. We will take his Depakote level on Wednesday morning as per psychiatry. Avoid benzodiazepine/anticholinergic and delirium triggers. Code-DNR/DNI DVT prophylaxis-on Eliquis Problem List: 1. Osteomyelitis 2. Dementia 3. Agitation Pain Ratin Pain Location: none Pain Goal: Remain pain free Pain Plan: tylenol Tomorrow's Labs & Rationales: none Jacky Sultana MD 07/01/172101: Attending MD Review Statement Attending Statement Attending MD Statement: examined this patient, discuss w/resident/PA/CREDENTIALING SPECIALIST, agreed w/resident/PA/CREDENTIALING SPECIALIST, discussed with family, reviewed EMR data (avail), discussed with nursing, discussed with case mgmt, amended to note Attending Assessment/Plan: The patient was seen and discussed with house staff, nursing, family and case management. Psychiatry input appreciated. Family evaluated possible locked demential unit in [facility] today await input from case management. Needs Geriatric Psychiatry.
[2017-07-01 13:56] VITALS: BP 132/70
[2017-07-01 23:28] VITALS: BP 103/50
--- NOTE | 2017-07-02 07:26 | PN- Housestaff ---
Susy Liang MD 07/02/17 0726: Subjective Follow-up For: Delirium, osteomyelitis Complaints: no complaints Subjective: Patient was seen and examined at bedside. He is more awake and alert and still confused. He soft restraints in [place]. He has a quality assurance monitor. Review of systems unobtainable given his condition. Review of Systems Constitutional: Reports: no symptoms. Cardiovascular: Reports: no symptoms. Respiratory: Reports: no symptoms. Gastrointestinal: Reports: no symptoms. Genitourinary: Reports: no symptoms. Musculoskeletal: Reports: no symptoms. Objective Last 24 Hrs of Vital Signs/I&O Vital Signs Date Time Temp Pulse Resp B/P B/P Pulse O2 O2 Flow FiO2 Mean Ox Delivery Rate 07/02 0841 64 120/88 07/02 0759 97.2 64 18 121/91 98 Room Air 07/02 0702 64 121/91 07/01 2328 97.5 95 20 103/50 97 Room Air 07/01 2104 95 103/50 07/01 2104 95 103/50 07/01 1405 52 132/70 07/01 1356 98.5 52 18 132/70 97 Room Air Intake & Output 07/02 1600 07/02 0800 07/02 0000 Intake Total 240 840 Output Total Balance 240 840 Intake, IV 0 0 Intake, Oral 240 840 Number 0 1 Bowel Movements Physical Exam General Appearance: Alert, Cooperative, No Acute Distress Skin: No Rashes, No Breakdown Cardiovascular: Regular Rate, Normal S1, Normal S2, No Murmurs Lungs: Clear to Auscultation Abdomen: Normal Bowel Sounds, Soft, No Tenderness Neurological: Strength at 5/5 X4 Ext, Normal Tone Extremities: No Edema, Normal Pulses Current Medications: Current Medications Sig/Sandra Start time Last Medication Dose Route Stop Time Status Admin Acetaminophen 650 MG Q6P PRN 06/09 1830 AC PO Allopurinol 300 MG DAILY 06/09 182 AC 07/02 PO 0842 Apixaban 5 MG 0900,1800 06/10 0900 AC 07/02 PO 0841 Aripiprazole 2.5 MG BID 07/01 2200 AC 07/02 PO 0842 Aspirin Buffered 81 MG DAILY 06/09 1829 AC 07/02 PO 0841 Bisacodyl 10 MG DAILY PRN 06/26 0000 AC 06/27 PA 1159 Diltiazem HCl 60 MG Q8 06/19 1130 AC 07/02 PO 0702 Divalproex Sodium 250 MG TID 06/28 1600 AC 07/02 PO 0841 Metoprolol Tartrate 12.5 MG BID 06/25 1000 AC 07/02 PO 0841 Polyethylene Glycol 17 GM DAILY 06/26 1000 AC 07/01 PO 0933 Potassium Chloride 40 MEQ ONCE ONE 07/01 1530 CAN PO 07/01 1531 Potassium Chloride 60 MEQ ONCE ONE 07/01 1530 DC 07/01 PO 07/01 1531 1603 Quetiapine Fumarate 12.5 MG AT BEDTIME 06/22 2200 DC 06/30 PO 2105 Senna/Docusate Sodium 2 TAB DAILY 06/26 1000 AC 07/02 PO 0843 Sertraline HCl 25 MG DAILY 06/09 1830 AC 07/02 PO 0842 Trazodone HCl 25 MG QPM PRN 07/01 1540 AC 07/01 PO 1955 Trazodone HCl 25 MG QPM 06/20 2200 DC 06/30 PO 2105 Last 24 Hrs of Lab/Efren Results Last 24 Hrs of Labs/Mics: Laboratory Tests 07/02/17 0725: Valproic Acid 40.8 L Assessment/Plan Assessment: 82-year-old gentleman with past medical history of hypertension, A. fib, advanced primary progressive aphasia, dementia, gout admitted here for bilateral lower extremity osteomyelitis. Patient got his right second toe and left second and third toe amputation for the same. Patient was initially on Unasyn and then switched to vancomycin. Patient is now off antibiotics. Awaiting placement. Assessment and plan 1. Osteomyelitis Patient got his right second toe and left second and third toe amputation for the same. Patient was initially on Unasyn and then switched to vancomycin. Now off antibiotics. We'll follow him off antibiotics. Awaiting placement. 2. Chronic medical conditions: HTN, afib on Eliquise, advanced primary progressive aphasia, idiopathic neuropathy, HTN, hyperuricemia/gout We will cotinue home medication. - Continue allopurinol, seroquel, zoloft, treazadone - continue Eliquis, metoprolol, diltiazem 3. Agitation/dementia Patient was seen by psychiatry during this admission who recently increased his Depakote to 250 3 times a day. Patient is on restraints and [place]. His repeat Depakote level is 40. He was seen by psychiatry who suggested to increase his Depakote level from 250-375 mg twice a day. We will check Depakote level on July 07. Avoid benzodiazepine/anticholinergic and delirium triggers. Code-DNR/DNI DVT prophylaxis-on Eliquis Problem List: 1. Osteomyelitis 2. Agitation 3. Dementia Pain Ratin Pain Location: none Pain Goal: Remain pain free Pain Plan: tylenol Tomorrow's Labs & Rationales: none Jacky Sultana MD 07/02/17 1606: Attending MD Review Statement Attending Statement Attending MD Statement: examined this patient, discuss w/resident/PA/OCCUPATIONAL REHABILITATION AIDE, agreed w/resident/PA/OCCUPATIONAL REHABILITATION AIDE, discussed with family, reviewed EMR data (avail), discussed with nursing, discussed with case mgmt, amended to note Attending Assessment/Plan: The patient was seen and discussed with house staff, family, and case management. Has bed at [facility] in [place]. OK to discharge today.
[2017-07-02 07:59] VITALS: BP 121/91
[2017-07-02] MEDS ORDERED: ABILIFY5 M1 PO (10:48)
[2017-07-02] MEDS ORDERED: DEPAKOTE SPRIN125 M1 PO ×4 (11:05→14:58)
--- NOTE | 2017-07-02 12:54 | PN- Psychiatry ---
See Addendum Assessment/Plan Impression: Antonino is an 83-year-old , male with a hx of progressive aphasia with dementia and intemittent combative behaviors, who has been in good behavioral control for the duration of today. Suggestion: -continue Abilify 2.5mg BID for mood stabilization/agitation. -VPA level 40.8, Recommend titrating Depakote sprinkles to 375mg po three times daily for mood stabilization. -recheck VPA level on 07/07/17 a.m. -continue Zoloft 25mg daily. -continue trazodone 25 mg PO q PM for insomnia, hold for QTc more than 475 mS. -avoid benzodiazepines, anticholinergics and delirium triggers. We murali continue to follow. Subjective Subjective: Patient is observed sitting calmly on bed. 1:1 sitter at bedside. He is out of estrella vest and 4 point restraints. Demonstrates good behavioral and physical control. Mood is pleasant. He is notably confused. Thinking is disorganized and he offers nonsensical answers to questions. Per nursing staff, he has brief intermittent moments of clarity and appropriately took a walk on the unit with staff. He is oriented to person only. Review of Systems: Unable to assess given present mental status. Objective Last 24 Hrs of Vital Signs/I&O Vital Signs Date Time Temp Pulse Resp B/P B/P Pulse O2 O2 Flow FiO2 Mean Ox Delivery Rate 07/02 0841 64 120/88 07/02 0759 97.2 64 18 121/91 98 Room Air 07/02 0702 64 121/91 07/01 2328 97.5 95 20 103/50 97 Room Air 07/01 2104 95 103/50 07/01 2104 95 103/50 07/01 1405 52 132/70 07/01 1356 98.5 52 18 132/70 97 Room Air Intake & Output 07/02 1600 07/02 0800 07/02 0000 Intake Total 240 840 Output Total Balance 240 840 Intake, IV 0 0 Intake, Oral 240 840 Number 0 1 Bowel Movements Current Medications: Current Medications Sig/Sandra Start time Last Medication Dose Route Stop Time Status Admin Acetaminophen 650 MG Q6P PRN 06/09 1830 AC PO Allopurinol 300 MG DAILY 06/09 1829 AC 07/02 PO 0842 Apixaban 5 MG 0900,1800 06/10 0900 AC 07/02 PO 0841 Aripiprazole 2.5 MG BID 07/01 2200 AC 07/02 PO 0842 Aspirin Buffered 81 MG DAILY 06/09 1829 AC 07/02 PO 0841 Bisacodyl 10 MG DAILY PRN 06/26 0000 AC 06/27 TN 1159 Diltiazem HCl 60 MG Q8 06/19 1130 AC 07/02 PO 0702 Divalproex Sodium 250 MG TID 06/28 1600 AC 07/02 PO 0841 Metoprolol Tartrate 12.5 MG BID 06/25 1000 AC 07/02 PO 0841 Polyethylene Glycol 17 GM DAILY 06/26 1000 AC 07/01 PO 0933 Potassium Chloride 40 MEQ ONCE ONE 07/01 1530 CAN PO 07/01 1531 Potassium Chloride 60 MEQ ONCE ONE 07/01 1530 DC 07/01 PO 07/01 1531 1603 Quetiapine Fumarate 12.5 MG AT BEDTIME 06/22 2200 DC 06/30 PO 2105 Senna/Docusate Sodium 2 TAB DAILY 06/26 1000 AC 07/02 PO 0843 Sertraline HCl 25 MG DAILY 06/09 1830 AC 07/02 PO 0842 Trazodone HCl 25 MG QPM PRN 07/01 1540 AC 07/01 PO 1955 Trazodone HCl 25 MG QPM 06/20 2200 DC 06/30 PO 2105 Results Last 24 Hrs of Labs/Mics: Laboratory Tests 07/02/17 0725: Valproic Acid 40.8 L
[2017-07-02 14:30] VITALS: BP 121/81
[2017-07-02 15:31] VITALS: BP 121/81
== END 2017-07-02 16:53 | disposition other institution (70) | DRG 504 ==
LOC: ERH 13:49 → ERHI 16:38 → 2NB 16:38 → ENRESERV 18:18 → ENTRNSPT 19:48 → EDTRNSPTSTS 19:52 → EDTRNSPT 19:52 → 2NB 20:03 → CMPTRNSPT 20:09 → 2NB 06-10 09:03 → ENTRNSPT 06-16 18:59 → EDTRNSPTSTS 06-16 19:11 → EDTRNSPT 06-16 19:11 → CMPTRNSPT 06-16 19:19 → 2NB 06-17 14:13 → ENTRNSPT 06-30 15:42 → EDTRNSPTSTS 06-30 15:47 → CMPTRNSPT 06-30 16:02 → 2NB 07-02 16:53
PROVIDERS: Hospitalist; Internal Medicine; Physician Assistant Medical; Radiology Vascular & Interventional Radiology; Student in an Organized Health Care Education/Training Program
PROC: 0Y6R0Z1 Detachment at Right 2nd Toe, High, Open Approach (ICD-10-PCS; principal; 2017-06-16)
PROC: 0Y6S0Z1 Detachment at Left 2nd Toe, High, Open Approach (ICD-10-PCS; 2017-06-16)
PROC: 0Y6U0Z1 Detachment at Left 3rd Toe, High, Open Approach (ICD-10-PCS; 2017-06-16)
DX: M86.671 Other chronic osteomyelitis, right ankle and foot (principal); F02.81 Dementia in other diseases classified elsewhere, unspecified severity, with behavioral disturbance; L03.115 Cellulitis of right lower limb; I48.91 Unspecified atrial fibrillation; G31.01 Pick's disease; L97.519 Non-pressure chronic ulcer of other part of right foot with unspecified severity; G60.9 Hereditary and idiopathic neuropathy, unspecified; E87.6 Hypokalemia; L03.116 Cellulitis of left lower limb; F05 Delirium due to known physiological condition; R44.3 Hallucinations, unspecified; B95.62 Methicillin resistant Staphylococcus aureus infection as the cause of diseases classified elsewhere; L97.529 Non-pressure chronic ulcer of other part of left foot with unspecified severity; I10 Essential (primary) hypertension; Z79.01 Long term (current) use of anticoagulants; B95.7 Other staphylococcus as the cause of diseases classified elsewhere; M10.9 Gout, unspecified; Z87.442 Personal history of urinary calculi; Z85.828 Personal history of other malignant neoplasm of skin; Z90.49 Acquired absence of other specified parts of digestive tract; Z66 Do not resuscitate
CPT/HCPCS: 2NBP; 75657; 87070; 87075; 87184; 36415; 36592; 73630-LT; 73630-RT; 81001; 82436; 87040; 87071; 87086; 87147; 88305; 93005; 93010; J2001; J2060; J3370; J3490; J7060